=== PATIENT | female | born 1960 | race Caucasian/White ===

== ENCOUNTER 2022-02-09 13:20 | Outpatient (CLI) | payer MEDICAID, SELFPAY | END 2022-02-09 13:21 | disposition home or self-care (01) | LOC: LAB 13:22 | PROVIDERS: Visit Provider Orthopaedic Surgery | DX: Z01.818 Encounter for other preprocedural examination (principal) | CPT/HCPCS: 36415; 86850; 86900; 86901 ==

== ENCOUNTER 2022-02-11 06:30 | Day surgery (SDC) | payer MEDICAID, SELFPAY ==
[2022-02-11] VITALS (63 sets, daily range): BP systolic 94–158; BP diastolic 48–94; PULSE 56–84; RESP 12–20; TEMP 35.9–36.8; O2SAT 81–100; BMI 27.4
[2022-02-11] MEDS: LACTATED RINGERS 1000 ML 1,000 ML 100 ML IV ×2 (06:45→08:14)
[2022-02-11] MEDS: CELECOXIB 200 MG CAPSULE PO ×2 (07:00→20:36)
[2022-02-11] MEDS: OXYCODONE (CR) 10 MG TAB.ER.12H PO (07:00)
[2022-02-11] MEDS: ACETAMINOPHEN 500 MG TABLET 1000 MG PO ×3 (07:00→18:47)
--- NOTE | 2022-02-11 07:08 | CRLHL7_ITS ---
For Patients: As a result of the Cures Act, medical imaging exams and procedure reports are released immediately into your electronic medical record. You may view this report before your referring provider. If you have questions, please contact your health care provider. Indication: Hip replacement surgery Technique: AP hip fluoroscopic image. Fluoroscopy time 63.6 seconds. Findings/Impression: Hardware from a left total hip arthroplasty is in satisfactory position. Dictated by Negro Young MD @ 02/11/2022 10:54:30 AM (Electronically Signed)
[2022-02-11] MEDS: MIDAZOLAM HCL 1 MG/ML inj IVP (07:25)
[2022-02-11] MEDS: fentaNYL 100 MCG/2 ML inj IVP (07:25)
--- NOTE | 2022-02-11 07:30 | SUR.PREOP ---
TIME?OUT:?20 PT/RN/MDA?VERIFICATION?OF?SURGICAL?SITE,?PROCEDURE,?AND?CONSENT OBTAINED?PRIOR?TO?INVASIVE?PROCEDURE. SITE MARKED . COMPLETED BY DR WILMER DORMAN, BAR STAFF STUDENT DEAMBROGIO
--- NOTE | 2022-02-11 07:37 | W.PM.NB ---
Nerve Block Nerve Block Time Seen by Provider: 07:38 Date Seen: 02/11/22 Type of block requested by surgeon for post-operative analgesia: LADONNA/LFCN Side: left Time out performed: Yes Verification of patient name: Yes Verification of date of : Yes Site marking: site marked Name of person performing procedure: Brent Assistants, if any: Laurambroghaylee Continuous monitoring Was continuous monitoring of O2 sat, B/P, vehicle monitor technician, recorded every 15 minutes?: Yes Procedure Checklist: sterile prep, needles and gloves Ultrasound guided. Images saved: Yes Medications given in 5ml increments after negative aspiration: Ropivicaine %: 0.5 mL: 20 Needle gauge: 20 Decadron (mg): 10 Precedex (mcg): 25 Patient tolerated procedure well: Yes Additional comments: Needle noted adjacent to nerve Block Charges Block Charge (with Pro Fee): Other Periph Nerve Block Use of Ultrasound Machine for Block: Yes- US Guidance/pain block
[2022-02-11] MEDS: CEFAZOLIN 2 GM INJ IVP (07:55)
--- NOTE | 2022-02-11 08:30 | SUR.OPER ---
PATIENT QUESTIONS ANSWERED SATISFACTORILY PREOPERATIVELY.? PATIENT BROUGHT TO OR #3 PER CART.? Patient positioned supine on OR #3 bed.?The perioperative?team supported arms bilaterally on arm boards.? Final approval of positioning by surgeon.?
--- NOTE | 2022-02-11 08:37 | SUR.OPER ---
IRRIGATED LEFT HIP WITH 3000cc BAG NACL BY PULSE/INSPECTOR WATCH PARTS AT 08:50
--- NOTE | 2022-02-11 09:20 | PM.ORPRC ---
Procedure Note Date of procedure: 02/11/22 Procedure: SURGEON: Tremaine Emanuel MD BIOLOGICAL SCIENCES INSTRUCTOR: Masha Correia PA-C, ELISEO Pan PREOPERATIVE DIAGNOSIS: Left hip osteoarthritis POSTOPERATIVE DIAGNOSIS: Left hip osteoarthritis NAME OF OPERATION: Left total hip arthroplasty IMPLANTS: 1. [employer]ad[employer] # 52 sector ingrowth cup 2. 36 x 52 +4 neutral polyethylene 3. Actis # 5 high offset collared ingrowth stem 4. 36 + 1.5 ceramic femoral head ANESTHESIA: General ESTIMATED BLOOD LOSS: 350 cc COMPLICATIONS: None SPECIMENS: None DRAINS: None PREOPERATIVE ANTIBIOTICS: Ancef 2 grams INDICATIONS: The patient is a 61-year-old with a longstanding history of severe, unrelenting left hip pain secondary to end-stage left hip osteoarthritis. Despite appropriate nonoperative management, including activity modification, use of an assist device, anti-inflammatories, [id number] pain medication, physical therapy and injections, they continue to have pain and disability. Operative intervention was offered. The risks, benefits and expected outcomes were discussed in detail. These included but were not limited to: Infection, bleeding, injury to blood vessel or nerve, venous thromboembolism. All questions were answered to their satisfaction. Use of an medical claims assistant was necessary throughout the case for patient positioning and safety, soft tissue retraction and closure. PROCEDURE: The patient was placed supine on the [place] table. General anesthesia was administered. The medical claims assistant made sure the patient was properly positioned. The left hip was prepped and draped in the usual sterile fashion. The image intensifier was brought in for a perfect AP pelvis and a perfect double tear drop AP view of each hip which were used for intraoperative templating with our fluoroscopic guide. An oblique incision was made 3 cm distal and 3 cm lateral to the anterior superior iliac spine. The medical claims assistant retracted the soft tissues to protect them. Subcutaneous dissection was taken with electrocautery to the superficial fascia. The fascia was divided in line with the incision. Blunt dissection was carried medially to the tensor fascia ida and sartorius interval. Deep dissection was carried with electrocautery. The circumflex vessels were cauterized and divided. The capsule was exposed and then divided in a T-fashion, tagged with #1 Ethibond sutures. Retractors were placed in the joint, held by the medical claims assistant. The corkscrew was placed in the femoral head. The neck cut was made in the subcapital region. We made a second neck cut more distal. The napkin ring of bone was removed. The femoral head was removed intact. Acetabular retractors were placed, held by the medical claims assistant. The labrum was sharply debrided. The capsule was released. The 43 mm reamer was used to the true medial wall. We then enlarged in 2 mm increments using the image intensifier for our reamer placement. We impacted the cup which had excellent purchase. We placed the hole eliminator and the polyethylene. Attention was then turned to the proximal femur. The limb was placed in 140 degrees of external rotation, maximum extension and adduction. A significant amount of time was spent releasing the capsule to allow us to deliver the femur into the wound and complete the femoral side safely. Retractors were held by the medical claims assistant throughout the femoral preparation. The snuff box finisher and canal finder were used. Broaches were used to a stable size. The calcar reamer was used. Trial components were placed. The hip was reduced and was found to be stable with appropriate soft tissue tension. Length and offset had been nicely restored using the image intensifier and our fluoroscopic guide. Trial components were removed. The stem was impacted. We placed the femoral head. Again, the hip was reduced and was found to be stable with appropriate soft tissue tension. Length and offset had been nicely restored. The medical claims assistant did a three minute dilute Betadine solution soak. The medical claims assistant irrigated the wound with 3 liters of normal saline via pulse lavage. The medical claims assistant repaired the anterior capsule with a #1 Vicryl and our previously placed Ethibond sutures. The medical claims assistant closed the fascia over the tensor fascia ida with a #1 PDO Stratafix, subcutaneous tissues with 2-0 Vicryl, skin with a running 3-0 Stratafix and glue. A dry dressing was applied by the medical claims assistant. Sponge and needle counts were correct x 2. The patient tolerated the procedure well; there were no apparent complications. They were awakened and extubated in the operating room, sent to the Post-Anesthesia Care Unit in satisfactory condition. PLAN: 1. The patient will be mobilized with physical therapy, weight-bearing as tolerates 2. Xarelto x 5 days then aspirin x 30 days will be used for DVT prophylaxis 3. The patient will be discharged once medically appropriate
--- NOTE | 2022-02-11 10:05 | CRLHL7_ITS ---
For Patients: As a result of the Cures Act, medical imaging exams and procedure reports are released immediately into your electronic medical record. You may view this report before your referring provider. If you have questions, please contact your health care provider. Indication: POST OP LEFT AWAIS Technique: AP hip centered pelvis and lateral view left hip Findings/Impression: Hardware from a left total hip arthroplasty is in satisfactory position. Bone alignment is normal. No sign of acute fracture. Postop changes are within normal limits. Dictated by Negro Young MD @ 02/11/2022 10:53:44 AM (Electronically Signed)
--- NOTE | 2022-02-11 10:05 | W.ANESCHARGE ---
Anesthesia Charges Start Date/Time Anesthesia Start Date: 02/11/22 Anesthesia Start Time: 07:45 Stop Date/Time Anesthesia Stop Date: 02/11/22 Anesthesia Stop Time: 09:59 Summary Emergency: No
[2022-02-11] MEDS: fentaNYL 100 MCG/2 ML inj 50 MCG IVP ×3 (10:12→10:44)
[2022-02-11] MEDS: HYDROmorphone 0.5 mg/0.5 ml inj IVP ×5 (10:21→13:41)
--- NOTE | 2022-02-11 10:36 | W.ANESCHARGE ---
Anesthesia Charges Start Date/Time Anesthesia Start Date: 02/11/22 Anesthesia Start Time: 07:45 Stop Date/Time Anesthesia Stop Date: 02/11/22 Anesthesia Stop Time: 09:59 Summary Emergency: No
[2022-02-11] MEDS: LACTATED RINGERS 1000 ML 1,000 ML 75 ML IV (11:34)
[2022-02-11] MEDS: CEFAZOLIN 1 GM in 0.9 % SODIUM CHLORIDE Mini-bag 100 ML IVPB ×2 (13:40→20:37)
[2022-02-11] MEDS: OXYCODONE 5 MG TABLET PO ×3 (13:41→20:37)
[2022-02-11] MEDS: 0.9 % SODIUM CHLORIDE 500 ML IV (19:03)
--- NOTE | 2022-02-11 20:01 | PC.NURSE ---
Pt. arrived to rm 257 @ 1100. Pain 11/01, treated w/IV dilaudid. Brought px to 09/03. Pt. sleepy, but deep breathing as prompted. Initially on 1L O2, but titrated to room air. Up to restroom x2, low urine output (175cc in 6 hrs). Bladder scan post-void 74cc. 500cc NS bolus initiated @ 1845. Tolerating regular diet, pain controlled, moving well w/SBA and walker/belt. Pt. notes hx of anxiety, may request ativan at HS. Report to DEAN Johnson.
[2022-02-11] MEDS: SENNOSIDES 1 TAB TABLET 2 TAB PO (20:37)
--- NOTE | 2022-02-11 22:26 | PC.NURSE ---
Shift note 19-23: Pt up to BR w/ SBA of 1 and walker, moving well. Rating pain 2/10 taking 5mg PRN Oxycodone Q2h along w/ active ice to op site. L hip drsg CDI, CMS intact.
[2022-02-12] MEDS: OXYCODONE 5 MG TABLET PO ×3 (00:01→11:23)
[2022-02-12] MEDS: ZOLPIDEM 5 MG TABLET PO (00:01)
[2022-02-12 03:00] VITALS: BP 124/59; PULSE 80; RESP 18; TEMP 36.6; O2SAT 94
[2022-02-12] MEDS: ACETAMINOPHEN 500 MG TABLET 1000 MG PO ×2 (04:31→11:17)
[2022-02-12] MEDS: CEFAZOLIN 1 GM in 0.9 % SODIUM CHLORIDE Mini-bag 100 ML IVPB (04:32)
--- NOTE | 2022-02-12 06:28 | PC.NURSE ---
: Pt pleasant and cooperative. SBA with walker and gb. Pt rating pain 2/10. 5mg Ambien given at HS. Pt continually verbalized to not wake her when she finally falls asleep, junior underwriter clustered cares. VSS. Dressing CDI, active ice in place.?
[2022-02-12 06:55] LABS: Basophils Percent Auto 0.1 % (0.0-3.0); Eosinophils Percent Auto 0.2 % (0.0-7.0); Hematocrit 29.7 % (33.0-51.0); Immature Granulocytes Abs Auto 0.02 K/uL (0.00-0.30); Lymphocytes Percent Auto 9.8 % (20-44); Mean Corpuscular HGB Conc 34 gm/dL (32-36); Mean Corpuscular Hemoglobin 31 pg (26-34); Mean Corpuscular Volume 92 fL (80-100); Monocytes Percent Auto 12.2 % (0.0-11.0); Neutrophils Percent Auto 77.5 % (42.0-72.0); Platelet Count* 242 K/uL (140-440); RDW Coefficient of Variation % 12.5 % (11.5-15.5); Red Blood Count 3.22 m/uL (4.00-5.20); White Blood Count* 13.04 K/uL (4.50-11.00)
[2022-02-12 06:56] LABS: Slide Review Reflex No
[2022-02-12 07:08] LABS: Chloride* 105 mmol/L (96-114); Sodium* 136 mmol/L (135-149)
[2022-02-12 07:09] LABS: Potassium* 4.2 mmol/L (3.6-5.1)
[2022-02-12 07:11] LABS: Carbon Dioxide* 29 mmol/L (20-32); Creatinine* 0.8 mg/dL (0.5-1.5); Est. Creatinine Clearance* 65.38; Estimated Glomerular Filt Rate 85 ml/min
[2022-02-12 07:12] LABS: Blood Urea Nitrogen* 13 mg/dL (7-30); Calcium* 8.2 mg/dL (8.4-10.6); Glucose* 137 mg/dL (60-115)
[2022-02-12 08:00] VITALS: BP 141/70; PULSE 76; RESP 16; TEMP 36.4; O2SAT 96
--- NOTE | 2022-02-12 08:45 | PM.ORPN ---
Subjective Subjective Time Seen by Provider: 07:30 Date Seen: 02/12/22 Principal diagnosis: Status post left hip replacement Interval history: Ailyn is comfortable at rest this morning. Ortho Exam Narrative Exam Narrative: Alert and oriented x3. Patient is in no acute distress. Converses without labored breathing. Hearing is grossly intact. Examination of the left hip shows very minimal soft tissue edema. Dressing is intact. CMS intact left lower extremity. Bilateral calves soft and nontender. Const Vital Signs, click to edit/add: Vital Signs - 24 hr 02/11/22 09:58 02/11/22 10:00 02/11/22 10:02 Temperature 98.2 F 98.2 F Pulse Rate 74 72 67 Pulse Rate [Apical] Respiratory Rate 18 Blood Pressure 158/71 H 158/71 H 127/63 Blood Pressure [Left Arm] Pulse Oximetry 97 95 91 02/11/22 10:05 02/11/22 10:06 02/11/22 10:10 Temperature Pulse Rate 70 64 64 Pulse Rate [Apical] Respiratory Rate 14 14 Blood Pressure 123/79 123/79 133/80 Blood Pressure [Left Arm] Pulse Oximetry 98 100 100 02/11/22 10:11 02/11/22 10:12 02/11/22 10:13 Temperature Pulse Rate 71 68 67 Pulse Rate [Apical] Respiratory Rate Blood Pressure 133/80 Blood Pressure [Left Arm] Pulse Oximetry 97 94 95 02/11/22 10:14 02/11/22 10:15 02/11/22 10:16 Temperature Pulse Rate 67 66 65 Pulse Rate [Apical] Respiratory Rate Blood Pressure Blood Pressure [Left Arm] Pulse Oximetry 98 100 100 02/11/22 10:17 02/11/22 10:18 02/11/22 10:19 Temperature Pulse Rate 63 64 66 Pulse Rate [Apical] Respiratory Rate Blood Pressure 147/82 H Blood Pressure [Left Arm] Pulse Oximetry 100 100 100 02/11/22 10:20 02/11/22 10:21 02/11/22 10:22 Temperature 97.4 F L Pulse Rate 65 64 62 Pulse Rate [Apical] Respiratory Rate Blood Pressure 131/66 143/63 H Blood Pressure [Left Arm] Pulse Oximetry 99 100 99 02/11/22 10:23 02/11/22 10:24 02/11/22 10:25 Temperature Pulse Rate 62 58 L 60 Pulse Rate [Apical] Respiratory Rate Blood Pressure Blood Pressure [Left Arm] Pulse Oximetry 99 98 94 02/11/22 10:26 02/11/22 10:27 02/11/22 10:28 Temperature Pulse Rate 63 61 59 L Pulse Rate [Apical] Respiratory Rate Blood Pressure 114/55 L Blood Pressure [Left Arm] Pulse Oximetry 100 100 100 02/11/22 10:29 02/11/22 10:30 02/11/22 10:31 Temperature Pulse Rate 61 61 63 Pulse Rate [Apical] Respiratory Rate Blood Pressure 112/48 L Blood Pressure [Left Arm] Pulse Oximetry 100 100 100 02/11/22 10:32 02/11/22 10:33 02/11/22 10:34 Temperature Pulse Rate 65 64 64 Pulse Rate [Apical] Respiratory Rate Blood Pressure Blood Pressure [Left Arm] Pulse Oximetry 100 100 100 02/11/22 10:35 02/11/22 10:36 02/11/22 10:37 Temperature Pulse Rate 63 63 62 Pulse Rate [Apical] Respiratory Rate Blood Pressure 131/68 Blood Pressure [Left Arm] Pulse Oximetry 99 99 100 02/11/22 10:38 02/11/22 10:39 02/11/22 10:40 Temperature Pulse Rate 61 65 65 Pulse Rate [Apical] Respiratory Rate Blood Pressure Blood Pressure [Left Arm] Pulse Oximetry 100 100 100 02/11/22 10:41 02/11/22 10:42 02/11/22 10:43 Temperature Pulse Rate 68 65 65 Pulse Rate [Apical] Respiratory Rate Blood Pressure 115/66 Blood Pressure [Left Arm] Pulse Oximetry 100 100 100 02/11/22 10:44 02/11/22 10:45 02/11/22 10:46 Temperature Pulse Rate 60 58 L 58 L Pulse Rate [Apical] Respiratory Rate Blood Pressure 111/60 Blood Pressure [Left Arm] Pulse Oximetry 100 100 100 02/11/22 10:47 02/11/22 10:48 02/11/22 10:49 Temperature Pulse Rate 56 L 56 L 62 Pulse Rate [Apical] Respiratory Rate Blood Pressure Blood Pressure [Left Arm] Pulse Oximetry 100 100 100 02/11/22 10:50 02/11/22 10:52 02/11/22 11:00 Temperature 97.8 F 97 F L Pulse Rate 62 57 L 81 Pulse Rate [Apical] 81 Respiratory Rate 12 16 Blood Pressure 104/48 L Blood Pressure [Left Arm] 94/65 Pulse Oximetry 100 100 99 02/11/22 11:15 02/11/22 11:30 02/11/22 11:45 Temperature Pulse Rate Pulse Rate [Apical] 84 83 82 Respiratory Rate 16 16 16 Blood Pressure Blood Pressure [Left Arm] 129/94 H 100/58 L 112/63 Pulse Oximetry 100 96 95 02/11/22 12:00 02/11/22 12:30 02/11/22 13:00 Temperature 97.2 F L 97.2 F L Pulse Rate Pulse Rate [Apical] 78 64 66 Respiratory Rate 16 16 16 Blood Pressure Blood Pressure [Left Arm] 110/56 L 113/52 L 113/64 Pulse Oximetry 81 L 95 97 02/11/22 13:30 02/11/22 15:18 02/11/22 16:00 Temperature 97.3 F L 97.4 F L Pulse Rate Pulse Rate [Apical] 67 69 68 Respiratory Rate 16 16 16 Blood Pressure Blood Pressure [Left Arm] 114/66 110/66 125/63 Pulse Oximetry 97 98 97 02/11/22 19:30 02/11/22 23:00 02/12/22 03:00 Temperature 96.6 F L 97.8 F 97.8 F Pulse Rate Pulse Rate [Apical] 71 69 80 Respiratory Rate 18 18 18 Blood Pressure Blood Pressure [Left Arm] 126/71 126/71 124/59 L Pulse Oximetry 98 96 94 Assessment and Plan Assessment and plan (1) S/P total left hip arthroplasty: Status: Acute Plan Plan for discharge is today to home if they meet discharge criteria. DVT prophylaxis includes Xarelto 10 mg daily for total of 5 days, then aspirin 81 mg twice daily for 30 days, Rich stockings x1 month may remove for 1 hr per day, frequent ambulation Remove dressing 1 week. Observe wound and phone Orthopedics with any questions or concerns Use Ice on operative hip unrestricted. Return to clinic in 1 week with PA for a wound check Return to clinic in [address] Emanuel Minimize narcotic use. Wean off and discontinue soon as possible. Activities as tolerated. No strenuous activity. Attend outpt PT
--- NOTE | 2022-02-12 09:12 | P.DS_ITS ---
DS: Providers Provider Date Seen: 02/12/22 Primary care physician: Not a Local Provider Consults: 02/11/22 11:21 Consult to Occupational Therapy [CONS] Routine Comment: Reason(s) for OT Consult:: ADLs Prior to Discharge Any Restrictions?:: No Restrictions Comment: Consult to Occupational Therapy [CONS] Routine Comment: Reason(s) for OT Consult:: Evaluate and Treat Any Restrictions?:: No Restrictions Consult to Physical Therapy [CONS] Routine Comment: Ambulate in the navarro today Reason(s) for PT Consult:: Evaluate and Treat Any Restrictions?:: No Restrictions Comment: Nursing Activity Consult to Physical Therapy [CONS] Routine Comment: Ambulate in the navarro today Reason(s) for PT Consult:: THR TX Protocol POD#0 Any Restrictions?:: No Restrictions Comment: Nursing Activity: See nursing activity order Consult to Physician [CONS] Routine Comment: Consulting Provider: Hospitalists Has provider been notified: No Consult to Line Analyst [CONS] Routine Comment: Reason for Consult:: Discharge Planning Needs Consult to Line Analyst [CONS] Routine Comment: Reason for Consult:: Discharge Planning Needs Attending Physician on discharge: Tremaine Emanuel MD DS: Diagnosis Discharge Diagnosis (1) S/P total left hip arthroplasty: Status: Acute DS: Summary Hospital Course Hospital Course: Patient is a 61-year-old woman who was admitted underwent left total hip arthroplasty. She recovered well there were no complications patient is discharged home this time. Time Spent with Patient Time attestation: Total time spent providing and/or coordinating discharge services: Exam Const: Vital Signs, click to edit/add: Vital Signs - 24 hr 02/11/22 09:58 02/11/22 10:00 02/11/22 10:02 Temperature 98.2 F 98.2 F Pulse Rate 74 72 67 Pulse Rate [Apical ] Respiratory Rate 18 Blood Pressure 158/71 H 158/71 H 127/63 Blood Pressure [Le ft Arm] Pulse Oximetry 97 95 91 02/11/22 10:05 02/11/22 10:06 02/11/22 10:10 Temperature Pulse Rate 70 64 64 Pulse Rate [Apical ] Respiratory Rate 14 14 Blood Pressure 123/79 123/79 133/80 Blood Pressure [Le ft Arm] Pulse Oximetry 98 100 100 02/11/22 10:11 02/11/22 10:12 02/11/22 10:13 Temperature Pulse Rate 71 68 67 Pulse Rate [Apical ] Respiratory Rate Blood Pressure 133/80 Blood Pressure [Le ft Arm] Pulse Oximetry 97 94 95 02/11/22 10:14 02/11/22 10:15 02/11/22 10:16 Temperature Pulse Rate 67 66 65 Pulse Rate [Apical ] Respiratory Rate Blood Pressure Blood Pressure [Le ft Arm] Pulse Oximetry 98 100 100 02/11/22 10:17 02/11/22 10:18 02/11/22 10:19 Temperature Pulse Rate 63 64 66 Pulse Rate [Apical ] Respiratory Rate Blood Pressure 147/82 H Blood Pressure [Le ft Arm] Pulse Oximetry 100 100 100 02/11/22 10:20 02/11/22 10:21 02/11/22 10:22 Temperature 97.4 F L Pulse Rate 65 64 62 Pulse Rate [Apical ] Respiratory Rate Blood Pressure 131/66 143/63 H Blood Pressure [Le ft Arm] Pulse Oximetry 99 100 99 02/11/22 10:23 02/11/22 10:24 02/11/22 10:25 Temperature Pulse Rate 62 58 L 60 Pulse Rate [Apical ] Respiratory Rate Blood Pressure Blood Pressure [Le ft Arm] Pulse Oximetry 99 98 94 02/11/22 10:26 02/11/22 10:27 02/11/22 10:28 Temperature Pulse Rate 63 61 59 L Pulse Rate [Apical ] Respiratory Rate Blood Pressure 114/55 L Blood Pressure [Le ft Arm] Pulse Oximetry 100 100 100 02/11/22 10:29 02/11/22 10:30 02/11/22 10:31 Temperature Pulse Rate 61 61 63 Pulse Rate [Apical ] Respiratory Rate Blood Pressure 112/48 L Blood Pressure [Le ft Arm] Pulse Oximetry 100 100 100 02/11/22 10:32 02/11/22 10:33 02/11/22 10:34 Temperature Pulse Rate 65 64 64 Pulse Rate [Apical ] Respiratory Rate Blood Pressure Blood Pressure [Le ft Arm] Pulse Oximetry 100 100 100 02/11/22 10:35 02/11/22 10:36 02/11/22 10:37 Temperature Pulse Rate 63 63 62 Pulse Rate [Apical ] Respiratory Rate Blood Pressure 131/68 Blood Pressure [Le ft Arm] Pulse Oximetry 99 99 100 02/11/22 10:38 02/11/22 10:39 02/11/22 10:40 Temperature Pulse Rate 61 65 65 Pulse Rate [Apical ] Respiratory Rate Blood Pressure Blood Pressure [Le ft Arm] Pulse Oximetry 100 100 100 02/11/22 10:41 02/11/22 10:42 02/11/22 10:43 Temperature Pulse Rate 68 65 65 Pulse Rate [Apical ] Respiratory Rate Blood Pressure 115/66 Blood Pressure [Le ft Arm] Pulse Oximetry 100 100 100 02/11/22 10:44 02/11/22 10:45 02/11/22 10:46 Temperature Pulse Rate 60 58 L 58 L Pulse Rate [Apical ] Respiratory Rate Blood Pressure 111/60 Blood Pressure [Le ft Arm] Pulse Oximetry 100 100 100 02/11/22 10:47 02/11/22 10:48 02/11/22 10:49 Temperature Pulse Rate 56 L 56 L 62 Pulse Rate [Apical ] Respiratory Rate Blood Pressure Blood Pressure [Le ft Arm] Pulse Oximetry 100 100 100 02/11/22 10:50 02/11/22 10:52 02/11/22 11:00 Temperature 97.8 F 97 F L Pulse Rate 62 57 L 81 Pulse Rate [Apical ] 81 Respiratory Rate 12 16 Blood Pressure 104/48 L Blood Pressure [Le ft Arm] 94/65 Pulse Oximetry 100 100 99 02/11/22 11:15 02/11/22 11:30 02/11/22 11:45 Temperature Pulse Rate Pulse Rate [Apical ] 84 83 82 Respiratory Rate 16 16 16 Blood Pressure Blood Pressure [Le ft Arm] 129/94 H 100/58 L 112/63 Pulse Oximetry 100 96 95 02/11/22 12:00 02/11/22 12:30 02/11/22 13:00 Temperature 97.2 F L 97.2 F L Pulse Rate Pulse Rate [Apical ] 78 64 66 Respiratory Rate 16 16 16 Blood Pressure Blood Pressure [Le ft Arm] 110/56 L 113/52 L 113/64 Pulse Oximetry 81 L 95 97 02/11/22 13:30 02/11/22 15:18 02/11/22 16:00 Temperature 97.3 F L 97.4 F L Pulse Rate Pulse Rate [Apical ] 67 69 68 Respiratory Rate 16 16 16 Blood Pressure Blood Pressure [Le ft Arm] 114/66 110/66 125/63 Pulse Oximetry 97 98 97 02/11/22 19:30 02/11/22 23:00 02/12/22 03:00 Temperature 96.6 F L 97.8 F 97.8 F Pulse Rate Pulse Rate [Apical ] 71 69 80 Respiratory Rate 18 18 18 Blood Pressure Blood Pressure [Le ft Arm] 126/71 126/71 124/59 L Pulse Oximetry 98 96 94 DS: Data Data Completed and Pending Labs on day of discharge: Labs from last 24 hours 02/12/22 02/12/22 05:57 05:57 WBC 13.04 H RBC 3.22 L Hgb 10.0 L Hct 29.7 L MCV 92 MCH 31 MCHC 34 RDW Coeff of Kristofer 12.5 Plt Count 242 Neut % (Auto) 77.5 H Lymph % (Auto) 9.8 L [place] % (Auto) 12.2 H Eos % (Auto) 0.2 Baso % (Auto) 0.1 Neut # (Auto) 10.10 H Lymph # (Auto) 1.30 [place] # (Auto) 1.60 H Eos # (Auto) 0.00 Baso # (Auto) 0.00 Abs Immat Gran (auto) 0.02 Sodium 136 Potassium 4.2 Chloride 105 Carbon Dioxide 29 BUN 13 Creatinine 0.8 Estimated Creat Clear 65.38 Estimated GFR 85 Glucose 137 H Calcium 8.2 L Discharge Plan Discharge Disposition: Home, Self-Care Discharging Surgeon: Tremaine Emanuel Follow-Up Appointment: One week Prescriptions: New acetaminophen 500 mg Tablet 500 - 1,000 mg PO Q6H MDD 4000 mg per day PRNQty: 100 0RF oxycodone 5 mg Tablet 2.5 - 5 mg PO Q4-6H MDD 6 tabs per day PRN (Reason: Pain) Qty: 42 0RF Rx Instructions: Minimize. Discontinue soon as possible Xarelto 10 mg Tablet 10 mg PO DAILY 4 Days Qty: 4 0RF Rx Instructions: For DVT prophylaxis: Take this medication daily for 4 days, then aspirin 81 mg twice daily for 30 days. sennosides [Senna Lax] 8.6 mg Tablet 2 tab PO BID PRNQty: 100 0RF aspirin 81 mg tablet,chewable 81 mg PO BID 30 Days Qty: 60 0RF No Action buspirone 30 mg tablet 30 mg PO BID 0RF aripiprazole 2 mg tablet 2 mg PO DAILY 0RF calcium carbonate-vitamin D3 [Oysco 500/D] 500 mg-5 mcg (200 unit) tablet 1 tab PO BID 0RF cetirizine 10 mg capsule 10 mg PO DAILY PRN0RF duloxetine 60 mg capsule,delayed release(DR/EC) 120 mg PO DAILY 0RF famotidine 20 mg tablet 20 mg PO BID 0RF Rx Instructions: take for 90 days fluticasone propionate [Allergy Relief (fluticasone)] 50 mcg/actuation spray,suspension 1 spray intranasal DAILY 0RF Rx Instructions: administer into each nostril gabapentin 300 mg capsule 300 mg PO DAILY 0RF hydrocodone-acetaminophen 5-325 mg tablet 1 tab PO DAILY PRN (Reason: pain) 0RF lorazepam 0.5 mg tablet 0.5 mg PO DAILY 0RF omeprazole 20 mg capsule,delayed release(DR/EC) 20 mg PO DAILY 0RF rizatriptan 10 mg tablet 10 mg PO Q2-4H PRN0RF Rx Instructions: do not exceed 3 doses per 24 hrs zolpidem 10 mg tablet HS 0RF Activity Level: Activity as Tolerated Activity Detail: Keep dressing on for 1 week. Dressing is waterproof. May shower. Surgical glue covers the wound. Attend outpatient physical therapy if scheduled. Ice operative extremity without restriction. Wear compression stockings for 1 month post surgery. May remove for 1 hour per day. Do not drive while taking narcotic pain medication. Do not drink alcohol while taking narcotic pain medication. May drive when safe to do so and have full function of the extremities, this may take 6 weeks. Notify Orthopedics with any questions or concerns. ([phone]) Discharge Diet: Regular Forms: Work/Release Restrictions Follow-up: [facility] [Other] - 02/18/22 1:00 pm Kimmy Neff PA-C [Physician Clinical Documentation Improvement Specialist] - 02/18/22 11:20 am Provider,Not a Local [Primary Care Provider] - Discharge Orders: Discharge Order (Routine); Ordered 02/12/22 Ordered By: Long Mullen
[2022-02-12] MEDS: RIVAROXABAN 10 MG TABLET PO (09:36)
[2022-02-12] MEDS: CELECOXIB 200 MG CAPSULE PO (09:36)
[2022-02-12] MEDS: SENNOSIDES 1 TAB TABLET 2 TAB PO (09:37)
--- NOTE | 2022-02-12 14:13 | PC.NURSE ---
shift note: vss stable. pt afeb. pt rating lt hip pain as high as 8/10 but with oxycodone and tylenol given pt states pain 3-4/10 by dc. pt up with sba with steady gait. cms intact. incision drsg intact. Reviewed dc instructions and questions addressed. IV dc'd intact Rt wrist. Belongings reviewed and sent with pt at dc. Reviewed with pt s/s of dvt. Reviewed with pt to keep using IS, teds and doing exercises as instructed.
== END 2022-02-12 13:15 | disposition home or self-care (01) ==
LOC: OR 06:39 → MEDSURG 06:45
PROVIDERS: Visit Provider Orthopaedic Surgery
PROC: (CPT 27130; principal; 2022-02-11 07:45)
DX: M16.12 Unilateral primary osteoarthritis, left hip (principal); I10 Essential (primary) hypertension; J44.9 Chronic obstructive pulmonary disease, unspecified; M51.36 Other intervertebral disc degeneration, lumbar region; M54.16 Radiculopathy, lumbar region; M43.10 Spondylolisthesis, site unspecified
CPT/HCPCS: 27130; 01214; 36415; 51798; 64445; 73501; 76000; 76942; 80048; 85025; 97110; 97116; 97161; 97165; A9270; C1776; J0330; J0690; J1100; J1170; J2250; J2370; J2405; J2704; J2710; J2795; J3010; J3490; J7120

== ENCOUNTER 2022-03-04 13:00 | Outpatient (RCR) | payer MEDICAID, SELFPAY ==
--- NOTE | 2022-02-11 12:40 | P.IMCN_ITS ---
Date of Consult Patient: Tramaine Patient Requesting Physician: Orthopedics Consult Narrative Reason for consult: Left total hip arthroplasty Narrative: Ailyn Barrett is a 61 year old female who underwent successful left total hip arthroplasty earlier this morning. She feels well and has had no major concerns since her procedure. I have reviewed her outpatient records. Review of Systems Status of ROS: Reports: 10 or more systems reviewed and unremarkable except as noted in History and below [facility] Medical History (Updated 02/09/22 @ 13:22 by Lito Lemos RN) Adenomatous colon polyp Chronic fatigue syndrome Controlled substance agreement signed COPD (chronic obstructive pulmonary disease) DDD (degenerative disc disease), lumbar Encounter for screening for severe acute respiratory syndrome coronavirus 2 (SARS-CoV-2) infection Epiretinal membrane (ERM), bilateral Essential (primary) hypertension Fibromyalgia JONY (generalized anxiety disorder) HSV-1 (herpes simplex virus 1) infection MDD (major depressive disorder) 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 [facility] drug therapy Panic disorder without agoraphobia Presbyopia Regular astigmatism, bilateral Rosacea, unspecified Social anxiety disorder Spondylolisthesis Unspecified contact dermatitis, unspecified cause Surgical History (Updated 02/11/22 @ 12:43 by Long Mullen MD) S/P total left hip arthroplasty Family History (Updated 01/13/22 @ 10:24 by Jessica Hewitt) Other Diabetes Social History (Updated 01/13/22 @ 10:25 by Jessica Hewitt) Narrative: Marital Status: 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 Alcohol Use: Yes (1 X MONTH) Recreational Drug Use: No Highest level of school completed/degree received: Bachelor's degree Smoking Status: Never smoker Do you use any of these nicotine containing products: None How often do you have a drink containing alcohol: 2-4 times a month Alcohol type: wine How many standard drinks containing alcohol do you have on a typical day: 1 or 2 How often do you have six or more drinks on one occasion: Never AUDIT-C Alcohol total score: 2 Non-prescribed substance use: denies use Caffeine: No Meds Home Medications and Allergies Home Medications Medication Instructions Recorded Confirmed Type aripiprazole 2 mg tablet 2 mg PO DAILY 02/09/22 02/09/22 History buspirone 30 mg tablet 30 mg PO BID 02/09/22 02/11/22 History calcium carbonate 500 mg-vitamin 1 tab PO BID 02/09/22 02/11/22 History D3 5 mcg (200 unit) tablet (Oysco 500/D) cetirizine 10 mg capsule 10 mg PO DAILY PRN 02/09/22 02/11/22 History duloxetine 60 mg capsule,delayed 120 mg PO DAILY 02/09/22 02/11/22 History release famotidine 20 mg tablet 20 mg PO BID 02/09/22 02/11/22 History fluticasone propionate 50 1 spray INTRANASAL DAILY 02/09/22 02/11/22 History mcg/actuation nasal spray,suspension (Allergy Relief (fluticasone)) gabapentin 300 mg capsule 300 mg PO DAILY 02/09/22 02/11/22 History hydrocodone 5 mg-acetaminophen 325 1 tab PO DAILY PRN 02/09/22 02/11/22 History mg tablet lorazepam 0.5 mg tablet 0.5 mg PO DAILY 02/09/22 02/11/22 History omeprazole 20 mg capsule,delayed 20 mg PO DAILY 02/09/22 02/11/22 History release rizatriptan 10 mg tablet 10 mg PO Q2-4H PRN 02/09/22 02/09/22 History zolpidem 10 mg tablet mg HS 02/09/22 History Allergies Allergy/AdvReac Type Severity Reaction Status Date / Time codeine Allergy Unknown Vomiting Verified 02/11/22 07:21 metoclopramide AdvReac Intermediate Anxiety Verified 02/11/22 07:21 Exam Narrative: Exam Narrative: EXAM GENERAL: Patient appears comfortable and well. EYES: No scleral icterus. LYMPH: No supraclavicular or cervical lymphadenopathy. SKIN: Visible skin seen during exam normal or with benign process only. EXT: No dependent lower extremity pedal edema. Left hip is sterilely dressed. HEART: Regular rate and rhythm with no murmurs, rubs, or gallops. LUNGS: Clear to auscultation bilaterally with no crackles or wheezes. ABD: Soft, non tender, non distended. PSYCH: Good eye contact, speech is not pressured. Assessment and Plan Assessment and plan (1) S/P total left hip arthroplasty: Status: Acute Plan I have reviewed the patient's records. She has history of hypertension, generalized anxiety disorder fibromyalgia but no other major obstacles to her recovery. Will continue medical management and plan to see her back for discharge tomorrow for things go well. She is to be a full code. She is receiving adequate DVT prophylaxis.
== END 2022-03-18 14:04 | disposition home or self-care (01) ==
PROVIDERS: Visit Provider Orthopaedic Surgery
DX: M25.552 Pain in left hip (principal); Z96.642 Presence of left artificial hip joint; Z51.89 Encounter for other specified aftercare
CPT/HCPCS: 97110; 97164

== ENCOUNTER 2022-03-04 15:57 | Emergency (ER) | payer MEDICAID, SELFPAY ==
[2022-03-04 16:15] VITALS: BP 161/88; PULSE 63; RESP 14; TEMP 37.1; O2SAT 97; BMI 25.5
--- NOTE | 2022-03-04 16:44 | ED.PSYCH ---
HPI - Psych General Time Seen by Provider: 16:44 <Mary Cassidy MD - Last Filed: 03/04/22 19:41> Date Seen: 03/04/22 <Mary Cassidy MD - Last Filed: 03/04/22 19:41> Chief Complaint: Psychiatric Problem/Disorder <Mary Cassidy MD - Last Filed: 03/04/22 19:41> Stated Complaint: DEPRESSION-Psychiatrist recommended ER <Mary Cassidy MD - Last Filed: 03/04/22 19:41> Time Seen by Provider: 03/04/22 15:59 <Mary Cassidy MD - Last Filed: 03/04/22 19:41> Source: patient and RN notes reviewed <Mary Cassidy MD - Last Filed: 03/04/22 19:41> Mode of arrival: ambulatory <Mary Cassidy MD - Last Filed: 03/04/22 19:41> Limitations: no limitations <Mary Cassidy MD - Last Filed: 03/04/22 19:41> History of Present Illness HPI Narrative: This tearful and anxious 61-year-old female is here for mental health evaluation. She is feeling anxious and depressed. She admits that she thinks about taking pills to end her life. She also admits she is not sure she ever really do it but states she is miserable and just does not want to be here anymore. She states she fucked up her life. She states about a year ago she bought a house, the same time her hip when out and she ended up having to have a subsequent hip replacement. 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 She has been on Cymbalta and BuSpar for anxiety. She states her psychiatrist added in gabapentin about a week ago. She talks about her brother's having to help her financially, breaks down into tears when she thinks about having to lose her house. She has a daughter in college but bite her daughter husky and states she did not really want the dog. Her brother's recommend that she rented trailer at this park in the summer and then 1 of their cabins in the winter, the thought of that just makes her cry. She admits that the only way she got to the last week is drinking wine. She did not have any more wine yesterday, ran out. She is wondering if she could be withdrawing from Vicodin. She is to use Vicodin for her fibromyalgia but admits that it made her feel more calm inside in gave her confidence. She would at most take 1 or 2 pills a day. She just randomly quit in December and did not take anymore. She is wondering if she could still be in withdrawal from the Vicodin. I have reviewed with her that if she is sure she has not taken any since the beginning of December, she really should not have physiologic dependence on this any further. She uses Ambien to sleep, has a 10 mg tablet, tries to cut in half so she does not become dependent on this. She has sleep issues if she does not use it. She has used some Ativan. She talks about ruminating thoughts of all these social stressors in her head. Her psychiatrist had wanted her to come in a week ago but she thought she could maybe get by. <Mary Cassidy MD - Last Filed: 03/04/22 19:41> MD complaint: suicidal ideation, feels depressed and other (Significant anxiety) <Mary Cassidy MD - Last Filed: 03/04/22 19:41> Related Data Home Medications: Home Medications Medication Instructions Recorded Confirmed buspirone 30 mg tablet 30 mg PO BID 02/09/22 03/04/22 calcium carbonate 500 mg-vitamin 1 tab PO BID 02/09/22 02/18/22 D3 5 mcg (200 unit) tablet (Oysco 500/D) cetirizine 10 mg capsule 10 mg PO DAILY PRN 02/09/22 02/18/22 duloxetine 60 mg capsule,delayed 120 mg PO DAILY 02/09/22 03/04/22 release famotidine 20 mg tablet 20 mg PO BID 02/09/22 02/18/22 fluticasone propionate 50 1 spray intranasal DAILY 02/09/22 02/18/22 mcg/actuation nasal spray,suspension (Allergy Relief (fluticasone)) hydrocodone 5 mg-acetaminophen 325 1 tab PO DAILY PRN pain 02/09/22 02/18/22 mg tablet lorazepam 0.5 mg tablet 0.5 mg PO DAILY 02/09/22 02/18/22 rizatriptan 10 mg tablet 10 mg PO Q2-4H PRN 02/09/22 03/04/22 zolpidem 10 mg tablet mg HS 02/09/22 02/18/22 gabapentin 300 mg capsule mg 03/04/22 Previous Rx's Medication Instructions Recorded acetaminophen 500 mg tablet 500 - 1,000 mg PO Q6H PRN #100 tabs 02/11/22 aspirin 81 mg chewable tablet 81 mg PO BID 30 days #60 tabs 02/11/22 rivaroxaban 10 mg tablet (Xarelto) 10 mg PO DAILY 4 days #4 tabs 02/11/22 sennosides 8.6 mg tablet (Senna 2 tab PO BID PRN #100 tabs 02/11/22 Lax) ondansetron HCl 4 mg tablet 4 mg PO Q6H PRN nausea and 02/18/22 vomiting #40 tabs oxycodone 5 mg tablet 2.5 - 5 mg PO Q4-6H PRN Pain #30 02/18/22 tabs <Mary Cassidy MD - Last Filed: 03/04/22 19:41> Allergies/Adverse Reactions: Allergies Allergy/AdvReac Type Severity Reaction Status Date / Time codeine Allergy Unknown Vomiting Verified 02/11/22 07:21 metoclopramide AdvReac Intermediate Anxiety Verified 02/11/22 07:21 <Mary Cassidy MD - Last Filed: 03/04/22 19:41> Review of Systems Status of ROS: Reports: 10 or more systems reviewed and unremarkable except as noted in History and below <Mary Cassidy MD - Last Filed: 03/04/22 19:41> [facility] Medical History: Medical History Adenomatous colon polyp Chronic fatigue syndrome Controlled substance agreement signed COPD (chronic obstructive pulmonary disease) DDD (degenerative disc disease), lumbar Encounter for screening for severe acute respiratory syndrome coronavirus 2 (SARS-CoV-2) infection Epiretinal membrane (ERM), bilateral Essential (primary) hypertension Fibromyalgia JONY (generalized anxiety disorder) HSV-1 (herpes simplex virus 1) infection MDD (major depressive disorder) 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 Panic disorder without agoraphobia Presbyopia Regular astigmatism, bilateral Rosacea, unspecified Social anxiety disorder Spondylolisthesis Unspecified contact dermatitis, unspecified cause <Mary Cassidy MD - Last Filed: 03/04/22 19:41> Surgical History: Surgical History S/P total left hip arthroplasty <Mary Cassidy MD - Last Filed: 03/04/22 19:41> Family History: Family History Other Diabetes <Mary Cassidy MD - Last Filed: 03/04/22 19:41> Social History: Social History Narrative: Marital Status: 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 Alcohol Use: Yes (1 X MONTH) Recreational Drug Use: No Highest level of school completed/degree received: Bachelor's degree Smoking Status: Never smoker Do you use any of these nicotine containing products: None How often do you have a drink containing alcohol: 2-4 times a month Alcohol type: wine How many standard drinks containing alcohol do you have on a typical day: 1 or 2 How often do you have six or more drinks on one occasion: Never AUDIT-C Alcohol total score: 2 Non-prescribed substance use: denies use Caffeine: No <Mary Cassidy MD - Last Filed: 03/04/22 19:41> Exam Const: Vital Signs, click to edit/add: Vital Signs - 24 hr 03/04/22 16:15 03/04/22 22:00 Temperature 98.7 F 98.4 F Pulse Rate [Pulse Oximeter] 63 66 Respiratory Rate 14 18 Blood Pressure [Ri ght Upper Arm] 161/88 H 131/77 Pulse Oximetry 97 98 Oxygen Delivery Me thod Room Air Room Air <Mary Cassidy MD - Last Filed: 03/04/22 19:41> Vital Signs, click to edit/add: Vital Signs - 24 hr 03/04/22 16:15 03/04/22 22:00 Temperature 98.7 F 98.4 F Pulse Rate [Pulse Oximeter] 63 66 Respiratory Rate 14 18 Blood Pressure [Ri ght Upper Arm] 161/88 H 131/77 Pulse Oximetry 97 98 Oxygen Delivery Me thod Room Air Room Air <Benigno Espinoza MD - Last Filed: 03/05/22 00:00> Documenting provider has reviewed patient's vital signs: yes <Mary Cassidy MD - Last Filed: 03/04/22 19:41> Common normals: average body habitus, oriented x3, no limitations, healthy appearing and alert <Mary Cassidy MD - Last Filed: 03/04/22 19:41> General appearance: cooperative, comfortable, well kempt, in distress (Crying, anxious at times as well.) and anxious <Mary Cassidy MD - Last Filed: 03/04/22 19:41> HENMT: Common normals: normocephalic, head/scalp atraumatic, hearing grossly normal bilaterally, external ears normal, external nose normal, nasal mucous membranes and turbinates normal, moist oral mucous membranes, oropharynx normal, dentition normal and gingiva normal <Mary Cassidy MD - Last Filed: 03/04/22 19:41> Head and scalp: normocephalic and atraumatic <Mary Cassidy MD - Last Filed: 03/04/22 19:41> Nose: external nose normal and nasal mucous membranes and turbinates normal <Mary Cassidy MD - Last Filed: 03/04/22 19:41> External ear: external ears normal <Mary Cassidy MD - Last Filed: 03/04/22 19:41> Eye: Common normals: PERRL, EOMs intact bilaterally, conjunctivae normal and no scleral icterus <Mary Cassidy MD - Last Filed: 03/04/22 19:41> Conjunctiva: conjunctiva(e) normal <Mary Cassidy MD - Last Filed: 03/04/22 19:41> Pupil: PERRL <Mary Cassidy MD - Last Filed: 03/04/22 19:41> Neck & C-Spine: Common normals: full ROM, no lymphadenopathy, supple, no meningeal signs, no JVD and thyroid normal <Mary Cassidy MD - Last Filed: 03/04/22 19:41> Thyroid: thyroid normal <Mary Cassidy MD - Last Filed: 03/04/22 19:41> Resp: Common normals: normal respiratory effort, no retractions, no use of accessory muscles and clear to auscultation bilaterally <Mary Cassidy MD - Last Filed: 03/04/22 19:41> Auscultation: clear to auscultation bilaterally <Mary Cassidy MD - Last Filed: 03/04/22 19:41> Cardio: Common normals: no JVD, regular rate, regular rhythm, S1 normal heart sound, S2 normal heart sound, no gallops and no clicks <Mary Cassidy MD - Last Filed: 03/04/22 19:41> Rate: regular rate <Mary Cassidy MD - Last Filed: 03/04/22 19:41> Rhythm: regular rhythm <Mary Cassidy MD - Last Filed: 03/04/22 19:41> Heart sounds: S1 normal, S2 normal and murmur (Soft 1 to 2/6 systolic murmur) <Mary Cassidy MD - Last Filed: 03/04/22 19:41> GI: Common normals: Normal to inspection, nondistended, normoactive bowel sounds present, soft to palpation, non-tender, no hepatosplenomegaly and no masses <Mary Cassidy MD - Last Filed: 03/04/22 19:41> Palpation: soft and no hepatosplenomegaly <Mary Cassidy MD - Last Filed: 03/04/22 19:41> Extremity: Common normals: normal to inspection, full ROM, normal capillary refill, no joint enlargement, no clubbing, cyanosis or edema, no calf tenderness and no pedal edema (Has bilateral lower extremity Rich hose on) <Mary Cassidy MD - Last Filed: 03/04/22 19:41> Neuro: James Coma Scale: document GCS findings [place] coma scale eye opening: Spontaneous (4) [place] coma scale verbal response: Orientated (5) [place] coma scale motor response: Obey commands (6) [place] coma scale total score: 15 <Mary Cassidy MD - Last Filed: 03/04/22 19:41> Jmaes Coma Scale: document GCS findings [place] coma scale total score: 15 <Benigno Espinoza MD - Last Filed: 03/05/22 00:00> Common normals: oriented x3, CN's II-XII intact bilaterally, moves all extremities, no focal motor deficits and no sensory deficits noted <Mary Cassidy MD - Last Filed: 03/04/22 19:41> Sensorium/orientation: alert <Mary Cassidy MD - Last Filed: 03/04/22 19:41> Meningeal signs: no meningeal signs <Mary Cassidy MD - Last Filed: 03/04/22 19:41> Psych: Common normals: thought process normal (At times normal thought process to more racing occas), cooperative, denies hallucinations and denies homicidal ideation <Mary Cassidy MD - Last Filed: 03/04/22 19:41> Appearance: grossly normal and well kempt <Mary Cassidy MD - Last Filed: 03/04/22 19:41> Activity/motor behavior: appropriate eye contact <Mary Cassidy MD - Last Filed: 03/04/22 19:41> Speech: excessive and rapid <Mary Cassidy MD - Last Filed: 03/04/22 19:41> Mood and affect: depressed mood and anxious <Mary Cassidy MD - Last Filed: 03/04/22 19:41> Thought process: normal thought process (At times normal thought process to more racing occas) <Mary Cassidy MD - Last Filed: 03/04/22 19:41> Attention/concentration: attention grossly intact <Mary Cassidy MD - Last Filed: 03/04/22 19:41> Memory/cognition: memory grossly intact <Mary Cassidy MD - Last Filed: 03/04/22 19:41> Insight: insight good <Mary Cassidy MD - Last Filed: 03/04/22 19:41> Skin: Common normals: no rashes or lesions noted <Mary Cassidy MD - Last Filed: 03/04/22 19:41> General skin exam: no rashes or lesions noted <Mary Cassidy MD - Last Filed: 03/04/22 19:41> Course Course Hospital Course: Have ordered appropriate lab work, will do telehealth consultation. I reviewed with Ailyn that I do not feel that this is a withdrawal issue from narcotics if she indeed has not had any since the beginning of December. This more likely is mental health issues with mood disorder. Do wonder if the alcohol as well as the Vicodin have been being used to mask some of her mood disorder symptoms. I have spoken with Ward from telehealth who will be doing her interview. Will await his input and her labs. <aMry Cassidy MD - Last Filed: 03/04/22 19:41> Reevaluation(s) Reevaluation #1: Have already heard back from Ward regarding the telehealth consultation. He states she is ?a basket case?, these are her words. He is going to refer her for inpatient. She has access to medicines at home. She also has a gun at home but states she does not like them. He feels it would be safest for her to do inpatient to try to help sort this out. We will await our laboratory evaluation to come back, I am going to give her Ativan 1 mg orally to try to help calm her down a bit. Ward asked if we could do this. If Ativan isn't helping, we can consider some Zyprexa or possibly even hydroxyzine depending on how her symptoms are. <Mary Cassidy MD - Last Filed: 03/04/22 19:41> Time: 17:40 <Mary Cassidy MD - Last Filed: 03/04/22 19:41> Reevaluation #2: Patient had requested to talk to me. We reviewed that Ward had recommended hospitalization, also recommended that she take Ativan. She started to get more anxious about the hospitalization process, realizing that we had to work to find placement. Reviewed with her that sometimes it can take us a day or so in most cases for hospitalization. She wanted to know what would happen if she disc decided to leave. I reviewed with her at this point that I did not feel safe with her doing that, I really think she needs clearance from psychiatry. I do believe this patient is holdable if need be. She still maintains voluntary status here which is preferable. I would much rather try to work with her and have her see the necessity of getting a psychiatric help for her condition. She does agree to take the Ativan. I have ordered 1 mg orally. <Mary Cassidy MD - Last Filed: 03/04/22 19:41> Time: 18:40 <Mary Cassidy MD - Last Filed: 03/04/22 19:41> Vital Signs Vital signs: Initial Vital Signs Temperature 98.7 F 03/04/22 16:15 Temperature Source Temporal Artery Scan 03/04/22 16:15 Pulse Rate 63 03/04/22 16:15 Pulse Rhythm 03/04/22 16:15 Respiratory Rate 14 03/04/22 16:15 Blood Pressure 161/88 H 03/04/22 16:15 Blood Pressure Mean 112 03/04/22 16:15 Blood Pressure Position Supine 03/04/22 16:15 Pulse Oximetry 97 03/04/22 16:15 Oxygen Delivery Method 03/04/22 16:15 Vital Signs Temperature 98.7 F 03/04/22 16:15 Pulse Rate 63 03/04/22 16:15 Respiratory Rate 14 03/04/22 16:15 Blood Pressure 161/88 H 03/04/22 16:15 Pulse Oximetry 97 03/04/22 16:15 Oxygen Delivery Method 03/04/22 16:15 Temperature 98.4 F 03/04/22 22:00 Pulse Rate 66 03/04/22 22:00 Respiratory Rate 18 03/04/22 22:00 Blood Pressure 131/77 03/04/22 22:00 Pulse Oximetry 98 03/04/22 22:00 Oxygen Delivery Method 03/04/22 22:00 <Mary Cassidy MD - Last Filed: 03/04/22 19:41> Initial Vital Signs Temperature 98.7 F 03/04/22 16:15 Temperature Source Temporal Artery Scan 03/04/22 16:15 Pulse Rate 63 03/04/22 16:15 Pulse Rhythm 03/04/22 16:15 Respiratory Rate 14 03/04/22 16:15 Blood Pressure 161/88 H 03/04/22 16:15 Blood Pressure Mean 112 03/04/22 16:15 Blood Pressure Position Supine 03/04/22 16:15 Pulse Oximetry 97 03/04/22 16:15 Oxygen Delivery Method 03/04/22 16:15 Vital Signs Temperature 98.7 F 03/04/22 16:15 Pulse Rate 63 03/04/22 16:15 Respiratory Rate 14 03/04/22 16:15 Blood Pressure 161/88 H 03/04/22 16:15 Pulse Oximetry 97 03/04/22 16:15 Oxygen Delivery Method 03/04/22 16:15 Temperature 98.4 F 03/04/22 22:00 Pulse Rate 66 03/04/22 22:00 Respiratory Rate 18 03/04/22 22:00 Blood Pressure 131/77 03/04/22 22:00 Pulse Oximetry 98 03/04/22 22:00 Oxygen Delivery Method 03/04/22 22:00 <Benigno Espinoza MD - Last Filed: 03/05/22 00:00> MDM - Psych Lab Data Attestation: I reviewed the patient's lab results. <Mary Cassidy MD - Last Filed: 03/04/22 19:41> Labs: Lab Results 03/04/22 03/04/22 03/04/22 Range/Units 16:51 16:51 16:51 WBC (4.50-11.00) K/uL RBC (4.00-5.20) m/uL Hgb (12.0-16.0) gm/dL Hct (33.0-51.0) % MCV (80-100) fL MCH (26-34) pg MCHC (32-36) gm/dL RDW Coeff of [place] (11.5-15.5) % Plt Count (140-440) K/uL Neut % (Auto) (42.0-72.0) % Lymph % (Auto) (20-44) % [place] % (Auto) (0.0-11.0) % Eos % (Auto) (0.0-7.0) % Baso % (Auto) (0.0-3.0) % Neut # (Auto) (1.7-7.0) K/uL Lymph # (Auto) (0.90-2.90) K/uL [place] # (Auto) (0.00-0.90) K/UL Eos # (Auto) (0.00-0.50) K/uL Baso # (Auto) (0.00-0.30) K/uL Abs Immat Gran (auto) (0.00-0.30) K/uL Sodium (135-149) mmol/L Potassium (3.6-5.1) mmol/L Chloride (96-114) mmol/L Carbon Dioxide (20-32) mmol/L BUN (7-30) mg/dL Creatinine (0.5-1.5) mg/dL Estimated Creat Clear Estimated GFR ml/min Glucose (60-115) mg/dL Calcium (8.4-10.6) mg/dL TSH (0.270-4.20) uIU/mL Urine Color Yellow (Yellow) Urine Appearance Clear (Clear) Urine pH 7.0 (5.0-8.5) Ur Specific [place] 1.020 (1.000-1.030) Urine Protein Negative (Negative) Urine Glucose (UA) Negative (Negative) Urine Ketones Negative (Negative) Urine Blood Negative (Negative) Urine Nitrite Negative (Negative) Urine Bilirubin Negative (Negative) Urine Urobilinogen 0.2 (0.2-1.0) Ur Leukocyte Esterase 1+ A (Negative) Urine RBC 0-2 (0-2) Urine WBC 2-5 (0-5) Ur Squamous Epith Cells Few (None-Few) Urine Bacteria None (None) Salicylates (1.0-10) mg/dL Urine Opiates Screen Negative (Negative) Ur Oxycodone Screen Negative (Negative) Urine Methadone Screen Negative (Negative) Ur Propoxyphene Screen Negative (Negative) Acetaminophen (10.0-30.0) ug/mL Ur Barbiturates Screen Negative (Negative) U Tricyclic Antidepress Negative (Negative) Ur Phencyclidine Scrn Negative (Negative) Ur Amphetamines Screen Negative (Negative) U Methamphetamines Scrn Negative (Negative) U Benzodiazepines Scrn Negative (Negative) Urine Cocaine Screen Negative (Negative) U Marijuana (THC) Screen Negative (Negative) Ur Drug Screen Comment See Note Ethyl Alcohol (0.01-0.03) % SARS-CoV-2 (PCR) Negative SARS-CoV-2 (Negative) 03/04/22 03/04/22 03/04/22 Range/Units 16:52 16:52 16:52 WBC 9.50 (4.50-11.00) K/uL RBC 4.10 (4.00-5.20) m/uL Hgb 12.7 (12.0-16.0) gm/dL Hct 38.0 (33.0-51.0) % MCV 93 (80-100) fL MCH 31 (26-34) pg MCHC 33 (32-36) gm/dL RDW Coeff of [place] 13.2 (11.5-15.5) % Plt Count 492 H (140-440) K/uL Neut % (Auto) 69.1 (42.0-72.0) % Lymph % (Auto) 20.2 (20-44) % [place] % (Auto) 9.4 (0.0-11.0) % Eos % (Auto) 0.6 (0.0-7.0) % Baso % (Auto) 0.2 (0.0-3.0) % Neut # (Auto) 6.56 (1.7-7.0) K/uL Lymph # (Auto) 1.92 (0.90-2.90) K/uL [place] # (Auto) 0.90 (0.00-0.90) K/UL Eos # (Auto) 0.06 (0.00-0.50) K/uL Baso # (Auto) 0.02 (0.00-0.30) K/uL Abs Immat Gran (auto) 0.05 (0.00-0.30) K/uL Sodium 139 (135-149) mmol/L Potassium 4.1 (3.6-5.1) mmol/L Chloride 103 (96-114) mmol/L Carbon Dioxide 30 (20-32) mmol/L BUN 12 (7-30) mg/dL Creatinine 0.7 (0.5-1.5) mg/dL Estimated Creat Clear 77.87 Estimated GFR 100 ml/min Glucose 116 H (60-115) mg/dL Calcium 9.4 (8.4-10.6) mg/dL TSH 0.745 (0.270-4.20) uIU/mL Urine Color (Yellow) Urine Appearance (Clear) Urine pH (5.0-8.5) Ur Specific [place] (1.000-1.030) Urine Protein (Negative) Urine Glucose (UA) (Negative) Urine Ketones (Negative) Urine Blood (Negative) Urine Nitrite (Negative) Urine Bilirubin (Negative) Urine Urobilinogen (0.2-1.0) Ur Leukocyte Esterase (Negative) Urine RBC (0-2) Urine WBC (0-5) Ur Squamous Epith Cells (None-Few) Urine Bacteria (None) Salicylates < 1.0 L (1.0-10) mg/dL Urine Opiates Screen (Negative) Ur Oxycodone Screen (Negative) Urine Methadone Screen (Negative) Ur Propoxyphene Screen (Negative) Acetaminophen < 10.0 L (10.0-30.0) ug/mL Ur Barbiturates Screen (Negative) U Tricyclic Antidepress (Negative) Ur Phencyclidine Scrn (Negative) Ur Amphetamines Screen (Negative) U Methamphetamines Scrn (Negative) U Benzodiazepines Scrn (Negative) Urine Cocaine Screen (Negative) U Marijuana (THC) Screen (Negative) Ur Drug Screen Comment Ethyl Alcohol < 0.01 L (0.01-0.03) % SARS-CoV-2 (PCR) (Negative) <Mary Cassidy MD - Last Filed: 03/04/22 19:41> Lab Results 03/04/22 03/04/22 03/04/22 Range/Units 16:51 16:51 16:51 WBC (4.50-11.00) K/uL RBC (4.00-5.20) m/uL Hgb (12.0-16.0) gm/dL Hct (33.0-51.0) % MCV (80-100) fL MCH (26-34) pg MCHC (32-36) gm/dL RDW Coeff of [place] (11.5-15.5) % Plt Count (140-440) K/uL Neut % (Auto) (42.0-72.0) % Lymph % (Auto) (20-44) % [place] % (Auto) (0.0-11.0) % Eos % (Auto) (0.0-7.0) % Baso % (Auto) (0.0-3.0) % Neut # (Auto) (1.7-7.0) K/uL Lymph # (Auto) (0.90-2.90) K/uL [place] # (Auto) (0.00-0.90) K/UL Eos # (Auto) (0.00-0.50) K/uL Baso # (Auto) (0.00-0.30) K/uL Abs Immat Gran (auto) (0.00-0.30) K/uL Sodium (135-149) mmol/L Potassium (3.6-5.1) mmol/L Chloride (96-114) mmol/L Carbon Dioxide (20-32) mmol/L BUN (7-30) mg/dL Creatinine (0.5-1.5) mg/dL Estimated Creat Clear Estimated GFR ml/min Glucose (60-115) mg/dL Calcium (8.4-10.6) mg/dL TSH (0.270-4.20) uIU/mL Urine Color Yellow (Yellow) Urine Appearance Clear (Clear) Urine pH 7.0 (5.0-8.5) Ur Specific [place] 1.020 (1.000-1.030) Urine Protein Negative (Negative) Urine Glucose (UA) Negative (Negative) Urine Ketones Negative (Negative) Urine Blood Negative (Negative) Urine Nitrite Negative (Negative) Urine Bilirubin Negative (Negative) Urine Urobilinogen 0.2 (0.2-1.0) Ur Leukocyte Esterase 1+ A (Negative) Urine RBC 0-2 (0-2) Urine WBC 2-5 (0-5) Ur Squamous Epith Cells Few (None-Few) Urine Bacteria None (None) Salicylates (1.0-10) mg/dL Urine Opiates Screen Negative (Negative) Ur Oxycodone Screen Negative (Negative) Urine Methadone Screen Negative (Negative) Ur Propoxyphene Screen Negative (Negative) Acetaminophen (10.0-30.0) ug/mL Ur Barbiturates Screen Negative (Negative) U Tricyclic Antidepress Negative (Negative) Ur Phencyclidine Scrn Negative (Negative) Ur Amphetamines Screen Negative (Negative) U Methamphetamines Scrn Negative (Negative) U Benzodiazepines Scrn Negative (Negative) Urine Cocaine Screen Negative (Negative) U Marijuana (THC) Screen Negative (Negative) Ur Drug Screen Comment See Note Ethyl Alcohol (0.01-0.03) % SARS-CoV-2 (PCR) Negative SARS-CoV-2 (Negative) 03/04/22 03/04/22 03/04/22 Range/Units 16:52 16:52 16:52 WBC 9.50 (4.50-11.00) K/uL RBC 4.10 (4.00-5.20) m/uL Hgb 12.7 (12.0-16.0) gm/dL Hct 38.0 (33.0-51.0) % MCV 93 (80-100) fL MCH 31 (26-34) pg MCHC 33 (32-36) gm/dL RDW Coeff of [place] 13.2 (11.5-15.5) % Plt Count 492 H (140-440) K/uL Neut % (Auto) 69.1 (42.0-72.0) % Lymph % (Auto) 20.2 (20-44) % [place] % (Auto) 9.4 (0.0-11.0) % Eos % (Auto) 0.6 (0.0-7.0) % Baso % (Auto) 0.2 (0.0-3.0) % Neut # (Auto) 6.56 (1.7-7.0) K/uL Lymph # (Auto) 1.92 (0.90-2.90) K/uL [place] # (Auto) 0.90 (0.00-0.90) K/UL Eos # (Auto) 0.06 (0.00-0.50) K/uL Baso # (Auto) 0.02 (0.00-0.30) K/uL Abs Immat Gran (auto) 0.05 (0.00-0.30) K/uL Sodium 139 (135-149) mmol/L Potassium 4.1 (3.6-5.1) mmol/L Chloride 103 (96-114) mmol/L Carbon Dioxide 30 (20-32) mmol/L BUN 12 (7-30) mg/dL Creatinine 0.7 (0.5-1.5) mg/dL Estimated Creat Clear 77.87 Estimated GFR 100 ml/min Glucose 116 H (60-115) mg/dL Calcium 9.4 (8.4-10.6) mg/dL TSH 0.745 (0.270-4.20) uIU/mL Urine Color (Yellow) Urine Appearance (Clear) Urine pH (5.0-8.5) Ur Specific [place] (1.000-1.030) Urine Protein (Negative) Urine Glucose (UA) (Negative) Urine Ketones (Negative) Urine Blood (Negative) Urine Nitrite (Negative) Urine Bilirubin (Negative) Urine Urobilinogen (0.2-1.0) Ur Leukocyte Esterase (Negative) Urine RBC (0-2) Urine WBC (0-5) Ur Squamous Epith Cells (None-Few) Urine Bacteria (None) Salicylates < 1.0 L (1.0-10) mg/dL Urine Opiates Screen (Negative) Ur Oxycodone Screen (Negative) Urine Methadone Screen (Negative) Ur Propoxyphene Screen (Negative) Acetaminophen < 10.0 L (10.0-30.0) ug/mL Ur Barbiturates Screen (Negative) U Tricyclic Antidepress (Negative) Ur Phencyclidine Scrn (Negative) Ur Amphetamines Screen (Negative) U Methamphetamines Scrn (Negative) U Benzodiazepines Scrn (Negative) Urine Cocaine Screen (Negative) U Marijuana (THC) Screen (Negative) Ur Drug Screen Comment Ethyl Alcohol < 0.01 L (0.01-0.03) % SARS-CoV-2 (PCR) (Negative) <Benigno Espinoza MD - Last Filed: 03/05/22 00:00> Discharge Plan Discharge Clinical Impression: Depression with suicidal ideation, Anxiety <Mary Cassidy MD - Last Filed: 03/04/22 19:41> Patient Disposition: Xfer [facility] <Mary Cassidy MD - Last Filed: 03/04/22 19:41> Prescriptions: No Action oxycodone 5 mg tablet 2.5 - 5 mg PO Q4-6H MDD 6 tabs per day PRN (Reason: Pain) Qty: 30 0RF Rx Instructions: Minimize. Discontinue soon as possible ondansetron HCl 4 mg tablet 4 mg PO Q6H PRN (Reason: nausea and vomiting) Qty: 40 0RF buspirone 30 mg tablet 30 mg PO BID calcium carbonate-vitamin D3 [Oysco 500/D] 500 mg-5 mcg (200 unit) tablet 1 tab PO BID cetirizine 10 mg capsule 10 mg PO DAILY PRN duloxetine 60 mg capsule,delayed release(DR/EC) 120 mg PO DAILY famotidine 20 mg tablet 20 mg PO BID Rx Instructions: take for 90 days fluticasone propionate [Allergy Relief (fluticasone)] 50 mcg/actuation spray,suspension 1 spray intranasal DAILY Rx Instructions: administer into each nostril hydrocodone-acetaminophen 5-325 mg tablet 1 tab PO DAILY PRN (Reason: pain) lorazepam 0.5 mg tablet 0.5 mg PO DAILY rizatriptan 10 mg tablet 10 mg PO Q2-4H PRN Rx Instructions: do not exceed 3 doses per 24 hrs zolpidem 10 mg tablet HS acetaminophen 500 mg Tablet 500 - 1,000 mg PO Q6H MDD 4000 mg per day PRNQty: 100 0RF Xarelto 10 mg Tablet 10 mg PO DAILY 4 Days Qty: 4 0RF Rx Instructions: For DVT prophylaxis: Take this medication daily for 4 days, then aspirin 81 mg twice daily for 30 days. sennosides [Senna Lax] 8.6 mg Tablet 2 tab PO BID PRNQty: 100 0RF aspirin 81 mg tablet,chewable 81 mg PO BID 30 Days Qty: 60 0RF gabapentin 300 mg capsule <Mary Cassidy MD - Last Filed: 03/04/22 19:41> Stand Alone Forms: MyHealth Info Instructions <Mary Cassidy MD - Last Filed: 03/04/22 19:41>
[2022-03-04 17:00] LABS: Basophils Absolute Auto 0.02 K/uL (0.00-0.30); Basophils Percent Auto 0.2 % (0.0-3.0); Eosinophils Absolute Auto 0.06 K/uL (0.00-0.50); Eosinophils Percent Auto 0.6 % (0.0-7.0); Hemoglobin* 12.7 gm/dL (12.0-16.0); Immature Granulocytes Abs Auto 0.05 K/uL (0.00-0.30); Lymphocytes Absolute Auto 1.92 K/uL (0.90-2.90); Lymphocytes Percent Auto 20.2 % (20-44); Mean Corpuscular HGB Conc 33 gm/dL (32-36); Mean Corpuscular Hemoglobin 31 pg (26-34); Mean Corpuscular Volume 93 fL (80-100); Monocytes Percent Auto 9.4 % (0.0-11.0); Neutrophils Absolute Auto 6.56 K/uL (1.7-7.0); Neutrophils Percent Auto 69.1 % (42.0-72.0); Platelet Count* 492 K/uL (140-440); RDW Coefficient of Variation % 13.2 % (11.5-15.5)
[2022-03-04 17:04] LABS: Amphetamine Screen Urine Negative (Negative); Barbiturate Screen Urine Negative (Negative); Benzodiazepines Screen Urine Negative (Negative); Cannabinoid Screen Urine Negative (Negative); Cocaine Screen Urine Negative (Negative); Methadone Screen Urine Negative (Negative); Methamphetamines Screen Urine Negative (Negative); Opiate Screen Urine Negative (Negative); Phencyclidine Screen Urine Negative (Negative); Tricyclic Antidepressant Urine Negative (Negative)
[2022-03-04 17:05] LABS: Oxycodone Screen Urine Negative (Negative)
[2022-03-04 17:07] LABS: Slide Review Reflex No
[2022-03-04 17:08] LABS: Appearance Urine Clear (Clear); Bilirubin Urine Negative (Negative); Blood Urine Negative (Negative); Color Urine Yellow (Yellow); Glucose Urine Negative (Negative); Ketones Urine Negative (Negative); Leukocyte Esterase Urine 1+ (Negative); Nitrite Urine Negative (Negative); Protein Urine Negative (Negative); Urobilinogen Urine 0.2 (0.2-1.0)
[2022-03-04 17:16] LABS: Chloride* 103 mmol/L (96-114); Sodium* 139 mmol/L (135-149)
[2022-03-04 17:17] LABS: Potassium* 4.1 mmol/L (3.6-5.1)
[2022-03-04 17:19] LABS: Carbon Dioxide* 30 mmol/L (20-32); Creatinine* 0.7 mg/dL (0.5-1.5); Est. Creatinine Clearance* 77.87; Estimated Glomerular Filt Rate 100 ml/min
[2022-03-04 17:20] LABS: Blood Urea Nitrogen* 12 mg/dL (7-30); Calcium* 9.4 mg/dL (8.4-10.6); Glucose* 116 mg/dL (60-115)
[2022-03-04 17:38] LABS: RBC Urine 0-2 (0-2); Squamous Epithelial Cell Urine Few (None-Few)
[2022-03-04 17:41] LABS: Acetaminophen* < 10.0 ug/mL (10.0-30.0); Salicylate* < 1.0 mg/dL (1.0-10)
[2022-03-04 18:03] LABS: Thyroid Stimulating Hormone* 0.745 uIU/mL (0.270-4.20)
[2022-03-04 18:09] LABS: SARS PCR* Negative SARS-CoV-2 (Negative)
[2022-03-04] MEDS: LORazepam 1 MG TABLET PO (18:47)
--- OUTSIDE RECORDS SUMMARY | 2022-03-04 18:59 | XMS_ITS ---
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 26259030 multinodular goiter Problem Benign I10 Active 91020474 hypertension Problem Fibromyalgia M79.7 Active 4664668 05 Problem Chronic pain G89.4 Active 9852553 06 syndrome Problem Migraine, G43.909 Active 74524476 unspecified, not intractable, without status migrainosus Problem Rosacea L71.9 Active 877432095 Problem HNP (herniated M51.26 Active 70571 007 nucleus pulposus), lumbar Problem Chronic fatigue R53.82 Active 5270 2002 syndrome Problem Moderately severe F33.2 Active 72 4203777 recurrent major depression Problem Mild persistent J45.30 Active 7078 41195 asthma without complication Problem Insomnia, G47.00 Active 427307354 unspecified type Problem Seasonal allergies J30.2 Active 4 33477378 Problem History of Z86.39 Active 284053633 hyperglycemia Problem Acute insomnia G47.00 Active ALLERGIES Substance Reaction Event Type Date Status Codeine Sulfate nausea/vomiting Drug Allergy Jan, Active Ambien Unknown Drug Allergy Jan, Active Reglan edgy Drug Allergy Jan, Active ENCOUNTERS Encounter Location Date Diagnosis [facility] 20[address] [facility], Jan, Lazaro. [address] [place], [place] [id number] [facility] 2024 [facility], Jan, Lazaro. [address] [place], [place] [id number] [facility] [address] Jan, [facility] [id number] [address] Dec, 2021 [place] [id number] [address] Dec, Moderately s evere recurrent [facility], major depre ssion F33.2 ; [place] [id number] Fibromyalgia M79 .7 ; Chronic pain syndrome G8 9.4 and History of COVID -[address] Dec, 2021 [facility] [id number] [address] Dec, [place], [place] [id number] [facility] [address]24 [facility], Dec, [address]. [address] [place], [place] [id number] [address] Dec, [place] [id number] [address] Dec, Encounter fo r other [facility], preprocedur al examination [place] [id number] Z01.818 ; Chroni c pain syndrome G89.4 ; Fibromyalgia M79.7 ; Mild per sistent asthma without complica tion J45.30 and Insomnia, un specified type G47.[address] Dec, Coffee groun d emesis K92.0 ; [facility], Chronic raffaele n syndrome G89.4 [place] [id number] and Fibromyalgia M79.[address] Sep, [place] [id number] [address] Sep, HNP (herniat ed nucleus [facility], pulposus), lumbar M51.26 ; [place] [id number] Medication monit oring encounter Z51.81 ; Benign hypertension I10 and History of hyperglycemia Z86.[address] Aug, 2021 [place] [id number] [address] Aug, [facility] [id number] [facility] [address] [facility] Jul, Chronic pain syndrome G89.4 ; [facility], Fibromyalgi a M79.7 and HNP [place] [id number] (herniated nucle us pulposus), lumbar M51.26 [facility] [address] [facility] Jul, [facility], [place] [id number] [facility] [address] Jun, Chronic pain syndrome G89.4 [facility] [id number] [facility] [address] [place] [address] Jun, [facility] [id number] [facility] [address] Jun, Eczema of nohemi th hands L30.9 and [facility], Lumbago due to displacement of [place] [id number] intervertebral d isc M51.[address] [address] Jun, Chronic pain syndrome G89.4 [facility], and Fibromy algia M79.7 [place] [id number] [facility] [address] Apr, Chronic pain syndrome G89.4 [facility], and Fibromy algia M79.7 [place] [id number] [facility] [address] Mar, Insomnia, un specified type [facility], G47.00 and Left hip pain [place] 125[address]104 M25.[address] [address] Mar, [facility], [place] [id number] [facility] [address] Feb, Insomnia, un specified type [facility], G47.00 [place] [id number] [facility] [address] Jan, Seasonal all ergies J30.2 ; [facility], Fibromyalgi a M79.7 and Chronic [place] [id number] pain syndrome G8 9.4 [facility] [address] [facility] Dec, Insomnia, un specified type [facility], G47.00 and Left hip pain [place] [id number] M25.[address] [address] November, Insomnia, un specified type [facility], G47.00 [place] [id number] [facility] [address] [facility] November, [facility] [id number] [facility] [address] [facility] Oct, Chronic pain syndrome G89.4 ; [facility], Fibromyalgi a M79.7 and Left [place] [id number] hip pain M25.[address] Sep, [facility], [place] [id number] [facility] 2024 [facility], Jul, Gastro-e sophageal reflux [place]aro. [address] [place], [place] disease wit hout esophagitis [id number] K21.9 and Chroni c pain syndrome G89.4 [facility] [address] [facility] Jul, Gastro-esoph ageal reflux [facility], disease wit hout esophagitis [place] [id number] K21.9 ; Chronic pain syndrome G89.4 and Fibrom yalgia M79.7 [facility] [address] [facility] Jul, [facility], [place] [id number] [facility] [address] Jun, Fibromyalgia M79.7 and Anxiety [facility], 300.00 [place] [id number] [facility] [address] May, Fibromyalgia M79.7 and Anxiety [facility], 300.00 [place] [id number] [facility] [address] Apr, Fibromyalgia M79.7 ; Chronic [facility], pain syndro me G89.4 and Screen [place] [id number] for colon cancer Z12.[address] Feb, Chronic pain syndrome G89.4 [facility], and Fibromy algia M79.7 [place] [id number] [facility] [address] Dec, Fibromyalgia M79.7 [facility] [id number] [facility] [address] Dec, Fibromyalgia M79.7 ; Chronic [facility], fatigue syn drome R53.82 and [place] [id number] Sebaceous cyst L 72.3 [facility] [address] [place] [address] Oct, ASTHMA NOS 4 93.90 [facility], [place] [id number] [facility] [address] Oct, [facility] [id number] [place] [address] [employer] Sep, Screening fo r diabetes [facility], mellitus Z1 3.1 ; [place], [place] [id number] lipid Z13.220 ; Migraine, unspecified, not intractable, without status m igrainosus G43.909 ; Chroni c pain syndrome G89.4 ; Fibromyalgia M79.7 ; Nontoxic multinodular goiter E04.2 ; H istory of hyperglycemia Z8 6.39 and Viral URI J06.9 [facility] [address] [employer] Aug, [facility] [id number] [facility] [employer] Jul, Trochanteric bursitis, left [facility], hip M70.62 ; Chronic pain [place] [id number] syndrome G89.4 a nd Fibromyalgia M79 .7 [facility] [employer] May, [facility] [id number] [facility] [employer] May, Chronic pain syndrome G89.4 ; [facility], Fibromyalgi a M79.7 ; Seasonal [place] [id number] allergies J30.2 ; Left hip pain M25.552 and Benign hypertension I10 [facility] [employer] Apr, [facility] [id number] [facility] [employer] Feb, Chronic pain syndrome G89.4 ; [facility], Heart murmu r R01.1 ; Colon [place] [id number] cancer screening Z12.11 and Trochanteric bur sitis, left hip M70.62 [facility] [address] [employer] Dec, [facility] [id number] [facility] [employer] Oct, Acute right ankle pain M25.571 [facility], ; Chronic p ain syndrome G89.4 [place] [id number] and Fibromyalgia M79.7 [facility] [address] [employer] Sep, [facility] [id number] [facility] [employer] Aug, Chronic pain syndrome G89.4 ; [facility], Benign hype rtension I10 ; [place] [id number] Nontoxic multino dular goiter E04.2 ; Mild per sistent asthma without complica tion J45.30 and Fibromyalgia M79.7 [facility] [address] [employer] May, Adult genera l medical exam [facility], Z00.00 ; Fi bromyalgia M79.7 ; [place] [id number] Chronic pain syn drome G89.4 ; Benign hypertens ion I10 ; Family history o f breast cancer Z80.3 and Rosacea L71.9 [facility] [address] [employer] 14 Feb, 2018 Fibromyalgia M79.7 and Chronic [facility], pain syndro me G89.4 [place] [id number] [facility] [employer] Jan, [facility] [id number] [facility] [employer] November, Chronic pain syndrome G89.4 ; [facility], Fibromyalgi a M79.7 and [place] [id number] Insomnia, unspec ified type G47.00 [facility] [employer] Oct, Benign hyper tension I10 [facility], [place] [id number] [facility] [employer] Aug, Diarrhea of infectious origin [facility], A09 ; Famil y history of [place] 7[address]35[address] thyroid disease Z83.49 ; Snoring R06.83 ; Insomnia, unspecified type G47.00 ; Generalized hype rhidrosis R61 ; Encounter for immunization Z23 ; Chronic pa in syndrome G89.4 and Fibrom yalgia M79.7 [facility] [employer] 05 Jun, 2017 Chronic pain syndrome G89.4 ; [facility], Insomnia, u nspecified type [place] [id number] G47.00 ; Benign hypertension I10 and Fibromya lgia M79.7 [facility] [employer] 07 Mar, 2017 Adult genera l medical exam [facility], Z00.00 ; Ro utine gynecological [place] [id number] examination Z01. 419 ; Chronic pain syndrome G8 9.4 ; Fibromyalgia M79 .7 ; Insomnia, unspecified type G47.00 ; Screening for br east cancer Z12.31 and Scree everett for venereal disease Z11.3 [facility] [employer] Feb, [facility] [id number] [facility] [place] [facility] [address] [employer] Dec, Benign hyper tension I10 ; [facility], Fibromyalgi a M79.7 ; Chronic [place] [id number] fatigue syndrome R53.82 ; Chronic pain syn drome G89.4 ; Migraine, unspec ified, not intractable, wit hout status migrainosus G43. 909 and Rosacea L71.9 [facility] [address] Dec, Fibromyalgia M79.7 [facility] [id number] [facility] [address] November, [place] [id number] [facility] [address] [facility] Sep, [facility] [id number] [facility] [address] [facility] Sep, Fibromyalgia M79.7 and Mild [facility], persistent asthma without [place] [id number] complication J45 .30 [facility] [address] [facility] Jun, Fibromyalgia M79.7 and Acne, [facility], unspecified acne type L70.9 [place] [id number] [facility] [address] Jun, [facility] [id number] [facility] [address] [facility] Jun, [facility] [address] [facility] [address] [facility] May, [facility] [id number] [facility] [address] [facility] Mar, Painful skin lesion L98.9 [facility] [place] [id number] [facility] [address] Mar, Painful skin lesion L98.9 and [facility], Dermatofibr rolando D23.9 [place] [id number] [facility] [address] Mar, [facility] [address] [facility] [address] Mar, [facility] [id number] [facility] [address] Mar, [facility] [id number] [facility] [address] Feb, [facility] [id number] [facility] [address] [facility] Jan, [facility] [id number] [facility] [address] [employer] Jan, [facility] [id number] [facility] [address] Jan, Encounter fo r other [facility], preprocedur al examination [place] [id number] Z01.818 ; Benign hypertension I10 ; Fibromyalg ia M79.7 ; Chronic fatigue syndrome R53.82 ; Mild pe rsistent asthma without c omplication J45.30 and Painf ul tongue K14.6 [facility] [address] [employer] Dec, [facility] [id number] [facility] [address] [employer] Dec, [facility] [id number] [facility] [address] [employer] November, [facility] [id number] [facility] [address] [employer] Sep, [facility] [id number] [facility] [address] [employer] Sep, [place] [id number] [facility] [address] [employer] Sep, Radicular lo w back pain M54.10 [facility], ; Benign hy pertension I10 ; [place] [id number] Fibromyalgia M79 .7 ; Chronic fatigue syndrome R53.82 ; Cough R05 and Mi ld persistent asthma without c omplication J45.30 [facility] [address] [employer] Aug, [facility] [id number] [facility] [address] [employer] Aug, [place] [id number] [facility] [address] Jun, [place] [id number] [facility] [address] [employer] Apr, Fibromyalgia 729.1 [place] [address] [facility] [address] [employer] Mar, Adult genera l medical exam [facility], V70.9 ; JESSICA D [Gastroesophageal [place] [id number] reflux disease] 530.81 ; Visit for gynecologic examination V72.31 ; Fibromy algia 729.1 ; Hypertension 401 .9 and Contraception ma nagement V25.9 [facility] [address] [employer] Feb, [facility] [address] [facility] [address] [employer] November, [facility] [address] [facility] [address] [facility] Sep, [facility] [address] [facility] [address] [facility] Aug, Essential hy pertension, benign [facility], 401.1 ; Mix ed hyperlipidemia [place] [id number] 272.2 ; Fibromya lgia 729.1 ; Migraine 346.90 and ASTHMA NOS 493.90 [facility] [address] [facility] Aug, [facility] [id number] [facility] [address] [facility] Jul, [facility] [id number] [facility] [address] May, [facility] [id number] [facility] [address] May, [place] [address] [facility] [place] [address] [facility] May, [place] [address] [facility] [address] Apr, [place] [id number] [facility] [address] Apr, [place] [address] [facility] [address] Apr, [facility] [address] [facility] [address] Mar, [facility] [id number] [facility] [address] Feb, Hypertension 401.9 [place] [address] [facility] [address] [facility] Jan, [place] [id number] [facility] [address] Jan, ROUTINE MEDI ASIF EXAM V70.0 ; [facility], ROUTINE MORTAR WORKER EXAMINATION V72.31 [place] [id number] ; ASTHMA NOS 493 .90 ; Chronic pain 338.29 ; Mi graine 346.90 ; Hyperlipidemia LDL goal < 130 272.4 ; Scre ening for diabetes mellitu s (DM) V77.1 ; Anxiety 300.00 ; Hypertension 401.9 and Sweati ng 780.8 [facility] [address] [facility] Dec, [place] [id number] [facility] [address] [facility] Dec, [place] [address] [facility] [address] November, [facility] [id number] [facility] [address] Oct, [facility], [place] [id number] [facility] [address] 31 Sep, 2013 [facility] [address] [facility] [address] Sep, [facility] [address] [facility] [address] Sep, [facility] [address] [facility] [address] Aug, [facility] [id number] [facility] [address] Aug, [facility] [id number] [facility] [place] [address] Aug, ASTHMA NOS 4 93.90 ; Chronic [facility], pain 338.29 ; Fibromyalgia [place] [id number] 729.1 ; Hand ecz marvin 692.9 and Rosacea 695.3 [facility] [address] May, [facility], [place] [id number] [facility] [address] May, [facility] [id number] [facility] [address] Mar, [facility] [id number] [facility] [address] Mar, [facility], [place] [id number] [facility] [address] Mar, [facility], [place] [address] [facility] [address] Jan, [facility] [id number] [facility] [address] November, [facility], [place] [address] [facility] [address] Oct, [facility] [address] [facility] [address] Sep, [facility], [place] [id number] [facility] [address] Sep, [facility], [place] [id number] [facility] [address] Sep, [facility] [place] [id number] [facility] [address] Aug, [facility] [id number] [facility] [address] [facility] 14 Aug, 2012 Asthma 493.9 0 ; Mixed [facility], hyperlipide bob 272.2 ; [place] [id number] Multinodular goi ter 241.1 ; Fibromyalgia 729 .1 and Hyperhydrosis di sorder 705.21 [facility] [address] [facility] 11 Aug, 2012 [facility] [id number] [facility] [address] [facility] Jul, [facility] [id number] [facility] [address] [facility] Jul, [facility] [id number] [facility] [address] [facility] May[facility], [place] [id number] [facility] [address] [facility] Apr[facility] [id number] [facility] [address] [facility] Mar[facility] [id number] [facility] [address] [facility] Mar[facility] [id number] [facility] [address] [facility] Feb[facility] [id number] [facility] [address] [facility] Feb, [facility] [id number] [facility] [address] [facility] Feb, [facility] [id number] [facility] [address] [facility] Feb, [facility] [id number] [facility] [address] [facility] Feb, [facility] [id number] [facility] [address] [facility] Jan, [place] [id number] [facility] [address] [facility] Jan, ROUTINE MEDI ASIF EXAM V70.0 ; [facility], Fibromyalgi a 729.1 ; ROUTINE [place] [id number] [employer] WORK[employer] EXAMINATION V72.31 ; Acne rosacea 695.3 ; 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 ; Lipid screening V77.91 and Chronic fatigue syndrome 780.71 [facility] [address] Dec, [facility] [id number] [facility] [address] Dec, [facility] [id number] [facility] [address] [facility] Dec, [facility] [id number] [facility] [address] [facility] November, Abnormal per imenopausal [facility], bleeding 62 7.0 [place] [id number] [facility] [address] [facility] November, [facility] [id number] [facility] [address] [facility] November, [facility] [id number] [facility] [address] [facility] Oct, [place] [id number] [facility] [address] [facility] Oct[facility] [id number] [facility] [address] [facility] Oct[facility] [id number] [facility] [address] [facility] Oct[facility] [phone] [facility] [address] [facility] Sep, ASTHMA NOS 4 93.90 ; Chronic [facility], fatigue syn drome 780.71 ; [place] [id number] Sweating abnorma lity 705.89 and [place] VAC STRPT CS PNEUMNI B V03.82 [facility] [address] [facility] Sep, [facility], [place] [id number] [facility] [address] [facility] Aug[facility], [place] [phone] [facility] [address] [facility] Jul[facility] [place] [id number] [facility] [address] [facility] Jul[facility], [place] [phone] [facility] [address] May, [facility] [place] [phone] [facility] [address] [facility] May[facility], [place] [phone] [facility] [address] May[facility], [place] [phone] [facility] [address] [facility] May[facility] [facility] [place] [id number] [facility] [address] [facility] Apr[facility] [place] [id number] [facility] [address] [facility] Apr[facility] [place] [id number] [facility] [address] [facility] Apr[facility] [place] [id number] [facility] [place] [address] [facility] Mar, [facility] [id number] [facility] [address] [facility] Mar[facility] [id number] [facility] [address] [facility] Feb[facility] [phone] [facility] [address] [facility] Feb[facility], [place] [id number] [facility] [address] [facility] Feb[facility], [place] [phone] [facility] [address] [facility] Feb[facility] [id number] [facility] [address] [facility] Jan[facility] [phone] [facility] [address] [facility] Jan[facility] [id number] [facility] [address] [facility] Jan[facility] [id number] [facility] [address] [facility] Jan[facility] [id number] [facility] [address] [facility] Jan[facility] [id number] [facility] [address] [facility] Jan[facility] [id number] [facility] [address] [facility] Jan[facility] [id number] [facility] [address] [facility] Jan, [facility] [id number] [facility] [address] [facility] Jan, ROUTINE MEDI ASIF EXAM V70.0 ; [facility], ROUTINE MORTAR WORKER EXAMINATION V72.31 [place] [id number] ; Urinary freque ncy 788.41 ; Diaphoresis 780. 8 ; Asthma with COPD w/o me ntion of status asthmatic us or acute exacerbation 493 .20 ; Fibromyalgia 729 .1 and Chronic fatigue syndrome 780.71 [facility] [address] [facility] Jan, [facility] [phone] [facility] [address] [facility] Jan, [facility], [place] [id number] [facility] [address] [facility] Jan, [facility] [id number] [facility] [address] [facility] Dec, [facility] [place] [id number] [facility] [address] Dec, [facility] [id number] [facility] [address] November, [facility] [id number] [facility] [address] November, [facility] [id number] [facility] [address] November, [facility] [phone] [facility] [address] November, [facility] [id number] [facility] [address] November, [facility] [id number] [facility] [address] November, [facility] [id number] [facility] [address] November, [facility] [id number] [facility] [address] November, [facility] [id number] [facility] [address] November, [facility] [id number] [facility] [address] November, [facility] [phone] [facility] [address] Oct, [facility] [id number] [facility] [address] 30 Sep, 2010 [facility] [id number] [facility] [address] 29 Sep, 2010 [facility] [id number] [facility] [address] Sep, [facility], [place] [id number] [facility] [address] 14 Sep, 2010 [facility], [place] [id number] [facility] [address] Jul, [facility] [id number] [facility] [address] Jul, [facility] [phone] [facility] [address] Jul, [facility] [id number] [facility] [address] Jul, [facility] [id number] [facility] [address] Jun, [facility] [id number] [facility] [address] Jun, [facility] [id number] [facility] [address] [facility] May[facility] [phone] [facility] [address] [facility] May[facility] [id number] [facility] [address] [facility] May[facility] [id number] [facility] [address] [facility] May[facility] [id number] [facility] [address] [facility] Apr[facility] [id number] [facility] [address] [facility] Mar[facility] [phone] [facility] [address] [facility] Mar, [facility] [phone] [facility] [address] [facility] Mar, [place] [phone] [facility] [address] [facility] Mar[facility] [phone] [facility] [address] [facility] 17 Mar, 2010 Hyperlipidem ia 272.4 ; [facility], Fibromyalgi a 729.1 ; Chronic [place] [id number] fatigue syndrome 780.71 ; Hyperprolactinem ia 253.1 and Thyroid nodule 2 41.0 [facility] [address] [facility] 16 Mar, 2010 Chronic fati shayan syndrome [facility], 780.71 ; Fi bromyalgia 729.1 ; [place] [id number] Hyperlipidemia 2 72.4 ; Thyroid nodule 241.0 and Hyperprolactinem ia 253.1 [facility] [address] [facility] Mar, [facility], [place] [id number] [facility] [address] [facility] Jan, [place] [phone] [facility] [address] [facility] Jan, [facility] [phone] [facility] [address] [facility] Dec, [facility] [place] [phone] [facility] [address] Dec, [place] [id number] [facility] [address] [facility] November, [facility] [place] [id number] [facility] [address] [facility] November, [place] [id number] [facility] [address] November, [place] [id number] [facility] [address] [facility] Oct, [place] [id number] [facility] [address] [facility] Oct, [place] [id number] [facility] [address] [facility] Sep, [place] [id number] [facility] [address] [facility], Sep, [address]. [address] [place], [place] [id number] [facility] [place] [address] 30 Sep, 2009 [place] [id number] [facility] [address] [facility] Sep, [place] [id number] [facility] [address] [facility] Sep, [place] [id number] [facility] [address] [facility] Aug, [place] [id number] [facility] [address] [facility] Jun, ROUTINE MEDI ASIF EXAM V70.0 and [facility], Hyperlipide bob 272.4 [place] [id number] [facility] [address] [facility] Jun, [place] [id number] [facility] [address] [facility] May, [place] [id number] [facility] [address] [facility] Apr, [place] [id number] [facility] [address] [facility] Apr, [place] [id number] [facility] [address] [facility] Apr, [place] [id number] [facility] [address] [facility] Apr, Screening fo r ischemic heart [facility], disease V81 .0 [place] [id number] [facility] [address] [facility] 14 Apr, 2009 [place] [id number] [facility] [address] [facility] Apr[place] [id number] [facility] [address] [facility] Apr, [place] [id number] [facility] [address] [facility] 18 Mar, 2009 [place] [id number] [facility] [address] [facility] Mar[facility] [id number] [facility] [address] [facility] Mar, Elevated whi te blood cell [facility], count, unsp ecified 288.60 ; [place] [id number] Amenorrhea 626.0 and Fibromyalgia 729 .1 [facility] [address] [facility] Mar, Double visio n 368.2 ; Need for [facility], prophylacti c vaccination and [place] [id number] inoculation, Inf luenza V04.81 and MALAISE AND FATIGUE NEC 780.79 [facility] [address] [facility] Feb, [facility] [id number] [facility] [address] [facility] Jan[facility] [id number] [facility] [address] [facility] Jan[facility] [id number] [facility] [address] [facility] Oct, Joint pain, forearm 719.43 ; [facility] el[facility] w 726.32 and [place] [id number] Fibromyalgia 729 .1 [facility] [address] [facility] Oct, [facility] [phone] [facility] [address] [place] [address] Oct, [facility] [id number] [facility] [address] [facility] Sep[facility] [phone] [facility] [address] [facility] Aug, [place] [id number] [facility] [address] Aug, [place] [phone] [facility] [address] [facility] Jul, [place] [id number] [facility] [address] [facility] Jul, [place], [place] [id number] [facility] [address] Jun, ROUTINE MEDI ASIF EXAM V70.0 ; [facility] Douglascelia elbo w 726.32 ; Chronic [place] [id number] rhinitis 472.0 ; Nausea 787.03 ; Diphtheria-tetan us-pertussis, combined [DTP] [ DtaP] V06.1 ; Screening for ma lignant neoplasm of the cervix V76.2 and ROUTINE MORTAR WORKER EXAMINATION V72.31 [facility] [address] May, [facility] [id number] [facility] [address] Apr, [facility] [id number] [facility] [address] Apr, [facility] [id number] [facility] [address] Apr, [facility] [id number] [facility] [address] Apr, CMN MIGRAINE W/O INTRACT [facility], MIGRAINE 34 6.10 ; Nausea [place] [id number] 787.03 and Aller gic rhinitis due to allergen 477.8 [facility] [address] Mar, [facility] [id number] [facility] [address] Feb, [facility] [id number] [facility] [address] Feb[facility] [id number] [facility] [address] Feb, Screening fo r hypertension [facility], V81.1 [place] [id number] [facility] [address] Jan, Need for pro phylactic [facility], vaccination with [place] [id number] wqljmzx-jdwiy-ov blanka (MMR) vaccine V06.4 ; SCREEN LIPID DISORDERS V77.91 ; Screening examination for rubella V73.3 and Screening ex amination for measles V73.2 [facility] [address] Dec, [place], [place] [id number] [facility] [address] Dec, [place] [id number] [facility] [address] November, [place] [id number] [facility] [address] Oct, [facility] [id number] [facility] [address] Aug[place] [id number] [facility] [address] Aug, [place] [id number] [facility] [address] Jul, [place] [id number] [facility] [address] Jul, ROUTINE MEDI ASIF EXAM V70.0 ; [facility], 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 1 [facility] [address] Jun, [facility] [id number] [facility] [address] Jun, AC MAXILLARY SINUSITIS 461.0 [facility], [place] [id number] [facility] [address] 15 Apr, 2007 [facility] [id number] [facility] [address] Mar, [facility] [id number] [facility] [address] Feb, [facility] [id number] [facility] [address] Jan, [facility] [phone] [facility] [address] Jan, OT SPCF PRE OP EXAM V72.83 [facility] [id number] [facility] [address] Dec, [facility] [phone] [facility] [address] November, [facility], [place] [id number] [facility] [address] November, [facility], [place] [id number] [facility] [address] Oct, [facility] [id number] [facility] [address] Oct, [facility] [id number] [facility] [address] Oct, [facility] [id number] [facility] [address] Sep, [facility] [id number] [facility] [address] Sep, [facility] [id number] [facility] [address] Sep, [facility], [place] [id number] [facility] [address] Sep, [facility], [place] [id number] [facility] [address] Sep, [facility], [place] [id number] [facility] [address] 14 Aug, 2006 [facility] [id number] [facility] [address] [facility] 13 Jun, 2006 ROUTINE MEDI ASIF EXAM V70.0 ; [facility], 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 8 ; Common migraine without mention of intractable migr bibiana 346.10 ; ASTHMA NOS 493.9 0 ; Hyperhidrosis 78 0.8 and Chronic fatigue syndrome 780.71 [facility] [address] [facility] Feb, [facility] [id number] [facility] [address] [facility] Feb, [place], [place] [id number] [facility] [address] [facility] [facility] Feb[facility] [id number] [facility] [address] [facility] Jan[facility], [place] [id number] [facility] [address] [facility] Dec, [place] [id number] [facility] [address] [facility] November, [place], [place] [id number] [facility] [address] [facility] Oct, [place], [place] [id number] [facility] [address] [facility] Oct, [place] [id number] [facility] [address] Jul[facility] [phone] [facility] [address] [facility] Jun, [place] [phone] [facility] [address] [facility] May, [place], [place] [id number] [facility] [address] [facility] May, [place], [place] [id number] [facility] [address] [facility] Jul, [place], [place] [phone] IMMUNIZATIONS Vaccine Route Administration Date Status Covid Vaccine (Moderna) Unknown Mar 25, 2021 Administ ered Covid Vaccine (Moderna) Unknown October 02, 2020 Administ ered Covid Vaccine (Moderna) Unknown Sep 04, 2020 Administ ered Tdap (Boostrix 10 years & older ) IM Intramuscular Sep 12, 2017 Administered Tdap (Adacel 11-64 yrs) IM Intramuscular Jul 23, 2008 Adminis tered Td (adult) Unknown Jul 07, 2005 Administered Influenza 3 Years and above WITH IM Intramuscular Apr 03, 2009 Administered Preservative Pneumococcal 23 Adult IM Intramuscular October 21, 2011 Administe red SOCIAL HISTORY Qualifiers Date Never Smoker REASON FOR REFERRAL FUNCTIONAL STATUS PLAN OF CARE Activity Details Pending Test Endoscopy VITAL SIGNS Height 64.5 in 2022-01-08 Height 64.5 in 2021-02-02 Height 64.5 in 2020-11-06 Height 64.5 in 2020-08-14 Height 64.5 in 2020-05-22 Height 64.5 in 2020-02-26 Height 64.5 in 2019-12-24 Height 64.5 in 2019-10-18 Height 64.5 in 2019-08-14 Height 64.5 in 2019-05-29 Height 64.5 in 2019-03-13 Height 64.5 in 2018-11-21 Height 64.5 in 2018-09-05 Height 64.5 in 2018-06-12 Height 65.5 in 2018-03-07 Height 65.5 in 2017-12-13 Height 65.5 in 2017-09-12 Height 64.5 in 2017-06-28 Height 64.5 in 2017-03-31 Height 64.5 in 2017-01-20 Height 64.5 in 2016-10-12 Height 64.5 in 2016-07-16 Height 64.5 in 2016-04-15 Height 64.5 in 2016-02-13 Height 64.5 in 2015-10-09 Height 64.50 in 2015-04-10 Height 64.75 in 2014-09-12 Height 64.75 in 2014-02-05 Height 64.25 in 2013-08-28 Height 64.25 in 2012-09-07 Height 64.25 in 2012-02-02 Height 65.0 in 2011-12-16 Height 65.0 in 2011-10-21 Height 65.0 in 2011-01-28 Height 65.0 in 2010-04-09 Height 65.0 in 2009-07-23 Height 65.0 in 2009-04-08 Height 65.0 in 2009-04-03 Height 65.0 in 2008-11-07 Height 65.0 in 2008-07-23 Height 65.0 in 2008-04-25 Height 65 in 2007-08-04 Height 65 in 2007-06-27 Height 65 in 2007-01-31 Height 65 in 2006-07-06 Weight 160.2 lbs 2022-01-08 Weight 166.8 lbs 2021-09-24 Weight 157.6 lbs 2021-02-02 Weight 157.2 lbs 2020-11-06 Weight 150.4 lbs 2020-08-14 Weight 140 lbs 2020-05-22 Weight 136.6 lbs 2020-02-26 Weight 139.2 lbs 2019-12-24 Weight 144.0 lbs 2019-10-18 Weight 158.4 lbs 2019-08-14 Weight 162.8 lbs 2019-05-29 Weight 166.4 lbs 2019-03-13 Weight 167.0 lbs 2018-11-21 Weight 174.6 lbs 2018-09-05 Weight 174.6 lbs 2018-06-12 Weight 166.0 lbs 2018-03-07 Weight 163.0 lbs 2017-12-13 Weight 160.8 lbs 2017-09-12 Weight 153.6 lbs 2017-06-28 Weight 155.0 lbs 2017-03-31 Weight 151.0 lbs 2017-01-20 Weight 153.6 lbs 2016-10-12 Weight 146.8 lbs 2016-07-16 Weight 144.0 lbs 2016-04-15 Weight 166.5 lbs 2016-02-13 Weight 163.2 lbs 2015-10-09 Weight 150.6 lbs 2015-04-10 Weight 183.2 lbs 2014-09-12 Weight 182.0 lbs 2014-02-05 Weight 182.6 lbs 2013-08-28 Weight 175.8 lbs 2012-09-07 Weight 159.0 lbs 2012-02-02 Weight 165.4 lbs 2011-12-16 Weight 162.0 lbs 2011-10-21 Weight 165.0 lbs 2011-01-28 Weight 153.6 lbs 2010-04-09 Weight 160.8 lbs 2009-07-23 Weight 167.4 lbs 2009-04-08 Weight 167.4 lbs 2009-04-03 Weight 164.8 lbs 2008-11-07 Weight 170.4 lbs 2008-07-23 Weight 166.2 lbs 2008-04-25 Weight 158 lbs 2007-08-04 Weight 152 lbs 2007-06-27 Weight 154.6 lbs 2007-01-31 Weight 166 lbs 2006-07-06 Weight 164.5 lbs 2006-03-30 BMI 27.07 kg/m2 2022-01-08 BMI 26.63 kg/m2 2021-02-02 BMI 26.56 kg/m2 2020-11-06 BMI 25.41 kg/m2 2020-08-14 BMI 23.66 kg/m2 2020-05-22 BMI 23.08 kg/m2 2020-02-26 BMI 23.52 kg/m2 2019-12-24 BMI 24.33 kg/m2 2019-10-18 BMI 26.77 kg/m2 2019-08-14 BMI 27.51 kg/m2 2019-05-29 BMI 28.12 kg/m2 2019-03-13 BMI 28.22 kg/m2 2018-11-21 BMI 29.50 kg/m2 2018-09-05 BMI 29.50 kg/m2 2018-06-12 BMI 27.20 kg/m2 2018-03-07 BMI 26.71 kg/m2 2017-12-13 BMI 26.35 kg/m2 2017-09-12 BMI 25.96 kg/m2 2017-06-28 BMI 26.19 kg/m2 2017-03-31 BMI 25.52 kg/m2 2017-01-20 BMI 25.96 kg/m2 2016-10-12 BMI 24.81 kg/m2 2016-07-16 BMI 24.33 kg/m2 2016-04-15 BMI 28.14 kg/m2 2016-02-13 BMI 27.58 kg/m2 2015-10-09 BMI 25.45 kg/m2 2015-04-10 BMI 30.72 kg/m2 2014-09-12 BMI 30.52 kg/m2 2014-02-05 BMI 31.10 kg/m2 2013-08-28 BMI 29.94 kg/m2 2012-09-07 BMI 27.08 kg/m2 2012-02-02 BMI 27.52 kg/m2 2011-12-16 BMI 26.96 kg/m2 2011-10-21 BMI 27.45 kg/m2 2011-01-28 BMI 25.56 kg/m2 2010-04-09 BMI 26.76 kg/m2 2009-07-23 BMI 27.85 kg/m2 2009-04-08 BMI 27.85 kg/m2 2009-04-03 BMI 27.42 kg/m2 2008-11-07 BMI 28.35 kg/m2 2008-07-23 BMI 27.65 kg/m2 2008-04-25 BMI 26.29 kg/m2 2007-08-04 BMI 25.29 kg/m2 2007-06-27 BMI 25.72 kg/m2 2007-01-31 BMI 27.62 kg/m2 2006-07-06 Temperature Oral:98.9 degrees Fahrenheit 2017-09-12 Temperature 98.5 degrees Fahrenheit 2016-04-15 Temperature 98.0 degrees Fahrenheit 2014-02-05 Temperature 97.6 degrees Fahrenheit 2011-01-28 Temperature 97.9 degrees Fahrenheit 2010-04-09 Temperature 97.0 degrees Fahrenheit 2009-04-08 Temperature 97.0 degrees Fahrenheit 2008-07-23 Temperature 98.0 degrees Fahrenheit 2007-08-04 Temperature 97.6 degrees Fahrenheit 2007-06-27 Temperature 98.2 degrees Fahrenheit 2007-01-31 Temperature 98.3 degrees Fahrenheit 2006-07-06 Temperature 60 degrees Fahrenheit 2006-03-30 Blood pressure systolic 130 mm Hg 2022-01-08 Blood pressure diastolic 80 mm Hg 2022-01-08 MEDICATIONS Medication Instructions Dosage Frequency Start End Duration Statu s Date Date LORazepam 0.5 MG orally 2 times 1 tab(s) 12h 30 days Active a day One-Daily TAKE 1 TABLET 90 Active Multi-Vitamin - ONCE A DAY ORALLY busPIRone HCl 30 orally twice a 1 tab(s) 12h Dec, 30 day( s) Active MG day 2011 Oyster Shell TAKE 1 TABLET 30 Activ e Calcium w/D TWO TIMES A 500-200 MG-UNIT DAY WITH FOOD Fluticasone intranasally 1 spray(s) Sep, days Acti ve Propionate 50 once a day as 2015 MCG/ACT needed Cyclobenzaprine orally at 1 tab(s) Jan, Activ e HCl 10 MG bedtime 2018 HYDROcodone-Aceta Orally three 1 tablet as 8h Jan, 30 da y(s) Not-Taki minophen 5-325 MG times a day needed 2021 ng Clobetasol 1 APPLICATION 20 Active Propionate 0.05 % EXTERNALLY TWICE A DAY 30 DAYS Famotidine 20 MG TAKE 1 TABLET 90 A ctive BY MOUTH 2 TIMES A DAY FOR 90 DAYS. Cymbalta 60 MG orally once a 2 cap of 60mg 24h Active day Drysol 20 % applied 1 sylvester Jan, Active topically once 2013 a day (at bedtime) as needed ARIPiprazole 2 MG Orally Once a 1 tablet 24h Dec, 30 day( s) Active day 2021 Gabapentin 300 MG Orally Three 1 capsule Dec, Active times daily 2021 Zolpidem Tartrate TAKE 1 TABLET Dec, Active 10 MG BY MOUTH AT 2021 BEDTIME NEEDED Rizatriptan orally once a 1 tab(s) Activ e Benzoate 10 MG day as needed PROCEDURES Procedure Date Ordered Result Body Site DRUG SCREEN ONE/MULT CLASS October 18, 2019 VENIPUNCT, ROUTINE Apr 10, 2015 Admin Single or Combination Vaccine October 21, 2011 BASIC METABOLIC PANEL February 05, 2014 ASSAY OF FREE THYROXINE Apr 10, 2010 CYTOPATH, C/V, THIN LAYER Jul 30, 2010 RESPIRATORY FLOW VOLUME LOOP October 21, 2011 Admin Single or Combination Vaccine Apr 03, 2009 COMPLETE CBC W/AUTO DIFF WBC Apr 03, 2009 COMPLETE CBC W/AUTO DIFF WBC Apr 08, 2009 ASSAY THYROID STIM HORMONE Apr 03, 2009 COMPREHEN METABOLIC PANEL Apr 10, 2010 URINE CULTURE/COLONY COUNT January 28, 2011 LIPID PANEL-CHOL SERUM,TOTAL,LIPOROTEIN,DIRECT Apr 10, 2010 MEASURE,HDL CHOL,TRIG,CASCADE Influenza 3 Years and above WITH Preservative Apr 03, 2009 VENIPUNCT, ROUTINE February 05, 2014 CollectionHandling January 28, 2011 GLYCATED HEMOGLOBIN TEST October 18, 2019 COMPREHEN METABOLIC PANEL September 24, 2021 VENIPUNCT, ROUTINE Sep 05, 2018 ASSAY THYROID STIM HORMONE October 18, 2019 CHYLMD TRACH, DNA, AMP PROBE Mar 31, 2017 VITAMIN B-12 February 13, 2016 CollectionHandling Jul 23, 2008 CULTURE SCREEN ONLY PRESUMPTIVE Apr 08, 2009 VENIPUNCT, ROUTINE Apr 08, 2009 VENIPUNCT, ROUTINE September 24, 2021 LIPID PANEL-CHOL SERUM,TOTAL,LIPOROTEIN,DIRECT October 18, 2019 MEASURE,HDL CHOL,TRIG,CASCADE DRUG SCREEN ONE/MULT CLASS Sep 05, 2018 Tdap (Boostrix 10 years & older ) Sep 12, 2017 ASSAY THYROID STIM HORMONE Sep 05, 2018 VENIPUNCT, ROUTINE October 18, 2019 VENIPUNCT, ROUTINE Sep 12, 2014 GONADOTROPIN (FSH) Apr 10, 2015 EXC TRUNK 0.6-1 CM Apr 15, 2016 HEMOGLOBIN January 20, 2017 BASIC METABOLIC PANEL February 13, 2016 VENIPUNCT, ROUTINE January 20, 2017 VENIPUNCT, ROUTINE February 13, 2016 VENIPUNCT, ROUTINE Sep 07, 2012 HEMOGLOBIN February 05, 2014 Tdap (Adacel 11-64 yrs) Jul 23, 2008 VENIPUNCT, ROUTINE January 25, 2008 VENIPUNCT, ROUTINE Apr 25, 2008 URINE TEST Apr 08, 2009 FREE ASSAY (FT-3) Apr 10, 2010 URINALYSIS, AUTOMATED W/SCOPE Apr 08, 2009 Pneumococcal 23 Adult October 21, 2011 DRUG SCREEN ONE/MULT CLASS February 02, 2021 IMMUNIZATION ADMIN, EACH ADD Jul 23, 2008 IMMUNOASSAY, NONANTIBODY Sep 07, 2012 DRUG SCREEN ONE/MULT CLASS January 20, 2017 SMEAR, WET MOUNT, SALINE/INK Mar 31, 2017 HEMOGLOBIN February 13, 2016 DESTROY BENIGNPREMLG LESION Apr 15, 2016 LIPID PANEL-CHOL SERUM,TOTAL,LIPOROTEIN,DIRECT January 20, 2017 MEASURE,HDL CHOL,TRIG,CASCADE HEPATITIS C AB TEST Mar 31, 2017 VENIPUNCT, ROUTINE Sep 12, 2017 HEMOGLOBIN Sep 05, 2018 COMPREHEN METABOLIC PANEL October 18, 2019 GLYCATED HEMOGLOBIN TEST September 24, 2021 SPECIMEN HANDLING Jul 06, 2006 VENIPUNCT, ROUTINE January 31, 2007 RUBELLA ANTIBODY January 25, 2008 IMMUNOASSAY, NONANTIBODY Apr 25, 2008 URINE TEST January 31, 2007 CYTOPATH, C/V, THIN LAYER January 28, 2011 RESPIRATORY FLOW VOLUME LOOP February 05, 2014 X-RAY EXAM OF ELBOW November 07, 2008 LIPID PANEL-CHOL SERUM,TOTAL,LIPOROTEIN,DIRECT May 14, 2009 MEASURE,HDL CHOL,TRIG,CASCADE AT LEAST 1 RX TRANSMIT ERX SYS February 02, 2012 CYTOPATH, C/V, THIN LAYER Jul 23, 2008 EO ELAST W/STAYS PREFAB W/FIT&ADJ November 07, 2008 HEPATIC FUNCTION PANEL Apr 25, 2008 DETECT AGNT MULT, DNA, AMPLI Jul 23, 2008 LIPID PANEL-CHOL SERUM,TOTAL,LIPOROTEIN,DIRECT January 25, 2008 MEASURE,HDL CHOL,TRIG,CASCADE RESPIRATORY FLOW VOLUME LOOP Aug 28, 2013 CYTOPATH, C/V, THIN LAYER Aug 04, 2007 RESPIRATORY FLOW VOLUME LOOP Sep 07, 2012 HEMOGLOBIN January 31, 2007 EKG February 13, 2016 LIPID PANEL-CHOL SERUM,TOTAL,LIPOROTEIN,DIRECT Sep 12, 2014 MEASURE,HDL CHOL,TRIG,CASCADE CYTOPATH, C/V, THIN LAYER February 05, 2014 VENIPUNCT, ROUTINE February 02, 2021 COMPLETE CBC, AUTOMATED Apr 10, 2015 COMPLETE CBC, AUTOMATED October 21, 2011 ASSAY THYROID STIM HORMONE Apr 10, 2010 RBC SED RATE, NONAUTOMATED Apr 03, 2009 STREP A ASSAY W/OPTIC Apr 08, 2009 URINALYSIS, AUTOMATED W/SCOPE January 28, 2011 CollectionHandling Aug 04, 2007 RESPIRATORY FLOW VOLUME LOOP January 28, 2011 ASSAY OF PROLACTIN Apr 10, 2010 LIPID PANEL-CHOL SERUM,TOTAL,LIPOROTEIN,DIRECT Sep 07, 2012 MEASURE,HDL CHOL,TRIG,CASCADE VENIPUNCT, ROUTINE May 14, 2009 ENDOMET. BX December 16, 2011 RUBEOLA ANTIBODY January 25, 2008 COMPLETE CBC W/AUTO DIFF WBC Apr 25, 2008 COMPREHEN METABOLIC PANEL Apr 03, 2009 CHEST X-RAY Apr 08, 2009 ASSAY OF GAMMAGLOBULIN IGM October 21, 2011 BASIC METABOLIC PANEL Apr 10, 2015 AT LEAST 1 RX TRANSMIT ERX SYS Sep 07, 2012 BASIC METABOLIC PANEL February 02, 2021 X-RAY EXAM HIP UNI 2-3 VIEWS November 06, 2020 CollectionHandling Mar 31, 2017 OPIATES 1 OR MORE January 20, 2017 AT LEAST 1 RX TRANSMIT ERX SYS October 21, 2011 VENIPUNCT, ROUTINE Apr 03, 2009 ASSAY OF VITAMIN D Apr 10, 2010 VENIPUNCT, ROUTINE Apr 10, 2010 CYTOPATH, C/V, THIN LAYER Jul 06, 2006 CYTOPATH, C/V, THIN LAYER Mar 31, 2017 BASIC METABOLIC PANEL January 20, 2017 DRUG SCREENING OXYCODONE January 20, 2017 ASSAY THYROID STIM HORMONE Sep 12, 2017 GONADOTROPIN (FSH) Apr 08, 2009 INJ TENDON SHEATHLIGAMENT Jul 23, 2008 ANKLE BRACE November 21, 2018 ASSAY OF PROLACTIN Apr 08, 2009 COMPREHEN METABOLIC PANEL Sep 05, 2018 ASSAY OF VITAMIN D Apr 08, 2009 ASSAY OF FERRITIN Apr 08, 2009 ASSAY OF DIHYDROXYVITAMIN D Apr 08, 2009 ASSAY THYROID STIM HORMONE Sep 07, 2012 RESULTS Name Result Date Reference Range COMPREHENSIVE METABOLIC 2021-09-24 Sodium 139 136-145 Creatinine 0.82 0.60-1.10 Calcium 10.1 8.5-10.5 Alkaline Phosphatase 72 45-120 AST 14 0-40 ALT 22 0-45 Protein Total 7.6 6.0-8.0 Bilirubin Total 1.1 0.0-1.0 GFR Estimate 82 >60 GLYCOSYLATED HGB A1C 2021-09-24 HGB A1C 6.0 4.2-6.1 [facility] URINE DRUG SCREEN 2021-02-02 AMP - Amphetamine Negative Cutoff 500 (ng /mL) BAR - Barbituates Negative Cutoff 300 (ng /mL) BUP - Buprenorphrine Negative Cutoff 10 ( ng/mL) BZO - Benzodiazepines Negative Cutoff 300 (ng/mL) ZITA - Cocaine Negative Cutoff 150 (ng/m L) EDDP- Methadone Negative Cutoff 300 (ng/m L) MDMA - Ecstasy Negative Cutoff 500 (ng/m L) MET - Methamphetamine Negative Cutoff 500 (ng/mL) OPI - Opiates Negative Cutoff 2,000 (ng /mL) OXY - Oxycodone Negative Cutoff 100 (ng/m L) PCP - Phencycline Negative Cutoff 25 (ng/ mL) THC - Marijuana Negative Cutoff 50 (ng/mL ) Preliminary Results, Upon Request Confirmatory Testing Available - Specific [place] 1.005 1.003-1.030 ([facility]) - PH 7.0 4.0-9.0 - OX (Oxidant) Normal Normal - Internal QC OK Basic Metabolic Profile 2021-02-02 Sodium 136 136-145 Creatinine 0.84 0.60-1.10 Calcium 9.8 8.5-10.5 GFR Estimate 77 >60 Xray : Hip, complete, two - 2020-11-06 three views to include AP pelvis and unilateral frog leg Colonoscopy 2020-08-12 THYROID CASCADE 2019-10-18 THYROID STIMULATING HORMONE 1.86 0.30 -5.00 GLYCOSYLATED HGB A1C 2019-10-18 HGB A1C 5.3 4.2-6.1 [facility] URINE DRUG SCREEN 2019-10-18 AMP - Amphetamine Negative Cutoff 500 (ng /mL) BAR - Barbituates Negative Cutoff 300 (ng /mL) BUP - Buprenorphrine Negative Cutoff 10 ( ng/mL) BZO - Benzodiazepines Negative Cutoff 300 (ng/mL) ZITA - Cocaine Negative Cutoff 150 (ng/m L) EDDP- Methadone Negative Cutoff 300 (ng/m L) MDMA - Ecstasy Negative Cutoff 500 (ng/m L) MET - Methamphetamine Negative Cutoff 500 (ng/mL) OPI - Opiates Negative Cutoff 2,000 (ng /mL) OXY - Oxycodone Negative Cutoff 100 (ng/m L) PCP - Phencycline Negative Cutoff 25 (ng/ mL) THC - Marijuana Negative Cutoff 50 (ng/mL ) Preliminary Results, Upon Request Confirmatory Testing Available - [facility] [place] 1.005 1.003-1.030 ([facility]) - PH 4.0 4.0-9.0 - OX (Oxidant) Normal Normal - Internal QC OK LIPID CASCADE 2019-10-18 CHOLESTEROL 205 <=199 TRIGLYCERIDES 75 <=149 HDL CHOLESTEROL 54 >=50 LDL CHOLESTEROL CALCULATED 136 <=129 COMPREHENSIVE METABOLIC 2019-10-18 SODIUM 137 136-145 POTASSIUM 4.1 3.5-5.0 CHLORIDE 101 98-107 CO2 26 22-31 ANION GAP, CALCULATION 10 5-18 GLUCOSE 92 70-125 BLOOD UREA NITROGEN 18 8-22 CREATININE 0.74 0.60-1.10 GFR MDRD AF AMER >60 >60 GFR MDRD NON AF AMER >60 >60 BILIRUBIN, TOTAL 1.0 0.0-1.0 CALCIUM 9.2 8.5-10.5 PROTEIN, TOTAL 6.9 6.0-8.0 ALBUMIN 4.4 3.5-5.0 ALKALINE PHOSPHATASE 57 45-120 AST 21 0-40 ALT 30 0-45 Mammogram : 3D 2019-06-04 ----- Original Report ---- EXAM: FULL-FIELD DIGITAL BILATERAL SCREENING 3D TOMOSYNTHESIS MAMMOGRAPHY WITH CAD CLINICAL INFORMATION: Screening. The patient reports no palpable abnormalities or other breast concern. TECHNICAL INFORMATION: Bilateral craniocaudal and mediolateral oblique full-field digital views with breast 3D tomosynthesis images were obtained. CAD was applied. COMPARISON: 06/09/2011 through 05/03/2017 Total Lifetime Breast Cancer Risk assessment (TLR): 29.06%, High Risk Category (>20%) based on information provided by the patient and mammographic breast density utilizing the most recent [facility] (Version 8.0 released March 2017). National average TLR =12.5%. INTERPRETATION: The breast tissue is heterogeneously dense. This decreases the sensitivity of mammography. No mass, suspicious calcification or architectural distortion. No evidence of malignancy. BREAST COMPOSITION: Category C. The breasts are heterogeneously dense, which may obscure small masses. CONCLUSION: 1. No evidence of malignancy. 2. BI-RADS 1. Negative. 3. TLR = 29.06%, High Risk Category. CDI will notify the patient of the [place] [employer] guidelines recommending annual adjunctive breast MRI for women with greater than 20% lifetime risk of developing breast cancer. RECOMMENDATION: Annual screening 3D tomosynthesis mammography and annual breast MRI. The appropriate information has been entered into a reminder system with a targeted due date for the next mammogram. BI-RADS 1 = Negative. CDI sent letter to patient regarding results. Read by: Zuly Dockery M.D. Reviewed and Electronically Signed by: Zuly Dockery M.D. DME : [facility] Ankle RT 2018-11-21 Standard TSH 2018-09-05 THYROID STIMULATING HORMONE 1.62 0.30 -5.00 COMPREHENSIVE METABOLIC 2018-09-05 SODIUM 138 136-145 POTASSIUM 4.3 3.5-5.0 CHLORIDE 100 98-107 CO2 26 22-31 ANION GAP, CALCULATION 12 5-18 GLUCOSE 152 70-125 BLOOD UREA NITROGEN 12 8-22 CREATININE 0.83 0.60-1.10 GFR MDRD AF AMER >60 >60 GFR MDRD NON AF AMER >60 >60 BILIRUBIN, TOTAL 1.7 0.0-1.0 CALCIUM 9.9 8.5-10.5 PROTEIN, TOTAL 7.0 6.0-8.0 ALBUMIN 4.2 3.5-5.0 ALKALINE PHOSPHATASE 78 45-120 AST 28 0-40 ALT 48 0-45 CELLDYN-HGB 2018-09-05 HGB 14.4 12.0-16.0 PREMIER URINE DRUG SCREEN 2018-09-05 AMP - Amphetamine Negative Cutoff 500 (ng /mL) BAR - Barbituates Negative Cutoff 300 (ng /mL) BUP - Buprenorphrine Negative Cutoff 10 ( ng/mL) BZO - Benzodiazepines Negative Cutoff 300 (ng/mL) ZITA - Cocaine Negative Cutoff 150 (ng/m L) EDDP- Methadone Negative Cutoff 300 (ng/m L) MDMA - Ecstasy Negative Cutoff 500 (ng/m L) MET - Methamphetamine Negative Cutoff 500 (ng/mL) OPI - Opiates POSITIVE Cutoff 2,000 (ng /mL) OXY - Oxycodone Negative Cutoff 100 (ng/m L) PCP - Phencycline Negative Cutoff 25 (ng/ mL) THC - Marijuana Negative Cutoff 50 (ng/mL ) Preliminary Results, Upon Request Confirmatory Testing Available - Specific [place] 1.015 1.003-1.030 ([facility]) - PH 4.0 4.0-9.0 - OX (Oxidant) Normal Normal - Internal QC OK THYROID CASCADE 2017-09-12 THYROID STIMULATING HORMONE 2.70 0.30 -5.00 CHLAMYDIA TRACHOMATIS, 2017-03-31 AMPLIFIED (screening) CHLAMYDIA TRACHOMATIS, Negative Negative AMPLIFIED DETECTION WET PREP, VAGINAL 2017-03-31 Bacteria Many Negative Yeast Positive Negative Trichomonas Negative Negative Clue Cells Negative Negative Odor NA Negative WBC Few Negative Other NA HEPATITIS C ANTIBODY 2017-03-31 (Screening) HEPATITIS C ANTIBODY Negative Negative 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 TECHNICAL INFORMATION: Bilateral craniocaudal and mediolateral oblique full-field digital views with breast tomosynthesis images were obtained. CAD was applied. COMPARISON: 06/09/2011 through 02/24/2015 INTERPRETATION: No spiculated mass, suspicious calcification or architectural distortion. No evidence of malignancy. BREAST COMPOSITION: Category C. The breasts are heterogeneously dense, which may obscure small masses. CONCLUSION: 1. No evidence of malignancy. 2. BI-RADS 1. Negative. RECOMMENDATION: Screening mammography in one year, preferably with 3D tomography. The patient's overall lifetime breast cancer risk is 24.6% based on the Tyrer-Cuzick risk assessment model (high risk). Supplementary breast MRI surveillance is suggested. The appropriate information has been entered into a reminder system with a targeted due date for the next mammogram. BI-RADS 1 = Negative. CDI sent letter to patient regarding results. HIS Read by: Zuly Dockery M.D. Reviewed and Electronically Signed by: Zuly Dockery M.D. (Inactive)OPIATES 2017-01-20 URINE([id number]) CELLDYN-HGB 2017-01-20 HGB 15.1 12.0-16.0 LIPID CASCADE 2017-01-20 CHOLESTEROL 227 <=199 TRIGLYCERIDES 98 <=149 HDL CHOLESTEROL 53 >=50 LDL CHOLESTEROL CALCULATED 154 <=129 Basic Metabolic Profile 2017-01-20 SODIUM 137 136-145 POTASSIUM 5.0 3.5-5.0 CHLORIDE 97 98-107 CO2 31 22-31 ANION GAP, CALCULATION 9 5-18 GLUCOSE 108 70-125 CALCIUM 9.9 8.5-10.5 BLOOD UREA NITROGEN 12 8-22 CREATININE 0.92 0.60-1.10 GFR MDRD AF AMER >60 >60 GFR MDRD NON AF AMER >60 >60 [facility] URINE DRUG SCREEN 2017-01-20 AMP - Amphetamine Negative Cutoff 500 (ng /mL) BAR - Barbituates Negative Cutoff 300 (ng /mL) BUP - Buprenorphrine Negative Cutoff 10 ( ng/mL) BZO - Benzodiazepines Negative Cutoff 300 (ng/mL) ZITA - Cocaine Negative Cutoff 150 (ng/m L) EDDP- Methadone Negative Cutoff 300 (ng/m L) MDMA - Ecstasy Negative Cutoff 500 (ng/m L) MET - Methamphetamine Negative Cutoff 500 (ng/mL) OPI - Opiates Negative Cutoff 2,000 (ng /mL) OXY - Oxycodone Negative Cutoff 100 (ng/m L) PCP - Phencycline Negative Cutoff 25 (ng/ mL) THC - Marijuana Negative Cutoff 50 (ng/mL ) Preliminary Results, Upon Request Confirmatory Testing Available - [facility] [place] 1.000 1.003-1.030 ([facility]) - PH 7.0 4.0-9.0 - OX (Oxidant) Normal Normal - Internal QC OK HISTOLOGY OUT REACH SPEC. 2016-04-15 RESULT FLAG Normal Basic Metabolic Profile 2016-02-13 SODIUM 139 136-145 POTASSIUM 4.2 3.5-5.0 CHLORIDE 101 98-107 CO2 30 22-31 ANION GAP, CALCULATION 8 5-18 GLUCOSE 96 70-125 CALCIUM 9.3 8.5-10.5 BLOOD UREA NITROGEN 15 8-22 CREATININE 0.79 0.60-1.10 GFR MDRD AF AMER >60 >60 GFR MDRD NON AF AMER >60 >60 CELLDYN-HGB 2016-02-13 HGB 14.3 12.0-16.0 [facility] EKG w. Interp 2016-02-13 Heart Rate RR_NumNormalBeats Systolic Blood Pressure Diastolic Blood Pressure TX Interval QT Interval QTc Interval QRS Duration PWave [place] QrsWave [place] TWave [place] Mean Heart Rate Diastolic Blood Pressure Systolic Blood Pressure MeanRR Interval MinRR Interval MaxRR Interval NumBeats VITAMIN B12 2016-02-13 VITAMIN B-12 [phone] Basic Metabolic Profile 2015-04-10 SODIUM 138 136-145 POTASSIUM 4.1 3.5-5.0 CHLORIDE 103 98-107 CO2 27 22-31 ANION GAP, CALCULATION 8 5-18 GLUCOSE 94 70-125 CALCIUM 9.4 8.5-10.5 BLOOD UREA NITROGEN 10 8-22 CREATININE 0.71 0.60-1.10 GFR MDRD AF AMER >60 >60 GFR MDRD NON AF AMER >60 >60 FSH 2015-04-10 FOLLICLE STIMULATING 15.7 HORMONE CELLDYN-CBC withOUT DIFF 2015-04-10 WBC 9.6 4.0-11.0 RBC 4.50 3.80-5.40 HGB 14.9 12.0-16.0 HCT 44.8 35.0-47.0 MCV 99.5 80.0-100.0 MCH 33.1 27.0-34.0 MCHC 33.3 32.0-36.0 RDW 11.8 11.0-14.5 PLT 327.0 140.0-440.0 MRI : Breast 2015-04-07 Original Report EXAM: DIAGNOSTIC MR BILATERAL BREASTS WITHOUT AND WITH CONTRAST WITH CAD BILATERAL CLINICAL INFORMATION: 54-year-old with 33% lifetime risk of developing breast cancer based on risk assessment model. Patient sister with breast cancer age 48. COMPARISON: Screening mammogram 02/24/2015, 10/20/2012 and 06/09/2011 TECHNICAL INFORMATION: Axial T2 Fat-Sat, STIR and T1-weighted images were obtained of both breasts prior to administration of intravenous contrast. Following the uneventful administration of 17 mL MultiHance intravenously, axial T1-weighted images were repeated at 2-, 4-, 6- and 8-minute intervals. Multiplanar reformates of postcontrast T1 FS images are reviewed along with subtraction imaging and angiomapping/MIP image reconstructions. CADstream analysis was utilized. INTERPRETATION: RIGHT BREAST FINDINGS: There is overall minimal physiologic background type enhancement. A few right breast cyst and benign intramammary lymph node in the inferior right breast are identified. No contrast dynamic or morphologic findings are seen to suggest underlying breast pathology. LEFT BREAST FINDINGS: There is overall low physiologic background type enhancement. No contrast dynamic or morphologic findings are seen to suggest underlying breast pathology. REGIONAL LYMPH NODES: No abnormal axillary or mammary chain lymph nodes are identified. CONCLUSION: 1. Benign cysts and intramammary right breast lymph node. No MR evidence of breast malignancy. RECOMMENDATIONS: Annual screening mammography and breast MRI. BI-RADS category: 2. Benign. Read By: Michael Pierce M.D. Reviewed and Electronically Signed By: Michael Pierce M.D. Mammogram : Screening 2015-02-24 Original Report EXAM: FULL-FIELD DIGITAL BILATERAL SCREENING MAMMOGRAPHY WITH CAD CLINICAL INFORMATION: Screening. The patient reports no palpable abnormalities or other breast concern. TECHNICAL INFORMATION: Bilateral craniocaudal and mediolateral oblique full-field digital projections obtained and CAD was applied. COMPARISON: 10/20/2012 and 06/09/2011 INTERPRETATION: The breast tissue is heterogeneously dense. This decreases the sensitivity of mammography. No additional mass, suspicious calcification or architectural distortion. No evidence of malignancy. BREAST COMPOSITION: Category C. The breasts are heterogeneously dense, which may obscure small masses. CONCLUSION: 1. No evidence of malignancy. 2. BI-RADS 1. Negative. 3. EXAM: BREAST CANCER RISK-ASSESSMENT TECHNICAL: [facility] [employer] (Version 7.02 released December), which meets NCCN Guidelines for assessment of familial/hereditary breast cancer risk. RESULTS: Based on the Mahendra-Griseldack model above, patient's overall lifetime risk of developing breast cancer is 33% (high risk category). RECOMMENDATIONS: (1) Annual Breast MRI in addition to annual screening mammography is strongly recommended. If the patient cannot have an MRI due to insurance coverage or medical contraindications, Automated Breast Ultrasound is recommended. (2) Continued annual clinical breast exams, and monthly self breast exams. (3) Consideration of a consultation with a genetics specialist is recommended to better understand her genetic risk. CDI will contact the patient to schedule this MRI exam and coordinate the recommended consultation if patient desires. In addition, the patient will be advised of her insurance coverage and benefits related to the MRI exam, as well as, any [id number] expense before scheduling. In September 2006, the [place] [employer] (ACS) published its recommendations for breast MRI screening for women at increased risk for breast cancer. ACS recommended annual breast MRI screening for: ? Women with known mutations in the BRCA1/2 genes, ? Women who are at 50% risk of BRCA1/2 mutation carriers but untested, as well as, ? Women who have a 20-25% or higher risk of developing breast cancer as estimated by one or more of the several available risk assessment models of which [place]ana is included. BI-RADS 1 = Negative. CDI sent letter to patient regarding results. Read By: Michael Pierce M.D. Reviewed and Electronically Signed By: Michael Pierce M.D. LIPID CASCADE 2014-09-12 CHOLESTEROL 205 <=199 TRIGLYCERIDES 200 <=149 HDL CHOLESTEROL 45 >=40 LDL CHOLESTEROL CALCULATED 120 0-129 Basic Metabolic Profile 2014-02-05 SODIUM 138 136-145 POTASSIUM 3.9 3.5-5.0 CHLORIDE 104 98-107 CO2 25 22-31 ANION GAP, CALCULATION 9 5-18 GLUCOSE 102 70-125 CALCIUM 8.8 8.5-10.5 BLOOD UREA NITROGEN 15 8-22 CREATININE 0.74 0.60-1.10 GFR MDRD AF AMER >60 >60 GFR MDRD NON AF AMER >60 >60 MORTAR WORKER CYTOLOGY 2014-02-05 LAB AP MORTAR WORKER SPECIMEN Satisfactory for ADEQUACY evaluation, endocervical/transformation zone component present CELLDYN-HGB 2014-02-05 HGB 14.8 12.0-16.0 [facility] Spirometry (Flow 2014-02-05 Volume Loop) [place] Result Colonoscopy [facility] Spirometry (Flow 2013-08-28 Volume Loop) [place] Result Mammogram : Screening 2012-10-20 Original Report EXAM: BILATERAL SCREENING DIGITAL MAMMOGRAPHY WITH CAD. COMPARISON: 06/09/2011, 07/23/2009 and 12/22/2007. CLINICAL INFORMATION: The patient reports no palpable abnormalities or other breast concern.. Patient's family history includes a sister with breast cancer at age 48. TECHNICAL INFORMATION: Bilateral-craniocaudal and mediolateral screening oblique full-field digital projections obtained. CAD was utilized. BREAST PARENCHYMAL DENSITY: Heterogeneously dense breast parenchymal pattern, (51-75% fibroglandular), density category 3 of 4. This does decrease sensitivity of mammography to detect small breast cancers. FINDINGS: Breast parenchyma appears mammographically unremarkable without suggestion of underlying malignancy or other breast pathology. CONCLUSION: ACR BI-RADS category 1- Negative. A letter was sent to the patient regarding results. RECOMMENDATIONS: Annual mammography screening exams. Based on information provided by the patient, her lifetime risk of breast cancer is 21.5% on the Tyrer-Cuzick risk assessment model. This falls within the criteria of the [place] [employer] recommendation of yearly breast MRI in addition to mammography. Her dense breasts add additional risk. Read By: Merly Rowe M.D. Reviewed and Electronically Signed By: Merly Rowe M.D. TSH 2012-09-07 LIPID CASCADE 2012-09-07 Cholesterol 263 < 200 Triglycerides 136 < 150 HDL Cholesterol 60 > 39 LDL Cholesterol, Calculated 176 < 13 0 TISS TRANSGLUTAMINASE AB 2012-09-07 Tissue Transglutaminase IgA 0.6 < 10 .1 AB Tissue Transglutaminase IgG < 0.6 < 10 .1 AB Ultrasound : Thyroid 2012-10-20 Original Report EXAM: THYROID ULTRASOUND CLINICAL INFORMATION: Thyroid nodules INTERPRETATION: The right lobe of the thyroid gland is slightly enlarged in size, measuring 45 x 17 x 18mm; the left lobe is normal in size, measuring 42 x 12 x 13mm. The thyroid echotexture is heterogeneous, and again seen is a 22mm complex nodule in the lower pole of the right lobe, and an 8mm nodule in the upper pole of the right lobe and an 11 mm nodule in the mid-portion of the left lobe. These are stable from prior studies dated 06/09/2011 and 04/10/2010. The adjacent soft tissues of the neck are normal. CONCLUSION: 1. Multinodular goiter, with bilateral nodules measuring up to 22 mm, stable from prior examinations. 2. No additional abnormalities are identified. Read By: Jim Newell M.D. Reviewed and Electronically Signed By: Jim Newell M.D. [facility] Spirometry (Flow 2012-09-07 Volume Loop) [place] Result LIPID CASCADE 2012-02-02 Cholesterol 221 < 200 Triglycerides 91 < 150 HDL Cholesterol 51 > 39 LDL Cholesterol, Calculated 152 < 13 0 HISTOLOGY OUT REACH SPEC. 2011-12-16 IMMUNOGLOBULINS 2011-10-21 Immunoglobulin G [phone] Immunoglobulin A 197 65-400 Immunoglobulin M 133 60-280 CELLDYN-CBC withOUT DIFF 2011-10-21 HCT 44.2 % 35-47 HGB 15.0 g/dL 12.0-16.0 MCH 31.4 pg 27-34 MCHC 33.9 g/dL 32.0-36.0 MCV 92.6 fL 80-100 PLT 331 K/uL 140-440 RBC 4.77 M/uL 3.80-5.40 RDW 13.1 % WBC 12.8 K/uL 4.0-11.0 [facility] Spirometry (Flow 2011-10-21 Volume Loop) [place] Result Mammogram : Screening Ultrasound : Thyroid 2011-06-09 Original Report EXAM: THYROID ULTRASOUND CLINICAL INFORMATION: Followup thyroid nodule INTERPRETATION: The right lobe of the thyroid gland is normal in size, measuring 47 x 15 x 18 mm; the left lobe is normal in size, measuring 40 x 11 x 13 mm. The thyroid echotexture is diffusely heterogeneous and slightly hypoechogenic throughout both lobes. Again seen is a solid hypoechogenic 21 x 14 x 13 mm in the lower pole of the right lobe, and there is a 10 x 8 mm solid hypoechogenic nodule in the midportion of the left lobe. These were both noted on an earlier study from 04/10/2010, and are stable in their appearance. Some additional smaller nodules were also noted on the earlier study, but are less well appreciated on the current examination. There is no new or additional cyst or solid nodule seen at this time. The patient has reportedly undergone aspiration and biopsy of the larger right-sided nodule, with benign results. The overall appearance is essentially unchanged from the prior examination. The adjacent soft tissues of the neck are normal. CONCLUSION: Probable multinodular goiter with bilateral thyroid nodules, as described above. The overall appearance is unchanged from 04/10/2010. As mentioned above, the patient has had previous aspiration and biopsy of the larger right-sided nodule, with benign results. Read By: Jim Newell M.D. Reviewed and Electronically Signed By: Jim Newell M.D. [facility] [employer] [facility] 2011-01-28 CULTURE, URINE (ih) 2011-01-28 24 HOUR EMB 0 24 HOUR BLD 1 48 HOUR EMB 0 48 HOUR BLD 1 URINALYSIS, AUTO W/ MICRO 2011-01-28 COLOR yellow CLARITY clear GLUCOSE neg BILIRUBIN neg KETONE neg SPECIFIC GRAVITY <1.005 HGB trace lysed PH 5.5 PROTEIN neg URO 0.2 NITRATE neg WBC small MICRO WBC 0-3 MICRO RBC 0-3 MICRO EPI 0-5 BACTERIA rare CRYSTALS neg WBC Casts RBC Casts HYALINE CASTS neg GRANULAR Casts OTHER [facility] Spirometry (Flow Volume Loop) [place] Result Ultrasound : Thyroid T4, FREE 2010-04-10 T4, Free 0.9 0.7-1.8 TSH 2010-04-10 PROLACTIN 2010-04-10 Prolactin 18.9 < 20.1 COMPREHENSIVE METABOLIC 2010-04-10 Glucose 89 70-125 BUN 18 8-22 Creatinine 0.76 0.60-1.10 GFR, Estimated > 60 > 60 GFR,Est If Black > 60 > 60 Bilirubin, Total 0.5 < 1.1 AST (SGOT) 15 < 41 ALT (SGPT) 15 < 46 Alkaline Phosphatase 37 45-120 Sodium 140 136-145 Potassium 5.0 3.5-5.0 CO2, Total 27 25-31 Chloride 106 98-107 Anion Gap, Calculated 7 5-18 Calcium 8.9 8.5-10.5 Protein, Total 6.7 6.0-8.0 Albumin 3.6 3.5-5.0 Globulin 3.1 1.5-3.5 A/G Ratio, Calculated 1.2 1.0-2.2 LIPID CASCADE 2010-04-10 Cholesterol 209 < 200 Triglycerides 124 < 150 HDL Cholesterol 70 > 39 LDL Cholesterol, Calculated 114 < 13 0 T3,FREE 2010-04-10 T3,Free 2.7 1.9-3.9 VITAMIN D, 25-HYDROXY 2010-04-10 (screening) Vitamin D, 25-Hydroxy 41.3 30.0-80.0 Ultrasound : Thyroid 2010-04-10 Original Report EXAM: THYROID ULTRASOUND CLINICAL INFORMATION: Thyroid nodule; palpable lump on physical examination. INTERPRETATION: The thyroid gland is normal in size, and the right lobe measures 50 x 15 x 18 mm and the left lobe measures 47 x 10 x 13 mm. The echotexture is heterogeneous throughout both lobes, and there is a 22 x 15 x 15 mm complex partially cystic nodule in the lower pole of the right lobe with a 9 mm solid nodule in the midportion of the right lobe laterally, as well as two small nodules in the mid and lower portion of the left lobe, measuring 8 mm and 3 mm in size. The most likely impression is that this represents a multinodular goiter. Because of the size of the right-sided nodule, ultrasound-guided fine needle aspiration and biopsy would be advised at this time to confirm the above impression. The adjacent soft tissues of the neck are normal. CONCLUSION: 1. Probable multinodular goiter, with several nodules measuring up to 9 mm and a larger 22 x 15 x 15 mm complex nodule in the lower pole of the right lobe. Ultrasound-guided fine needle aspiration and biopsy of the right-sided nodule would be recommended at this time. 2. The remainder of the thyroid ultrasound examination is otherwise normal. MJG:sys/act/pml Read By: Jim Newell M.D. Reviewed and Electronically Signed By: Jim Newell M.D. Mammogram : Screening LIPID CASCADE 2009-05-14 Cholesterol 242 < 200 Triglycerides 159 < 150 HDL Cholesterol 44 > 39 LDL Cholesterol, Calculated 167 < 13 0 MRI : Head (Brain) RAPID STREP, THROAT Rapid Strep, Throat: neg FERRITIN 2009-04-08 Ferritin 213 10-130 PROLACTIN 2009-04-08 Prolactin 34.9 < 20.1 FSH 2009-04-08 FSH 6.0 (inactive) VITAMIN 2009-04-08 D,1,25DIOH(8822) [place] Results SEE BELOW URINE TEST 2009-04-08 Result neg Specific gravity <1.005 CELLDYN-CBC WITH DIFF 2009-04-08 GRAN 4.6 1.7-7.7 GRANPERCENT 57.8 %G 50-70 HCT 44.6 % 35-47 HGB 14.9 g/dL 12.0-16.0 LYM 2.7 0.7-3.5 LYMPERCENT 34.8 %L 20-40 MCH 30.0 pg 27-34 MCHC 33.4 g/dL 32.0-36.0 MCV 89.7 fL 80-100 MID .6 0.0-0.9 MIDPERCENT 7.4 %M 2.0-10.0 PLT 339 K/uL 140-440 RBC 4.97 M/uL 3.80-5.40 RDW 12.3 % 11.0-14.5 WBC 7.9 K/uL 4.0-11.0 URINALYSIS, AUTO W/ MICRO COLOR yellow CLARITY clear GLUCOSE neg BILIRUBIN neg KETONE neg SPECIFIC GRAVITY <1.005 HGB neg PH 5.5 PROTEIN neg URO 02. NITRATE neg WBC trace MICRO WBC 0-3 MICRO RBC neg MICRO EPI few BACTERIA neg CRYSTALS neg WBC Casts RBC Casts HYALINE CASTS neg GRANULAR Casts OTHER neg CULTURE, THROAT (ih) Result neg VITAMIN D, 25-HYDROXY 2009-04-08 (screening) Vitamin D, 25-Hydroxy 33.6 30.0-80.0 Xray : Chest, two views, PA and lateral TSH 2009-04-03 COMPREHENSIVE METABOLIC 2009-04-03 Glucose 91 70-125 BUN 12 8-22 Creatinine 0.8 0.5-1.3 GFR, Estimated > 80 > 60 GFR,Est If Black > 80 > 60 Bilirubin, Total 0.8 < 1.1 AST (SGOT) 22 < 41 ALT (SGPT) 26 < 46 Alkaline Phosphatase 50 45-120 Sodium 138 136-145 Potassium 3.9 3.5-5.0 CO2, Total 25 25-31 Chloride 101 98-107 Anion Gap, Calculated 12 5-18 Calcium 9.3 8.5-10.5 Protein, Total 7.5 6.0-8.0 Albumin 4.3 3.5-5.0 Globulin 3.2 1.5-3.5 A/G Ratio, Calculated 1.3 1.0-2.2 Erythrocyte sed rate 2009-04-03 ESR 10 CELLDYN-CBC WITH DIFF 2009-04-03 GRAN 12.1 1.7-7.7 GRANPERCENT 75.8 %G 50-70 HCT 45.2 % 35-47 HGB 14.4 g/dL 12.0-16.0 LYM 2.6 0.7-3.5 LYMPERCENT 16.5 %L 20-40 MCH 28.5 pg 27-34 MCHC 31.9 g/dL 32.0-36.0 MCV 89.6 fL 80-100 MID 1.2 0.0-0.9 MIDPERCENT 7.7 %M 2.0-10.0 PLT 322 K/uL 140-440 RBC 5.05 M/uL 3.80-5.40 RDW 12.9 % 11.0-14.5 WBC 16.0 K/uL 4.0-11.0 Xray : Elbow 2 views, AP and Lat (inactive)DME : [employer] Elbow Support Neoprene Large [facility] 2008-07-23 CHLAMYDIA/GONO,AMPLIFIED 2008-07-23 DETECTION Chlamydia trac,Amplified Negative Prb N gonorrhoeae,Amplified Prb Negative Ultrasound : Abdomen - RUQ HEPATIC PANEL 2008-04-25 AST (SGOT) 15 < 41 ALT (SGPT) 18 < 46 Alkaline Phosphatase 44 45-120 Albumin 4.7 3.5-5.0 Bilirubin, Total 0.4 < 1.1 Direct Bilirubin 0.2 < 0.6 Protein, Total 7.1 6.0-8.0 (inactive)GLIADIN 2008-04-25 ANTIBODY(71639) [place] Results SEE BELOW CELLDYN-CBC WITH DIFF 2008-04-25 GRAN 4.6 1.7-7.7 GRANPERCENT 64.0 %G 50-70 HCT 42.8 % 35-47 HGB 14.5 g/dL 12.0-16.0 LYM 2.2 0.7-3.5 LYMPERCENT 29.9 %L 20-40 MCH 30.1 pg 27-34 MCHC 33.9 g/dL 32.0-36.0 MCV 88.8 fL 80-100 MID .4 0.0-0.9 MIDPERCENT 6.1 %M 2.0-10.0 PLT 414 K/uL 140-440 RBC 4.82 M/uL 3.80-5.40 RDW 11.9 % WBC 7.2 K/uL 4.0-11.0 Ultrasound : Abdomen - RUQ RUBELLA, IGG 2008-01-25 Rubella IgG Immune RUBEOLA IMMUNE STATUS 2008-01-25 Rubeola Immune Status Immune (Immune) LIPID CASCADE 2008-01-25 Cholesterol 218 < 200 Triglycerides 130 < 150 HDL Cholesterol 54 > 39 LDL Cholesterol, Calculated 138 < 13 0 Mammogram : Screening [facility] 2007-08-04 URINE TEST 2007-01-31 Result neg Specific gravity 1.015 CELLDYN-HGB 2007-01-31 HGB 14.7 g/dL 12.0-16.0 [facility] 2006-07-06 LIPID CASCADE 2005-08-13 Cholesterol 200 < 200 Triglycerides 103 < 150 HDL Cholesterol 45 > 39 LDL Cholesterol, Calculated 134 < 13 0 CHOLESTEROL, TOTAL 2005-07-07 Cholesterol 234 < 200 SYPHILIS SCREEN CASCADE 2005-07-07 Syphilis Screen [place] Non-reactive (Nonreac tive) TSH 2005-07-07 TSH 2.5 0.3-5.0 VITAMIN B12 2005-07-07 Vitamin B12 [phone] LYME ANTIBODY, TOTAL 2005-07-07 Lyme Total Antibody 0.22 < 0.75 [facility] 2005-07-07 HEPATIC PANEL 2004-07-13 AST (SGOT) 16 < 41 ALT (SGPT) 49 < 46 Alkaline Phosphatase 51 45-120 Albumin 4.4 3.5-5.0 Bilirubin, Total 0.6 < 1.1 Direct Bilirubin 0.1 < 0.6 Protein, Total 6.9 6.0-8.0 LIPID PROFILE use LIPID 2004-07-13 [place] as of [id number] Cholesterol 180 < 200 Triglycerides 104 < 150 HDL Cholesterol 47 > 39 LDL Cholesterol, Calculated 112 < 13 0 LIPID PROFILE use LIPID 2003-06-17 [place] as of [id number] Cholesterol 159 < 200 Triglycerides 175 < 150 HDL Cholesterol 34 > 39 LDL Cholesterol, Calculated 90 < 13 0 REASON FOR VISIT [facility] results/ Apt needed, Video visit - [facility] results, MTM Initial cancelled/need to reschedule, initial med review, covid testing prior to surgery, , depression concerns/RN, Depression resources , RN Hospital Follow Up, suicidal thoughts/RN, suicidal thoughts/RN, Pre-OP DOS 01/12 No Covid test, Hip replacement, [facility]. Dr. Pereira, Discuss CCM Services, Pre-OP DOS 01/12 No Covid test, Hip replacement, [facility]. Dr. Pereira, med check, med check, Medication Iscoj-SKUINluwcmn-Fwtshcwzkpmwy 5- 325 MG Tablet, Medication Vxxax-CCXMJfksqgj-Gnzrjqqznupil 5-325 MG Tablet, Medication Uzzlq-KOUPRoakbvw-Azstxrqfwxbib 5-325 MG Tablet, Discuss stool/liver test, Due for Mammogram, Questions regarding upcoming appointment, Medication Xsook-PXHVIeqqsin-Tydlczzbzkiju 5-325 MG Tablet, prior auth - Omeprazole , Medication Brift-EPOOYttukoq-Ozgidzokyrywt 5-325 MG and talk about 2nd BOOSTER, DOXY [phone], MED CHECK, cancelled appointment, Refill X1, [employer] ([phone]) Discuss getting a Handicap Parking Permit due to her bulging disc in her back, disability parking permit, [employer] ([phone]) Discuss getting a Handicap Parking Permit due to her bulging disc in her back, Medication Check - vicodin [phone], med check vicodin, Medication Check - vicodin DOXY [phone], Discuss medication options, Meloxicam/Trazodone , Change Medication? , multiple med check, Due for Mammogram, Discuss CCM , refill x 2 , [facility] [phone] ambien med , Ambien,Pain medication check, Discuss CCM Services, referral, [facility] Conversion Encounter, Medication Check, Rx refill , Refill request, refill Requests, Pain med check, Medication Check - pain , Discuss CCM Services, Medication Check - Pain , RX Refill Hydrocodone/Acetaminophen LM 12/26, multiple medication check, Discuss CCM Services, refill request, requesting call back/RN, Medication Check - multiple , sore throat, runny nose, TINEO x 10 days, Fasting Labs, Fasting Labs, Fasting Labs, refax referral, medication check, Discuss CCM Services, FYI, Medication Check, Discuss CCM Services, patient's orders, Medication Check - multiple , multiple medication check , Rx Refill Metoprolol, Medication Check - Vicodin , A1C, cancelled appt , Medication Check - multiple , ACT/AAP due, Annual Physical, Medication Check - pain, Tdap 2017, Medication Check - multiple , Letter for Failed DOT , cancelled appointment, Medication check , Rx for blood pressure , Medication Check - Multiple, Pain medication check, Annual Exam/Pap, last Tdap 07/23/2008, vision UTD, Medication Check , Cancelled appointment, multiple medication check, needs Vicodin RX mailed, Deep tissue massage-see other TE, deep massage therapy, Multiple medication check, pain medication check, Requesting a Work in for 07/15 , pain medication check , Vicodin request / ? / RN *LM 06/28, written prescription, lump removal, Dr. Jay , lump removal, [place] per Dr. Jay , remove spot from leg and one on arm, remove spots one leg and one on arm, cancelled appointment , Work in appointment tomorrow, Vicodin 325mg-5 mg tablet, Note for social security, records request, preop H&P, labs, EKG (02-13-16), Preoperative consultation for risk assessment at the request of Dr. Ramo Marie, Surgery Center: [facility], Surgery Date: 02/23/16, Surgical Procedure: right knee arthroscopy, RX request - Hard copy , Prior Auth , Written RX - Vicodin, *PA request Benzonatate pxx, *PA request Qvar pxx , Medication check, mail written RXVicodin 325mg-5 mg , Personal , Vicodin 325mg-5 mg tablet , Pre op/Dos:07/21/15/Dr. Brian Marie/[facility]/Right Knee scope. Pre-op form received from [facility] and scanned into patients chart for this appointment., written prescription, LM, annual exam, MUST GET WAIVER FORLABS, written prescription, Vicodin 325mg-5 mg tablet refill, Recall Echocardiogram (Aorta), Asthma,P ain,Migraine medication check, elevated BP/RN EVD screened, elevated BP/fyi/RN, Recall Asthma, Pain,Migraine Medication check due, vicodin prescription , Ulcer pain/?/Rn, written rx request, rx Gabapentin, Refill vitamins, refill, refill - Vicodin , blood pressure medicationAHC, ACT recall, annual physical/asthma dr jay, MUST GET WAIVER FOR LABS, refill , Rx - Labetalol, Rx - Dasetta(Cyclafem), Rx Vicodin, Rx 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-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, rx 2nd request - Clobetasol, Please call, patience alvarado sla silverscript, Rx, medication check, No Show, medication check vicodin , refill, Refill Vicodin, Thryoid Ultrasound, Recall Asthma Check/Lipids due , written rx request, Vicodin 325mg-5 mg tablet, MRI results , LM 10/18, Vicodin, Rx - Oysco 500, New Med, medication check-Fluticasone- check spirometry with and without bronchodilator., patience lewis mold car pusher sla silverscript, Vicodin , rx-Fluticasone, vicodin, Rx Maxalt, refill- vicodin, rx maxalt, rx: maxalt-mold car pusher, refill, Refill, refill, rx plus tablet, Annual, MUST GET WAIVER FOR LABS, eye exam up to date, Rx - 2 pages , refill, Discuss menses, Refill Vicodin lm 12/01, script for Vicodin, LM 11/08, Rx FLUTICASONE, Refill - Vicodin, period, hydroxyzine med check, LM, rx hydroxyzine LM 08/30, Rx FLUTICASONE SPRAY*lm08/03-08/09, refill, vicodin- called in, rx for vicodin, rx HYDROXYZINE , rx OYSCO, rx 3 refills, Recall Thyroid ultrasound, rx: prenaplus, rx , Refill Vicodin, rx-Oyster Asif & PrenaPlus/message, Rx Oyster Asif& PrenaPlus, Rx hydroxyzine, Rx Orthonovum/Message/Second Request, Refill Nortrel, Rx spiriva, Vicodin 500 mg-5 mg tablet, rx PRENA PLUS , Scripts not at pharmacy/Discuss(LM 02/03), rx singulair, Script not at pharmacy, Rx hydroxyzine, Annual exam, MUST GET WAIVER FOR LABS, eye exam up to date, Rx Singulair , rx: maxalt-mold car pusher, RX PLUS, rx HYDROXYZINE, rx SINGULAIR, rx Maxalt, RxSINGULAIR, Rx Oyster Asif, rx: maxalt-mold car pusher, refill - vicodin, rx please refax PRENAPLUS, Recall, rx prenaplus, rx: singulair, Discuss referral for thyroid biopsy (ok for tuesday10/27/10), Rx HYDROXYZINE ,written Rx, Rx oysco, REfill hydrocodone, Please refax, rx prenaplus alert, rx hydroxzine [facility] alert,ANNUAL PX DR JAY, MUST GET WAIVER FOR LABS, Requesting a referral, Rx hydroxyzine, control, Rx, rx maxalt- mold car pusher, refill, LM 05/08, Returing call/prescription, Refill, returning call/ test results 04/10, requested infromation/written prescription, Blood work/Dr Jay, med check, refill, refill, Requesting a refill for Vicodin, Second Refill Request, Refill, LM 12/11, Refill, Refill, LM 10/28, Refill, medication, opened in error, Xanax script, Request for medication, refill, more samples or requested rx, annual, pt states vision is current, Written Rx for Hydrocodone, Refills, refill, refill, Returning MD's call, Fasting blood work , med check, Cancellation, Needs prescription., refill, Prescription for valium ?, Refills, Recheck per Dr. Jay, per Dr. Hood x-ray, blood work, double vision, Refill, Refills, LM 01/31, left elbow pain, refill, left eblow pain, refill, refills, new rx, needs before 1 pm today, Refills, annual, MUST GET WAIVER FOR LABS, pt states vision is current, refills, Refills, 2nd request on Hydorxyzine, refill, med check, refills, refills, bp check, BP check, BW-fasting also titer to check for immunity see TE 01/15/08, fasting labs, LM 01/15, refill, refill, Refills, Refills, refill, fasting bloodwork, refill, annual, pt claims vision up to date, refills, can't talk, sore throat not feeling well, Refill, refill, refills, Refills, Preoperative consultation for risk assessment at the request of Dr. Parikh, Surgery Center: [facility], Surgery Date: 02-02-07, Surgical Procedure: Bladder, requesting records appt is this tuesday, Refills, refill, Refills, Refills, refill, Refills, refill, Refills, Refills, Refills, PA needed, LM , fasting bloodwork, lump in vagial area, BW-fasting, Annual. * Female well visit over 26, Refills, refill on meds, Refills/drug change, medication check, refills, Has Migraine, Refills, Refills, Refills, Refills, REFILL, Refills, fasting labs, annual, congested, LUMP ON ARM, annual, Director Advertising Insurance Providers [facility] Health Member Patient Patient Patient Patient Patient Subscriber Subscriber Subscriber Group Insurance Plan Plan Plan Plan ID Relationship Address Phone Name Date of ID Name Date of No Type Insurance Insurance Insurance Coverage to Subscriber Address Phone Name Dates UCARE DOS UCARE self Ailyn [id number] CONNECT + 07/25/2021 CONNECT + [place] [address] [place] [address] UCARE DOS [id number] UCARE self Ailyn [id number] [id number] CONNECT 07/25/18- [place] [address] [place] [phone] [place] self Ailyn [id number] [place] [address] UCARE DOS [phone] UCARE self Ailyn [id number] SICYSO CONNECT + 07/25/18- CONNECT + [place] [address] MEDICARE [id number] MEDICARE self Ailyn 1960 [id number] NGS [phone] [place] [address] [facility] [phone] [facility] self Ailyn [id number] 300 CTCYSO CONNECT 07/25/18- [place] [address] MEDICARE [id number] MEDICARE self Aiyln 1960 [id number] NGS [phone] [place] [address]
--- OUTSIDE RECORDS SUMMARY | 2022-03-04 19:00 | XMS_ITS | Encounter Summary ---
:1960 Author Organization [facility] Address [facility] [place] [address] Care Team Providers Name Role Phone Breana Mock MD Primary Care Provider [phone] Encounter Details Date Type Department Care Team Description 10/18/2019 Records - [facility] Amanda abebe MD Laboratory [address], [address] [place] [phone] (Wo rk) Social History Tobacco Use Types Packs/Day Years Used Date Never Assessed Sex Assigned at Date Recorded Not on file documented as of this encounter Plan of Treatment Not on filedocumented as of this encounter Procedures Procedure Name Priority Date/Time Associated Comments Diagnosis TSH WITH FREE T4 Routine 10/18/2019 10:07 Results for this REFLEX AM CDT procedure are i n the results section. LIPID PROFILE Routine 10/18/2019 10:07 Results fo r this AM CDT procedure are i n the results section. COMPREHENSIVE Routine 10/18/2019 10:07 Results fo r this METABOLIC PANEL AM CDT procedure ar e in the results section. documented in this encounter Results (ABNORMAL) Lipid Profile (10/18/2019 10:07 AM CDT) [facility] Time Signature Cholesterol 205 (H) <=199 10/18/2019 HEALTH mg/dL 5:59 PM CDT [facility] Triglycerides 75 <=149 10/18/2019 [facility] mg/dL 5:59 PM CDT [facility] Direct Measure 54 >=50 10/18/2019 [facility]ALTH HDL mg/dL 5:59 PM CDT [facility] LDL Cholesterol 136 (H) <=129 10/18/2019 [facility]ALTH Calculated mg/dL 5:59 PM CDT [facility] Patient Fasting > Yes 10/18/2019 HEALTH 8hrs? 5:59 PM CDT [facility] Specimen Anatomical Collection Method Collection Time Receive d Time (Source) Location / / Volume Laterality Blood specimen 10/18/2019 10:07 0 5:11 (specimen) AM CDT PM CDT Sahara Mercado MD LAB - BLOOD ORDERABLE S Performing Organization Address City/State/[facility] Phon e Number [place] [address] [address] [facility] TSH with free T4 reflex (10/18/2019 10:07 AM CDT) P athologist Signature TSH 1.86 0.30 - 5.00 10/18/2019 [facility] uIU/mL 6:15 PM CDT [facility] Specimen Anatomical Collection Method Collection Time Receive d Time (Source) Location / / Volume Laterality Blood specimen 10/18/2019 10:07 0 5:11 (specimen) AM CDT PM CDT Sahara Mercado MD LAB - BLOOD ORDERABLE S Performing Organization Address City/State/ZIP Code Phon e Number [place] [address] [address] [facility] Comprehensive metabolic panel (10/18/2019 10:07 AM CDT) P athologist Signature Sodium 137 136 - 145 10/18/2019 [facility] mmol/L 5:59 PM CDT [facility] Potassium 4.1 3.5 - 5.0 10/18/2019 [facility]ALTH mmol/L 5:59 PM [facility] Chloride 101 98 - 107 10/18/2019 [facility] mmol/L 5:59 PM [facility] Carbon Dioxide 26 22 - 31 10/18/2019 M [facility] (CO2) mmol/L 5:59 PM T [facility] Anion Gap 10 5 - 18 10/18/2019 [facility] mmol/L 5:59 PM T [facility] Glucose 92 70 - 125 10/18/2019 [facility] mg/dL 5:59 PM [facility] Urea Nitrogen 18 8 - 22 10/18/2019 [facility] mg/dL 5:59 PM [facility] Creatinine 0.74 0.60 - 10/18/2019 [facility] 1.10 mg/dL 5:59 PM [facility] GFR Estimate If >60 >60 10/18/2019 HEALTH Black mL/min/1.7 5:[address] LABORATORY GFR Estimate >60 >60 10/18/2019 HEALTH mL/min/1.7 5:[address] LABORATORY Bilirubin Total 1.0 0.0 - 1.0 10/18/2019 [facility]ALTH mg/dL 5:59 PM [facility] Calcium 9.2 8.5 - 10.5 10/18/2019 [facility] mg/dL 5:59 PM [facility] Protein Total 6.9 6.0 - 8.0 10/18/2019 [facility] g/dL 5:59 PM [facility] Albumin 4.4 3.5 - 5.0 10/18/2019 [facility] g/dL 5:59 PM [facility] Alkaline 57 45 - 120 10/18/2019 M [facility] Phosphatase U/L 5:59 PM [facility] AST 21 0 - 40 U/L 10/18/2019 [facility] 5:59 PM T [facility] ALT 30 0 - 45 U/L 10/18/2019 [facility] 5:59 PM CDT [facility] Specimen Anatomical Collection Method Collection Time Receive d Time (Source) Location / / Volume Laterality Blood specimen 10/18/2019 10:07 0 5:11 (specimen) AM CDT PM CDT Narrative [facility] - 10/18/2019 5:59 PM CDT Fasting Glucose reference range is 70-99 mg/dL per [place] [employer] (ADA) francisca francisco. Sahara Mercado MD LAB - BLOOD ORDERABLE S Performing Organization Address City/State/ZIP Code Phon e Number [facility] [place] [place] [address] [facility] [address] [place] [address] documented in this encounter Visit Diagnoses Not on filedocumented in this encounter Care Teams Buggy Ladle Tender Relationship Specialty Start Date End Date Breana Mock MD PCP - General 11/07/02 08/27/[address] [address] documented as of this encounter
--- OUTSIDE RECORDS SUMMARY | 2022-03-04 19:00 | XMS_ITS | Encounter Summary ---
:1960 Author Organization [facility] Address [address] [place] [address] Care Team Providers Name Role Phone Elsewhere, Pcp Primary Care Provider Unavailable Encounter Details Date Type Department Care Team Description 11/30/2021 Orders Only Department of [facility] Jazmine Brown, Medicine in [place], AIR CREW MEMBER, C.N.P., D.N .P. [place] [address] [place] [address] Social History Tobacco Use Types Packs/Day Years Used Date Smoking Tobacco: Never Smokeless Tobacco: Never Sex Assigned at Date Recorded Not on file documented as of this encounter Plan of Treatment Not on filedocumented as of this encounter Visit Diagnoses Not on filedocumented in this encounter Additional Health Concerns Assessment Noted Time PHQ-9 Depression Total Score: 2 10/14/2015 4:09 PM CDT documented as of this encounter Care Teams Service Person Relationship Specialty Start Date End Date Elsewhere, Pcp PCP - General Internal Medicine 02/15/19 documented as of this encounter
--- OUTSIDE RECORDS SUMMARY | 2022-03-04 19:00 | XMS_ITS | Encounter Summary ---
:1960 Author Organization [place] Address [facility] [place] [address] Care Team Providers Name Role Phone Sahara Mercado MD Primary Care Provider [phone] Encounter Details Date Type Department Care Team Description 09/01/2021 Medical Correspondence [facility] ANNA Pelaez INTAKE Spine and Remington Duvall MD PATIENT FORM Neurosurgery [facility] [address] [facility] NEUROSURGERY [address] [place] [address] [phone] Social History Tobacco Use Types Packs/Day Years Used Date Never Assessed Sex Assigned at Date Recorded Not on file documented as of this encounter Plan of Treatment Not on filedocumented as of this encounter Visit Diagnoses Not on filedocumented in this encounter Care Teams Instructional Consultant Relationship Specialty Start Date End Date Sahara Mercado MD PCP - General Family Medicine 08/28/21 [facility] [address] [place] [address] documented as of this encounter
--- OUTSIDE RECORDS SUMMARY | 2022-03-04 19:00 | XMS_ITS | Encounter Summary ---
:1960 Author Organization [place] Address [facility] [place] [address] Care Team Providers Name Role Phone Sahara Mercado MD Primary Care Provider [phone] Zuly Del Toro [facility] Unavailable Zuly Del Toro [facility] Unavailable Reason for Visit Reason Onset Date Comments Erroneous encounter-disregard 02/10/2022 Encounter Details Date Type Department Care Team Description 02/10/2022 Telephone [facility] Sharla Joy [facility] Pawel Weber PA-C encounter-disregard [phone] [facility] [address] [facility] [address] [place] [address] [phone] (Wo rk) Social History Tobacco Use Types Packs/Day Years Used Date Never Smoker Smokeless Tobacco: Never Used Sex Assigned at Date Recorded Not on file COVID-19 Exposure Response Date Recorded In the last 10 days, have you been in contact with Yes 01/13/2022 10:10 AM CDT someone who was confirmed or suspected to have Coronavirus/COVID-19? documented as of this encounter Plan of Treatment Not on filedocumented as of this encounter Visit Diagnoses Not on filedocumented in this encounter Care Teams Warehouse Consultant Relationship Specialty Start Date End Date Sahara Mercado PCP - General Family Medicine 08/28/21 Amanda Tidwell MD [facility] [address] [place], [place] [id number] Zuly Del Toro RPH Pharmacist Pharmacist Ambulatory 01/28/[address] [address] Zuly Del Toro RPH Assigned MTM Pharmacist 02/06/[address] [address] documented as of this encounter
--- OUTSIDE RECORDS SUMMARY | 2022-03-04 19:00 | XMS_ITS | Encounter Summary ---
:1960 Author Organization [facility] Address [address] [place] [address] Care Team Providers Name Role Phone Elsewhere, Pcp Primary Care Provider Unavailable Encounter Details Date Type Department Care Team Description 11/11/2021 Hospital Encounter Department of [facility] Mackay [facility] Rectal Laboratory Medicine WELT ROUGHER, C.N.P., in [facility] [address] [place] [address] [place] [phone] Social History Tobacco Use Types Packs/Day Years Used Date Smoking Tobacco: Never Smokeless Tobacco: Never Sex Assigned at Date Recorded Not on file documented as of this encounter Medications at Time of Discharge Medication Sig Dispensed Refills Start Date End Date busPIRone (BUSPAR) 30 mg TAKE ONE (1) tablet 0 tablet BY MOUTH TWICE DAILY calcium carbonate Take by mouth. 0 11/03/2015 (OS-ASIF) 1,250 mg (500 mg calcium) tablet cetirizine 10 mg capsule Take 10 mg by mouth. 0 0 09/30/2014 diclofenac sodium Apply 4 g topically 200 g 0 2 (VOLTAREN) 1 % gel 4 (four) times a day. DULoxetine (CYMBALTA) 30 Take 1 capsule by 0 05/[address] capsule mouth every AM with the 60 mg capsule for Total daily dose of 90 mg. DULoxetine (CYMBALTA) 60 Take 1 capsule by 0 11/[address] capsule mouth daily with 30 mg of duloxetine Total dose 90 mg famotidine (PEPCID) 40 Take 1 tablet (40 mg 180 tablet 0 mg tablet total) by mouth 2 (two) times a day. fluticasone propionate Administer 1 spray 0 01/04 (FLONASE) 50 into affected mcg/actuation nasal nostril(s). spray HYDROcodone-acetaminophe Take 1 tablet by 0 n (NORCO) 5-325 mg per mouth. tablet lidocaine (LIDODERM) 5 % APPLY ON DRY, CLEAN, 0 0 09/28/2021 HAIRLESS SKIN. APPLY 1 PATCH TO PAINFUL AREA OF SKIN FOR UP TO TO 12 HOURS WITHIN 24 HOUR PERIOD. LORazepam (ATIVAN) 0.5 Take by mouth. 0 9 mg tablet multivitamin tablet 0 12/15/2020 ondansetron (ZOFRAN) 4 Take 1 tablet (4 mg 30 tablet 0 10/23 mg tablet total) by mouth 3 (three) times a day as needed for nausea. OYSTER SHELL CALCIUM-VIT TAKE 1 TABLET TWO 3 01/22 D3 500 mg(1,250mg) -200 TIMES A DAY WITH unit per tablet FOOD rizatriptan RUBBER GOODS SUPERVISOR Place 10 mg under 0 11/09/2010 (MAXALT-RUBBER GOODS SUPERVISOR) 10 mg the tongue. disintegrating tablet zolpidem (AMBIEN) 5 mg TAKE 1 TABLET BY 0 021 tablet MOUTH AT BEDTIME ONCE A DAY ORALLY 30 DAYS pantoprazole (PROTONIX) Take 1 tablet (40 mg 90 tablet 0 11/27/2021 40 mg EC tablet total) by mouth every morning before breakfast. documented as of this encounter Plan of Treatment Not on filedocumented as of this encounter Procedures Procedure Name Priority Date/Time Associated Diagnosis Comme nts HEMOCCULT Routine 11/11/2021 1:19 PM Bleeding Rectal Result s for this CDT procedure are i n the results section . documented in this encounter Results Hemoccult, Feces (11/11/2021 1:19 PM CDT) P athologist Signature Hemoccult Negative Negative 11/11/2021 NPRG 5:14 PM CDT Specimen Anatomical Collection Method Collection Time Receive d Time (Source) Location / / Volume Laterality Stool (Stool) 11/11/2021 1:19 PM 11/12/19 3:49 CDT PM CDT Christine Donovan APRNNPavanP., M.S.N. LAB BODY FLUIDS AN D STOOLS ORDERABLES Performing Organization Address City/State/ZIP Code Phon e Number [facility] [address] [place], [place] [address] [facility] NPR[facility] [place] [address] documented in this encounter Visit Diagnoses Diagnosis Bleeding Rectal documented in this encounter Additional Health Concerns Assessment Noted Time PHQ-9 Depression Total Score: 2 10/14/2015 4:09 PM CDT documented as of this encounter Care Teams City Planning Engineer Relationship Specialty Start Date End Date Elsewhere, Pcp PCP - General Internal Medicine 02/15/19 documented as of this encounter
--- OUTSIDE RECORDS SUMMARY | 2022-03-04 19:00 | XMS_ITS | Encounter Summary ---
:1960 Author Organization [facility] Address [address] [place] [address] Care Team Providers Name Role Phone Elsewhere, Pcp Primary Care Provider Unavailable Reason for Visit Reason Comments Med Refill Encounter Details Date Type Department Care Team Description 01/01/2022 Refill Department of Family Medicine Karen Brown APRN, Med Refill in [facility] stefan C.N.P., D.N.P. [address] [place] [address] Social History Tobacco Use Types Packs/Day Years Used Date Smoking Tobacco: Never Smokeless Tobacco: Never Sex Assigned at Date Recorded Not on file documented as of this encounter Miscellaneous Notes Telephone Encounter - Dorothy Tang L.P.N. - 01/04/2022 10:28 AM CDT LVM with patient and let her know the OIL BURNER MECHANIC message below. Call back number provided in case patient would like to schedule a f/u appointment. Done. Telephone Encounter - Jazmine Brown APRN, C.N.P., D.N.P. - 01/04/2022 7:48 AM CDT Patient schedule follow-up to determine if continued treatment is indicated. Telephone Encounter - Cristal Coleman - 01/04/2022 7:29 AM CDT Recent Visits Date Type Provider Dept 11/27/21 Office Visit Jazmine Brown APRN, C.N.P., D.N.P. [facility] Showing recent visits within past 365 days with a meds authorizing provider and meeting all other requirements Future Appointments No visits were found meeting these conditions. Showing future appointments within next 90 days with a meds authorizing provider and meeting all other requirements sucralfate is pended. Historical med list shows the prescription has . Please renew or rejectas appropriate. Thank you. This medication was last prescribed by you on 11/27/2021. Please approve or reject as appropriate. documented in this encounter Plan of Treatment Not on filedocumented as of this encounter Visit Diagnoses Diagnosis Pain Left Upper Quadrant Pain Epigastric documented in this encounter Additional Health Concerns Assessment Noted Time PHQ-9 Depression Total Score: 2 10/14/2015 4:09 PM CDT documented as of this encounter Care Teams Wood Pile Driver Operator Relationship Specialty Start Date End Date Elsewhere, Pcp PCP - General Internal Medicine 02/15/19 documented as of this encounter
--- OUTSIDE RECORDS SUMMARY | 2022-03-04 19:00 | XMS_ITS | Clinical Summary ---
:1960 Author Organization [facility] Address [address] [place] [address] Care Team Providers Name Role Phone Elsewhere, Pcp Primary Care Provider Unavailable Source Comments Patient records contain information from all sites at [facility]. For routine questions regarding patient records, call [phone] during business hours, M-F 8:00 AM - 5:00 PM Central Time. Record requests for emergency care only can be directed to [phone] at any time.[facility] Allergies Active Allergy Reactions Severity Noted Date Comments Codeine Nausea And Vomiting 08/22/2014 Metoclopramide Anxiety 07/14/2006 Metoclopramide Hcl Other (see comments) 02/02/2021 Zolpidem Tartrate Other (see comments) 12/18/2009 Sl eep walking Medications Medication Sig Dispensed Refills Start Date End Date Status busPIRone (BUSPAR) 30 TAKE ONE (1) 0 06/12/2018 Active mg tablet tablet BY MOUTH TWICE DAILY cetirizine 10 mg Take 10 mg by 0 09/30/2014 Active capsule mouth. DULoxetine (CYMBALTA) Take 1 capsule by 0 06/12/[address] capsule mouth every AM with the 60 mg capsule for Total daily dose of 90 mg. fluticasone Administer 1 spray 0 01/04/2011 Active propionate (FLONASE) into affected 50 mcg/actuation nostril(s). nasal spray LORazepam (ATIVAN) Take by mouth. 0 09/05/2018 Active 0.5 mg tablet rizatriptan FEEDER CATCHER Place 10 mg under 0 11/09/2010 Active (MAXALT-FEEDER CATCHER) 10 mg the tongue. disintegrating tablet OYSTER SHELL TAKE 1 TABLET TWO 3 02/05/2019 Active CALCIUM-VIT D3 500 TIMES A DAY WITH mg(1,250mg) -200 unit FOOD per tablet HYDROcodone-acetamino Take 1 tablet by 0 Active phen (NORCO) 5-325 mg mouth. per tablet DULoxetine (CYMBALTA) Take 1 capsule by 0 12/05/[address] capsule mouth daily with 30 mg of duloxetine Total dose 90 mg zolpidem (AMBIEN) 5 TAKE 1 TABLET BY 0 02/04/2021 Active mg tablet MOUTH AT BEDTIME ONCE A DAY ORALLY 30 DAYS multivitamin tablet 0 12/15/2020 Active calcium carbonate Take by mouth. 0 11/03/2015 Active (OS-ASIF) 1,250 mg (500 mg calcium) tablet lidocaine (LIDODERM) APPLY ON DRY, 0 09/28/2021 Active 5 % CLEAN, HAIRLESS SKIN. APPLY 1 PATCH TO PAINFUL AREA OF SKIN FOR UP TO TO 12 HOURS WITHIN 24 HOUR PERIOD. famotidine (PEPCID) Take 1 tablet (40 180 tablet 0 11/09/2021 Active 40 mg tablet mg total) by mouth 2 (two) times a day. ondansetron (ZOFRAN) Take 1 tablet (4 30 tablet 0 11/09/2021 Active 4 mg tablet mg total) by mouth 3 (three) times a day as needed for nausea. diclofenac sodium Apply 4 g 200 g 0 11/09/2021 A ctive (VOLTAREN) 1 % gel topically 4 (four) times a day. pantoprazole Take 1 tablet (40 180 tablet 0 11/27/2021 Active (PROTONIX) 40 mg EC mg total) by mouth tabletIndications: 2 (two) times a Pain Left Upper day before Quadrant, Pain breakfast and Epigastric dinner. clindamycin Apply to face 60 g 0 11/30/2021 Act norma (CLINDAGEL) 1 % twice daily. gelIndications: Acne benzoyl peroxide Apply 1 45 g 0 11/30/2021 Ac tive (BENZAC) 5 % application gelIndications: Acne topically 2 (two) times a day. Apply to affected areas on face. Active Problems Problem Noted Date Rosacea 02/15/2019 Other Assisted Current Drug Therapy 03/29/2017 Overview: Overview: Signed 02-01-17 Chey Mo APRN-BC , PATTERN GRADER SUPERVISOR/psychiatry. Phobia Social 10/17/2015 Personal History Of Other Diseases Of The Musculoskele brandon System And 10/17/2015 Connective Tissue Anxiety Generalized Disorder 10/17/2015 Hypertension Essential Primary 09/04/2014 Overview: Hypertension (HTN) Chronic Polyp Colon Adenomatous 10/29/2013 Overview: Overview: Overview: Colonoscopy 10/2013 repeat in 5 years Overview: Colonoscopy 10/2013 repeat in 5 years Chronic Obstructive Pulmonary Disease 01/08/2013 Overview: COPD* Dermatitis Contact 07/07/2010 Chronic Fatigue Syndrome 09/16/2005 Allergy Unspecified Initial 09/16/2005 Depression Major Recurrent Mild 01/13/2005 Overview: Overview: Epic Resolved Problems Problem Noted Date Resolved Date Acne Cystic 03/05/2016 02/15/2019 Herpesviral Infection Unspecified 02/11/20102018 Encounters Date Type Specialty Care Team Description 01/01/2022 Refill Family Medicine Jazmine Brown, SERGIO, C.N.P., D.N.P. Med Refill from Last 3 Months Immunizations Name Administration Dates Next Due DTaP, Unspecified 07/23/2008 H1N1 All Forms 07/01/2009 H1N1 Inj 07/01/2009 Influenza (IM) Preservative Free 04/03/2009 Influenza Laiv (Nasal) (Discontinued) 05/30/2008 Influenza TIV (IM) 04/03/2009 Influenza, Unspecified 04/03/2009 PPSV23 10/21/2011 Pneumococcal, Unspecified 10/21/2011 Td Preservative Free (TENIVAC, 07/07/2005 DECAVAC) Td, (Adult) Unspecified 07/07/2005, 07/24/1996 Tdap 09/12/2017, 07/23/2008, 01/10/2008, 07/07/2005 influenza vaccine quad 05/30/2008 (FLUZONE/FLUARIX) (6 months and older)(PF) Family History Medical History Relation Name Comments Hypertension Brother Hypertension Father Hypertension Mother Breast cancer Sister Relation Name Status Comments Brother Father Mother Sister Social History Tobacco Use Types Packs/Day Years Used Date Smoking Tobacco: Never Smokeless Tobacco: Never Tobacco Cessation: Counseling Given: Yes Sex Assigned at Date Recorded Not on file Last Filed Vital Signs Vital Sign Reading Time Taken Comments Blood Pressure 130/80 11/27/2021 1:32 PM CDT Pulse 65 11/27/2021 1:32 PM CDT Temperature 37.1 ??C (98.8 ??F) 11/27/2021 1:32 PM CDT Respiratory Rate 20 10/24/2018 4:30 PM CDT Oxygen Saturation 99% 11/27/2021 1:32 PM CDT Inhaled Oxygen Concentration - - Weight 75.8 kg (167 lb) 11/27/2021 1:32 PM CDT Height 162.6 cm (5' 4) 10/24/2018 12:58 PM CDT Body Mass Index 28.67 10/24/2018 12:58 PM CDT Plan of Treatment Health Maintenance Due Date Last Done Comments CT Colonography 1960 Cologuard 1960 Depression Monitoring (PHQ-9) 1960 Fasting Lipid Panel 1960 HIV Screening 1960 Hepatitis B Vaccines (1 of 3 - 1960 3-dose series) Hepatitis C Screening 1960 Zoster Vaccines (1 of 2) 2012 Pneumococcal vaccine (0-64 years) 10/20/2012 10/21/2011, (2 - PCV) Mammogram 03/25/2016 03/25/2015 (Performed elsewhere) Colonoscopy 09/08/2018 09/08/2013 Colorectal Cancer Surveillance 09/08/2018 Cervical Cancer Screening 03/31/2020 03/31/2017, 02/05/2015 , 02/05/2014, Additional history exists Influenza Vaccine (#1) 2022 07/01/2009, 04/03/2009, 04/03/2009, Additional history exists Office Visit for Blood Pressure 11/27/2022 11/27/2021 Check / Re-check Fasting Glucose for Diabetes 11/09/2024 11/09/2021, 021, Screening 10/24/2018, Additional history exists DTaP,Tdap,and Td Vaccines (4 - Td 09/12/2027 09/12/2017, , or Tdap) 07/23/2008, Additional history exists COVID-19 Vaccine Completed 12/16/2021, 03/25/2021, 10/02/2020, Additional history exists Medical Devices Implanted Type Area Slate Picker Device Shelf Model / Identifier Expiration Date Ser ial / Lot Shoulder Shoulder Neck Implant Implant Description: Clips placed for sweating b oth shoulders Insurance Payer Benefit Plan / Subscriber ID Effective Dates Phone Addre ss Type Group UCARE [employer] + [id number] 2021-Present [phone] [address] [place] [address] Care Teams Sewage Treatment Plant Operator Relationship Specialty Start Date End Date Elsewhere, Pcp PCP - General Internal Medicine 02/15/19
--- OUTSIDE RECORDS SUMMARY | 2022-03-04 19:00 | XMS_ITS ---
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 23674896 multinodular goiter Problem Benign I10 Active 48143541 hypertension Problem Fibromyalgia M79.7 Active 0409169 05 Problem Chronic pain G89.4 Active 4786300 06 syndrome Problem Migraine, G43.909 Active 90682990 unspecified, not intractable, without status migrainosus Problem Rosacea L71.9 Active 945874776 Problem HNP (herniated M51.26 Active 07280 007 nucleus pulposus), lumbar Problem Chronic fatigue R53.82 Active 5270 2002 syndrome Problem Moderately severe F33.2 Active 72 9803898 recurrent major depression Problem Mild persistent J45.30 Active 7079 50713 asthma without complication Problem Insomnia, G47.00 Active 451190388 unspecified type Problem Seasonal allergies J30.2 Active 4 24024369 Problem History of Z86.39 Active 997647051 hyperglycemia Problem Acute insomnia G47.00 Active ALLERGIES Substance Reaction Event Type Date Status Codeine Sulfate nausea/vomiting Drug Allergy Jan, Active Ambien Unknown Drug Allergy Jan, Active Reglan edgy Drug Allergy Jan, Active ENCOUNTERS Encounter Location Date Diagnosis [facility] 2024 [facility], Jan, [address], [place] [phone] [facility] 2024 [facility], Jan, [address]. [address], [place] [phone] [facility] [address] Jan, [place] [id number] [address] Dec, 2021 [place] [id number] [address] Dec, Moderately s evere recurrent [facility], major depre ssion F33.2 ; [place] [id number] Fibromyalgia M79 .7 ; Chronic pain syndrome G8 9.4 and History of COVID -[address] Dec, 2021 [facility] [id number] [address] Dec, [place] [id number] [facility] 2024 [facility], Dec, [address] [place], [place] [id number] [address] Dec, [place] [id number] [address] Dec, Encounter fo r other [facility], preprocedur al examination [place] [id number] Z01.818 ; Chroni c pain syndrome G89.4 ; Fibromyalgia M79.7 ; Mild per sistent asthma without complica tion J45.30 and Insomnia, un specified type G47.[address] Dec, Coffee groun d emesis K92.0 ; [facility], Chronic raffaele n syndrome G89.4 [place] [id number] and Fibromyalgia M79.[address] Sep, [place] [id number] [address] Sep, HNP (herniat ed nucleus [facility], pulposus), lumbar M51.26 ; [place] [id number] Medication monit oring encounter Z51.81 ; Benign hypertension I10 and History of hyperglycemia Z86.[address] Aug, 2021 [place] [id number] [address] Aug, [facility] [id number] [facility] [address] [facility] Jul, Chronic pain syndrome G89.4 ; [facility], Fibromyalgi a M79.7 and HNP [place] [id number] (herniated nucle us pulposus), lumbar M51.26 [facility] [address] [facility] Jul, [facility], [place] [id number] [facility] [address] Jun, Chronic pain syndrome G89.4 [facility], [place] [id number] [facility] [address] [place] [address] Jun, [facility] [id number] [facility] [address] Jun, Eczema of nohemi th hands L30.9 and [facility], Lumbago due to displacement of [place] [id number] intervertebral d isc M51.[address] Jun, Chronic pain syndrome G89.4 [facility], and Fibromy algia M79.7 [place] [id number] [facility] [address] Apr, Chronic pain syndrome G89.4 [facility], and Fibromy algia M79.7 [place] [id number] [facility] [address] Mar, Insomnia, un specified type [facility], G47.00 and Left hip pain [place] [id number] M25.[address] [address] Mar, [facility] [id number] [facility] [address] Feb, Insomnia, un specified type [facility], G47.00 [place] [id number] [facility] [address] Jan, Seasonal all ergies J30.2 ; [facility], Fibromyalgi a M79.7 and Chronic [place] [id number] pain syndrome G8 9.4 [facility] [address] [facility] Dec, Insomnia, un specified type [facility], G47.00 and Left hip pain [place] [id number] M25.[address] November, Insomnia, un specified type [facility], G47.00 [place] [id number] [facility] [address] [facility] November, [facility] [id number] [facility] [address] [facility] Oct, Chronic pain syndrome G89.4 ; [facility], Fibromyalgi a M79.7 and Left [place] [id number] hip pain M25.[address] Sep, [facility], [place] [id number] [facility] 2024 [facility], Jul, Gastro-e sophageal reflux [address]. [address] [place], [place] disease wit hout esophagitis [id number] K21.9 and Chroni c pain syndrome G89.4 [facility] [address] [facility] Jul, Gastro-esoph ageal reflux [facility], disease wit hout esophagitis [place] [id number] K21.9 ; Chronic pain syndrome G89.4 and Fibrom yalgia M79.7 [facility] [address] [facility] Jul, [facility] [id number] [facility] [address] Jun, Fibromyalgia M79.7 and Anxiety [facility], 300.00 [place] [id number] [facility] [address] May, Fibromyalgia M79.7 and Anxiety [facility], 300.00 [place] [id number] [facility] [address] Apr, Fibromyalgia M79.7 ; Chronic [facility], pain syndro me G89.4 and Screen [place] [id number] for colon cancer Z12.[address] Feb, Chronic pain syndrome G89.4 [facility], and Fibromy algia M79.7 [place] [id number] [facility] [address] Dec, Fibromyalgia M79.7 [facility] [id number] [facility] [address] Dec, Fibromyalgia M79.7 ; Chronic [facility], fatigue syn drome R53.82 and [place] [id number] Sebaceous cyst L 72.3 [facility] [address] [place] [address] Oct, ASTHMA NOS 4 93.90 [facility], [place] [id number] [facility] [address] Oct, [facility] [id number] [place] [address] [employer] Sep, Screening fo r diabetes [facility], mellitus Z1 3.1 ; [place], [place] [id number] lipid Z13.220 ; Migraine, unspecified, not intractable, without status m igrainosus G43.909 ; Chroni c pain syndrome G89.4 ; Fibromyalgia M79.7 ; Nontoxic multinodular goiter E04.2 ; H istory of hyperglycemia Z8 6.39 and Viral URI J06.9 [facility] [address] [employer] Aug, [facility] [id number] [facility] [employer] Jul, Trochanteric bursitis, left [facility], hip M70.62 ; Chronic pain [place] [id number] syndrome G89.4 a nd Fibromyalgia M79 .7 [facility] [employer] May, [facility] [id number] [facility] [employer] May, Chronic pain syndrome G89.4 ; [facility], Fibromyalgi a M79.7 ; Seasonal [place] [id number] allergies J30.2 ; Left hip pain M25.552 and Benign hypertension I10 [facility] [employer] Apr, [facility] [id number] [facility] [employer] Feb, Chronic pain syndrome G89.4 ; [facility], Heart murmu r R01.1 ; Colon [place] [id number] cancer screening Z12.11 and Trochanteric bur sitis, left hip M70.62 [facility] [address] [employer] Dec, [facility] [id number] [facility] [employer] Oct, Acute right ankle pain M25.571 [facility], ; Chronic p ain syndrome G89.4 [place] [id number] and Fibromyalgia M79.7 [facility] [address] [employer] Sep, [facility], [place] [id number] [facility] [employer] Aug, Chronic pain syndrome G89.4 ; [facility], Benign hype rtension I10 ; [place] [id number] Nontoxic multino dular goiter E04.2 ; Mild per sistent asthma without complica tion J45.30 and Fibromyalgia M79.7 [facility] [address] [employer] May, Adult genera l medical exam [facility], Z00.00 ; Fi bromyalgia M79.7 ; [place] [id number] Chronic pain syn drome G89.4 ; Benign hypertens ion I10 ; Family history o f breast cancer Z80.3 and Rosacea L71.9 [facility] [address] [employer] 14 Feb, 2018 Fibromyalgia M79.7 and Chronic [facility], pain syndro me G89.4 [place] [id number] [facility] [employer] Jan, [facility] [id number] [facility] [employer] November, Chronic pain syndrome G89.4 ; [facility], Fibromyalgi a M79.7 and [place] [id number] Insomnia, unspec ified type G47.00 [facility] [employer] Oct, Benign hyper tension I10 [facility], [place] [id number] [facility] [employer] Aug, Diarrhea of infectious origin [facility], A09 ; Famil y history of [place] [id number] thyroid disease Z83.49 ; Snoring R06.83 ; Insomnia, unspecified type G47.00 ; Generalized hype rhidrosis R61 ; Encounter for immunization Z23 ; Chronic pa in syndrome G89.4 and Fibrom yalgia M79.7 [facility] [employer] 05 Jun, 2017 Chronic pain syndrome G89.4 ; [facility], Insomnia, u nspecified type [place] [id number] G47.00 ; Benign hypertension I10 and Fibromya lgia M79.7 [facility] [employer] 07 Mar, 2017 Adult genera l medical exam [facility], Z00.00 ; Ro utine gynecological [place] [id number] examination Z01. 419 ; Chronic pain syndrome G8 9.4 ; Fibromyalgia M79 .7 ; Insomnia, unspecified type G47.00 ; Screening for br east cancer Z12.31 and Scree everett for venereal disease Z11.3 [facility] [employer] Feb, [facility] [id number] [facility] [place] [address] [employer] Dec, Benign hyper tension I10 ; [facility], Fibromyalgi a M79.7 ; Chronic [place] [id number] fatigue syndrome R53.82 ; Chronic pain syn drome G89.4 ; Migraine, unspec ified, not intractable, wit hout status migrainosus G43. 909 and Rosacea L71.9 [facility] [address] Dec, Fibromyalgia M79.7 [facility], [place] [id number] [facility] [address] November, [place] [id number] [facility] [address] [facility] Sep, [facility] [id number] [facility] [address] [facility] Sep, Fibromyalgia M79.7 and Mild [facility], persistent asthma without [place] [id number] complication J45 .30 [facility] [address] [facility] Jun, Fibromyalgia M79.7 and Acne, [facility], unspecified acne type L70.9 [place] [id number] [facility] [address] Jun, [facility] [id number] [facility] [address] [facility] Jun[facility] [id number] [facility] [address] [facility] May, [facility] [id number] [facility] [address] [facility] Mar, Painful skin lesion L98.9 [facility] [place] [id number] [facility] [address] Mar, Painful skin lesion L98.9 and [facility], Dermatofibr rolando D23.9 [place] [id number] [facility] [address] Mar, [facility] [id number] [facility] [address] Mar, [facility] [id number] [facility] [address] Mar, [facility] [id number] [facility] [address] Feb, [facility] [id number] [facility] [address] [facility] Jan, [facility] [id number] [facility] [address] [employer] Jan, [facility] [id number] [facility] [address] Jan, Encounter fo r other [facility], preprocedur al examination [place] [id number] Z01.818 ; Benign hypertension I10 ; Fibromyalg ia M79.7 ; Chronic fatigue syndrome R53.82 ; Mild pe rsistent asthma without c omplication J45.30 and Painf ul tongue K14.6 [facility] [address] [employer] Dec, [facility] [id number] [facility] [address] [employer] Dec, [facility] [id number] [facility] [address] [employer] November, [facility] [id number] [facility] [address] [employer] Sep, [facility] [id number] [facility] [address] [employer] Sep, [place] [id number] [facility] [address] [employer] Sep, Radicular lo w back pain M54.10 [facility], ; Benign hy pertension I10 ; [place] [id number] Fibromyalgia M79 .7 ; Chronic fatigue syndrome R53.82 ; Cough R05 and Mi ld persistent asthma without c omplication J45.30 [facility] [address] [employer] Aug, [facility] [id number] [facility] [address] [employer] Aug, [place] [id number] [facility] [address] Jun, [place] [id number] [facility] [address] [employer] Apr, Fibromyalgia 729.1 [place] [id number] [facility] [address] [employer] Mar, Adult genera l medical exam [facility], V70.9 ; JESSICA D [Gastroesophageal [place] [id number] reflux disease] 530.81 ; Visit for gynecologic examination V72.31 ; Fibromy algia 729.1 ; Hypertension 401 .9 and Contraception ma nagement V25.9 [facility] [address] [employer] Feb, [facility] [id number] [facility] [address] [employer] November, [facility] [id number] [facility] [address] [facility] Sep, [facility] [id number] [facility] [address] [facility] Aug, Essential hy pertension, benign [facility], 401.1 ; Mix ed hyperlipidemia [place] [id number] 272.2 ; Fibromya lgia 729.1 ; Migraine 346.90 and ASTHMA NOS 493.90 [facility] [address] [facility] Aug, [facility] [id number] [facility] [address] [facility] Jul[facility] [id number] [facility] [address] May, [facility] [id number] [facility] [address] May, [place] [id number] [facility] [place] [address] [facility] May, [place] [id number] [facility] [address] Apr, [place] [id number] [facility] [address] Apr, [place] [id number] [facility] [address] Apr, [facility] [id number] [facility] [address] Mar, [facility] [id number] [facility] [address] Feb, Hypertension 401.9 [place] [address] [facility] [address] [facility] Jan, [place] [id number] [facility] [address] Jan, ROUTINE MEDI ASIF EXAM V70.0 ; [facility], ROUTINE MANAGER CRITICAL CARE EXAMINATION V72.31 [place] [id number] ; ASTHMA NOS 493 .90 ; Chronic pain 338.29 ; Mi graine 346.90 ; Hyperlipidemia LDL goal < 130 272.4 ; Scre ening for diabetes mellitu s (DM) V77.1 ; Anxiety 300.00 ; Hypertension 401.9 and Sweati ng 780.8 [facility] [address] [facility] Dec[place] [id number] [facility] [address] [facility] Dec, [place] [id number] [facility] [place] [address] November, [facility], [place] [id number] [facility] [address] Oct, [facility] [id number] [facility] [address] 31 Sep, 2013 [facility], [place] [id number] [facility] [address] Sep, [facility], [place] [id number] [facility] [address] Sep, [facility] [id number] [facility] [place] [facility] [address] Aug, [facility] [id number] [facility] [address] Aug, [facility] [id number] [facility] [address] Aug, ASTHMA NOS 4 93.90 ; Chronic [facility], pain 338.29 ; Fibromyalgia [place] [id number] 729.1 ; Hand ecz marvin 692.9 and Rosacea 695.3 [facility] [address] May, [facility] [id number] [facility] [place] [address] May, [facility] [id number] [facility] [address] Mar, [facility] [id number] [facility] [address] Mar, [facility], [place] [id number] [facility] [address] Mar, [facility] [id number] [facility] [address] Jan, [facility] [id number] [facility] [address] November, [facility] [id number] [facility] [address] Oct, [facility] [id number] [facility] [address] Sep, [facility] [id number] [facility] [address] Sep, [facility] [id number] [facility] [address] Sep, [facility] [place] [id number] [facility] [place] [facility] [address] Aug, [facility] [id number] [facility] [place] [facility] [address] [facility] 14 Aug, 2012 Asthma 493.9 0 ; Mixed [facility], hyperlipide bob 272.2 ; [place] [id number] Multinodular goi ter 241.1 ; Fibromyalgia 729 .1 and Hyperhydrosis di sorder 705.21 [facility] [address] [facility] 11 Aug, 2012 [facility] [id number] [facility] [address] [facility] Jul[facility] [id number] [facility] [address] [facility] Jul[facility] [id number] [facility] [address] [facility] May[facility], [place] [id number] [facility] [address] [facility] Apr[facility] [id number] [facility] [address] [facility] Mar[facility] [id number] [facility] [address] [facility] Mar[facility] [id number] [facility] [address] [facility] Feb, [facility] [id number] [facility] [address] [facility] Feb[facility] [id number] [facility] [address] [facility] Feb, [facility] [id number] [facility] [address] [facility] Feb[facility] [id number] [facility] [address] [facility] Feb, [facility] [id number] [facility] [address] [facility] Jan, [place] [id number] [facility] [address] [facility] Jan, ROUTINE MEDI ASIF EXAM V70.0 ; [facility], Fibromyalgi a 729.1 ; ROUTINE [place] [id number] MANAGER CRITICAL CARE EXAMINATION V72.31 ; Acne rosacea 695.3 ; 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 ; Lipid screening V77.91 and Chronic fatigue syndrome 780.71 [facility] [address] Dec, [facility] [id number] [facility] [address] Dec, [facility] [id number] [facility] [address] [facility] Dec, [facility] [id number] [facility] [address] [facility] November, Abnormal per imenopausal [facility], bleeding 62 7.0 [place] [id number] [facility] [address] [facility] November, [facility] [id number] [facility] [address] [facility] November[facility] [facility] [place], [place] [id number] [facility] [address] [facility] Oct, [place] [id number] [facility] [address] [facility] Oct[facility] [place], [place] [phone] [facility] [address] [facility] Oct[facility] [place], [place] [id number] [facility] [address] [facility] Oct, [facility] [place] [id number] [facility] [address] [facility] Sep, ASTHMA NOS 4 93.90 ; Chronic [facility], fatigue syn drome 780.71 ; [place] [id number] Sweating abnorma lity 705.89 and [place] VAC STRPT CS PNEUMNI B V03.82 [facility] [address] [facility] Sep, [facility] [place] [id number] [facility] [address] [facility] Aug[facility] [place] [id number] [facility] [address] [facility] Jul[facility] [place] [id number] [facility] [address] [facility] Jul[facility] [place] [phone] [facility] [address] May[facility] [place] [id number] [facility] [address] [facility] May[facility] [place], [place] [id number] [facility] [address] May, [facility] [place] [phone] [facility] [address] [facility] May[facility] [place] [id number] [facility] [address] [facility] Apr[facility] [place] [id number] [facility] [address] [facility] Apr[facility] [place] [id number] [facility] [address] [facility] Apr[facility] [place] [id number] [facility] [address] [facility] Mar[facility] [place] [id number] [facility] [address] [facility] Mar[facility] [place] [id number] [facility] [address] [facility] Feb[facility] [place] [id number] [facility] [address] [facility] Feb[facility] [place], [place] [id number] [facility] [address] [facility] Feb[facility] [place] [id number] [facility] [address] [facility] Feb[facility] [place] [id number] [facility] [address] [facility] Jan[facility] [place] [id number] [facility] [address] [facility] Jan[facility] [place] [id number] [facility] [address] [facility] Jan[facility] [place] [id number] [facility] [address] [facility] Jan[facility] [place] [id number] [facility] [address] [facility] Jan[facility] [place] [id number] [facility] [address] [facility] Jan[facility] [place] [phone] [facility] [address] [facility] Jan[facility] [place] [id number] [facility] [address] [facility] Jan[facility] [place] [id number] [facility] [address] [facility] Jan, ROUTINE MEDI ASIF EXAM V70.0 ; [facility], ROUTINE MANAGER CRITICAL CARE EXAMINATION V72.31 [place] [id number] ; Urinary freque ncy 788.41 ; Diaphoresis 780. 8 ; Asthma with COPD w/o me ntion of status asthmatic us or acute exacerbation 493 .20 ; Fibromyalgia 729 .1 and Chronic fatigue syndrome 780.71 [facility] [address] [facility] Jan, [facility] [place] [id number] [facility] [address] [facility] Jan[facility] [place], [place] [id number] [facility] [address] [facility] Jan[facility] [place], [place] [id number] [facility] [address] [facility] Dec, [facility] [place] [id number] [facility] [address] Dec, [facility] [place], [place] [id number] [facility] [address] November, [facility] [place] [id number] [facility] [address] November, [facility] [place] [id number] [facility] [address] November, [facility] [place] [id number] [facility] [address] November, [facility] [place] [id number] [facility] [address] November, [facility] [place] [id number] [facility] [address] November, [facility] [place] [id number] [facility] [address] November, [facility] [place] [id number] [facility] [address] November, [facility] [place] [id number] [facility] [address] November, [facility] [place] [id number] [facility] [address] November, [facility] [place] [id number] [facility] [address] Oct, [facility] [place], [place] [id number] [facility] [address] 30 Sep, 2010 [facility] [place], [place] [id number] [facility] [address] 29 Sep, 2010 [facility] [place] [id number] [facility] [address] Sep, [facility] [place], [place] [id number] [facility] [address] 14 Sep, 2010 [facility] [place] [phone] [facility] [address] Jul, [facility] [place] [phone] [facility] [address] Jul, [facility] [place] [id number] [facility] [address] Jul, [facility] [place] [id number] [facility] [address] Jul, [facility] [place] [id number] [facility] [address] Jun, [facility] [place] [phone] [facility] [address] Jun, [facility] [place], [place] [id number] [facility] [address] [facility] May[facility] [place] [id number] [facility] [address] [facility] May[facility] [place] [id number] [facility] [address] [facility] May[facility] [place] [id number] [facility] [address] [facility] May[facility] [place] [id number] [facility] [address] [facility] Apr[facility] [place] [id number] [facility] [address] [facility] Mar[facility] [place] [id number] [facility] [address] [facility] Mar, [facility] [place] [phone] [facility] [address] [facility] Mar, [place] [id number] [facility] [address] [facility] Mar, [facility] [place] [id number] [facility] [address] [facility] 17 Mar, 2010 Hyperlipidem ia 272.4 ; [facility], Fibromyalgi a 729.1 ; Chronic [place] [id number] fatigue syndrome 780.71 ; Hyperprolactinem ia 253.1 and Thyroid nodule 2 41.0 [facility] [address] [facility] 16 Mar, 2010 Chronic fati shayan syndrome [facility], 780.71 ; Fi bromyalgia 729.1 ; [place] [id number] Hyperlipidemia 2 72.4 ; Thyroid nodule 241.0 and Hyperprolactinem ia 253.1 [facility] [address] [facility] Mar, [facility] [place] [id number] [facility] [address] [facility] Jan, [place] [id number] [facility] [address] [facility] Jan, [facility] [place], [place] [id number] [facility] [address] [facility] Dec, [facility] [place] [id number] [facility] [address] Dec, [place] [id number] [facility] [address] [facility] November, [facility] [place] [id number] [facility] [address] [facility] November[place] [id number] [facility] [address] November, [place] [id number] [facility] [address] [facility] Oct, [place] [id number] [facility] [address] [facility] Oct[facility] [place] [id number] [facility] [address] [facility] Sep, [place] [phone] [facility] 2024 [facility], Sep, [address] [place], [place] [id number] [facility] [address] 30 Sep, 2009 [place] [id number] [facility] [address] [facility] Sep, [place] [id number] [facility] [address] [facility] Sep, [place] [id number] [facility] [address] [facility] Aug, [place] [id number] [facility] [address] [facility] Jun, ROUTINE MEDI ASIF EXAM V70.0 and [facility], Hyperlipide bob 272.4 [place] [id number] [facility] [address] [facility] Jun, [place] [id number] [facility] [address] [facility] May, [place] [id number] [facility] [address] [facility] Apr, [place] [id number] [facility] [address] [facility] Apr, [place] [phone] [facility] [address] [facility] Apr, [place] [id number] [facility] [address] [facility] Apr, Screening fo r ischemic heart [facility], disease V81 .0 [place] [id number] [facility] [address] [facility] 14 Apr, 2009 [place] [phone] [facility] [address] [facility] Apr[facility] [place] [id number] [facility] [address] [facility] Apr[place] [id number] [facility] [address] [facility] 18 Mar, 2009 [place] [id number] [facility] [address] [facility] Mar[facility] [place], [place] [id number] [facility] [address] [facility] Mar, Elevated whi te blood cell [facility], count, unsp ecified 288.60 ; [place] [id number] Amenorrhea 626.0 and Fibromyalgia 729 .1 [facility] [address] [facility] Mar, Double visio n 368.2 ; Need for [facility], prophylacti c vaccination and [place] [id number] inoculation, Inf luenza V04.81 and MALAISE AND FATIGUE NEC 780.79 [facility] [address] [facility] Feb, [facility] [place] [place] [id number] [facility] [address] [facility] Jan[facility] [place] [id number] [facility] [address] [facility] Jan[facility] [place] [id number] [facility] [address] [facility] Oct, Joint pain, forearm 719.43 ; [facility] [place]Doug[facility] elbo w 726.32 and [place] [id number] Fibromyalgia 729 .1 [facility] [address] [facility] Oct, [facility] [place] [phone] [facility] [address] [place] [address] Oct, [facility] [place] [id number] [facility] [address] [facility] Sep, [facility] [place] [id number] [facility] [address] [facility] Aug, [place] [id number] [facility] [address] Aug, [place] [id number] [facility] [address] [facility] Jul, [place] [id number] [facility] [address] [facility] Jul, [place] [id number] [facility] [address] Jun, ROUTINE MEDI ASIF EXAM V70.0 ; [facility] Douglascelia elbo w 726.32 ; Chronic [place] [id number] rhinitis 472.0 ; Nausea 787.03 ; Diphtheria-tetan us-pertussis, combined [DTP] [ DtaP] V06.1 ; Screening for ma lignant neoplasm of the cervix V76.2 and ROUTINE MANAGER CRITICAL CARE EXAMINATION V72.31 [facility] [address] May, [facility] [place] [id number] [facility] [address] Apr, [facility] [place] [id number] [facility] [address] Apr, [facility] [place] [id number] [facility] [address] Apr, [facility] [place] [id number] [facility] [address] Apr, CMN MIGRAINE W/O INTRACT [facility], MIGRAINE 34 6.10 ; Nausea [place] [id number] 787.03 and Aller gic rhinitis due to allergen 477.8 [facility] [address] Mar, [facility] [place] [id number] [facility] [address] Feb, [facility] [place] [id number] [facility] [address] Feb, [facility] [place] [id number] [facility] [address] Feb, Screening fo r hypertension [facility], V81.1 [place] [id number] [facility] [address] Jan, Need for pro phylactic [facility], vaccination with [place] [id number] sakmjxh-[id number]-nc blanka (MMR) vaccine V06.4 ; SCREEN LIPID DISORDERS V77.91 ; Screening examination for rubella V73.3 and Screening ex amination for measles V73.2 [facility] [address] Dec, [place] [id number] [facility] [address] Dec, [place] [id number] [facility] [address] November, [place] [id number] [facility] [address] Oct, [facility] [place] [id number] [facility] [address] Aug, [place] [id number] [facility] [address] Aug, [place] [id number] [facility] [address] Jul, [place] [id number] [facility] [address] Jul, ROUTINE MEDI ASIF EXAM V70.0 ; [facility], ROUTINE MANAGER CRITICAL CARE EXAMINATION V72.31 [place] [id number] ; Low back pain 724.2 and Cervicalgia 723. 1 [facility] [address] Jun, [facility] [place] [id number] [facility] [address] Jun, AC MAXILLARY SINUSITIS 461.0 [facility] [place], [place] [id number] [facility] [address] 15 Apr, 2007 [facility] [place], [place] [id number] [facility] [address] Mar, [facility] [place] [id number] [facility] [address] Feb, [facility] [place] [id number] [facility] [address] Jan, [facility], [place] [id number] [facility] [address] Jan, OT SPCF PRE OP EXAM V72.83 [facility] [place], [place] [id number] [facility] [address] Dec, [facility] [place] [id number] [facility] [address] November, [facility] [place] [id number] [facility] [address] November, [facility] [place] [id number] [facility] [address] Oct, [facility] [place] [id number] [facility] [address] Oct, [facility], [place] [id number] [facility] [address] Oct, [facility] [place] [id number] [facility] [address] Sep, [facility] [place], [place] [id number] [facility] [address] Sep, [facility], [place] [id number] [facility] [address] Sep, [facility] [place], [place] [id number] [facility] [address] Sep, [facility] [place] [id number] [facility] [address] Sep, [facility] [place], [place] [id number] [facility] [address] 14 Aug, 2006 [facility] [place], [place] [id number] [facility] [address] [facility] 13 Jun, 2006 ROUTINE MEDI ASIF EXAM V70.0 ; [facility], ROUTINE MANAGER CRITICAL CARE EXAMINATION V72.31 [place] [id number] ; Fibromyalgia 7 29.1 and Chronic fatigue syndrome 780.71 [facility] [address] [facility] 24 Apr, 2006 [place] [id number] [facility] [address] [facility] Apr, [place] [id number] [facility] [address] [facility] Mar, [place] [id number] [facility] [address] [facility] Mar, Bipolar I di sorder, single [facility], manic episo de, unspecified [place] [id number] 296.00 ; Allergi c rhinitis due to allergen 477. 8 ; Common migraine without mention of intractable migr bibiana 346.10 ; ASTHMA NOS 493.9 0 ; Hyperhidrosis 78 0.8 and Chronic fatigue syndrome 780.71 [facility] [address] [facility] Feb, [facility] [place] [id number] [facility] [address] [facility] Feb[facility] [place] [id number] [facility] [address] [facility] Feb[facility] [phone] [facility] [address] [facility] Jan[facility] [place], [place] [id number] [facility] [address] [facility] Dec, [place] [id number] [facility] [address] [facility] November, [place] [id number] [facility] [address] [facility] Oct, [place] [id number] [facility] [address] [facility] Oct, [place] [id number] [facility] [address] Jul, [facility] [place] [id number] [facility] [address] [facility] Jun[place] [id number] [facility] [address] [facility] May[facility] [place] [id number] [facility] [address] [facility] May, [place] [id number] [facility] [address] [facility] Jul, [place] [id number] IMMUNIZATIONS Vaccine Route Administration Date Status Covid [...] Upon Request Confirmatory Testing Available - Specific [place] 1.005 1.003-1.030 (Premier) - PH 7.0 4.0-9.0 [...] Upon Request Confirmatory Testing Available - Specific [place] 1.005 1.003-1.030 (Premier) - PH 4.0 4.0-9.0 [...] mammographic breast density utilizing the most recent [facility] ARLETH Risk Fire Prevention Captain (Version 8.0 released March 2017). National average [...] CDI will notify the patient of the [place] [employer] guidelines recommending annual adjunctive breast [...] Upon Request Confirmatory Testing Available - Specific [place] 1.015 1.003-1.030 (Premier) - PH 4.0 4.0-9.0 [...] 2017-03-31 (Screening) HEPATITIS C ANTIBODY Negative Negative MANAGER CRITICAL CARE CYTOLOGY 2017-03-31 LAB AP MANAGER CRITICAL CARE SPECIMEN Satisfactory for ADEQUACY evaluation, endocervical/transformation zone [...] Upon Request Confirmatory Testing Available - Specific [place] 1.000 1.003-1.030 (Premier) - PH 7.0 4.0-9.0 [...] RR_NumNormalBeats Systolic Blood Pressure Diastolic Blood Pressure CT Interval QT Interval QTc Interval QRS Duration PWave [place] QrsWave [place] TWave [place] Mean Heart Rate Diastolic Blood Pressure Systolic Blood Pressure MeanRR Interval MinRR Interval MaxRR Interval NumBeats VITAMIN B12 2016-02-13 VITAMIN B-12 [phone] Basic Metabolic Profile 2015-04-10 SODIUM 138 136-145 [...] BREAST CANCER RISK-ASSESSMENT TECHNICAL: Elana ARLETH Risk Fire Prevention Captain (Version 7.02 released December), which meets NCCN [...] the MRI exam, as well as, any [id number] expense before scheduling. In September 2006, the [employer] Society (ACS) published its recommendations for [...] GFR MDRD NON AF AMER >60 >60 MANAGER CRITICAL CARE CYTOLOGY 2014-02-05 LAB AP MANAGER CRITICAL CARE SPECIMEN Satisfactory for ADEQUACY evaluation, endocervical/transformation zone component present CELLDYN-HGB 2014-02-05 HGB 14.8 12.0-16.0 [facility] Spirometry (Flow 2014-02-05 Volume Loop) [place] Result Colonoscopy [facility] Spirometry (Flow 2013-08-28 Volume [...] This falls within the criteria of the [place] [employer] recommendation of yearly breast MRI [...] M.D. [facility] Spirometry (Flow 2012-09-07 Volume Loop) [place] Result LIPID CASCADE 2012-02-02 Cholesterol 221 < 200 Triglycerides 91 < 150 HDL Cholesterol 51 > 39 LDL Cholesterol, Calculated 152 < 13 0 HISTOLOGY OUT REACH SPEC. 2011-12-16 IMMUNOGLOBULINS 2011-10-21 Immunoglobulin G [phone] Immunoglobulin A 197 65-400 Immunoglobulin M 133 60-280 CELLDYN-CBC withOUT DIFF 2011-10-21 HCT 44.2 % 35-47 HGB 15.0 g/dL 12.0-16.0 MCH 31.4 pg 27-34 MCHC 33.9 g/dL 32.0-36.0 MCV 92.6 fL 80-100 PLT 331 K/uL 140-440 RBC 4.77 M/uL 3.80-5.40 RDW 13.1 % WBC 12.8 K/uL 4.0-11.0 [facility] Spirometry (Flow 2011-10-21 Volume Loop) [place] Result Mammogram : Screening Ultrasound : Thyroid [...] and Electronically Signed By: Jim Newell M.D. MANAGER CRITICAL CARE CYTOLOGY 2011-01-28 CULTURE, URINE (ih) 2011-01-28 24 [...] Casts OTHER [facility] Spirometry (Flow Volume Loop) [place] Result Ultrasound : Thyroid T4, FREE 2010-04-10 [...] 2009-04-08 FSH 6.0 (inactive) VITAMIN 2009-04-08 D,1,25DIOH(8822) [place] Results SEE BELOW URINE TEST 2009-04-08 Result [...] (inactive)DME : Tenn[employer] Elbow Support Neoprene Large MANAGER CRITICAL CARE CYTOLOGY 2008-07-23 CHLAMYDIA/GONO,AMPLIFIED 2008-07-23 DETECTION Chlamydia trac,Amplified Negative Prb N gonorrhoeae,Amplified Prb Negative Ultrasound : Abdomen - RUQ HEPATIC PANEL 2008-04-25 AST (SGOT) 15 < 41 ALT (SGPT) 18 < 46 Alkaline Phosphatase 44 45-120 Albumin 4.7 3.5-5.0 Bilirubin, Total 0.4 < 1.1 Direct Bilirubin 0.2 < 0.6 Protein, Total 7.1 6.0-8.0 (inactive)GLIADIN 2008-04-25 ANTIBODY([id number]) [place] Results SEE BELOW CELLDYN-CBC WITH DIFF 2008-04-25 [...] 138 < 13 0 Mammogram : Screening MANAGER CRITICAL CARE CYTOLOGY 2007-08-04 URINE TEST 2007-01-31 Result neg Specific gravity 1.015 CELLDYN-HGB 2007-01-31 HGB 14.7 g/dL 12.0-16.0 MANAGER CRITICAL CARE CYTOLOGY 2006-07-06 LIPID CASCADE 2005-08-13 Cholesterol 200 < 200 Triglycerides 103 < 150 HDL Cholesterol 45 > 39 LDL Cholesterol, Calculated 134 < 13 0 CHOLESTEROL, TOTAL 2005-07-07 Cholesterol 234 < 200 SYPHILIS SCREEN CASCADE 2005-07-07 Syphilis Screen [place] Non-reactive (Nonreac tive) TSH 2005-07-07 TSH 2.5 0.3-5.0 VITAMIN B12 2005-07-07 Vitamin B12 [phone] LYME ANTIBODY, TOTAL 2005-07-07 Lyme Total Antibody 0.22 < 0.75 MANAGER CRITICAL CARE CYTOLOGY 2005-07-07 HEPATIC PANEL 2004-07-13 AST (SGOT) 16 < 41 ALT (SGPT) 49 < 46 Alkaline Phosphatase 51 45-120 Albumin 4.4 3.5-5.0 Bilirubin, Total 0.6 < 1.1 Direct Bilirubin 0.1 < 0.6 Protein, Total 6.9 6.0-8.0 LIPID PROFILE use LIPID 2004-07-13 [place] of [id number] Cholesterol 180 < 200 Triglycerides 104 < 150 HDL Cholesterol 47 > 39 LDL Cholesterol, Calculated 112 < 13 0 LIPID PROFILE use LIPID 2003-06-17 [place] as of [id number] Cholesterol 159 < 200 Triglycerides 175 < [...] DOS 01/12 No Covid test, Hip replacement, [facility]. Dr. Pereira, Discuss CCM Services, Pre-OP DOS 01/12 No Covid test, Hip replacement, [facility]. Dr. Pereira, med check, med check, Medication Aytqk-DFLQDsuufwq-Pmgsvxakudtmx 5- 325 MG Tablet, Medication Gtstm-NFSPDugnhaz-Svrakzezftsep 5-325 MG Tablet, Medication Eqqpn-UCJBVhtayyj-Vkithofduwdpv 5-325 MG Tablet, Discuss stool/liver test, Due for Mammogram, Questions regarding upcoming appointment, Medication Cakgf-FQWPLsmpgbl-Ubuokgvovdchs 5-325 MG Tablet, prior auth - Omeprazole , Medication Hxnoa-IVVBTwegswr-Voismwxfvagdg 5-325 MG and talk about 2nd BOOSTER, DOXY [phone], MED CHECK, cancelled appointment, Refill X1, [employer] ([phone]) Discuss getting a Handicap Parking Permit due to her bulging disc in her back, disability parking permit, [employer] ([phone]) Discuss getting a Handicap Parking Permit due to her bulging disc in her back, Medication Check - vicodin [phone], med check vicodin, Medication Check - vicodin DOXY [phone], Discuss medication options, Meloxicam/Trazodone , Change Medication? , multiple med check, Due for Mammogram, Discuss CCM , refill x 2 , [facility] [phone] ambien med , Ambien,Pain medication check, Discuss CCM Services, [facility] Con[facility] En[facility], Medication Check, Rx refill , [...] *LM 06/28, written prescription, lump removal, Dr. Denton , lump removal, [place] per Dr. Denton , remove spot from leg and one on arm, remove spots one leg and one on arm, cancelled appointment , Work in appointment tomorrow, Vicodin 325mg-5 mg tablet, Note for social security, records request, preop H&P, labs, EKG (02-13-16), Preoperative consultation for risk assessment at the request of Dr. Ramo Marie, Surgery Center: [facility], Surgery Date: 02/23/16, Surgical Procedure: right knee arthroscopy, RX request - Hard copy , Prior Auth , Written RX - Vicodin, *PA request Benzonatate pxx, *PA request Qvar pxx , Medication check, mail written RXVicodin 325mg-5 mg , Personal , Vicodin 325mg-5 mg tablet , Pre op/Dos:07/21/15/Dr. Brian Marie/[facility]/Right Knee scope. Pre-op form received from [facility] and scanned into patients chart for this [...] pressure medicationAHC, ACT recall, annual physical/asthma dr denton, MUST GET WAIVER FOR LABS, refill , Rx - Labetalol, Rx - Dasetta(Cyclafem), Rx Vicodin, Rx Maxalt-MEDIA JOB TITLES, rx 2nd request - Clobetasol, Please call, patience alvarado sla silverscript, Rx, medication check, No Show, medication check vicodin , refill, Refill Vicodin, Thryoid Ultrasound, Recall Asthma Check/Lipids due , written rx request, Vicodin 325mg-5 mg tablet, MRI results , LM 10/18, Vicodin, Rx - Oysco 500, New Med, medication check-Fluticasone- check spirometry with and without bronchodilator., patience lewis social media senior associate sla silverscript, Vicodin , rx-Fluticasone, vicodin, Rx Maxalt, refill- vicodin, rx maxalt, rx: maxalt-social media senior associate, refill, Refill, refill, rx plus tablet, Annual, [...] up to date, Rx Singulair , rx: maxalt-social media senior associate, RX PLUS, rx HYDROXYZINE, rx SINGULAIR, rx Maxalt, RxSINGULAIR, Rx Oyster Asif, rx: maxalt-social media senior associate, refill - vicodin, rx please refax PRENAPLUS, Recall, rx prenaplus, rx: singulair, Discuss referral for thyroid biopsy (ok for tuesday10/27/10), Rx HYDROXYZINE ,written Rx, Rx oysco, REfill hydrocodone, Please refax, rx prenaplus alert, rx hydroxzine [facility] alert,ANNUAL PX DR DENTON, MUST GET WAIVER FOR LABS, Requesting a referral, Rx hydroxyzine, control, Rx, rx maxalt- social media senior associate, refill, LM 05/08, Returing call/prescription, Refill, returning call/ test results 04/10, requested infromation/written prescription, Blood work/Dr Denton, med check, refill, refill, Requesting a refill [...] for valium ?, Refills, Recheck per Dr. Denton, per Dr. Hood x-ray, blood work, double [...] the request of Dr. 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 [facility] Member Patient Patient Patient Patient Patient Subscriber Subscriber Subscriber Group Insurance Plan Plan Plan Plan ID Relationship Address Phone Name Date of ID Name Date of No Type Insurance Insurance Insurance Coverage to Subscriber Address Phone Name Dates UCARE DOS ARE self Ailyn 1960 [id number] CONNECT + 07/25/2021 CONNECT + [place] 002 [place]IC[place] [address] [place] [id number] [place] self Ailyn 1960 [id number] [place] [address] [phone] MEDICARE self Ailyn 1960 [id number] NGS [phone] [place] [address] [facility] [phone] UCARE self Ailyn 1960 [id number] SICYSO CONNECT + 07/25/18- CONNECT + [place] [address] UCARE DOS [phone] UCARE self Ailyn [id number] CTCYSO CONNECT 07/25/18- [place] [address] UCARE DOS [phone] ARE self Ailyn [id number] [id number] CONNECT 07/25/18- [place] [address] MEDICARE [phone] MEDICARE self Ailyn [id number] NGS [phone] [facility] [place] [address]
--- OUTSIDE RECORDS SUMMARY | 2022-03-04 19:00 | XMS_ITS | Encounter Summary ---
:1960 Author Organization [place] Address [facility] [place] [address] Care Team Providers Name Role Phone Breana Mock MD Primary Care Provider [phone] Encounter Details Date Type Department Care Team Description 04/19/[facility] Provider, Tiny humphrey Social History Tobacco Use Types Packs/Day Years Used Date Never Assessed Sex Assigned at Date Recorded Not on file documented as of this encounter Plan of Treatment Not on filedocumented as of this encounter Procedures Procedure Name Priority Date/Time Associated Diagnosis Comme nts LAB RESULT - HIM 04/19/2016 11:58 AM SCAN CDT SURGICAL PATHOLOGY Routine 04/15/2016 5:41 PM Res ults for this EXAM CDT procedure are i n the results section. documented in this encounter Results LAB RESULT - HIM SCAN (04/19/2016 11:58 AM CDT) Specimen (Source) Anatomical Location Collection Method / Collectio n Time Received Time / Laterality Volume Narrative This result has an attachment that is no t available. Historical Provider NON-BEAKER LAB TESTING Surgical Pathology Exam (04/15/2016 5:41 PM CDT) [facility] Method Time Signature Case Report HML Surgical Pathology ?Case: [id number] ? 04/19/2016 [facility] Authorizing Provider: ??Cons gricel Ledesma MD ?Collected: ? 04/15/2016 1741 ? 11:57 AM KIARA KNIGHT Pathologist: ? Newton Kovacs MD ? Received: ?04/16/2016 0824 ? [facility] Specimen: ?Forearm, Righ t ? LABORATORY Final SKIN, RIGHT FOREARM, BIOPSY 04/19/2016 [facility] Diagnosis ??- PAPILLOMATOUS INTRADERM AL MELANOCYTIC NEVUS, SURGICAL MARGINS APPEAR NEGATIVE FOR 11:57 [facility]NEVUS INVOLVEMENT CDPaulina [facility] 'S Electronically signed by Newton Kovacs MD on 6 at 11:57 AM LABORATORY Clinical Clinical history: Lesion 04/19/2016 [facility] Information Reason for procedure: Painful 11:57 AM [facility] Time placed in formalin: 5:20 pm [facility] Gross Submitted in formalin in a c ontainer labeled with the patient's name and marked 5:20 is a somewhat nodular portion of lightly pigmented, hair-bearing skin measuring 0.4 x 0.4 cm with a thickness of 0. HEALTH Description 2 cm. The cut surface is inked black. B&TE-1C BHS:klj 11:57 AM [facility] CPT: LABORATORY ICD-10: Result Flag Normal 04/19/2016 [facility] 11:57 AM [facility] Comment: SPECIMEN PROCESSING: All histology slide preparation, stains and image analysis [facility] are performed at [facility], [address] [place] [address] ? [address] [place], [place], [place], [facility], with f inal interpretation and ? frozen section analysis at the indicated laboratory. Specimen Anatomical Collection Method Collection Time Receive d Time (Source) Location / / Volume Laterality Tissue specimen STRUCTURE OF RIGHT 04/15/2016 5:41 PM 04/16/2016 8:24 (specimen) FOREARM / Unknown CDT AM CDT Airam Ledesma LAB - [facility] Performing Organization Address City/State/ZIP Code Phon [place] [address] [address] [facility] documented in this encounter Visit Diagnoses Not on filedocumented in this encounter Care Teams Vp Revenue Cycle Relationship Specialty Start Date End Date Breana Mock MD PCP - General 11/07/02 08/27/21 [address] [facility] [address] [place] [address] documented as of this encounter
--- OUTSIDE RECORDS SUMMARY | 2022-03-04 19:00 | XMS_ITS | Encounter Summary ---
:1960 Author Organization [place] Address [address] [place] [address]. [place] [address] Care Team Providers Name Role Phone Breana Mock MD Primary Care Provider Encounter Details Date Type Department Care Team Description 04/16/2021 Ancillary Procedure M [facility] Non-Fv Credentia led External Imaging Provider, Radiology [address] [place] [phone] Social History Tobacco Use Types Packs/Day Years Used Date Never Assessed Sex Assigned at Date Recorded Not on file documented as of this encounter Plan of Treatment Not on filedocumented as of this encounter Procedures Procedure Name Priority Date/Time Associated Diagnosis Comme nts MR EXTERNAL IMAGING Routine 04/16/2021 12:00 AM R esults for this SPINE CDT procedure are i n the results section. documented in this encounter Results MR External Imaging Spine (04/16/2021 12:00 AM CDT) Specimen (Source) Anatomical Location Collection Method / Collectio n Time Received Time / Laterality Volume Narrative Service Account, Ob 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 ??Click PACS Images hyperlink to view images. ??Textual resu lts have been scanned into the media tab. Radiology Non-Fv Credentialed Provider IMG EXTERNAL IM AGING ORDERABLES documented in this encounter Visit Diagnoses Not on filedocumented in this encounter Care Teams Medical Attendant Relationship Specialty Start Date End Date Breana Mock MD PCP - General 11/07/02 08/27/[address] [place] [address] documented as of this encounter
--- OUTSIDE RECORDS SUMMARY | 2022-03-04 19:00 | XMS_ITS | Encounter Summary ---
:1960 Author Organization [place] Address [facility] [place] [address] Care Team Providers Name Role Phone Breana Mock MD Primary Care Provider [phone] Encounter Details Date Type Department Care Team Description 02/15/2014 Records - [facility] Provider, Tiny humphrey Social History Tobacco Use Types Packs/Day Years Used Date Never Assessed Sex Assigned at Date Recorded Not on file documented as of this encounter Plan of Treatment Not on filedocumented as of this encounter Procedures Procedure Name Priority Date/Time Associated Comments Diagnosis LAB RESULT - HIM SCAN 02/15/2014 7:06 AM CDT GYNECOLOGIC CYTOLOGY Routine 02/05/2014 12:24 Res ults for this PM CDT procedure are i n the results section. documented in this encounter Results LAB RESULT - HIM SCAN (02/15/2014 7:06 AM CDT) Specimen (Source) Anatomical Location Collection Method / Collectio n Time Received Time / Laterality Volume Narrative This result has an attachment that is no t available. Historical Provider [facility] LAB TESTING Gynecologic Cytology (PAP Smear) (02/05/2014 12:24 PM CDT) Component Value Ref Test Analysis Performed At [facility] Method Time Signature Case Report Gynecologic Cytology Report ? Case: [id number] ? 02/15/2014 HEALTH 7:06 AM [facility]. Authorizing Provider: ??Cons gricel Ledesma MD ?Ordering Provider: ?? Airam Ledesma MD ? CDT [facility] First Screen: ? Ant Masters[place], CT ?? Collected: ? 02/05/2014 1224 ? LABOR ATORY ? (ASCP) ? Rescreen: ?CHICHO Narvaez ?Received: ?02/06/2014 1030 ? (ASCP) ?Signed Out: ?02/15/2014 07 (Final) ? Specimen: ?SUREPATH PAP, SCREENING, Endocervical/cervical ? Interpretation Negative for squamous intraepithelial lesion or sharon gnancy 02/15/2014 [facility] at ??7:05 AM 7:06 AM [facility] Result Flag Normal Normal 02/15/2014 [facility] 7:06 AM [facility] Specimen Adequacy Satisfactory for 02/15/2014 [facility] evaluation, 7:06 AM YANI endocervical/osman [facility] sformation zone LABORATORY component present Reflex Testing Yes if Abnormal 02/15/2014 [facility] 7:06 AM [facility] High Risk? No 02/15/2014 [facility] 7:06 AM [facility] LMP/Menopause post ciarra 02/15/2014 [facility] Date 7:06 AM [facility] Abnormal Bleeding No 02/15/2014 [facility] 7:06 AM [facility] Patient Status na 02/15/2014 [facility] 7:06 AM [facility] None 02/15/2014 [facility] Control/Hormones 7:06 AM [facility] Previous Normal 01/28/11 02/15/2014 [facility] 7:06 AM [facility] Previous 0 02/15/2014 [facility] Abnormal? 7:06 AM [facility] Cervical normal 02/15/2014 [facility] Appearance 7:06 AM YANI MARTINEZT [facility] Specimen Anatomical Collection Method Collection Time Receive d Time (Source) Location / / Volume Laterality Specimen of CERVIX UTERI 02/05/2014 12:24 02/06/2014 unknown material STRUCTURE / PM CDT 10:30 AM CD T (specimen) Unknown Airam Moncada Baltazar LAB - [facility] Performing Organization Address City/State/ZIP Code Phon e Number [place] [address] [address] [facility] documented in this encounter Visit Diagnoses Not on filedocumented in this encounter Care Teams Small Parts Shaper Operator Relationship Specialty Start Date End Date Breana Mock MD PCP - General 11/07/02 08/27/21 [address] [facility] [address] [place] [address] documented as of this encounter
--- OUTSIDE RECORDS SUMMARY | 2022-03-04 19:00 | XMS_ITS | Encounter Summary ---
:1960 Author Organization [place] Address [facility]0 [facility] [place] [address] Care Team Providers Name Role Phone Breana Mock MD Primary Care Provider [phone] Encounter Details Date Type Department Care Team Description 09/05/2018 Records - [facility] Amanda abebe MD Laboratory [address], [address] [place] [address] [phone] (Wo rk) Social History Tobacco Use Types Packs/Day Years Used Date Never Assessed Sex Assigned at Date Recorded Not on file documented as of this encounter Plan of Treatment Not on filedocumented as of this encounter Procedures Procedure Name Priority Date/Time Associated Comments Diagnosis TSH Routine 09/05/2018 2:11 PM Results f or this MOTION PICTURE PRINTER procedure are i n the results section. COMPREHENSIVE Routine 09/05/2018 2:11 PM Results for this METABOLIC PANEL MOTION PICTURE PRINTER procedure ar e in the results section. documented in this encounter Results TSH (09/05/2018 2:11 PM MOTION PICTURE PRINTER) P athologist Signature TSH 1.62 0.30 - 5.00 09/05/2018 [facility] uIU/mL 9:07 PM MOTION PICTURE PRINTER [facility] Specimen Anatomical Collection Method Collection Time Receive d Time (Source) Location / / Volume Laterality Blood specimen 09/05/2018 2:11 PM 019 6:53 (specimen) MOTION PICTURE PRINTER PM MOTION PICTURE PRINTER Sahara Mercado MD LAB - BLOOD ORDERABLE S Performing Organization Address City/State/ZIP Code Phon e [place] [address] [facility] [address] [facility] (ABNORMAL) Comprehensive metabolic panel (09/05/2018 2:11 PM MOTION PICTURE PRINTER) [employer] Method Time Signature Sodium 138 136 - 145 09/05/2018 [facility] mmol/L 8:[address] [facility] Potassium 4.3 3.5 - 5.0 09/05/2018 [facility] mmol/L 8:[address] [facility] Chloride 100 98 - 107 09/05/2018 [facility] mmol/L 8:[address] [facility] Carbon Dioxide 26 22 - 31 09/05/2018 HEALTH (CO2) mmol/L 8:[address] [facility] Anion Gap 12 5 - 18 09/05/2018 [facility] mmol/L 8:[address] [facility] Glucose 152 (H) 70 - 125 09/05/2018 [facility] mg/dL 8:[address] [facility] Urea Nitrogen 12 8 - 22 09/05/2018 [facility] mg/dL 8:[address] [facility] Creatinine 0.83 0.60 - 09/05/2018 [facility] 1.10 mg/dL 8:[address] [facility] GFR Estimate If >60 >60 09/05/2018 [facility] Black mL/min/1.7 8:[address] LABORATORY GFR Estimate >60 >60 09/05/2018 [facility] mL/min/1.7 8:[address] LABORATORY Bilirubin Total 1.7 (H) 0.0 - 1.0 09/05/2018 [facility] mg/dL 8:[address] [facility] Calcium 9.9 8.5 - 10.5 09/05/2018 [facility] mg/dL 8:[address] [facility] Protein Total 7.0 6.0 - 8.0 09/05/2018 [facility] g/dL 8:[address] [facility] Albumin 4.2 3.5 - 5.0 09/05/2018 [facility] g/dL 8:[address] [facility] Alkaline 78 45 - 120 09/05/2018 [facility] Phosphatase U/L 8:[address] [facility] AST 28 0 - 40 U/L 09/05/2018 [facility] 8:[address] [facility] ALT 48 (H) 0 - 45 U/L 09/05/2018 [facility] 8:[address] [facility] Specimen Anatomical Collection Method Collection Time Receive d Time (Source) Location / / Volume Laterality Blood specimen 09/05/2018 2:11 PM 019 6:53 (specimen) MOTION PICTURE PRINTER PM MOTION PICTURE PRINTER Narrative [facility] - 09/05/2018 8:43 PM MOTION PICTURE PRINTER Fasting Glucose reference range is 70-99 mg/dL per [place] [employer] (ADA) francisca francisco. Sahara Mercado MD LAB - BLOOD ORDERABLE S Performing Organization Address City/State/ZIP Code [place] [id number] [place] [address] LABORATORY [facility] [address] [place] [address], [facility] documented in this encounter Visit Diagnoses Not on filedocumented in this encounter Care Teams Manufacturing Support Engineer Relationship Specialty Start Date End Date Breana Mock MD PCP - General 11/07/02 08/27/21 [address] [facility] [address] [place] [address] documented as of this encounter
--- OUTSIDE RECORDS SUMMARY | 2022-03-04 19:00 | XMS_ITS | Encounter Summary ---
:1960 Author Organization [place] Address [address] [facility] [place] [address] Care Team Providers Name Role Phone Breana Mock MD Primary Care Provider [phone] Encounter Details Date Type Department Care Team Description 10/20/2019 Virtual Visit [facility] up Kari Leon, [address] [place], [place] [address]N COMPUTER SYSTEMS ARCHITECT [address] [place] [address] [place] [phone] (Wo rk) Social History Tobacco Use Types Packs/Day Years Used Date Never Assessed Sex Assigned at Date Recorded Not on file documented as of this encounter Progress Notes Kari Leon APRN COMPUTER SYSTEMS ARCHITECT - 10/20/2019 10:10 AM CDT Date: 10/20/2019 10:01:20 Clinician: Kari Leon Clinician Patient: Ailyn Barrett Patient : 1960 Patient Address: [address] [place] [address] Patient Visit Protocol: URI Patient Summary: Ailyn is a 59 year old ( : 1960 ) female who initiated a Visit for COVID-19(Coronavirus) evaluation and screening. When asked the question Please sign me up to receive news, health information and promotions from [facility] Ailyn responded No. Ailyn states her symptoms started suddenly 10-13 days ago. Her symptoms consist of rhinitis, a sore throat, malaise, enlarged lymph nodes, a headache, and myalgia. Symptom details Nasal secretions: The color of her mucus is clear. Sore throat: Ailyn reports having moderate throat pain (4-6 on a 10 point pain scale), does not haveexudate on her tonsils, and can swallow liquids. The lymph nodes in her neck are enlarged. A rash has not appeared on the skin since the sore throat started. Headache: She states the headache is moderate (4-6 on a 10 point pain scale). Ailyn denies having ear pain, wheezing, cough, nasal congestion, teeth pain, fever, facial pain or pressure, and chills. She also denies taking antibiotic medication for the symptoms, having recent facial or sinus surgery in the past 60 days, and double sickening (worsening symptoms after initial improvement). She is not experiencing dyspnea. Precipitating events Within the past week, Ailyn has not been exposed to someone with strep throat. She has not recently been exposed to someone with influenza.Ailyn has not been in close contact with any high risk individuals. Pertinent COVID-19 (Coronavirus) information Ailyn has not traveled internationally or to the areas where COVID-19 (Coronavirus) is wide spread, including cruise ship travel in the last 14 days before the start of her symptoms. Ailyn has not had a close contact with a laboratory-confirmed COVID-19 patient within 14 days of symptom onset.She also has not had a close contact with a suspected COVID-19 patient within 14 days of symptom onset. Ailyn is not a healthcare worker or a cigar packer and picker and does not work in a healthcare facility. She does not live with a healthcare worker. Pertinent medical history Ailyn does not get yeast infections when she takes antibiotics. Ailyn does not need a return to work/school note. Weight: 142 lbs Kaileyidoes not smoke or use smokeless tobacco. Weight: 142 lbs MEDICATIONS: buspirone oral, ALLERGIES: Capital with Codeine Clinician Response: Dear Ailyn, Based on the information provided, you have acute bacterial sinusitis, also known as a sinus infection. Sinus infections are caused by bacteria or a virus and symptoms are almost always identical. The difference between the 2 types of infections is timing. Sinus infections start as viral infections and symptoms improve on their own in about 7 days. If symptoms have not improved after 7 days or have even worsened, a bacterial infection may have developed. Medication information I am prescribing: Amoxicillin-pot clavulanate 875-125 mg oral tablet. Take 1 tablet by mouth every 12 hours for 10 days. There are no refills with this prescription. Yeast infections can be a common side effect of antibiotics. The most common symptom of a yeast infection is itchiness in and around the vagina. Other signs and symptoms include burning, redness, or a thick, white vaginal discharge that looks like cottagecheese and does not have a bad smell. Self care Steps you can take to be as comfortable as possible: Rest. Drink plenty of water and other liquids. Take a hot shower to loosen congestion Use throat lozenges. Gargle with warm salt water (1/4 teaspoon of salt per 8 ounce glass of water). Suck on frozen items such as popsicles or ice cubes. Drink hot tea with lemon and honey. When to seek care Please be seen in a clinic or urgent care if any of the following occur: Symptoms do not start to improve after 3 days of treatment New symptoms develop, or symptoms become worse Please be seen in a clinic or urgent care if new symptoms develop, or symptoms become worse. It is possible to have an allergic reaction to an antibiotic even if you have not had one in the past. If you notice a new rash, significant swelling, or difficulty breathing, stop taking this medication immediately and go to a clinic or urgent care. Call 911 or go to the emergency room if you feel that yourthroat is closing off, you suddenly develop a rash, you are unable to swallow fluids, you are drooling, or you are having difficulty breathing. Additional treatment plan General Covid information If you should develop cough or fever recommend you follow the Covid recommendations for isolation Possible exposure to Coronavirus means that we do recommend self- isolation for 14 days from the last day you may have been exposed. What does this mean? Isolate Yourself: Isolate yourself athome. Do Not allow any visitors Do Not go to work or school Do Not go to mormonism, maternal child nurse centers,shopping, or other public places. Do Not shake hands. Avoid close contact with others (hugging, kissing). Protect Others: Cover Your Mouth and Nose with a mask, disposable tissue or wash cloth to avoidspreading germs to others. Wash your hands and face frequently with soap and water. If you have not developed a cough with fever by day 15 of isolation you are considered uninfected. If you have a highrisk medical condition such as cancer, heart failure, end stage renal disease on dialysis or have a transplant and you develop a cough or fever please reach out to your specialty clinic to obtain further instruction on how this should be evaluated. Thank you for limiting contact with others, wearing asimple mask to cover your cough, practice good hand hygiene habits and accessing our virtual services where possible to limit the spread of this virus. For more information about COVID19 and options for caring for yourself at home, please visit the CDC website at https://www.cdc.gov/coronavirus/2019-nc ov/about/eviey-wclz-rzno.html For more options for care at [facility], please visit our website at [email or web address] COVID-19 (Coronavirus) General Information With the increase in the number of COVID-19 (Coronavirus) cases, we understand you may have some questions. Below is some helpful information on COVID-19 (Coronavirus). How can I protect myself and others from the COVID-19 (Coronavirus)? Because there is currently no vaccine to prevent infection, the bestway to protect yourself is to avoid being exposed to this virus. Put distance between yourself and other people if COVID- 19 (Coronavirus) is spreading in your community. The virus is thought to spread mainly from brhvan-wk-[id number]. Between people who are in close contact with one another (within about 6 about) for a prolonged period (10 minutes or longer). Through respiratory droplets produced when an infected person coughs or sneezes. The CDC recommends the following additional steps to protect yourself and others: Wash your hands often with soap and water for at least 20 seconds, especially after blowing your nose, coughing, or sneezing; going to the bathroom; and before eating or preparing food. Use an alcohol-based hand grab operator that contains at least 60 percent alcohol if soap and water are not available. Avoid touching your eyes, nose and mouth with unwashed hands. Avoid close contact with people who are sick. Stay home when you are sick. Cover your cough or sneeze with a tissue, then throw the tissue in the trash. Clean and disinfect frequently touched objects and surfaces. You can help stop COVID-19 (Coronavirus) by knowing the signs and symptoms: Fever Cough Shortness of breath Contact your healthcare provider if Develop symptoms AND Have been in close contact with a person known to have COVID-19 (Coronavirus) or live in or have recently traveled from an area with ongoing spread of COVID-19 (Coronavirus). Call ahead before you go to a doctor's office or emergency room. Tellthem about your recent travel and your symptoms. For the most up to date information, visit the CDC's website. Self-monitoring Self-monitoring means people should monitor themselves for fever by takingtheir temperatures twice a day and remain alert for a cough or difficulty breathing. It is importantto check your health two times each day for 14 days after a potential exposure to a person with COVID-19 (Coronavirus) or after travel from a location where COVID-19 (Coronavirus) is widespread. If youhave been exposed to a person with COVID-19 (Coronavirus), it may take up to 14 days to know if you will get sick. Follow the steps below to check and record your health. Take your temperature with a thermometer twice a day, once in the morning and once in the evening, and watch for a cough or difficulty breathing for 14 days. Write down your temperature and any COVID-19 symptoms you may have: feeling feverish, coughing, or difficulty breathing. Stay home from work or school. Do not take public transportation, taxis, or ride-shares. Avoid crowded places (such as shopping centers and movie theaters) and limit your activities in public. Keep your distance from others (about 6 feet or 2 meters). If you get sick with fever, cough, or trouble breathing, contact your healthcare provider and tell them about your recent travel and/or your symptoms. If you need to seek medical care for other reasons, such as dialysis, call ahead to your doctor andtell them about your recent travel. Steps to help prevent the spread of COVID-19 (Coronavirus) if you are sick If you are sick with COVID-19 (Coronavirus) or suspect you are infected with the virus that causes COVID-19 (Coronavirus), follow the steps below to help prevent the disease from spreading to people in your home and community. Stay home except to get medical care. Home isolation may be started in consultation with your healthcare clinician. Separate yourself from other people and animals in your home. Call ahead before visiting your doctor if you have a medical appointment. Wear a facemask when you are around other people. Cover your cough and sneezes. Clean your hands often. Avoid sharing personal household items. Clean and disinfect frequently touched objects and surfaces everyday. You will need to have someone drop off medications or household supplies (if needed) at your house without coming inside or in contact with you or others living in your house. Monitor your symptoms and seek prompt medical care if your illness is worsening (e.g. Difficulty breathing). Discontinue home isolation only in consultation with your healthcare provider. For more detailed and up to date information on what to do if you are sick, visit this link: What to Do If You Are Sick With COVID-19. Do I need to be tested for COVID-19 (Coronavirus)? Not everyone needs to be tested for COVID-19 (Coronavirus). Decisions on which patients receive testing will be based on the local spread of COVID-19 (Coronavirus) as well as the symptoms. Your healthcare provider will make the final decision on whether you should be tested. In the meantime, if you have concerns that you may have been exposed, it is reasonable to practice social distancing. If you are ill with a cold or flu-like illness, please monitor your symptoms and call your healthcare provider if your symptoms worsen. For more up to date information, visit this link: COVID-19 (Coronavirus) Frequently Asked Questionsand Answers. Diagnosis: Acute streptococcal tonsillitis, unspecified Diagnosis ICD: J03.00 Prescription: amoxicillin-pot clavulanate 875-125 mg oral tablet 20 tablet, 10 days supply. Take 1 tablet by mouth every 12 hours for 10 days. Refills: 0, Refill as needed: no, Allow substitutions: yes Pharmacy: [facility] - - [address] [place] [phone] documented in this encounter Plan of Treatment Not on filedocumented as of this encounter Visit Diagnoses Not on filedocumented in this encounter Care Teams Punchboard Filling Machine Operator Relationship Specialty Start Date End Date Breana Mock MD PCP - General 11/07/02 08/27/21 [address] [place] [address] documented as of this encounter
--- OUTSIDE RECORDS SUMMARY | 2022-03-04 19:00 | XMS_ITS | Encounter Summary ---
:1960 Author Organization [place] Address [address] [place] [address]. [place] [address] Care Team Providers Name Role Phone Breana Mock MD Primary Care Provider [phone] Encounter Details Date Type Department Care Team Description 04/08/2021 Ancillary Procedure [facility] Non-Fv Credentia led External Imaging Provider, Radiology [address] [place] [id number] Social History Tobacco Use Types Packs/Day Years Used Date Never Assessed Sex Assigned at Date Recorded Not on file documented as of this encounter Plan of Treatment Not on filedocumented as of this encounter Procedures Procedure Name Priority Date/Time Associated Diagnosis Comme nts XR EXTERNAL IMAGING Routine 04/08/2021 12:00 AM R esults for this SPINE CDT procedure are i n the results section. documented in this encounter Results XR External Imaging Spine (04/08/2021 12:00 AM CDT) Specimen (Source) Anatomical Location Collection Method / Collectio n Time Received Time / Laterality Volume Narrative Service Account, Ob [facility] - 09/02/2021 1 0:55 AM CAR DUMPER OPERATOR HELPER Images were obtained from an external facility. ??Click PACS Images hyperlink to view images. ??Textual resu lts have been scanned into the media tab. Radiology Non-Fv Credentialed Provider IMG EXTERNAL IM AGING ORDERABLES documented in this encounter Visit Diagnoses Not on filedocumented in this encounter Care Teams Professor Of German Relationship Specialty Start Date End Date Breana Mock MD PCP - General 11/07/02 08/27/[address] [place] [address] documented as of this encounter
--- OUTSIDE RECORDS SUMMARY | 2022-03-04 19:00 | XMS_ITS | Encounter Summary ---
:1960 Author Organization [place] Address [facility] [place] [address] Care Team Providers Name Role Phone Breana Mock MD Primary Care Provider [phone] Encounter Details Date Type Department Care Team Description 09/12/2017 Records - [facility] Amanda abebe MD Laboratory [address], [address] [place] [address] [phone] (Wo rk) Social History Tobacco Use Types Packs/Day Years Used Date Never Assessed Sex Assigned at Date Recorded Not on file documented as of this encounter Plan of Treatment Not on filedocumented as of this encounter Procedures Procedure Name Priority Date/Time Associated Diagnosis Comme nts TSH WITH FREE T4 Routine 09/12/2017 5:40 PM Resul ts for this REFLEX SENIOR BUSINESS PROCESS ANALYST procedure are i n the results section. documented in this encounter Results TSH with free T4 reflex (09/12/2017 5:40 PM SENIOR BUSINESS PROCESS ANALYST) P athologist Signature TSH 2.70 0.30 - 5.00 09/12/2017 [facility] uIU/mL 8:34 PM SENIOR BUSINESS PROCESS ANALYST [facility] Specimen Anatomical Collection Method Collection Time Receive d Time (Source) Location / / Volume Laterality Blood specimen 09/12/2017 5:40 PM 018 7:49 (specimen) SENIOR BUSINESS PROCESS ANALYST PM SENIOR BUSINESS PROCESS ANALYST Sahara Mercado MD LAB - BLOOD ORDERABLE S Performing Organization Address City/State/ZIP Code Phon e Number SJO [facility] [place] [address] [facility] [address] [facility] documented in this encounter Visit Diagnoses Not on filedocumented in this encounter Care Teams Edgerman Relationship Specialty Start Date End Date Breana Mock MD PCP - General 11/07/02 08/27/21 [address] [facility] [address] [place] [address] documented as of this encounter
--- OUTSIDE RECORDS SUMMARY | 2022-03-04 19:00 | XMS_ITS | Encounter Summary ---
:1960 Author Organization [place] Address [address] [facility] [place] [address] Care Team Providers Name Role Phone Breana Mock MD Primary Care Provider [phone] Encounter Details Date Type Department Care Team Description 03/31/2017 Records - [facility] Amanda abebe MD Laboratory [address], [address] [place] [id number] [phone] (Wo rk) Social History Tobacco Use Types Packs/Day Years Used Date Never Assessed Sex Assigned at Date Recorded Not on file documented as of this encounter Plan of Treatment Not on filedocumented as of this encounter Procedures Procedure Name Priority Date/Time Associated Comments Diagnosis LAB RESULT - HIM SCAN 04/08/2017 1:58 PM CDT GYNECOLOGIC CYTOLOGY Routine 03/31/2017 2:02 PM R esults for this CDT procedure are i n the results section. HPV HIGH RISK TYPES Routine 03/31/2017 2:02 PM Re sults for this DNA CERVICAL CDT procedure are i n the results section. HEPATITIS C ANTIBODY Routine 03/31/2017 2:02 PM R esults for this CDT procedure are i n the results section. documented in this encounter Results LAB RESULT - HIM SCAN (04/08/2017 1:58 PM CDT) Specimen (Source) Anatomical Location Collection Method / Collectio n Time Received Time / Laterality Volume Narrative This result has an attachment that is no t available. Historical Provider DMITRIY HARVEY LAB TESTING HPV High Risk Types DNA Cervical (03/31/2017 2:02 PM CDT) [facility] Method Time Signature Interpretation No High No HPV 04/06/2017 [facility] Risk HPV Type(s) 9:40 AM CDT YANI Type(s) Detected, No [facility] Detected High Risk HPV LABORATORY Type(s) Detected, DNA Quantity Not Sufficient Bite Block Maker Srinivas 04/06/2017 [place] ALICIA Davilarohitradha, 9:40 AM CDT YANI ROSENTHAL, Kim [facility] LABORATORY Comment: Testing was performed at [facility], [address] [place] [address], with final verification at the indicated laboratory. ??Interpretation was performed at [facility] [facility] [address] [place] [address], [place] [address]. Specimen Anatomical Collection Method Collection Time Receive d Time (Source) Location / / Volume Laterality Specimen from 03/31/2017 2:02 PM 04/02/20 17 genital system CDT 12:32 PM CDT (specimen) Narrative [facility] - 04/06/2017 9:40 AM CDT No High Risk HPV Type(s) Detected Interpretation: The sample is negative f or the presence of DNA from one or more of the following high risk HPV types (16, 18, 31, 33, 35, 39, 45, 51, 52, 56, 58, 59, 66, and 68) The following HPV type(s ) are identified in the submitted sample (61). High risk types are classified by the IARC as carcinogenic, probably, or possibly carcinogenic to humans. ??These results do not exclude the possibility of additional low or high risk HPV types n ot detected due to adequacy and representativeness of sampling or assay sensitivity. Comments: The absence of high risk HPV t ypes reduces the collective risk for the development of cervical dysplasia or neoplasia. ??This result, in association with the morphology assessment of the Pap s ample are chatman information for the determ ination of follow-up testing and in the clinical management of the patient. Methodology: ??Genomic DNA was extracted from the submitted specimen and amplified by the polymerase chain reaction (PCR) using consensus oligonucleotide primers for the L1 region of the human papilloma virus (HPV) genome. ??Concurrently, the integrity of the extracted DNA was evaluated by the amplification of beta-globin, a common housekeeping gene. ??Result interpretation is performed by analysis of peak height and size data generated thro [facility] fluorescence detection by automated electrophoresis. ??HPV DNA positive PCR products were subjected to digestion by the restriction endonucleases Hae III, Pst 1, and Rsa 1. ??Digested DNA fragments were by automated electrophoresis. ??Digital electropherograms and gel images of data were generated and the specific HPV type was determined by moo wise the restriction fragment patterns of t he respective specimens to that of known HPV restriction fragment patterns. ??The analytical and performance characteristics of this laboratory-developed test (LD T) were determined by [employer] krissy t to Clinical Laboratory Improvement Amendments (CLIA 88) requirements. ??It has not been cleared or approved by the U.S. Food and Drug Administration (FDA). ??[facility] FDA has determined that such clearance or approval is not a requirement prior to use for clinical purposes. Sahara Mercado MD LAB - BLOOD ORDERABLE S Performing Organization Address City/State/ZIP Code Phon e Number [facility] [place] [address] LABORATORY [facility] [address] [place] [address] Gynecologic Cytology (PAP Smear) (03/31/2017 2:02 PM CDT) Component Value Ref Test Analysis Performed At [facility] Method Time Signature Case Report Gynecologic Cytology Report ? Case: [id number] ? 04/08/2017 [facility] Authorizing Provider: ??Iwona Mercado MD ? Collected: ? 03/31/2017 1402 ? 1:58 PM [facility] First Screen: ? Latisha Mehta, CT ? Received: ?04/01/2017 0815 ? CDT [facility]YNALDO [facility]PH[facility] ? (ASCP) ? LABORATORY Rescreen: ?CHICHO Horton (ASCP) ? Specimen: ?SUREPATH PAP, SCREENING, Endocervical/cervical ? Interpretation Negative for squamous intraepithelial lesion or sharon gnancy 04/08/2017 [facility] at ??1:58 PM 1:58 PM [facility] Result Flag Normal Normal 04/08/2017 [facility] 1:58 PM [facility] Specimen Adequacy Satisfactory for 04/08/2017 [facility] evaluation, 1:58 PM YANI endocervical/osman [facility] sformation zone LABORATORY component absent Reflex Testing Yes regardless of 04/08/2017 [facility] result 1:58 PM [facility] High Risk? No 04/08/2017 [facility] 1:58 PM [facility] LMP/Menopause post ciarra 04/08/2017 [facility] Date 1:58 PM [facility] Abnormal Bleeding No 04/08/2017 [facility] 1:58 PM [facility] Patient Status no hysterectomy 04/08/2017 [facility] 1:58 PM [facility] None 04/08/2017 [facility] Control/Hormones 1:58 PM [facility] Previous Normal 02/05/2014 04/08/2017 [facility] 1:58 PM [facility] Previous none 04/08/2017 [facility] Abnormal? 1:58 PM [facility] Cervical normal 04/08/2017 [facility] Appearance 1:58 PM [facility] Specimen Anatomical Collection Method Collection Time Receive d Time (Source) Location / / Volume Laterality Specimen from CERVIX UTERI 03/31/2017 2:02 PM 04/01/20 17 8:15 genital system STRUCTURE / CDT AM CDT (specimen) Unknown Sahara Mercado MD LAB - BEAKER AP Performing Organization Address City/[facility] Phon e Number [place] [address] [address] [facility] Hepatitis C antibody (03/31/2017 2:02 PM CDT) [facility] Time Signature Hepatitis C Negative Negative 04/01/2017 [facility] Antibody 8:45 AM CDT [facility] Specimen Anatomical Collection Method Collection Time Receive d Time (Source) Location / / Volume Laterality Blood specimen 03/31/2017 2:02 PM 017 5:38 (specimen) CDT PM CDT Sahara Mercado MD LAB - BLOOD ORDERABLE S Performing Organization Address City/[facility] Phon e Number [place] [address] [address] [facility] documented in this encounter Visit Diagnoses Not on filedocumented in this encounter Care Teams Employment Program Representative Relationship Specialty Start Date End Date Breana Mock MD PCP - General 11/07/02 08/27/21 [address] [facility] [address] [place] [address] documented as of this encounter
--- OUTSIDE RECORDS SUMMARY | 2022-03-04 19:00 | XMS_ITS | Encounter Summary ---
:1960 Author Organization [place] Address [address] [facility] [place] [address] Care Team Providers Name Role Phone Breana Mock MD Primary Care Provider [phone] Encounter Details Date Type Department Care Team Description 09/12/2014 Records - [facility] [address], [address] [place] [address] [phone] (Wo rk) Social History Tobacco Use Types Packs/Day Years Used Date Never Assessed Sex Assigned at Date Recorded Not on file documented as of this encounter Plan of Treatment Not on filedocumented as of this encounter Procedures Procedure Name Priority Date/Time Associated Diagnosis Comme nts LIPID PROFILE Routine 09/12/2014 6:43 PM Results for this [employer] procedure are i n the results section . documented in this encounter Results (ABNORMAL) Lipid Profile (09/12/2014 6:43 PM [employer]) [facility] Method Time Signature Cholesterol 205 (H) <=199 09/13/2014 HEALTH mg/dL 2:55 PM [facility] Triglycerides 200 (H) <=149 09/13/2014 [facility] mg/dL 2:55 PM [facility] Direct Measure 45 >=40 09/13/2014 [facility] HDL mg/dL 2:55 PM [facility] LDL Cholesterol 120 0 - 129 09/13/2014 [facility] Calculated mg/dL 2:55 PM [employer] MANAGER [facility] Specimen Anatomical Collection Method Collection Time Receive d Time (Source) Location / / Volume Laterality Blood specimen 09/12/2014 6:43 PM 015 1:27 (specimen) [employer] PM [employer] Airam M Baltazar LAB - BLOOD ORDERABLES Performing Organization Address City/State/ZIP Code Phon [place] [address] [phone] [address] [facility] documented in this encounter Visit Diagnoses Not on filedocumented in this encounter Care Teams Advertising Project Manager Relationship Specialty Start Date End Date Breana Mock MD PCP - General 11/07/02 08/27/21 [address] [facility] [address] [place] [address] documented as of this encounter
--- OUTSIDE RECORDS SUMMARY | 2022-03-04 19:00 | XMS_ITS | Encounter Summary ---
:1960 Author Organization [place] Address [address] [facility] [place] [address] Care Team Providers Name Role Phone Breana Mock MD Primary Care Provider [phone] Sahara Mercado MD Primary Care Provider [phone] Zuly Del Toro [facility] Unavailable Zuly Del Toro [facility] Unavailable Encounter Details Date Type Department Care Team Description 03/04/2014 Records - [facility] CONVERSION Scan, Non-Provider Social History Tobacco Use Types Packs/Day Years Used Date Never Assessed Sex Assigned at Date Recorded Not on file documented as of this encounter Plan of Treatment Not on filedocumented as of this encounter Visit Diagnoses Not on filedocumented in this encounter Additional Health Concerns Infection Onset Date Last Indicated Resolved Time Rule Out COVID-19 01/13/2022 01/13/2022 01/13/2022 11: 25 AM CDT documented as of this encounter Care Teams Drawing Frame Tender Relationship Specialty Start Date End Date Breana Mock PCP - General 11/07/02 08/27/21 MD [place] [address] [place] [address] Sahara Mercado PCP - General Family Medicine 08/28/21 Amanda Tidwell MD [facility] [address] [place], [place] [phone] Zuly Del Toro [facility] Pharmacist Pharmacist Ambulatory 01/28/[address] [address] Zuly Del Toro, EUSEBIO Assigned MTM Pharmacist 02/06/[address] [address] documented as of this encounter
--- OUTSIDE RECORDS SUMMARY | 2022-03-04 19:00 | XMS_ITS | Clinical Summary ---
:1960 Author Organization [place] Address [address] [facility] [place] [address] Care Team Providers Name Role Phone Sahara Mercado MD Primary Care Provider [phone] Zuly Del Toro [facility] Unavailable Zuly Del Toro [facility] Unavailable Allergies Active Allergy Reactions Severity Noted Date Comments Metoclopramide 01/13/2022 Medications Medication Sig Dispensed Refills Start Date End Date Status busPIRone HCl (BUSPAR) Take 30 mg by 0 Active 30 MG tabletIndications: mouth 2 times Anxiety Disorder daily HYDROcodone-acetaminophe Take 1 tablet by 0 Active n (NORCO) 5-325 MG mouth every 6 tablet hours as needed for severe pain cyclobenzaprine Take 10 mg by 0 Active (FLEXERIL) 10 MG mouth At Bedtime tabletIndications: Fibromyalgia Syndrome, Muscle Spasm famotidine (PEPCID) 20 Take 20 mg by 0 Active MG tabletIndications: mouth 2 times Gastroesophageal Reflux daily Disease fluticasone (FLONASE) [address] [place] 1 spray 0 Active MCG/ACT nasal into both sprayIndications: nostrils daily Allergic Rhinitis Multiple Take 1 tablet by 0 Act norma Vitamins-Minerals mouth daily (MULTIVITAMIN ADULTS PO)Indications: General health calcium Take 1 tablet by 0 Act norma carb-cholecalciferol mouth 2 times (CALCIUM 500/D) 500-200 daily (with MG-UNIT meals) tabletIndications: General Health ARIPiprazole (ABILIFY) 2 Take 1 tablet (2 0 02/02/20 22 Active MG tabletIndications: mg) by mouth Major Depressive daily Disorder, Anxiety DULoxetine (CYMBALTA) 60 Take 2 capsules 0 2 Active MG capsuleIndications: (120 mg) by Fibromyalgia Syndrome, mouth daily Generalized Anxiety Disorder, Major Depressive Disorder gabapentin (NEURONTIN) Take 1 capsule 0 02/01/2022 Active 300 MG (300 mg) by capsuleIndications: mouth 3 times Fibromyalgia Syndrome, daily Anxiety LORazepam (ATIVAN) 0.5 Take 1 tablet 0 02/01/2022 Active MG tabletIndications: (0.5 mg) by Anxiety mouth every 8 hours as needed for anxiety Active Problems Problem Noted Date Anxiety 01/13/2022 Fibromyalgia 01/13/2022 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 hugh 01/13/2022 Encounters Date Type Specialty Care Team Description 02/10/2022 Telephone Family Practice Sharla Joy PA-C encounter-disre erika 01/28/2022 Office Visit Pharm Zuly Sebastian Fibromyalg ia (Primary Dx); RPH Other chronic p ain; Depression, uns pecified depression type; Anxiety; Insomnia, unspe cified type; Migraine withou t aura and without status migrainosus, not intractable; Gastroesophagea l reflux disease with esophagitis without hemorrhage; Seasonal allerg ic rhinitis, unspecified trigger; Diaphoresis; Takes dietary s upplements 01/13/2022 - Emergency EMERGENCY MEDICINE Sebas Parker alanis; 01/14/2022 LEA Merritt Moderate episode of recurrent major depr essive disorder (H); Gilbert Garrett Generalize d anxiety disorder; 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 Chronic, contin uous use of opioids 01/13/2022 Travel from Last 3 Months Social History Tobacco Use Types Packs/Day Years Used Date Never Smoker Smokeless Tobacco: Never Used Sex Assigned at Date Recorded Not on file Last Filed Vital Signs Vital Sign Reading Time Taken Comments Blood Pressure 147/88 01/14/2022 8:50 AM CDT Pulse 62 01/14/2022 8:50 AM CDT Temperature 36.4 ??C (97.5 ??F) 01/14/2022 8:50 AM CDT Respiratory Rate 14 01/14/2022 8:50 AM CDT Oxygen Saturation 97% 01/14/2022 8:50 AM CDT Inhaled Oxygen Concentration - - Weight 70.3 kg (155 lb) 01/13/2022 12:10 PM CDT Height 162.6 cm (5' 4) 01/13/2022 12:10 PM CDT Body Mass Index 26.61 01/13/2022 12:10 PM CDT Plan of Treatment Health Maintenance Due Date Last Done Comments ADVANCE CARE PLANNING 1960 ANNUAL REVIEW OF HM ORDERS [address] CT COLONOGRAPHY 1960 DEPRESSION ACTION PLAN 1962 FIT-DNA (Cologuard) 1960 FIT 1960 FLEX SIG 1960 MAMMO SCREENING 1960 PHQ-9 1962 URINE DRUG SCREEN 1962 COLONOSCOPY 1972 COLORECTAL CANCER SCREENING 1972 HIV SCREENING 1977 MEDICARE ANNUAL WELLNESS 1980 VISIT ZOSTER IMMUNIZATION (1 of 2012 2) INFLUENZA VACCINE (#1) 2022 07/01/2009, 07/01/2009, 07/01/2009, Additional history exists HPV TEST 03/31/2022 03/31/2017 PAP 03/31/2022 03/31/2017, 02/05/2014 LIPID 10/17/2024 10/18/2019, 01/20/2017, 09/12/2014 DTAP/TDAP/TD IMMUNIZATION 09/12/2027 09/12/2017, 07/23/2008 , (5 - Td or Tdap) 07/23/2008, Additional history exists Pneumococcal Vaccine: Aged Out 10/21/2011, 10/21/2011 No longer eligible Pediatrics (0 to 5 Years) based on patient's age and At-Risk Patients (6 to to co mplete this topic 64 Years) HEPATITIS C SCREENING Completed 03/31/2017 COVID-19 Vaccine Completed 12/16/2021, 03/25/2021, 10/02/2020, Additional history exists HEPATITIS B IMMUNIZATION Aged Out No long er eligible based on patient 's age to complete this topic IPV IMMUNIZATION Aged Out No longer eligi ble based on patient 's age to complete this topic MENINGITIS IMMUNIZATION Aged Out No longe r eligible based on patient 's age to complete this topic Procedures Procedure Name Priority Date/Time Associated Diagnosis Comme nts COVID-19 VIRUS STAT 01/13/2022 10:22 AM Result s for this (CORONAVIRUS) BY CDT procedure a re in PCR the results section. from Last 3 Months Results Symptomatic; Unknown COVID-19 Virus (Coronavirus) by PCR Nasopharyngeal (01/13/2022 10:22 AM CDT) Analysis Performed At Patho logist Time Signature SARS CoV2 PCR Negative Negative 01/13/2022 LABORATORY 11:25 AM CDT Comment: NEGATIVE: SARS-CoV-2 (COVID-19) RNA not detected, presumed negative. Specimen Anatomical Location / Collection Method Collection Nathan e Received Time (Source) Laterality / Volume Swab NASOPHARYNGEAL Non-blood 01/13/2022 10:22 STRUCTURE / Unknown Collection / AM CDT 10:31 AM CDT Unknown Narrative LABORATORY - 01/13/2022 11:25 AM CDT Testing was performed using the Xpert Xpress SARS-CoV-2 Assay on the [employer]. A dditional information about this Emergency Use Authorization (EUA) a ssay can be found via the Lab Guide. This test should be ordered for t he detection of SARS-CoV-2 in individuals who meet SARS-CoV-2 clinical and/or epidemiological criteria. Test performance is unknown in asymptomatic patients. This test is for in vitro diagnostic use unde r the FDA EUA for laboratories certified under CLIA to per form high complexity testing. This test has not been FDA cleared or ap proved. A negative result does not rule out the presence of PCR in hibitors in the specimen or target RNA in concentration below the li varun of detection for the assay. The possibility of a false negati ve should be considered if the patient's recent exposure or clinica l presentation suggests COVID-19. This test was validated by the [facility]. This laboratory is certified under the Clinical Laboratory Improvement Amendments of 1988 (CLIA-88) as qualified to perform high complexity laboratory testing. Sebas Parker PA-C LAB - MICRO GENERAL ORDERAB LES Performing Organization Address City/State/ZIP Code Phon e Number LABORATORY [facility] Acute [place] [address] Care Lab [address] 1[address] floor, Room [address] from Last 3 Months Insurance Payer Benefit Plan / Subscriber ID Effective Dates Phone Addre ss Type Group [employer] [id number] 2021-Present [phone] [address] [place] [address] (Home) [place] [address] Natali Flanagan Employer Related Employer 01/08/[address] (Home) [place] [address] Ailyn Barrett [employer] [address] (Home) [place] [address] Ailyn Barrett Medication Self [address] [facility] (Home) [place] [address] Care Teams Wrecking Car Driver Relationship Specialty Start Date End Date Sahara Mercado PCP - General Family Medicine 08/28/21 Amanda Tidwell MD [facility] [place] [address] [place] [phone] Zuly Del Toro RPH Pharmacist Pharmacist Ambulatory 01/28/[address] [phone] Zuly Del Toro RPH Assigned MTM Pharmacist 02/06/[address] [phone]
--- OUTSIDE RECORDS SUMMARY | 2022-03-04 19:00 | XMS_ITS | Encounter Summary ---
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 the AVS and provided to patient: Yes. Given to patient by RN Was lethal means counseling provided as a part of aftercare planning? Yes - describe: pt has no access to firearms, no intent to overdose or use sharps. Will let her brother know if she begins having any intent or plan for suicide. Assessment Details Patient interview started at: 12:41 PM and completed at: 1:30pm. Total duration spent on the patient case in minutes: 2.50 hrs CPT code(s) utilized: 73105 - Psychotherapy for Crisis - 60 (30-74*) min DELIA Leonard, [facility] - Triage & Transition Services Aftercare Plan If I am feeling unsafe or I am in a crisis, I will: Contact my established care providers Call the [place] Suicide Prevention Lifeline: [phone] Go to the nearest emergency room Call 911 Warning signs that I or other people might notice when a crisis is developing for me: being more withdrawn, agitated, hopeless Things I am able to do on my own to cope or help me feel better: consider trying out 'distress tolerance' techniques (see handout) Things that I am able to do with others to cope or help me better: let them know how I'm doing, whattype of support I need. Things I can use or do for distraction: listen to music, go for a ride, watch t.v. Changes I can make to support my mental health and wellness: take medications as prescribed, begin individual therapy again People in my life that I can ask for help: my brothers Your [facility] has a mental health crisis team you can call 14/02: [facility] Interior Designer 24-hour Crisis Line: , [facility] Crisis Team: Other things that are important when I'm in crisis: Keep reaching out for help like I have been. It takes courage and energy, but is good to let people know when I need help. Additional resources and information: [address] [phone] Partial Hospitalization Program: Tuesday through Tuesday, 9:00 AM - 2:45 PM. Patients may attend in-person or virtually. Our 15-day partial programs are directed by a psychiatrist in a group therapy environment to help prevent and reduce hospitalization and support patients in their home environments. Patients see psychiatrist 2x per week. Day Treatment: Tuesday, Tuesday, from 12:30 to 3:30 PM. Patients attend virtually only. This program will help patients achieve an optimal level of functioning. The goal is to assist in overcoming obstacles that interfere with daily living, using assessment, treatment and structure to stabilize and improve mental health. Crisis Lines Crisis Text Line Text 414581 You will be connected with a trained live crisis counselor to provide support. Tivra Tracker Linking people to mental health and substance use disorder resources Appography.Urbita [place] [facility] Warm Line Peer to peer support Tuesday thru Tuesday, 12 pm to 10 pm [phone] [place] [address] National Blakely on Mental Illness (DINESH) 760.789.5717 or 1.888.DINESH.HELPS Mental Health Apps My3 https://[employer]let [place]/ [employer] https://Juno Therapeutics.org/apps/drzmoch-rksw-qhk/ Crisis Lines Crisis Text Line Text 973962 You will be connected with a trained live crisis counselor to provide support. National Hope Line 1.800.SUICIDE [2131258] BioProtect Fast Tracker Linking people to mental health and substance use disorder resources Appography.[place] [facility] Warm Line Peer to peer support Tuesday thru Tuesday, 12 pm to 10 pm [phone] [place] [address] National Blakely on Mental Illness (DINESH) 059.720.9140 or 1.888.DINESH.HELPS Mental Health Apps My3 https://Total Eclipse.Urbita/ [employer] https://Juno Therapeutics.org/apps/pcdftyg-ufrz-iqm/ Additional Information Today you were seen by a licensed mental health professional through Triage and Transition services,[facility] ([facility]) for a crisis assessment in the Emergency Department at [facility]. It is recommended that you follow up with your established providers (psychiatrist, mental health therapist, and/or primary care doctor - as relevant) as soon as possible. Coordinators from [facility] will be calling you in the next 24-48 hours to ensure that you have the resources you need. You can also contact [facility] coordinators directly at [phone]. You may have been scheduled for or offeredan appointment with a mental health provider. [facility] maintains an extensive network of licensed behavioral health providers to connect patients with the services they need. We do not charge providers a fee to participate in our referral network. We match patients with providers based on a patient's specific needs, insurance coverage, and location. Our first effort will be to refer you to a provider within your care system, and will utilize providers outside your care system as needed. documented in this encounter ED Notes Chasidy Holly RN - 01/14/2022 7:00 PM CDT Patient agreeable to discharge plan. Discharge instructions reviewed with patient including follow-up care plan. Medications: sent to patient's preferred pharmacy. Reviewed safety plan and outpatient resources. Denies SI and HI. All belongings that were brought into the hospital have been returned to patient. Escorted off the unit at 1900 accompanied by [facility] staff. Discharged to home via private vehicle. Josselin Navarro LGSW - 01/14/2022 3:15 PM CDT [facility] Reassessment and Progress Note Client Name: Ailyn Barrett Date: January 14, 2022 Presenting issue that brought patient to the emPATH unit: Pt presents to the ED after breaking down and telling her brother that she doesn't feel like she can continue on as she has been. Pt indicates that she has been struggling with finances, trying to make extra money, and caring for her adult dtr with mild autism who lives with her. 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 Unfortunately this led to problems with her hip and she eventually decided to move forward with the recommended surgery. She put it off until summer due toher teaching job and then it ended up begin cancelled when she tested positive for Covid last week. She's now worried that by the time it's rescheduled, her recovery time might interfere with returningto work in the fall and she can't afford this. Pt states that she also struggles with being single ( 13 years) and having difficulty makingfriends. She is thankful to have support from her brother and sister in law, but they live in [place] and she doesn't see them often. This leaves her feeling lonely and isolated often. Current presentation on the unit: Patient willingly meets with this copy writer to complete reassessment.Patient notes improvement in suicidal thoughts, today she denies SI/SIB/HI. Patient states she was doing really well earlier today, but had to deal with rescheduling her his surgery which caused some distress. She said her mood, depression, and anxiety got worse. Patient expressed concerns regarding medications, and also asked about resources to help with coping such as breathing exercises and grounding techniques. Patient was was given several resources/handouts regarding coping skills, breathing techniques, grounding techniques, DBT skills, etc.. Reviewed the resources with the patient, who was cooperative and appreciative Current risk to self or others? No- patient denies SI/HI/SIB Summary of therapeutic interventions completed with patient: establishing rapport, active listening,assessing dimensions of crisis, identifying additional supports and alternative coping skills, establishing a discharge plan, motivational interviewing, safety and discharge planning Treatment objectives addressed in this session: Goal: Stabilize the suicidal crisis? Objective: Identify life factors/triggers that preceded the SI? Patient will: express feelings related to SI in order to explore factors/triggers? ?LMHP will: assist patient in becoming aware of life factors and triggers that may have been? ?precursors to SI? Objective: participate in therapy session around emotional issues resulting in suicidal thoughts? ?Patient will: discuss feelings and emotional sources of stress, hopelessness? ?LMHP will: encourage pt to express feelings and emotions Goal: Patient will increase awareness of anxiety depression symptoms and their impact on functioningand develop skills to reduce negative impact. Objective #A Patient will describe thoughts, feelings, and actions associated with anxiety and depression. Intervention(s) LMHP will explore and process with patient how anxiety and depression has impacted them. Objective #B Patient will increase anxiety and depression coping skills. Intervention(s) LMHP will teach CBT skills and model their use. Progress on treatment goals: Patient denies SI/HI/SIB. Patient requested and was given several resources/handouts regarding coping skills, breathing techniques, grounding techniques, DBT skills, etc.. Reviewed the resources with the patient, who was cooperative and appreciative Additional collateral information: none at this time Mental Status: Appearance: Appropriate Eye Contact: Fair Psychomotor Behavior: Normal Attitude: Cooperative Pleasant Orientation: All Speech Rate / Production: Normal/ Responsive Volume: Normal Mood: Anxious Depressed Sad Affect: Flat Thought Content: Clear Thought Form: Coherent Insight: Fair Plan: Patient will discharge home and follow up with outpatient services, patient schedule individual therapy and psychiatry appointments. Patient participated in safety and discharge planning. Disposition: Individual therapy and Medication management Rationale for disposition: Patient denies SI/HI/SIB, patient participated in crisis assessment and reassessment. Patient participated in psyciatric consult. Patient will discharge home and follow up with outpatient services, patient schedule individual therapy and psychiatry appointments. Patient participated in safety and discharge planning. Reviewed assessment with attending provider: Kelby Garrett Diagnosis: 296.33 (F33.2) Major Depressive Disorder, Recurrent Episode, Severe _ 300.02 (F41.1) Generalized Anxiety Disorder Total time spent with patient:.75 hrs CPT code: 95128 - Psychotherapy (with patient) - 60 (53+*) min Safety and Aftercare Plan: If I am feeling unsafe or I am in a crisis, I will: Contact my established care providers Call the National Suicide Prevention Lifeline: [phone] Go to the nearest emergency room Call 917 Scheduled Appointments: Therapy (in-person): Date: 01/27/2022 Time: 10:00 AM Location: [facility] Temitope Sullivan [address] [place] [address] Psychiatry (in-person): Date: 02/04/2022 Time: 9:30 AM Location: [facility] Jonathan Arzola CNP,PMHNP,RN [address] [place] [address] ?? Warning signs that I or other people might notice when a crisis is developing for me: being more withdrawn, agitated, hopeless I am having increasing suicidal thoughts that turn to plans with intent or means, I am having additional urges to self-harm, my emotions are of hopelessness, feeling like there's no way out, rage or anger, engaging in risky activities without thinking, withdrawing from family/friends, dramatic mood swi ngs, drastic personality changes, use of alcohol or drugs, neglect of personal hygiene or cares ?? Things I am able to do on my own to cope or help me feel better: consider trying out 'distress tolerance' techniques (see handout) Spending quality time with loved ones, Staying hydrated, Eating balanced meals, Going for a walk every day, Take care of daily responsibilities/needs, Focus on positive self-talk vs negative self-talk ?? Things that I am able to do with others to cope or help me better: let them know how I'm doing, whattype of support I need. Exercise, listen to music, practice deep breathing, meditations, write in a journal, self-regulate, self check-in, ask for help when needed ?? Things I can use or do for distraction: listen to music, go for a ride, watch t.v. Reach out to/spend time with family and friends, take a warm shower or bath, Exercise, chores or do a project, listen to music, watch movie/TV, journaling, reading a book, meditating, call a friend Changes I can make to support my mental health and wellness: take medications as prescribed, begin individual therapy again -I will abstain from all mood altering chemicals not currently prescribed to me -I will attend scheduled mental health therapy and psychiatric appointments and follow all recommendations -I will commit to 30 minutes of self care daily - this can be as simple as taking a shower, going for a walk, cooking a meal, read, writing, etc -I will practice square breathing when I begin to feel anxious - in breath through the nose for the count of 4 and the first line on the square. Out breath through the mouth for the count of 4 for the second line of the square. Repeat to complete the square. Repeat the square as many times as needed. - I will use distraction skills of: going for walks, watching TV, spending time outside, calling a friend or family member -Use community resources, including hotline numbers, [facility] crisis and support meetings -Maintain a daily schedule/routine -Practice deep breathing skills -Download a meditation sylvester and spend 15-20 minutes per day mediating/relaxing. Some apps to downloadinclude: Calm, Headspace and Insight Timer. All 3 of these apps have free version ?? People in my life that I can ask for help: my brothers ?? Your [facility] has a mental health crisis team you can call 14/02: [facility] Interior Designer 24-hour Crisis Line: , [facility] Crisis Team: ?? Other things that are important when I'm in crisis: Keep reaching out for help like I have been. It takes courage and energy, but is good to let people know when I need help. ?? Additional resources and information: ?? [address] [phone] Partial Hospitalization Program: Tuesday through Tuesday, 9:00 AM - 2:45 PM. Patients may attend in-person or virtually. Our 15-day partial programs are directed by a psychiatrist in a group therapy environment to help prevent and reduce hospitalization and support patients in their home environments. Patients see psychiatrist 2x per week. Day Treatment: Tuesday, Tuesday, from 12:30 to 3:30 PM. Patients attend virtually only. This program will help patients achieve an optimal level of functioning. The goal is to assist in overcoming obstacles that interfere with daily living, using assessment, treatment and structure to stabilize and improve mental health. ? Crisis Lines Crisis Text Line Text 078899 You will be connected with a trained live crisis counselor to provide support. ?? BioProtect Fast Tracker Linking people to mental health and substance use disorder resources Appography.org ?? [facility] Warm Line Peer to peer support Tuesday thru Tuesday, 12 pm to 10 pm [phone] [place] [address] ?? National Blakely on Mental Illness (DINESH) 518.353.6131 or 1.888.DINESH.HELPS ? Mental Health Apps My3 https://Web Geo Servicespp.org/ ?? VirtualHopeBox https://Juno Therapeutics.org/apps/xrjsufi-wiut-epw/ ? Crisis Lines Crisis Text Line Text 428952 You will be connected with a trained live crisis counselor to provide support. ?? National Hope Line 1.800.SUICIDE [7910655] ? Community Resources Fast Tracker Linking people to mental health and substance use disorder resources Appography.org ?? [facility] Warm Line Peer to peer support Tuesday thru Tuesday, 12 pm to 10 pm [phone] [place] [address] ?? National Blakely on Mental Illness (DINESH) 189.951.3672 or 1.888.DINESH.HELPS ? Mental Health Apps My3 https://Total Eclipse.org/ ?? VirtualHopeBox https://WebThriftStore/apps/npcjaul-zews-dma/ ? Additional Information Today you were seen by a licensed mental health professional through Triage and Transition services,[facility] ([facility]) for a crisis assessment in the Emergency Department at [facility]. It is recommended that you follow up with your established providers (psychiatrist, mental health therapist, and/or primary care doctor - as relevant) as soon as possible. Coordinators from [facility] will be calling you in the next 24-48 hours to ensure that you have the resources you need. You can also contact [facility] coordinators directly at [phone]. You may have been scheduled for or offeredan appointment with a mental health provider. [facility] maintains an extensive network of licensed behavioral health providers to connect patients with the services they need. We do not charge providers a fee to participate in our referral network. We match patients with providers based on a patient's specific needs, insurance coverage, and location. Our first effort will be to refer you to a provider within your care system, and will utilize providers outside your care system as needed. ?? GERALDO Bourne Associated attestation - Kimmy Valentin LICSW - 01/27/2022 8:55 AM CDT Service Performed and Documented by GERALDO Note reviewed and clinical supervision by DELIA Ferrari LICSW January 27, 2022 Gilbert Garrett CNP - 01/14/2022 2:17 PM CDT [facility] Unit - Psychiatric Observation Discharge Summary [facility] Emergency Department Discharge Date: 01/14/2022 Ailyn Barrett Age: [age] year old Date of : 1960 Brief HPI & Initial ED Course Chief Complaint Patient presents with ??? Suicidal HPI Ailyn Barrett is a 61 year old female with history notable for depression, anxiety, hypertension, chronic fatigue syndrome, and fibromyalgia who presented to the emergency department for evaluation ofworsening depressive symptoms and passive suicidal ideation for the past month which coincides with patient discontinuing her long-term opioid medication, which she stopped cold turkey. Patient has been taking Vicodin for over 10 years and recently decided to discontinue this medicine. She has been followed by Dr. Connolly for psychiatry. Duloxetine was increased to 120 mg daily within the past several weeks, without any improvement in mood. Patient was medically evaluated in the emergency departmentand found to be cleared for transfer to [facility]. Patient is seen for psychiatric follow-up today. Endorses having slept well last night, and woke up feeling good. She then apparently spoke to the clinic where she is planning to get hip surgery and was informed that she would need to get an antibody test before they will go through with her surgery because of her recent positive COVID test. This then sent her into a downward spiral and worsening anxiety. She is worried about a number of things. Worried about getting better. 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 She endorses passive suicidal ideation but denies any active plans or intent to harm herself, states I would never kill myself, I just think about my grandchildren. She feels comfortable returning home this evening when her daughter can pick her up. Tolerating Abilify without report of side effects. Physical Examination BP: (!) 147/88 Pulse: 62 Temp: 97.5 ??F (36.4 ??C) Resp: 14 Height: 162.6 cm (5' 4) Weight: 70.3 kg (155 lb) SpO2: 97 % Physical Exam General: Appears stated age. Neuro: Alert and fully oriented. Extremities appear to demonstrate normal strength on visual inspection. Integumentary/Skin: no rash visualized, normal color Psychiatric Examination Appearance: awake, alert, adequately groomed, dressed in hospital scrubs and appeared as age stated Attitude: cooperative Eye Contact: fair Mood: anxious and depressed Affect: mood congruent, intensity is blunted and restricted range Speech: clear, coherent and normal prosody Psychomotor Behavior: no evidence of tardive dyskinesia, dystonia, or tics and intact station, gait and muscle tone Thought Process: logical and goal oriented Associations: no loose associations Thought Content: no evidence of homicidal ideation, no evidence of psychotic thought, passive suicidal ideation present, no auditory hallucinations present and no visual hallucinations present Insight: good Judgement: intact Oriented to: time, person, and place Attention Span and Concentration: intact Recent and Remote Memory: intact Language: able to name/identify objects without impairment Fund of Knowledge: intact with awareness of current and past events Results Labs Ordered and Resulted from Time of ED Arrival to Time of ED Departure COVID-19 VIRUS (CORONAVIRUS) BY PCR - Normal Result Value SARS CoV2 PCR Negative Observation Course The patient was found to have a psychiatric condition that would benefit from an observation stay inthe emergency department for further psychiatric stabilization and/or coordination of a safe disposition. The plan upon observation admission included serial assessments of psychiatric condition, potential administration of medications if indicated, further disposition pending the patient's psychiatric course during the monitoring period. Serial assessments of the patient's psychiatric condition were performed. Nursing notes were reviewed. During the observation period, the patient did not require medications for agitation, and did not require restraints/seclusion for patient and/or provider safety. After a period of working with the treatment team on the EmPATH unit, the patient's mental state improved to allow a safe transition to outpatient care. After counseling on the diagnosis, work-up, and treatment plan, the patient was discharged. Close follow-up with a psychiatrist and/or therapist was recommended and community psychiatric resources were provided. Patient is to return to the ED if any urgent or potentially life-threatening concerns. Discharge Diagnoses: Final diagnoses: Fibromyalgia Moderate episode of recurrent major depressive disorder (H) Generalized anxiety disorder Chronic, continuous use of opioids Treatment Plan: - Continue duloxetine 120 mg daily for treatment of depression, anxiety and pain - Abilify 2 mg daily for mood augmentation - Start gabapentin 300 mg TID scheduled for pain and anxiety - Will provide 2-week supply of lorazepam 0.5 mg q8h PRN. She is aware of the risk for dependence. Counseled to only use this for severe anxiety. She verbalized understanding. - She will be provided with appointments for outpatient psychotherapy and medication management. At the time of discharge, the patient's acute suicide risk was determined to be low due to the following factors: Reduction in the intensity of mood/anxiety symptoms that preceded the admission, denialof suicidal thoughts, denies feeling helpless or helpless, not currently under the influence of alcohol or illicit substances, denies experiencing command hallucinations, no immediate access to firearms. The patient's acute risk could be higher if noncompliant with their treatment plan, medications, follow-up appointments or using illicit substances or alcohol. Protective factors include: social supports, children, stable housing, employment, caodaism beliefs, school, expectant mother. -- Gilbert Garrett CNP [facility] EMERGENCY DEPT EmPATH Unit 01/14/2022 Gilbert Garrett CNP 01/14/22 1426 Gilbert Garrett CNP - 01/13/2022 7:16 PM CDT [facility] Emergency Department Ailyn Barrett Age: [age] year old Date of : 1960 History Chief Complaint Patient presents with ??? Suicidal HPI Ailyn Barrett is a 61 year old female with history notable for depression, anxiety, hypertension, chronic fatigue syndrome, and fibromyalgia who presented to the emergency department for evaluation ofworsening depressive symptoms and passive suicidal ideation for the past month which coincides with patient discontinuing her long-term opioid medication, which she stopped cold . Patient has been taking Vicodin for over 10 years and recently decided to discontinue this medicine. She has been followed by Dr. Connolly for psychiatry. Duloxetine was increased to 120 mg daily within the past several weeks, without any improvement in mood. Patient was medically evaluated in the emergency departmentand found to be cleared for transfer to [facility]. Here at [facility], patient discusses that her mood has declined over the past month. She is having an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
--- OUTSIDE RECORDS SUMMARY | 2022-03-04 19:00 | XMS_ITS | Encounter Summary ---
:1960 Author Organization [place] Address [address] [facility] [place] [address] Care Team Providers Name Role Phone Sahara Mercado MD Primary Care Provider [phone] Zuly Del Toro [facility] Unavailable Reason for Visit Reason Comments Medication Therapy Management Encounter Details Date Type Department Care Team Description 01/28/2022 Office Visit Zuly Cortez, Fibromyal alanis (Primary Dx); [facility] Other chronic pain; [facility] Depression, unspecified depr ession type; [address] [facility] Anxiety; [address] [facility] Insomnia, unspecified type; [place], [place] E Migraine without aura and without status migrainosus, not intractable; [id number] [facility], Gastroesophageal reflux dise ase with esophagitis without hemorrhage; [phone] [id number] Seasonal allergic rhinitis, unspecified trigger; [phone] Diaphoresis; (Work) Takes dietary s upplements Social History Tobacco Use Types Packs/Day Years Used Date Never Smoker Smokeless Tobacco: Never Used Sex Assigned at Date Recorded Not on file COVID-19 Exposure Response Date Recorded In the last 10 days, have you been in contact with Yes 01/13/2022 10:10 AM CDT someone who was confirmed or suspected to have Coronavirus/COVID-19? documented as of this encounter Progress Notes Zuly Del Toro Karen - 01/28/2022 12:30 PM CDT Medication Therapy Management (MTM) Encounter ASSESSMENT: Medication Adherence/Access: Has worries about cost of her medical care, is on limited income. Working with a social services technician that may be able to connect her to other programs that could support her. Chronic pain/Fibromyalgia: Unclear if another SNRI may work better for anxiety and fibromyalgia. Sheis a good candidate for genetic testing, due to multiple trials on medications and still having uncontrolled pain, depression, and anxiety. Drug interactions to monitor: - Increased serotonin exposure from buspirone, duloxetine, rizatriptan, and cyclobenzaprine. Will monitor for signs of serotonin toxicity. Depression/Anxiety: Recently started Abilify, too soon to tell effect on mood. Gabapentin causing some side effects (sedation). Discussed trying to take gabapentin 300 mg at bedtime for a couple weeks,then if tolerating could try adding in a morning dose. If the 300 mg still makes her too groggy we could talk to Dr. Mercado or her psychiatry provider about getting a 100 mg dose to take in the morning(I.e. gabapentin 100 mg AM/ 300 mg bedtime). Education Provided on PGx: - Potential impact of pharmacokinetic and pharmacodynamic genetic variation on medication metabolismand action - Reviewed genes and medications tested - Reviewed what report will look like - How information may be helpful in guiding treatment - How results may be useful when reviewing other medications - Limitations of test results on individual medication experience Insomnia: Not doing well. Hopefully able to get her hip surgery as this is affecting sleep. Her anxiety is also affecting sleep, recently started on medications. Migraines: Unable to assess to due time. Anxiety likely contributes to migraines. GERD: Not fully assessed today. Allergic Rhinitis: Stable. Diaphoresis: Some of her psychiatry medications may be contributing to sweating/feeling very hot including duloxetine and buspirone . Supplements: Stable. PLAN: 1. Discussed trying to continue the gabapentin 300 mg at bedtime. Then after 1-2 weeks, could try adding in a morning dose of 100 mg gabapentin to see if lower dose better tolerated. 2. Collected Buccal swab for the One[facility] test, submitted via their online portal. [employer] picked up on 01/29. 3. Needs to refill gabapentin and abilify, run out around 11 of [address] ask Dr[address] Mercado if she would be continuing this prescription. They were both started when at the [facility] program. Follow-up: Return in 12 days (on 02/09/2022) for MTM Follow Up. SUBJECTIVE/OBJECTIVE: Ailyn Nehring is a 61 year old female coming in for an initial visit. She was referred to me from . Reason for visit: Initial medication review. Referral to discuss pharmacogenetic testing. Allergies/ADRs: Reviewed in chart Past Medical History: Reviewed in chart Tobacco: She reports that she has never smoked. She has never used smokeless tobacco. Alcohol: not currently using Medication Adherence/Access: no issues reported Note: Was unable to assess all of her medications completely. She said she was getting extremely hot/sweaty in the exam room and her hip pain was extremely bad so wanted to discuss the genetic test primarily Chronic pain/Fibromyalgia: Current medications include: Duloxetine 120 mg once daily, Gabapentin 300mg once daily at bedtime, Cyclobenzaprine 10 mg daily at bedtime, She stopped Hydrocodone 5-325 mg three times daily as needed (stopped taking about 1.5 months ago cold turkey). She started having suicidal thoughts after stopping hydrocodone. Her duloxetine dose was increased at the time but she hasn't noticed improvement yet. She was Seen at [facility] from 01/13-01/14 for passive SI. She's worried about finances, and her health She was taking gabapentin 300 mg twice daily but it was making her extremely tired and groggy. She stopped taking the morning dose today and felt more alert. She isn't sure if she wants to go up on the dose because she is on so many medications. Side effects: Sedation from gabapentin. She said she will need refills toward the end of the month, the prescription didn't have refills on it. She wants to make sure she can get them before her surgery on 02/11. Depression/Anxiety: Current medications include: Duloxetine 120 mg once daily, Abilify (aripiprazole) 2mg once daily, Buspirone 30 mg twice daily, and lorazepam 0.5 mg twice daily as needed. She is having a lot of anxiety still. She has a lot of life- stressors that are unavoidable. She recently started Abilify about 1 and 1/2 weeks ago, too soon to tell effect. Also started on gabapentin but it's making her too sleepy. Is working with a social services technician right now through [employer] [facility]. Indication for testing: Depression F33.2, fibromyalgia Therapies Tried/Response: Effexor 150 mg - Ineffective Buspirone - still taking, not significantly effective. Chad Escobedo Patient's reasons for doing pharmacogenetic testing: Would like to find more effective therapies forher anxiety and fibromyalgia pain Patient's expectations from test results: Initially patient thought the test would tell us which medications will work. Discussed that it doesn't tell us which medications will be effective, or guarantee there won't be side effects with medications. Patient understands that the test won't tell us exactly which meds will work, or guarantee she wouldn't have side effects with a new medication. Understands that it can help narrow down medications that would be less likely to work, more likely to cause side effects, and can help guide decisions with medication changes. Follows with Dr. Tiffanie Connolly, psychiatrist at [facility] Patient's concerns about test: Cost, doesn't want to do it if there's a cost. Should be completely covered due to medicare +medicaid insurance. Test tube ID Number: [id number] Insurance information: Patient is the primary account guadalupe. Insomnia: Current medications include: zolpidem 10 mg at bedtime as needed. Sleep hasn't been great,has a lot of hip pain. Has a upcoming surgery for hip replacement. Migraines: Takes rizatriptan ODT 10 mg as needed. Unable to review today how often she needs this and how migraines are doing. Will discuss at follow up. GERD: Current medications include: Pepcid (famotidine) 20 mg twice daily. Frequency of GERD symptomsnot discussed in detail Allergic Rhinitis: Current medications include fluticasone nasal spray 1-2 spray(s) once daily as needed. Primary symptoms are nasal congestion, post-nasal drip and runny nose. Patient feels that current therapy is effective. Diaphoresis: Uses Drysol 20% as needed. Unable to discuss in detail. 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 Supplements: Taking a daily multivitamin, Calcium-Vitamin D 500-200 mg twice daily. No issues Today's Vitals: There were no vitals taken for this visit. - declined vitals today, she wanted to doappointment quickly because she is very uncomfortable due to heat/temperature in clinic and having bad hip pain. Did not want to check blood pressure or HR. Post Discharge Medication Reconciliation Status: discharge medications reconciled and changed, per note/orders. I spent 30 minutes with this patient today (an extra 15 minutes was spent creating the Medication Action Plan). All changes were made via collaborative practice agreement with Sahara Mercado MD. A copy of the visit note was provided to the patient's provider(s). The patient was mailed a summary of these recommendations. Zuly Del Toro, FrancheskaD Medication Therapy Management Pharmacist Pager: [phone] Medication Therapy Recommendations Depression, unspecified depression type Current Medication: DULoxetine (CYMBALTA) 60 MG capsule (Discontinued) Rationale: Medication requires monitoring - Needs additional monitoring Recommendation: Order Lab Status: Accepted per CPA Note: Oneome testing documented in this encounter Plan of Treatment Not on filedocumented as of this encounter Visit Diagnoses Diagnosis Fibromyalgia - Primary Mylagia and myositis, unspecified Other chronic pain Depression, unspecified depression type Anxiety Anxiety state, unspecified Insomnia, unspecified type Migraine without aura and without status migrainosus, not intractable Migraine without aura, without mention o f intractable migraine without mention of status migrainosus Gastroesophageal reflux disease with eso phagitis without hemorrhage Seasonal allergic rhinitis, unspecified trigger Diaphoresis Generalized hyperhidrosis Takes dietary supplements documented in this encounter Care Teams Power Sewing Machine Operator Relationship Specialty Start Date End Date Sahara Mercado PCP - General Family Medicine 08/28/[address] [address] Zuly Del Toro RPH Pharmacist Pharmacist Fisherman Helper 01/28/[address] [address] documented as of this encounter
--- OUTSIDE RECORDS SUMMARY | 2022-03-04 19:00 | XMS_ITS | Encounter Summary ---
:1960 Author Organization [place] Address [facility] [place] [address] Care Team Providers Name Role Phone Breana Mock MD Primary Care Provider [phone] Encounter Details Date Type Department Care Team Description 01/20/2017 Records - [facility] Amanda abebe MD Laboratory [address], [address] [place] [address] [phone] (Wo rk) Social History Tobacco Use Types Packs/Day Years Used Date Never Assessed Sex Assigned at Date Recorded Not on file documented as of this encounter Plan of Treatment Not on filedocumented as of this encounter Procedures Procedure Name Priority Date/Time Associated Diagnosis Comme nts LIPID PROFILE Routine 01/20/2017 10:44 AM Results for this CDT procedure are i n the results section . documented in this encounter Results (ABNORMAL) Lipid Profile (01/20/2017 10:44 AM CDT) [facility] Method Time Signature Cholesterol 227 (H) <=199 01/20/2017 [facility] mg/dL 6:[address] [facility] Triglycerides 98 <=149 01/20/2017 [facility] mg/dL 6:53 PM T [facility] Direct Measure 53 >=50 01/20/2017 [facility] HDL mg/dL 6:53 PM T [facility] LDL Cholesterol 154 (H) <=129 01/20/2017 [facility] Calculated mg/dL 6:53 PM T [facility] Patient Fasting > Unknown 01/20/2017 [facility] 8hrs? 6:53 PM CDT [facility] Specimen Anatomical Collection Method Collection Time Receive d Time (Source) Location / / Volume Laterality Blood specimen 01/20/2017 10:44 7 6:13 (specimen) AM CDT PM CDT Sahara Mercado MD LAB - BLOOD ORDERABLE S Performing Organization Address City/State/ZIP Code Phon [place] [address] [address] [facility] documented in this encounter Visit Diagnoses Not on filedocumented in this encounter Care Teams Director Of Slot Operations Relationship Specialty Start Date End Date Breana Mock MD PCP - General 11/07/02 08/27/21 [address] [facility] [address] [place] [address] documented as of this encounter
--- OUTSIDE RECORDS SUMMARY | 2022-03-04 19:00 | XMS_ITS | Encounter Summary ---
:1960 Author Organization [facility] Address [address] [place] [address] Care Team Providers Name Role Phone Elsewhere, Pcp Primary Care Provider Unavailable Reason for Visit Reason Comments Follow-up Stomach ulcers Still noappet ite or eatWould like a stronger medication Appointment Request (Routine) - Closed Specialty Diagnoses / Procedures Referred By Contact Refer red To Contact Family Medicine Referral ID Status Reason Start Date Expiration Date Visits Requ ested Visits Authorized [id number] Closed 11/23/2021 11/23/2022 1 1 Encounter Details Date Type Department Care Team Description 11/27/2021 Office Visit Department of Family Mimi Brown Pain Epigastric (Primary Dx); [facility] C[facility]., Chronic Obstructive Pulmonary Disease (HCC); [place], [place] D.N.P. Depression Major Recurrent M ild (HCC); [address] Anxiety Generalized Disorder ; [place], [place] Acne; [address] Hypertension Essential Prima ry; [phone] Pain Left Upper Quadrant Social History Tobacco Use Types Packs/Day Years Used Date Smoking Tobacco: Never Smokeless Tobacco: Never Tobacco Cessation: Counseling Given: Yes Sex Assigned at Date Recorded Not on file documented as of this encounter Last Filed Vital Signs Vital Sign Reading Time Taken Comments Blood Pressure 130/80 11/27/2021 1:32 PM CDT Pulse 65 11/27/2021 1:32 PM CDT Temperature 37.1 ??C (98.8 ??F) 11/27/2021 1:32 PM CDT Respiratory Rate - - Oxygen Saturation 99% 11/27/2021 1:32 PM CDT Inhaled Oxygen Concentration - - Weight 75.8 kg (167 lb) 11/27/2021 1:32 PM CDT Height - - Body Mass Index 28.67 10/24/2018 12:58 PM CDT documented in this encounter Patient Instructions Patient InstructionsPiMimi baker APRN, C.N.Lala., D.N.P. - 11/27/2021 2:04 PM CDT Recommend increasing Protonix to twice daily for 2 months then decrease to 40mg daily. Continue Pepcid twice daily for 2 months, then decrease use to use as needed. Add Carafate 4 times daily for up to one month. Follow-up if symptoms worsen or not improving as anticipated with treatment. documented in this encounter Progress Notes Mimi Brown APRN, C.NShon, Kimberly.N.P. - 11/27/2021 1:30 PM CDT Office Visit [facility] SUBJECTIVE CHIEF COMPLAINT: Follow-up (Stomach ulcers /Still noappetite or eat/Would like a stronger medication ) HISTORY OF PRESENT ILLNESS: Ailyn Barrett is a 61 y.o. female who presents for follow-up evaluation suspected gastric ulcer. Patient was seen in clinic on 11/09/21 for evaluation of left upper quadrant abdominal pain, abdominal bloating, nausea, and black tarry stool with concern possible bleeding gastric ulcer related to her NSAID use for management of her chronic hip and back pain. Patient had previous history gastric ulcers in the past. Lab work completed at her visit showed stable hemoglobin and negative Hemoccult. Patient reports that she was no longer having black stools at the time of stool sample collection. Patient states that she knows that her symptoms are due to bleeding gastric ulcer and is wondering why she was not put on higher dose Protonix or stronger medicine for treatment of this condition and concerned that she is not feeling better faster. Patient was started on Protonix 40 mg daily and Pepcid 40mg twice daily for treatment of her symptoms. She has noticed improvement in left upper quadrant pain but continues to experience epigastric tenderness. She was initially requiring treatment with Zofran for management of nausea, however, this has since resolved. She has been tolerating bland diet but appetite continues to be decreased. She continues to experience some abdominal bloating and gas after eating. Bowels have been relatively normal with no further evidence of bleeding in her stools. She had 1 episode of dizziness yesterday with no recurrence. She reports drinking fluids well with relatively normal urination. Patient questioning if any treatment can be prescribed for management of periodic stubborn menopausal acne that she has been experiencing. Her problem list, allergies, and current medications were reviewed, updated and can be viewed in this encounter. OBJECTIVE VITAL SIGNS: Blood pressure 130/80, pulse 65, temperature 37.1 ??C, temperature source Temporal, weight 75.8 kg, SpO2 99 %. PHYSICAL EXAM: Constitutional General: She is not in acute distress. Appearance: Normal appearance. She is not ill-appearing. HENT Head: Normocephalic and atraumatic. Eyes Conjunctiva/sclera: Conjunctivae normal. Pupils: Pupils are equal, round, and reactive to light. Cardiovascular Rate and Rhythm: Normal rate and regular rhythm. Heart sounds: Normal heart sounds. Pulmonary Effort: Pulmonary effort is normal. Breath sounds: Normal breath sounds. Abdominal General: There is no distension. Palpations: Abdomen is soft. There is no mass. Tenderness: There is abdominal tenderness in the epigastric area and left upper quadrant. There is no guarding or rebound. Musculoskeletal Right lower leg: No edema. Left lower leg: No edema. Skin General: Skin is warm and dry. Neurological General: No focal deficit present. Mental Status: She is alert. Gait: Gait abnormal (Antalgic gait). ASSESSMENT / PLAN #1 Chronic Obstructive Pulmonary Disease (HCC) -Previous diagnosis. No current symptoms of concern. No routine treatment. #2 Depression Major Recurrent Mild (HCC) #3 Anxiety Generalized Disorder -Patient on several medications for management of depression/anxiety and is seen by psychiatry for ongoing management. #4 Acne - clindamycin-benzoyl peroxide (BENZACLIN) 1-5 % gel; Apply 1 application topically 2 (two) times a day as needed (Acne)., Starting Tue11/27/2021, Normal -Patient reports intermittent acne breakouts, which reportedly seem to be hormonal post-menopausal.Prescription for Benzaclin for use as needed for management of symptoms. #5 Hypertension Essential Primary #6 Pain Left Upper Quadrant #7 Pain Epigastric Other orders - pantoprazole (PROTONIX) 40 mg EC tablet; Take 1 tablet (40 mg total) by mouth 2 (two) times a day before breakfast and dinner., Starting Tue11/27/2021, Normal - sucralfate (CARAFATE) 1 gram tablet; Take 1 tablet (1 g total) by mouth every 6 (six) hours., Starting Tue11/27/2021, Until 12/27/2021, Normal Patient presents today for follow-up of suspected bleeding gastric ulcer. Patient is vitally stable and in no acute distress at this time. She was previously experiencing black tarry stools which have since resolved. Hemoglobin was stable at initial clinic visit and Hemocult negative. She was given pre scriptions for Protonix 40 mg daily, Pepcid 40 mg twice daily, and Zofran as needed for management of nausea. Patient has noticed some improvement in her symptoms, however, continues to have some epigastric and left upper quadrant tenderness on exam and requesting additional treatment. Medication adjustments as noted above below made at today's visit to help further facilitate continued recovery. Shewas advised to continue avoiding use of NSAIDs to minimize further GI irritation. Patient Instructions Recommend increasing Protonix to twice daily for 2 months then decrease to 40mg daily. Continue Pepcid twice daily for 2 months, then decrease use to use as needed. Add Carafate 4 times daily for up to one month. Follow-up if symptoms worsen or not improving as anticipated with treatment. We discussed the diagnosis and treatment plan in detail. Her questions were answered and she verbalized understanding of the plan of care as outlined above. Mimi Brown, CORY, DNP documented in this encounter Miscellaneous Notes Addendum Note - Mimi Brown APRN, C.N.P., D.N.P. - 11/27/2021 1:30 PM CDT Addended by: MIMI BROWN on: 11/30/2021 05:33 PM Modules accepted: Orders documented in this encounter Plan of Treatment Not on filedocumented as of this encounter Visit Diagnoses Diagnosis Pain Epigastric - Primary Chronic Obstructive Pulmonary Disease (H CC) Depression Major Recurrent Mild (HCC) Anxiety Generalized Disorder Acne Hypertension Essential Primary Pain Left Upper Quadrant documented in this encounter Additional Health Concerns Assessment Noted Time PHQ-9 Depression Total Score: 2 10/14/2015 4:09 PM CDT documented as of this encounter Care Teams Panel Edge Sealer Relationship Specialty Start Date End Date Elsewhere, Pcp PCP - General Internal Medicine 02/15/19 documented as of this encounter
--- OUTSIDE RECORDS SUMMARY | 2022-03-04 19:00 | XMS_ITS | Encounter Summary ---
:1960 Author Organization [place] Address [address] [facility] [place] [address] Care Team Providers Name Role Phone Sahara Mercado MD Primary Care Provider [phone] Zuly Del Toro [facility] Unavailable Zuly Del Toro [facility] Unavailable Reason for Referral Diagnostic Imaging MRI (Routine) - Pending Review Specialty Diagnoses / Procedures Referred By Contact Refer red To Contact Procedures Remington Pelaez MD MR Lumbar Spine w Contrast [facility] N EUROSURGERY [address] [place] [address] Referral ID Status Reason Start Date Expiration Date Visits V isits Requested Authorized [id number] Pending 09/01/2021 09/01/2022 1 1 Review Encounter Details Date Type Department Care Team Description 09/01/2021 Orders Only [facility] Spine and Remington West MD Neurosurgery [facility] [address] [place] [address] [address] [phone] [place], [place] [address] (Wo rk) Social History Tobacco Use Types Packs/Day Years Used Date Never Assessed Sex Assigned at Date Recorded Not on file documented as of this encounter Plan of Treatment Not on filedocumented as of this encounter Procedures Procedure Name Priority Date/Time Associated Diagnosis Comme nts XR EXTERNAL IMAGING SPINE Routine 04/08/2021 MR LUMBAR SPINE W CONTRAST Routine 04/08/2021 documented in this encounter Results XR External Imaging Spine (04/08/2021) Anatomical Region Laterality Modality Other Narrative This result has an attachment that is no t available. Remington Pelaez MD IMG EXTERNAL IMAGING ORDERAB LES MR Lumbar Spine w Contrast (04/08/2021) Anatomical Region Laterality Modality Spine, SUBRAD MR NEURO, UMP MR SPINE, RAD MR Other Narrative This result has an attachment that is no t available. Remington Pelaez MD IMG MRI ORDERABLES documented in this encounter Visit Diagnoses Not on filedocumented in this encounter Additional Health Concerns Infection Onset Date Last Indicated Resolved Time Rule Out COVID-19 01/13/2022 01/13/2022 01/13/2022 11: 25 AM CDT documented as of this encounter Care Teams Supervisor Nurse Relationship Specialty Start Date End Date Sahara Mercado PCP - General Family Medicine 08/28/21 Amanda Tidwell MD [address] [address] Zuly Del Toro RPH Pharmacist Pharmacist Ambulatory 01/28/22 [facility] Care [address] [id number] Zuly Del Toro RPH Assigned MTM Pharmacist 02/06/[address] [id number] documented as of this encounter
--- OUTSIDE RECORDS SUMMARY | 2022-03-04 19:00 | XMS_ITS | Encounter Summary ---
:1960 Author Organization [place] Address [facility]ly [facility], [facility] [place] [address] Care Team Providers Name Role Phone Sahara Mercado MD Primary Care Provider [phone] Zuly Del Toro [facility] Unavailable Zuly Del Toro [facility] Unavailable Encounter Details Date Type Department Care Team Description 09/01/2021 Medical Correspondence [facility] Isiah Pelaez Spine and SMD Neurosurgery [address] NEUROSURGERY [address] [place] [id number] [phone] Social History Tobacco Use Types Packs/Day Years [...] documented as of this encounter Care Teams Pipe Washer Relationship Specialty Start Date End Date Sahara Mercado PCP - General Family Medicine 08/28/21 Amanda Tidwell MD [facility] [address] [place] [address] Zuly Del Toro RPH Pharmacist Pharmacist Ambulatory 01/28/[address] [address] Zuly Del Toro, [facility] Assigned MTM Pharmacist 02/06/22 [address] [place] [address] documented as of this encounter
--- OUTSIDE RECORDS SUMMARY | 2022-03-04 19:00 | XMS_ITS | Encounter Summary ---
:1960 Author Organization [place] Address [facility] [place] [address] Care Team Providers Name Role Phone Sahara Mercado MD Primary Care Provider Encounter Details Date Type Department Care Team Description 01/13/2022 Travel Social History Tobacco Use Types Packs/Day Years [...] documented as of this encounter Care Teams Computer Technician Relationship Specialty Start Date End Date Sahara Mercado MD PCP - General Family Medicine 08/28/21 [facility] [address] [id number] documented as of this encounter
--- OUTSIDE RECORDS SUMMARY | 2022-03-04 19:00 | XMS_ITS | Encounter Summary ---
:1960 Author Organization [place] Address [facility] [place] [address] Care Team Providers Name Role Phone Sahara Mercado MD Primary Care Provider [phone] Encounter Details Date Type Department Care Team Description 09/01/2021 Medical Correspondence [facility] Sp[facility] and Remington Duvall MD CLINIC 04/08/21 Neurosurgery [facility] [address] [facility] NEUR[address]URGERY [address] [place] [phone] Social History Tobacco Use Types Packs/Day Years Used Date Never Assessed Sex Assigned at Date Recorded Not on file documented as of this encounter Plan of Treatment Not on filedocumented as of this encounter Visit Diagnoses Not on filedocumented in this encounter Care Teams Epic Director Relationship Specialty Start Date End Date Sahara Mercado MD PCP - General Family Medicine 08/28/21 [facility] [address] [place] [address] documented as of this encounter
--- OUTSIDE RECORDS SUMMARY | 2022-03-04 19:01 | XMS_ITS | Encounter Summary ---
:1960 Author Organization [facility] Address [address] [place] [address] Care Team Providers Name Role Phone Elsewhere, Pcp Primary Care Provider Unavailable Encounter Details Date Type Department Care Team Description 2021 Admin Visit Urgent Care[facility], in [place], [place] [address] [place] [address] Social History Tobacco Use Types Packs/Day Years Used Date Smoking Tobacco: Never Smokeless Tobacco: Never Sex Assigned at Date Recorded Not on file documented as of this encounter Plan of Treatment Not on filedocumented as of this encounter Visit Diagnoses Not on filedocumented in this encounter Additional Health Concerns Infection Onset Date Last Indicated Resolved Time COVID19 Pending 2021 2021 08/20/2021 12:43 AM [employer] Assessment Noted Time PHQ-9 Depression Total Score: 2 10/14/2015 4:09 PM CDT documented as of this encounter Care Teams Forest Pathology Teacher Relationship Specialty Start Date End Date Elsewhere, Pcp PCP - General Internal Medicine 02/15/19 documented as of this encounter
--- OUTSIDE RECORDS SUMMARY | 2022-03-04 19:01 | XMS_ITS | Encounter Summary ---
:[address] [facility] Address [address] [place] [address] Care Team Providers Name Role Phone Elsewhere, Pcp Primary Care Provider Unavailable Reason for Referral Medication Prior Authorization - Closed Specialty Diagnoses / Procedures Referred By Contact Refer red To Contact Diagnoses Gastroenteritis Nausea Jorge Piper APRN, C.N.PPavan, D.N.P. [address] [place] [address] Referral ID Status Reason Start Date Expiration Date Visits Requ ested Visits Authorized [id number] Closed 1 1 utpatient (Routine) - Closed Specialty Diagnoses / Procedures Referred By Contact Refer red To Contact Family Medicine Diagnoses Gastroenteritis Headache Unspecified Nausea Elevated Blood Pressure Jorge Piper APRN, [facility] C.N.P., D.N.P. [address] [place] [address] Referral ID Status Reason Start Date Expiration Date Visits Requ ested Visits Authorized [id number] Closed 02/05/2021 02/05/2022 1 1 Reason for Visit Reason Comments Generally not feeling well off and on for 4 wks Encounter Details Date Type Department Care Team Description 02/05/2021 Office Visit Urgent Care, Hospital [place], Bindhu, Con stipation (Primary Dx); [place], in [place], SERGIO, C.N.P., Head ache Unspecified; [place] D.N.P. Gastroenteritis; [address] Nausea; [place], [place] Elevated Bl ood Pressure [phone] [phone] Social History Tobacco Use Types Packs/Day Years Used Date Smoking Tobacco: Never Smokeless Tobacco: Never Sex Assigned at Date Recorded Not on file documented as of this encounter Last Filed Vital Signs Vital Sign Reading Time Taken Comments Blood Pressure 166/83 02/05/2021 8:03 PM CDT Pulse 60 02/05/2021 8:03 PM CDT Temperature 36.8 ??C (98.2 ??F) 02/05/2021 8:01 PM CDT Respiratory Rate - - Oxygen Saturation 99% 02/05/2021 8:03 PM CDT Inhaled Oxygen Concentration - - Weight - - Height - - Body Mass Index - - documented in this encounter Patient Instructions Patient InstructionsJorge Piper APRN, C.N.P., D.N.P. - 02/05/2021 7:45 PM CDT Results: No results found. Recent Results (from the past 24 hour(s)) Urinalysis with Microscopic if Indicated Collection Time: 02/05/21 8:27 PM Result Value Source Midstream Clarity Clear Color Yellow Blood Negative Nitrite Negative Leukocyte Esterase Trace (A) Protein Negative Glucose Negative Ketones, QI(U) Negative Bilirubin Negative pH 5.0 Specific [place] >=1.030 Urobilinogen 0.2 SARS Coronavirus 2, PCR Rapid, V Collection Time: 02/05/21 8:27 PM Specimen: Varies Result Value SARS CoV-2, PCR, Rapid, V Undetected SARS Coronavirus 2, Source, Rapid Swab, Nasopharynx Microscopic Manual Collection Time: 02/05/21 8:27 PM Result Value White Blood Cells Occ-3 Red Blood Cells None Seen Squamous Cells Occ-3 CBC with Differential, Blood Collection Time: 02/05/21 8:32 PM Result Value Hemoglobin 14.3 Hematocrit 41.1 Erythrocytes 4.40 MCV 93.4 RBC Distrib Width 12.3 Platelet Count 268 Leukocytes 7.3 Neutrophils 4.00 Lymphocytes 2.40 Monocytes 0.68 Eosinophils 0.15 Basophils 0.03 Basic Metabolic Panel Collection Time: 02/05/21 8:32 PM Result Value Potassium, P 4.4 Sodium, P 142 Chloride, P 105 Bicarbonate, P 29 Anion Gap, P 8 BUN (Blood Urea Nitrogen), P 21 Creatinine, P 0.75 eGFR-Black/ >90 eGFR Non-Black/ 88 Calcium, Total, P 9.6 Glucose, P 101 Micro Results Last 72 Hours SARS Coronavirus 2, PCR Rapid, V Specimen: Varies Result Value SARS CoV-2, PCR, Rapid, V Undetected SARS Coronavirus 2, Source, Rapid Swab, Nasopharynx documented in this encounter Progress Notes Jorge Piper APRN, C.N.P., D.N.P. - 02/05/2021 7:45 PM CDT SUBJECTIVE CHIEF COMPLAINT / REASON FOR VISIT Generally not feeling well (off and on for 4 wks). HISTORY OF PRESENT ILLNESS Ailyn Barrett is a 60 y.o. female who presents urgent care for evaluation of not feeling well x4 weeks. Patient reports that she initially started with nausea and headache on January 14. She has since had symptoms on and off for few days at a time. She had 1 emesis this past Tuesday when she had severe nausea and vomited while she was driving in the car. She had 2 episodes of diarrhea 2 days ago as well as Tuesday of last week when she had vomited. She denies any abdominal pain, or urinary symptoms. She has been able to tolerate fluids and food intake. She had some nausea earlier this morning. She feels better today compared to the past couple weeks which prompted her visit today. REVIEW OF SYSTEMS Constitutional: Positive for fatigue. Negative for fever. Gastrointestinal: Positive for diarrhea, nausea and vomiting. Negative for abdominal (belly) pain orcramping. Neurological: Positive for headaches. Negative for light-headedness. The following systems were negative: Skin, Eyes, ENT, CV, Respiratory, , Hematologic, Musculoskeletal The patient's social history, medical history, and home medications were reviewed in the electronic medical record. ALLERGIES/CONTRAINDICATIONS Allergies Allergen Reactions ??? Codeine Nausea And Vomiting ??? Metoclopramide Anxiety ??? Metoclopramide Hcl Other (see comments) ??? Zolpidem Tartrate Other (see comments) Sleep walking OBJECTIVE VITAL SIGNS BP (!) 166/83 Pulse 60 Temp 36.8 ??C SpO2 99% PHYSICAL EXAM Constitutional General: She is not in acute distress. Appearance: Normal appearance. She is not ill-appearing, toxic-appearing or diaphoretic. HENT Head: Normocephalic and atraumatic. Nose: Nose normal. Mouth/Throat: Mouth: Mucous membranes are moist. Eyes General: Gaze aligned appropriately. Extraocular Movements: Extraocular movements intact. Right eye: Normal extraocular motion and no nystagmus. Left eye: Normal extraocular motion and no nystagmus. Conjunctiva/sclera: Conjunctivae normal. Pupils: Pupils are equal, round, and reactive to light. Visual Kern: Right eye visual kern normal and left eye visual kern normal. Cardiovascular Rate and Rhythm: Normal rate and regular rhythm. Pulses: Normal pulses. Pulmonary Effort: Pulmonary effort is normal. Breath sounds: Normal breath sounds. Abdominal General: Abdomen is flat. There is no distension. Palpations: Abdomen is soft. Tenderness: There is no abdominal tenderness. There is no right CVA tenderness, left CVA tenderness, guarding or rebound. Musculoskeletal General: Normal range of motion. Cervical back: Normal range of motion. Skin General: Skin is warm and dry. Capillary Refill: Capillary refill takes 2 to 3 seconds. Findings: No rash. Neurological Mental Status: She is alert and oriented to person, place, and time. DIAGNOSTICS Recent Results (from the past 24 hour(s)) Urinalysis with Microscopic if Indicated Collection Time: 02/05/21 8:27 PM Result Value Source Midstream Clarity Clear Color Yellow Blood Negative Nitrite Negative Leukocyte Esterase Trace (A) Protein Negative Glucose Negative Ketones, QI(U) Negative Bilirubin Negative pH 5.0 Specific [place] >=1.030 Urobilinogen 0.2 SARS Coronavirus 2, PCR Rapid, V Collection Time: 02/05/21 8:27 PM Specimen: Varies Result Value SARS CoV-2, PCR, Rapid, V Undetected SARS Coronavirus 2, Source, Rapid Swab, Nasopharynx Microscopic Manual Collection Time: 02/05/21 8:27 PM Result Value White Blood Cells Occ-3 Red Blood Cells None Seen Squamous Cells Occ-3 CBC with Differential, Blood Collection Time: 02/05/21 8:32 PM Result Value Hemoglobin 14.3 Hematocrit 41.1 Erythrocytes 4.40 MCV 93.4 RBC Distrib Width 12.3 Platelet Count 268 Leukocytes 7.3 Neutrophils 4.00 Lymphocytes 2.40 Monocytes 0.68 Eosinophils 0.15 Basophils 0.03 Basic Metabolic Panel Collection Time: 02/05/21 8:32 PM Result Value Potassium, P 4.4 Sodium, P 142 Chloride, P 105 Bicarbonate, P 29 Anion Gap, P 8 BUN (Blood Urea Nitrogen), P 21 Creatinine, P 0.75 eGFR-Black/ >90 eGFR Non-Black/ 88 Calcium, Total, P 9.6 Glucose, P 101 ASSESSMENT / PLAN #1 Gastroenteritis - CBC with Differential, Blood - Basic Metabolic Panel - Urinalysis with Microscopic if Indicated - Bacterial Culture, Aerobic + Susc, Urine #2 Headache Unspecified - ketorolac injection 30 mg (TORADOL); 30 mg, intramuscular, Once, On Delmi 02/05/21 at 2030, For 1 doseAdult IV push rate: Over 15 seconds. Peds IV push rate: Over 1 minute. 60 mg dose only for IM, not recommended for IV. #3 Nausea #4 Elevated Blood Pressure Other orders - DX Abdomen Supine and Upright 2 Views; Future; Expected date: 02/05/2021 - DX Abdomen Supine and Upright 2 Views - SARS Coronavirus 2, PCR Rapid, V - Family Medicine - General (clinic); Future; Expected date: 02/05/2021 - Microscopic Manual - ondansetron ODT (ZOFRAN-ODT) 4 mg disintegrating tablet; Take 1 tablet (4 mg total) by mouth every8 (eight) hours as needed for nausea or vomiting for up to 3 days., Starting Tue02/06/2021, Until Tue02/09/2021 at 2359, Normal COVID PCR has was negative. Labs were within normal range. Urine showed is trace leukocyte esterase has been set up for culture. Will treat if the urine culture is positive. Patient had slight improvement in her symptoms after the ketorolac injection. She did not have any nausea during this visit. Prescription for Zofran sent to pharmacy of choice to use for severe nausea. Her blood pressure was noted to be elevated during this visit. Patient has been off her blood pressure medication for almost a year since losing weight. We discussed checking blood pressure at home and keeping a note to bring to her primary care appointment. Abdominal x-ray was positive for moderate stool burden. Discussed with patient that this may be causing her nausea as well as her loose stools. We discussed use of qeci-vic-oehqfew MiraLax to help regularize her bowel movements and for constipation. She should follow-up inthe next 4-5 days with primary care provider to follow-up on her symptoms. Patient verbalized understanding is in agreement with this plan. She was discharged in stable condition from the clinic. Electronically signed by: Jorge Piper APRN, C.N.PPavan, D.N.P. 02/05/21 9:28 PM CDT documented in this encounter Plan of Treatment Scheduled Referrals Name Type Priority Associated Diagnoses Order S [facility] - Outpatient Referral Routine Gastroente ritis Expected: General (clinic) Headache 02/05/2021 Nausea (Approximate), Elevated Blood Expires: Pressure 02/06/2024 documented as of this encounter Procedures Procedure Name Priority Date/Time Associated Diagnosis Comme nts DX ABDOMEN SUPINE RAD - Routine 02/05/2021 8:47 Gastroenteriti s Results for AND UPRIGHT 2 (most inpatients PM CDT Nausea this proce dure VIEWS and all are in the outpatients) results section. CBC WITH STAT 02/05/2021 8:32 Gastroenteritis Results f or DIFFERENTIAL, B PM CDT this procedu re are in the results section. BASIC METABOLIC STAT 02/05/2021 8:32 Gastroenteritis Result s for PANEL, S/P PM CDT this procedure are in the results section. SARS CORONAVIRUS STAT 02/05/2021 8:27 Results for 2, PCR RAPID, V PM CDT this procedu re are in the results section. URINALYSIS WITH STAT 02/05/2021 8:27 Gastroenteritis Result s for MICROSCOPIC IF PM CDT this procedur e INDICATED, U are in the results section. HC URINALYSIS AUTO STAT 02/05/2021 8:27 Result s for WO MICRO PM CDT this procedure are in the results section. BACTERIAL CULTURE, STAT 02/05/2021 8:27 Gastroenteritis Res ults for AEROBIC + SUSC, PM CDT this procedu re URINE are in the results section. documented in this encounter Results DX Abdomen Supine and Upright 2 Views (02/05/2021 8:47 PM CDT) Anatomical Region Laterality Modality Abdomen, Abdominal RST LOS, Abdominal ARZ LOS, Right Digital Radiography Abdominal FLA LOS Specimen (Source) Anatomical Collection Method Collection Time Re ceived Time Location / / Volume Laterality 02/05/2021 9:31 PM CDT Impressions 02/05/2021 9:35 PM CDT 1. ??Nonobstructive bowel gas pattern. 2. ??Moderate to large amount of stool i n the colon. Narrative 02/05/2021 9:35 PM CDT EXAM: DX ABDOMEN SUPINE AND UPRIGHT 2 VIEWS COMPARISON: None FINDINGS: The bowel gas pattern is nonob structive. Moderate to large amount of stool in the colon. Phleboliths in the p mray. Small nonspecific calcification in the left lower lumbar paraspinal dieudonne on, that could also represent a phlebolith. Left upper abdominal surgica l clips. The imaged lung bases are clear. No subdiaphragmatic free air. No acute osseous findings. Moderate left hip osteoarthritis. Procedure Note Dinh Hernandez M.D. - 02/05/2021Formattin g of this note might be different from the original. EXAM: DX ABDOMEN SUPINE AND UPRIGHT 2 EWS COMPARISON: None FINDINGS: The bowel gas pattern is nonob structive. Moderate to large amount of stool in the colon. Phleboliths in the p mary. Small nonspecific calcification in the left lower lumbar paraspinal dieudonne on, that could also represent a phlebolith. Left upper abdominal surgica l clips. The imaged lung bases are clear. No subdiaphragmatic free air. No acute osseous findings. Moderate left hip osteoarthritis. IMPRESSION: 1. Nonobstructive bowel gas pattern. 2. Moderate to large amount of stool in the colon. Jorge Piper APRN, C.N.P., D.N.P. IMG DIAGNOSTIC IMAG ING PROCEDURES Basic Metabolic Panel (02/05/2021 8:32 PM CDT) P athologist Signature Potassium, P 4.4 3.6 - 5.2 02/05/2021 [facility] mmol/L 8:59 PM CDT Sodium, P 142 135 - 145 02/05/2021 [facility] mmol/L 8:59 PM CDT Chloride, P 105 98 - 107 02/05/2021 [facility] mmol/L 8:59 PM CDT Bicarbonate, P 29 22 - 29 02/05/2021 [facility] mmol/L 9:00 PM CDT Anion Gap, P 8 7 - 15 02/05/2021 [facility] 8:59 PM CDT BUN (Blood Urea 21 6 - 21 02/05/2021 [facility] Nitrogen), P mg/dL 9:00 PM CDT Creatinine, P 0.75 0.59 - 1.04 02/05/2021 [facility] mg/dL 9:00 PM CDT eGFR-Black/Afri >90 >=60 02/05/2021 [facility] can Ghanaian mL/min/BSA 9:00 PM CDT Comment: ----ADDITIONAL INFORMATION---- Estimated GFR calculated using the 2009 CKD_EPI creatinine equation. eGFR Non-Black/ 88 >=60 mL/min/BSA 9:00 PM CDT NPR[facility] Comment: ----ADDITIONAL INFORMATION---- Estimated GFR calculated using the 2009 CKD_EPI creatinine equation. Calcium, Total, P 9.6 8.6 - 10.0 mg/dL 02/05/2021 9:00 PM CDT NPR[facility] Glucose, P 101 70 - 140 mg/dL 02/05/2021 9:00 PM CDT N PRG Specimen Anatomical Collection Method Collection Time Receive d Time (Source) Location / / Volume Laterality Blood (Blood, 02/05/2021 8:32 PM 02/06/20 8:35 Venous) CDT PM CDT Jorge Piper APRN, C.N.P., D.N.P. LAB BLOOD ADD-ON Performing Organization Address City/State/ZIP Code Phon e Number [facility]- [address] [place], [place] [address] [place] [address] CBC with Differential, Blood (02/05/2021 8:32 PM CDT) P athologist Signature Hemoglobin 14.3 11.6 - 02/05/2021 [facility] 15.0 g/dL 8:50 PM CDT Hematocrit 41.1 35.5 - 02/05/2021 [facility] 44.9 % 8:50 PM CDT Erythrocytes 4.40 3.92 - 02/05/2021 [facility] 5.13 8:50 PM CDT x10(12)/L MCV 93.4 78.2 - 02/05/2021 [facility] 97.9 fL 8:50 PM CDT RBC Distrib Width 12.3 12.2 - 02/05/2021 [facility] 16.1 % 8:50 PM CDT Platelet Count 268 157 - 371 02/05/2021 [facility] x10(9)/L 8:50 PM CDT Leukocytes 7.3 3.4 - 9.6 02/05/2021 [facility] x10(9)/L 8:50 PM CDT Neutrophils 4.00 1.56 - 02/05/2021 [facility] 6.45 8:50 PM CDT x10(9)/L Lymphocytes 2.40 0.95 - 02/05/2021 [facility] 3.07 8:50 PM CDT x10(9)/L Monocytes 0.68 0.26 - 02/05/2021 [facility] 0.81 8:50 PM CDT x10(9)/L Eosinophils 0.15 0.03 - 02/05/2021 [facility] 0.48 8:50 PM CDT x10(9)/L Basophils 0.03 0.01 - 02/05/2021 [facility] 0.08 8:50 PM CDT x10(9)/L Specimen Anatomical Collection Method Collection Time Receive d Time (Source) Location / / Volume Laterality Blood (Blood, 02/05/2021 8:32 PM 02/06/20 21 8:35 Venous) CDT PM CDT Jorge Piper APRN, C.N.P., D.N.P. LAB BLOOD ADD-ON Performing Organization Address City/State/ZIP Code Phon e Number [facility]- [address] [place] [address], [place] [address] [place] [address] (ABNORMAL) Bacterial Culture, Aerobic + Susc, Urine (02/05/2021 8:27 PM CDT) Analysis Performed At Patho logist Time Signature Urine Culture Mixed 02/06/2021 MKTO tatianna. (A) 4:12 PM CDT Specimen Anatomical Collection Method Collection Time Receive d Time (Source) Location / / Volume Laterality Urine (Urine, 02/05/2021 8:27 PM 02/06/20 21 Midstream) CDT 11:22 PM CDT Comment: Specimen Source Site: Urine Bowen Diaz APRN.N.P., D.N.P. LAB MICROBIOLOGY - GENERAL ORDERABLES Performing Organization Address City/[facility] Phon e Number [facility]- [address] [place] [address] [place] [address] System in [place] [address] [facility] Microscopic Manual (02/05/2021 8:27 PM CDT) P athologist Signature White Blood Occ-3 /hpf 02/05/2021 [facility] Cells 8:59 PM CDT Comment: ----REFERENCE VALUE---- Males: 0-3 Females: 0-10 Unknown: 0-10 Red Blood Cells None Seen 0 - 2 /hpf 02/05/2021 8:59 PM CDT NPR[facility] Squamous Cells Occ-3 /hpf 02/05/2021 8:59 PM CDT TRACKWALKER RG Specimen Anatomical Collection Method Collection Time Receive d Time (Source) Location / / Volume Laterality Urine 02/05/2021 8:27 PM 8:50 CDT PM CDT Bowen Diaz APRN.N.P., D.N.P. LAB URINE ORDERABLE S Performing Organization Address City/State/ZIP Code Phon e Number [place] [address] [facility] [place] [address] [facility] [place] [address] SARS Coronavirus 2, PCR Rapid, V (02/05/2021 8:27 PM CDT) [facility] g[facility] Method Time Signature SARS CoV-2, Undetected Undetected 02/05/2021 [facility] PCR, Rapid, V 8:57 PM CDT Comment: ----ADDITIONAL INFORMATION---- This RT-PCR test was performed using the Luis A SARS-CoV-2 and Influenza A/B Reagent assay from [employer], which has received Emergency Use Authori zation(EUA) by the U.S. Food and Drug Administration . Fact sheets for this Emergency Use Autho rization (EUA) assay can be found at the following link s: For Healthcare Providers: https://www.fda.gov/media/322765/downloa d For Patients: https://www.fda.gov/media/838827/downloa d SARS Coronavirus 2, Source, Rapid Swab, Nasopharynx 02/05/2021 8:36 PM CDT NPRG Specimen Anatomical Collection Method Collection Time Receive d Time (Source) Location / / Volume Laterality Varies 02/05/2021 8:27 PM 8:36 CDT PM CDT Bowen Diaz APRN.N.P., D.N.P. LAB MICROBIOLOGY - GENERAL ORDERABLES Performing Organization Address City/State/ZIP Code Phon e Number [facility]- [facility] [address] [place], [place] [address] [place] [address] [place] [address] [place] [address] [address] [facility] (ABNORMAL) Urinalysis with Microscopic if Indicated (02/05/2021 8:27 PM CDT) P athologist Signature Source Midstream 02/05/2021 NPR[facility] 8:57 PM CDT Clarity Clear Clear 02/05/2021 NPR[facility] 8:57 PM CDT Color Yellow 02/05/2021 NPR[facility] 8:57 PM CDT Comment: ----REFERENCE VALUE---- Colorless Yellow Elayne Blood Negative Negative 02/05/2021 8:57 PM CDT NPRG Nitrite Negative Negative 02/05/2021 8:57 PM CDT NPRG Leukocyte Esterase Trace (A) Negative 02/05/2021 8:57 PM CD T NPRG Protein Negative mg/dL 02/05/2021 8:57 PM CDT NPRG Comment: ----REFERENCE VALUE---- Negative Trace Glucose Negative Negative mg/dL 02/05/2021 8:57 PM CDT TRACKWALKER RG Ketones, QI(U) Negative Negative mg/dL 02/05/2021 8:57 PM C DT NPRG Bilirubin Negative Negative 02/05/2021 8:57 PM CDT NPRG pH 5.0 5.0 - 8.0 02/05/2021 8:57 PM CDT NPRG Specific [place] >=1.030 1.001 - 1.035 02/05/2021 8:57 PM CDT NPRG Urobilinogen 0.2 0.2 - 1.0 mg/dL 02/05/2021 8:57 PM CD T NPRG Specimen Anatomical Collection Method Collection Time Receive d Time (Source) Location / / Volume Laterality Urine (Urine, 02/05/2021 8:27 PM 02/06/20 8:50 Clean Catch) CDT PM CDT Bowen Diaz APRN.N.P., D.N.P. LAB URINE ORDERABLE S Performing Organization Address City/State/ZIP Code Phon e Number [facility]- [address] [place], [place] [address] [place] [address] [place] [address] [place] [address] [address] [facility] documented in this encounter Visit Diagnoses Diagnosis Constipation - Primary Headache Unspecified Gastroenteritis Nausea Elevated Blood Pressure documented in this encounter Administered Medications Inactive Administered Medications - up to 3 most recent administrations Medication Order MAR Action Action Date Dose Rate Site ketorolac injection 30 mg Given 02/05/2021 8:34 PM CDT 30 mg Left Deltoid (TORADOL) 30 mg, intramuscular, Once, On Delmi 02/05/21 at 2030, For 1 dose, Adult IV push rate: Over 15 seconds. Peds IV push rate: Over 1 minute. 60 mg dose only for IM, not recommended for IV. documented in this encounter Additional Health Concerns Infection Onset Date Last Indicated Resolved Time COVID19 Pending 02/05/2021 02/05/2021 02/05/2021 8:36 PM CDT COVID19 Pending 02/05/2021 02/05/2021 02/05/2021 8:57 PM CDT Assessment Noted Time PHQ-9 Depression Total Score: 2 10/14/2015 4:09 PM CDT documented as of this encounter Care Teams Sausage Machine Operator Relationship Specialty Start Date End Date Elsewhere, Pcp PCP - General Internal Medicine 02/15/19 documented as of this encounter
--- OUTSIDE RECORDS SUMMARY | 2022-03-04 19:01 | XMS_ITS | Encounter Summary ---
:1960 Author Organization [facility] Address [address] [place] [address] Care Team Providers Name Role Phone Elsewhere, Pcp Primary Care Provider Unavailable Encounter Details Date Type Department Care Team Description 08/08/2020 Hospital Encounter Department of Remington Murillo Lab Exam; Laboratory Medicine Karen Valdez M.D. Contact With And (Suspected) Exposure To COVID-[address] [place] [id number] [phone] Social History Tobacco Use Types Packs/Day Years [...] 10 mg by mouth. 0 0 09/30/2014 DULoxetine (CYMBALTA) 30 Take 1 capsule by 0 05/[address] capsule mouth every AM with the 60 mg capsule for Total daily dose of 90 mg. DULoxetine (CYMBALTA) 60 Take 1 capsule by 0 11/[address] capsule mouth daily with 30 mg of duloxetine Total dose 90 mg fluticasone propionate Administer 1 spray 0 01/04 (FLONASE) 50 into affected mcg/actuation nasal spray nostril(s). HYDROcodone-acetaminophen Take 1 tablet by 0 (NORCO) 5-325 mg per mouth. tablet LORazepam (ATIVAN) 0.5 mg Take by mouth. 0 2018 tablet OYSTER SHELL CALCIUM-VIT TAKE 1 TABLET TWO 3 01/22 D3 500 mg(1,250mg) -200 TIMES A DAY WITH unit per tablet FOOD rizatriptan MEAT SMOKER Place 10 mg under 0 11/09/2010 (MAXALT-MEAT SMOKER) 10 mg the tongue. disintegrating tablet calcium carb/vit Os-Asif 250 with D 0 03/30/2010 0 02/05/2021 D3/minerals (CALCIUM-VITAMIN D ORAL) cyclobenzaprine Take 10 mg by mouth. 0 02/05/2021 (FLEXERIL) 10 mg tablet gabapentin (NEURONTIN) TAKE ONE (1) capsule 0 02/05/2021 300 mg capsule BY MOUTH EACH MORNING AND TWO (2) AT BEDTIME metoprolol tartrate 100 mg. 0 04/21/201702/05 (LOPRESSOR) 100 mg tablet metroNIDAZOLE (ROSADAN) Apply topically 45 g 0 019 02/05/2021 0.75 % gel daily. documented as of this encounter Plan of Treatment Not on filedocumented as of this encounter Procedures Procedure Name Priority Date/Time Associated Diagnosis Comme nts SARS CORONAVIRUS-2 Routine 08/08/2020 10:50 Preprocedura l Lab Exam Results for this RNA, V AM HVAC R TECH Contact With And procedure a re in (Suspected) Exposure the res ults To COVID-19 section. documented in this encounter Results SARS Coronavirus-2 RNA, V Asymptomatic (08/08/2020 10:50 AM HVAC R TECH) [facility] Method Time Signature SARS-CoV-2 Swab, 08/08/2020 MKTO Specimen Nasopharynx 7:58 PM HVAC R TECH Source SARS CoV-2 Undetected Undetected 08/08/2020 MKTO RNA, TMA 7:58 PM HVAC R TECH Comment: SARS-CoV-2 RNA absent. This result does not rule out COVID-19 in the patient, as the sensitivity of the test depends o n the timing of the specimen collection and the quality of the specim en. Result should be correlated with patient's history and clinical presentat ion. ----ADDITIONAL INFORMATION---- This molecular amplification test was pe rformed using the Aptima SARS-CoV-2 assay ([employer] on the Shoulder Taps tem under emergency use authorization (EUA) by the U.S. Food and Drug Administ sherrie. Fact sheets for this EUA assay can be fo und at the following links: For Healthcare Providers: https://www.fd a.gov/media/444929/download For Patients: https://www.fda.gov/media/ 278888/download Specimen Anatomical Collection Method Collection Time Receive d Time (Source) Location / / Volume Laterality Varies 08/08/2020 10:50 08/08/2020 3:22 (Nasopharynx) AM HVAC R TECH PM HVAC R TECH Remington Murillo Jr., M.D. LAB MICROBIOLOGY - GENERAL ORDERABLES Performing Organization Address City/State/[facility] Phon e Number [facility]- [address] [place] [address] [place] [address] [address] documented in this encounter Visit Diagnoses Diagnosis Preprocedural Lab Exam Contact With And (Suspected) Exposure To COVID-19 documented in this encounter Additional Health Concerns Infection Onset Date Last Indicated Resolved Time COVID19 Pending 08/08/2020 08/08/2020 08/08/2020 7:59 PM HVAC R TECH Assessment Noted Time PHQ-9 Depression Total Score: 2 10/14/2015 4:09 PM CDT documented as of this encounter Care Teams Flat Breakdown Processor Relationship Specialty Start Date End Date Elsewhere, Pcp PCP - General Internal Medicine 02/15/19 documented as of this encounter
--- OUTSIDE RECORDS SUMMARY | 2022-03-04 19:01 | XMS_ITS | Encounter Summary ---
:1960 Author Organization [facility] Address [address] [place] [address] Care Team Providers Name Role Phone Elsewhere, Pcp Primary Care Provider Unavailable Encounter Details Date Type Department Care Team Description 08/08/2020 Hospital Encounter Department of Remington Murillo Laboratory MedicineJr. M.D. [facility], in [address] [place] [address] [address] [place] [phone] (Wo rk) Social History Tobacco Use Types [...] DAY WITH unit per tablet FOOD rizatriptan BUTTON BRADDER Place 10 mg under 0 11/09/2010 (MAXALT-BUTTON BRADDER) 10 mg the tongue. disintegrating tablet calcium [...] COVID19 Pending 08/08/2020 08/08/2020 08/08/2020 7:59 PM SENIOR ANALYST DEVELOPER Assessment Noted Time PHQ-9 Depression Total Score: 2 10/14/2015 4:09 PM CDT documented as of this encounter Care Teams Microwave Technician Relationship Specialty Start Date End Date Elsewhere, Pcp PCP - General Internal Medicine 02/15/19 documented as of this encounter
--- OUTSIDE RECORDS SUMMARY | 2022-03-04 19:01 | XMS_ITS | Encounter Summary ---
:1960 Author Organization [facility] Address [address] [place] [address] Care Team Providers Name Role Phone Elsewhere, Pcp Primary Care Provider Unavailable Reason for Visit Reason Onset Date Comments Testing For Upper Respiratory Virus Symptoms 2021 Encounter Details Date Type Department Care Team Description 2021 External Outreach Department of Evy Carbajal ntact With And (Suspected) Exposure To COVID-19; Medicine in [facility], Infection U pper Respiratory [place], [place] C.N.P., D.N.P. [address] [place] [address] [place], [place] [phone] Social History Tobacco Use Types Packs/Day Years Used Date Smoking Tobacco: Never Smokeless Tobacco: Never Sex Assigned at Date Recorded Not on file documented as of this encounter Progress Notes Tiffanie Briceño, R.N. - 2021 10:31 AM CST Encounter created for symptomatic infectious disease screening with possible COVID, Influenza, RSV, and/or Group A Strep testing. [employer] documented in this encounter Plan of Treatment Not on filedocumented as of this encounter Procedures Procedure Name Priority Date/Time Associated Diagnosis Comme nts INFLUENZA A/B AND Routine 2021 1:55 PM Infection Upper R esults for this RSV, PCR, VARIES [employer] Respiratory procedure a re in the results section. SARS CORONAVIRUS-2 Routine 2021 1:55 PM Contact With And Results for this RNA, V [employer] (Suspected) Exposure procedu re are in To COVID-19 the results section. documented in this encounter Results Influenza A/B and RSV, PCR, Varies (2021 1:55 PM [employer]) [facility] Method Time Signature Influenza A/B Swab, 08/20/2021 DTL and RSV, Nasopharynx 6:23 AM [employer] Source Influenza A, Undetected Undetected 08/20/2021 DTL PCR 6:23 AM [employer] Comment: Influenza A RNA absent. Influenza B, PCR Undetected Undetected 08/20/2021 6:23 AM CS T DTL Comment: Influenza B RNA absent. Respiratory Syncytial Virus, PCR Undetected Undetected 6:23 AM [employer] DTL Comment: RSV RNA absent. ----ADDITIONAL INFORMATION---- This test has been modified from the man ernestoacturer's instructions. Its performance characteristics were determi ruel by [facility] in a manner consistent with CLIA requirements. This test has not been cleared or approved by the U.S. Food and Drug Administration . Specimen Anatomical Collection Method Collection Time Receive d Time (Source) Location / / Volume Laterality Varies 2021 1:55 PM 2 (Nasopharynx) [employer] 10:30 PM [employer] Bowen Diaz APRN.N.P., D.N.P. LAB MICROBIOLOGY - GENERAL ORDERABLES Performing Organization Address City/State/ZIP Code Phon e Number [facility] - [address] [place], [place] [address] [facility] [place] [address] Laboratories-[facility] [address] SARS Coronavirus-2 RNA, V Symptomatic (2021 1:55 PM [employer]) [facility] Method Time Signature SARS-CoV-2 Swab, 08/20/2021 MKTO Specimen Nasopharynx 12:41 AM Source [employer] SARS CoV-2 Undetected Undetected 08/20/2021 MKTO RNA, TMA 12:41 AM [employer] Comment: SARS-CoV-2 RNA absent. This result does not rule out COVID-19 in the patient, as the sensitivity of the test depends o n the timing of the specimen collection and the quality of the specim en. Result should be correlated with patient's history and clinical presentat ion. ----ADDITIONAL INFORMATION---- This molecular amplification test was pe rformed using the Aptima SARS-CoV-2 assay ([employer] on the AG&Ps tem under emergency use authorization (EUA) by the U.S. Food and Drug Administ ration. Fact sheets for this EUA assay can be fo und at the following links: For Healthcare Providers: https://www.OMGPOP a.gov/media/277677/download For Patients: https://www.fda.gov/media/ 561635/download Specimen Anatomical Collection Method Collection Time Receive d Time (Source) Location / / Volume Laterality Varies 2021 1:55 PM 4:59 (Nasopharynx) [employer] PM [employer] Bowen Diaz APRN.N.P., D.N.P. LAB MICROBIOLOGY - GENERAL ORDERABLES Performing Organization Address City/State/[facility] Phon e Number [facility]- [address] [place] [address] [place] [address] System [address] documented in this encounter Visit Diagnoses Diagnosis Contact With And (Suspected) Exposure To COVID-19 Infection Upper Respiratory documented in this encounter Additional Health Concerns Infection Onset Date Last Indicated Resolved Time COVID19 Pending 2021 2021 08/20/2021 12:43 AM [employer] Assessment Noted Time PHQ-9 Depression Total Score: 2 10/14/2015 4:09 PM CDT documented as of this encounter Care Teams Conditioner Tumbler Relationship Specialty Start Date End Date Elsewhere, Pcp PCP - General Internal Medicine 02/15/19 documented as of this encounter
--- OUTSIDE RECORDS SUMMARY | 2022-03-04 19:01 | XMS_ITS | Encounter Summary ---
:1960 Author Organization [facility] Address [address] [place] [address] Care Team Providers Name Role Phone Unavailable Primary Care Provider Unavailable Encounter Details Date Type Department Care Team Description 10/24/2018 Nurse Triage Department of [facility] Shawnee Edwards, Medicine in [facility] [address] [place] [address] Social History Tobacco Use Types Packs/Day Years [...]
--- OUTSIDE RECORDS SUMMARY | 2022-03-04 19:01 | XMS_ITS | Encounter Summary ---
:1960 Author Organization [facility] Address [address] [place] [address] Care Team Providers Name Role Phone Elsewhere, Pcp Primary Care Provider Unavailable Reason for Visit Reason Comments Rectal Bleeding Nausea Encounter Details Date Type Department Care Team Description 11/09/2021 Nurse Triage Department of Rolanda Mina ectal Bleeding; Medicine, [place] [facility], in [place], [address] [place], [place] [address] [place] [address] [place] [address] [phone] Social History Tobacco Use Types Packs/Day Years Used Date Smoking Tobacco: Never Smokeless Tobacco: Never Sex Assigned at Date Recorded Not on file documented as of this encounter Miscellaneous Notes Telephone Encounter - Rolanda Morales RBen - 11/09/2021 11:38 AM CDT Chief Complaint / Reason for Call Patient is a 61 y.o. female calling regarding Rectal Bleeding and Nausea. Assessment Concern: Patient states that she has a history of bleeding ulcers in the past. She had been experiencing increased back and hip pain. She had been taking large doses of ibuprofen. She has been nauseous, weak, bloated, and not herself. She notice black, tar like stools on Tuesday (2 days ago). She scheduled a clinic appointment but wondering if that will be soon enough Present for: 2 weeks Home cares tried: Pepto Bismo after tar stools Were noticed. Calling to request: Advice The recommended disposition is Go to ED Now. Reason for Disposition ??? Black or tarry bowel movements (Exception: chronic-unchanged black-kramer bowel movements AND is taking iron pills or Pepto-bismol) Protocols used: RECTAL [id number] Care Advice Patient/Caregiver understands and will follow care advice?: Yes, able to teach back GO TO ED NOW: * You need to be seen in the Emergency Department. * Go to the ED at nearest Hospital. * Leave now. Drive carefully. documented in this encounter Plan of Treatment Not on filedocumented as of this encounter Visit Diagnoses Not on filedocumented in this encounter Additional Health Concerns Assessment Noted Time PHQ-9 Depression Total Score: 2 10/14/2015 4:09 PM CDT documented as of this encounter Care Teams Bag Checker Relationship Specialty Start Date End Date Elsewhere, Pcp PCP - General Internal Medicine 02/15/19 documented as of this encounter
--- OUTSIDE RECORDS SUMMARY | 2022-03-04 19:01 | XMS_ITS | Encounter Summary ---
:1960 Author Organization [facility] Address [address] [place] [address] Care Team Providers Name Role Phone Elsewhere, Pcp Primary Care Provider Unavailable Reason for Visit Reason Comments COVID Nurse Line Encounter Details Date Type Department Care Team Description 2021 Nurse Triage [facility] Department of Yaima Gayle COVID Nurse Line Family Medicine in A, R.N. [place], [place] [address] [facility] [address] [place] [address] [place] [address] [phone] Social History Tobacco Use Types Packs/Day Years Used Date Smoking Tobacco: Never Smokeless Tobacco: Never Sex Assigned at Date Recorded Not on file documented as of this encounter Miscellaneous Notes Telephone Encounter - Alaina Gayle, R.NPavan - 2021 8:36 AM SASH MAKER COVID-19 Nurse Line Screening ASSESSMENT Initial Screening Pathway Select appropriate pathway: : Adult In the last 48 hours, have you had a fever* OR symptoms that are unrelated to a preexisting illness?: New cough, New nausea, New muscle aches, New headache, New chills Date of symptom onset: 08/14/21 COVID Symptomatic Screening Do you have any of the following urgent symptoms?: No urgent symptoms noted (Continue Screening) Have you received a COVID-19 vaccine in the last 72 hours? : No vaccine received (Continue Screening) Have you had close contact* with a person who has tested positive with COVID-19 in the past 14 days?: No (Continue Screening) Have you tested positive for COVID-19 in the last 45 days?: No. COVID-19 testing is indicated (Continue Screening for Additional Testing) Additional Screening for Influenza, RSV and Strep Select appropriate region: : [place] Do you have any of the following respiratory syntonical virus (RSV) complications? : No complications noted (Continue Screening) Do you have any of the following high risk influenza criteria?: Chronic pulmonary disease including asthma or COPD, 1 or more high risk flu complications are noted. (Continue Screening) Based on your last response, you are considered high risk for Influenza complications and may benefit taking a medication called Tamiflu?? (Oseltamivir). Are you interested in pursuing a prescription for Tamiflu?? (Oseltamivir)?: No, patient doesn't qualify since symptoms started >48h ago (ContinueScreening) Are all of the following Strep criteria met? : No, all criteria are not met. Influenza testing is indicated. (End Screening) Symptom Onset Date of symptom onset: 08/14/21 Testing Recommendation Endpoint Is testing recommended? : Recommended to test PLAN Endpoint recommendation: Symptomatic testing indicated, advised to be swabbed for COVID-19 and Influenza, sent to [facility]: An appointment is needed for testing. Call [phone] during thehours of Mon-Fri 8 am - 4 pm or Sat/Sun 9 am - 2 pm to schedule an appointment time. Scheduling staff will provide instructions on location and check in for your appointment. Standard Care Points -Get a COVID -19 vaccine as soon as you can if not fully vaccinated. -Wash hands frequently with soap and water, use hand floral specialist if soap and water aren't available. -Wear a mask over your nose and mouth to help protect yourself and others if not fully vaccinated and having no symptoms -Stay 6 feet between yourself and others who don't live with you. -Avoid crowds and poorly ventilated indoor spaces. -Seek emergent care if any of the following occur Trouble breathing Bluish lips or face Persistent pain or pressure in the chest New confusion or inability to rouse. -Notify your regular care provider of any new or worsening symptoms. Symptomatic Carepoints: Stay home and separate yourself from others and stay in a specific sick room if able. Wear a mask if you have to be around others. Avoid sharing personal or household items. Rest. Hydrate. Take Acetaminophen/Ibuprofen as needed to control fever and muscles aches. Use over thecounter medications as needed for other symptoms. Gargle with 8 ounces of warm salt water several times a day for throat discomfort (1/4 tsp regular salt to 8 ounces or 1 cup warm water). Do not swallow the salt water. Throat lozenges will help keep the throat lubricated. Hard candy, lollipops, and throat lozenges are equally effective. Use a humidifier. If you have received a negative COVID- 19 test result and continue to have new or worsening symptoms after 72 hours please call the COVID Nurse [place] assess if you need repeat testing or reach out to your Primary Care Provider for guidance. Education: Patient/caregiver able to teach back Patient agreeable to plan of care: Yes The following references were used: [facility] novel coronavirus (COVID- 19) resources MAKER documented in this encounter Plan of Treatment Not on filedocumented as of this encounter Visit Diagnoses Not on filedocumented in this encounter Additional Health Concerns Assessment Noted Time PHQ-9 Depression Total Score: 2 10/14/2015 4:09 PM CDT documented as of this encounter Care Teams Rn Relief Charge Relationship Specialty Start Date End Date Elsewhere, Pcp PCP - General Internal Medicine 02/15/19 documented as of this encounter
--- OUTSIDE RECORDS SUMMARY | 2022-03-04 19:01 | XMS_ITS | Encounter Summary ---
:1960 Author Organization [facility] Address [address] [place] [address] Care Team Providers Name Role Phone Elsewhere, Pcp Primary Care Provider Unavailable Reason for Visit Reason Comments Hip Pain LT Encounter Details Date Type Department Care Team Description 02/15/2019 Office Visit Department of Family Ce[facility] Ni M.D. Trochanteric Bursitis Left Hip (Primary Dx); Medicine in [place] [address] [place], [place] [address] [place] [address] [place], [place] [phone] (Work) [phone] Social History Tobacco Use Types Packs/Day Years Used Date Smoking Tobacco: Never Smokeless Tobacco: Never Sex Assigned at Date Recorded Not on file documented as of this encounter Last Filed Vital Signs Vital Sign Reading Time Taken Comments Blood Pressure 130/76 02/15/2019 3:22 PM CDT Pulse 60 02/15/2019 3:22 PM CDT Temperature 36.5 ??C (97.7 ??F) 02/15/2019 3:22 PM CDT Respiratory Rate - - Oxygen Saturation 98% 02/15/2019 3:22 PM CDT Inhaled Oxygen Concentration - - Weight 75.3 kg (166 lb 1.6 oz) 02/15/2019 3:22 PM CDT Height - - Body Mass Index 28.51 10/24/2018 12:58 PM CDT documented in this encounter Progress Notes Cecil Ni M.D. - 02/15/2019 4:15 PM CDTAssociated Order(s): Greater Trochanter Bursa Injection: L greater troch bursa Post-Procedure Diagnose(s): Trochanteric Bursitis Left Hip SUBJECTIVE CHIEF COMPLAINT / REASON FOR VISIT Ailyn Barrett is a 58 y.o. female who presents for evaluation of Hip Pain (LT). HISTORY OF PRESENT ILLNESS 58 year old female presents today for left hip pain on and off for last 5 years, no fall, no injury.Pain is better with rest, worse with walking more. She wants refill for rosacea treatment. The following portions of the patient's history were reviewed and updated as appropriate: allergies,current medications, medical history and problem list. OBJECTIVE BP 130/76 Pulse 60 Temp 36.5 ??C Wt 75.3 kg SpO2 98% BMI 28.51 kg/m?? PHYSICAL EXAM General: Alert, oriented, normal speech, pleasant. Skin: no significant lesions on face today. Extremities: Left hip with no groin tenderness, normal range of motion, and left trochanter bursa area tender. Neurology: No deficits noticed. Psychiatry: Alert and oriented to time, person and place. Normal affect and stable mood. ASSESSMENT / PLAN #1 Trochanteric Bursitis Left Hip Left trochanter bursitis. Patient desires steroid injection today. Discussed injection procedure, common side effects, and not 100% effective. She would like to proceeds. Hip site - L greater troch bursa : injection only Date/Time: 02/15/2019 5:00 PM Performed by: Cecil Ni M.D. Authorized by: Cecil Ni M.D. PROCEDURE DETAILS Pre procedure pain score: 8/10 Post procedure pain score: 5/10 Procedure Location hip Hip site: L greater troch bursa Site prep: patient was prepped and draped in usual sterile fashion Patient position: side-lying Procedural approach: lateral Procedure performed: injection only Needle gauge: 25 GNeedle length: 1 in. Procedural Medication The following medications were administered at the target site(s) Local anesthetic: 4 mL lidocaine 10 mg/mL (1 %) Corticosteroid: 80 mg triamcinolone acetonide 40 mg/mL CONSENT Consent obtained: verbal The benefits, risks and alternatives to the procedure and the potential need for sedation or anesthesia as well as the names, roles, and responsibilities of healthcare team members performing significant interventional tasks were discussed with the patient and/or decision maker. Additional blood product consent comments: na. PRE-PROCEDURE DETAILS Procedure purpose: therapeutic Indications: Left trochanter bursitis. Appropriate hand hygiene, gown, cap, mask, protective eyewear, sterile gloves, skin preparation, sterile drape, and strict aseptic technique were utilized as applicable for the procedure: yes Skin preparation: alcohol and chlorhexidine SEDATION / ANESTHESIA Anesthesia method: local infiltration Local infiltrate type: lidocaine POST-PROCEDURE DETAILS Procedure completed successfully: yes Complications: no apparent complications Post-procedure instructions: avoid strenuous activity for 2 days and post- procedure activity instructions provided Discharge instructions: ice area as needed for comfort #2 Rosacea Metronidazole gel refilled. Topical treatment preferred for her due to her multiple medications for other conditions. Other orders - metroNIDAZOLE (ROSADAN) 0.75 % gel; Apply topically daily., Starting Delmi 02/15/2019, Normal documented in this encounter Plan of Treatment Not on filedocumented as of this encounter Procedures Procedure Name Priority Date/Time Associated Diagnosis Comme nts SC ARTHCS ASP/INJ Routine 02/15/2019 4:15 PM Trochanteric Burs itis Results for this MJR JT WO US CDT Left Hip procedure are i n the results section. documented in this encounter Results SC ARTHCS ASP/INJ MJR JT WO US (02/15/2019 4:15 PM CDT) Narrative Cecil Ni M.D. - 02/15/2019 4:15 PM CD T Cecil Ni M.D. ? 02/15/2019 ??5:06 PM Hip site - L greater troch bursa : injec tion only Date/Time: 02/15/2019 5:00 PM Performed by: Cecil Ni M.D. Authorized by: Cecil Ni M.D. PROCEDURE DETAILS Pre procedure pain score: 8/10 Post procedure pain score: 5/10 Procedure Location hip Hip site: L greater troch bursa Site prep: patient was prepped and drape d in usual sterile fashion ?? Patient position: side-lying Procedural approach: lateral Procedure performed: injection only Needle gauge: 25 GNeedle length: 1 in. Procedural Medication The following medications were administe red at the target site(s) Local anesthetic: 4 mL lidocaine 10 mg/m L (1 %) Corticosteroid: 80 mg triamcinolone acet onide 40 mg/mL CONSENT Consent obtained: verbal The benefits, risks and alternatives to the procedure and the potential need for sedation or anesthesia as well as the names, roles, and responsibilities of healthcare team memb ers performing significant interventional tasks were discussed with the patient and/or decision maker. Additional blood product consent comment s: na. PRE-PROCEDURE DETAILS Procedure purpose: therapeutic Indications: Left trochanter bursitis. Appropriate hand hygiene, gown, cap, mas k, protective eyewear, sterile gloves, skin preparation, sterile drape, and strict aseptic technique were utilized as applicable for the procedure : yes ?? Skin preparation: alcohol and chlorhexid ine SEDATION / ANESTHESIA Anesthesia method: local infiltration Local infiltrate type: lidocaine POST-PROCEDURE DETAILS Procedure completed successfully: yes Complications: no apparent complications ?? Post-procedure instructions: avoid stren uous activity for 2 days and post-procedure activity instructions pro vided Discharge instructions: ice area as need ed for comfort Cecil Ni M.D. PROCEDURE/MINOR SURGICAL ORD ERABLES documented in this encounter Visit Diagnoses Diagnosis Trochanteric Bursitis Left Hip - Primary Rosacea documented in this encounter Administered Medications Inactive Administered Medications - up to 3 most recent administrations Medication Order MAR Action Action Date Dose Rate Site lidocaine 10 mg/mL (1 %) injection 4 Given 02/15/2019 5:00 PM CD T 4 mL mL (XYLOCAINE) 4 mL, infiltration, One-Time Injection, Starting on Delmi 02/15/19 at 1700, For 1 dose triamcinolone acetonide injection 80 mg Given 02/15/2019 5:00 PM CDT 80 mg (KENALOG-40) 80 mg, intra-articular, One-Time Injection, Starting on Delmi 02/15/19 at 1700, For 1 dose documented in this encounter Additional Health Concerns Assessment Noted Time PHQ-9 Depression Total Score: 2 10/14/2015 4:09 PM CDT documented as of this encounter Care Teams Property Clerk Relationship Specialty Start Date End Date Elsewhere, Pcp PCP - General Internal Medicine 02/15/19 documented as of this encounter
--- OUTSIDE RECORDS SUMMARY | 2022-03-04 19:01 | XMS_ITS | Encounter Summary ---
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 1506, For 1 dose, Imaging Protocol Orders sodium chloride 0.9 % injection 10 mL Given 10/24/2018 3:09 PM CDT 10 mL 10 mL, intravenous, Once in imaging, line care, prior to CT, Starting on Tue10/24/18 at 1505, For 1 dose documented in this encounter Active and Recently Administered Medications Times are shown in CDT. Scheduled Medication Order 10/22/2018 10/23/2018 10/24/2018 ibuprofen tablet 600 mg (ADVIL,MOTRIN) (COMPLETED) 1402 (Given - Provider: Jessica Husain R.N.) 600 mg, oral, Once, On Tue10/24/18 at 1354, For 1 dose sodium chloride (PF) 0.9 % injection 1-100 mL (COMPLETED) 1506 (Given - Provider: Sanju Canela(R)(CT), R.T.(R)) 1-100 mL, intravenous, Once, On Tue at 1506, For 1 dose, Imaging Protocol Orders PRN Medication Order 10/22/2018 10/23/2018 10/24/2018 iohexol 350 mg iodine/mL solution 1-200 mL (OMNIPAQUE) (COMPLETE D) 1509 (Given - Provider: Sanju Canela(R)(CT), R.T.(R) - Comment: lot [id number]) 1-200 mL, intravenous, Once in imaging, contrast, Starting on Tue10/24/18 at 1505, For 1 dose, Imaging Protocol Orders, Dose per Radiant Medication Guidelines sodium chloride 0.9 % injection 10 mL (COMPLETED) 1509 (Given - Provider: Sanju Canela(Marcio)(CT), Sanju(R)) 10 mL, intravenous, Once in imaging, yakelin e care, prior to CT, Starting on Tue10/24/18 at 1505, For 1 dose No Frequency Medication Order 10/22/2018 10/23/2018 10/24/2018 ypmzpmfv-thaorsbwfs-qlxhftjtl (NEOSPORIN ) 3.5 mg-400 unit-5,000 unit ointment packet - ADS Override Pull (COMPLETED) 1 600 (Given - Provider: Jessica Husain R.N. - Comment: to elbow abrasion/scab) Starting on Tue10/24/18 at 1450, For 1 dose, Created by tania garcia documented in this encounter Additional Health Concerns Assessment Noted Time PHQ-9 Depression Total Score: 2 10/14/2015 4:09 PM CDT documented as of this encounter
--- OUTSIDE RECORDS SUMMARY | 2022-03-04 19:01 | XMS_ITS | Encounter Summary ---
:1960 Author Organization [facility] Address [address] [place] [address] Care Team Providers Name Role Phone Elsewhere, Pcp Primary Care Provider Unavailable Reason for Visit Reason Onset Date Comments Outpatient COVID-19 Testing 03/17/2020 Encounter Details Date Type Department Care Team Description 03/17/2020 External Outreach Department of [facility] Shabana Coronado , Infection Upper Medicine in [facility], C.N.P. Respiratory ([place], [place] [address] Dx) [address] [place] [phone] Social History Tobacco Use Types Packs/Day Years Used Date Smoking Tobacco: Never Smokeless Tobacco: Never Sex Assigned at Date Recorded Not on file documented as of this encounter Progress Notes Tia Christy RJeremiah. - 03/17/2020 1:32 PM CDT Encounter created for the drive-through COVID-19 testing. documented in this encounter Miscellaneous Notes Addendum Note - Avelina Seaman LPavanP.N. - 03/17/2020 1:32 PM CDT Addended by: AVELINA SEAMAN on: 03/19/2020 08:26 AM Modules accepted: Orders documented in this encounter Plan of Treatment Not on filedocumented as of this encounter Visit Diagnoses Diagnosis Infection Upper Respiratory - Primary documented in this encounter Additional Health Concerns Infection Onset Date Last Indicated Resolved Time COVID19 Pending 03/17/2020 03/17/2020 03/19/2020 8:26 AM CDT Assessment Noted Time PHQ-9 Depression Total Score: 2 10/14/2015 4:09 PM CDT documented as of this encounter Care Teams Acid Splicer Relationship Specialty Start Date End Date Elsewhere, Pcp PCP - General Internal Medicine 02/15/19 documented as of this encounter
--- OUTSIDE RECORDS SUMMARY | 2022-03-04 19:01 | XMS_ITS | Encounter Summary ---
:1960 Author Organization [facility] Address [address] [place] [address] Care Team Providers Name Role Phone Elsewhere, Pcp Primary Care Provider Unavailable Reason for Visit Reason Comments Rectal Bleeding Tarry stools, dizzy, weaknes s, Hx of stomach ulcers. Appointment Request (Routine) - Closed Specialty Diagnoses / Procedures Referred By Contact Refer red To Contact Family Medicine Referral ID Status Reason Start Date Expiration Date Visits Requ ested Visits Authorized [id number] Closed 11/09/2021 11/09/2022 1 1 Encounter Details Date Type Department Care Team Description 11/09/2021 Office Visit Department of Family Maria Fernanda Mackay, Bonnie n Left Upper Quadrant (Primary Dx); Medicine in [employer], C.N.P., Bleeding Recta l; Alfredo Blake M.S.N. Pain Hip Left; [address] [place] [address] [phone] Social History Tobacco Use Types Packs/Day Years Used Date Smoking Tobacco: Never Smokeless Tobacco: Never Sex Assigned at Date Recorded Not on file documented as of this encounter Last Filed Vital Signs Vital Sign Reading Time Taken Comments Blood Pressure 184/97 11/09/2021 1:24 PM CDT Pulse 68 11/09/2021 1:24 PM CDT Temperature 36.5 ??C (97.7 ??F) 11/09/2021 1:24 PM CDT Respiratory Rate - - Oxygen Saturation 100% 11/09/2021 1:24 PM CDT Inhaled Oxygen Concentration - - Weight 76.2 kg (168 lb) 11/09/2021 1:24 PM CDT Height - - Body Mass Index 28.84 10/24/2018 12:58 PM CDT documented in this encounter Progress Notes Maria Fernanda Mackay APRN, C.NEve., M.S.N. - 11/09/2021 1:30 PM CDT SUBJECTIVE CHIEF COMPLAINT / REASON FOR VISIT Ailyn Barrett is a 61 y.o. female who presents for evaluation of Rectal Bleeding (Tarry stools, dizzy, weakness, Hx of stomach ulcers. ). HISTORY OF PRESENT ILLNESS Ailyn Barrett is a 61 y.o. female who presents to the clinic for evaluation a possible bleeding gastric ulcer. Her primary care provider is Dr. Mercado in [place]. Last year in Julyor August 2020 she was prescribed meloxicam for hip pain. She used this on and off for the next year and earlier this year in August 2021 she was taking Vicodin, ibuprofen, meloxicam, and Tylenol to manage chronic left hip and back pain. She noticed GI upset and discontinue the meloxicam several times. In the last 2-4 weeks she stopped meloxicam by started taking ibuprofen 400 mg every 4 hours. Last week she noticed upper left quadrant abdominal pain and bloating. She is currently rating the pain a 4/10 on a 0-10 scale but it increases to an 8/10 with pressure. She has nausea but no vomiting. Last week she had a black tarry stool. She had a large black tarry stool yesterday. She denies bright red rectal bleeding. She denies constipation or diarrhea. She has been feeling dizzy or lightheaded at times as if she will faint. She has had a headache for the last several days and a diminished appetite. Yesterday she restarted omeprazole concerned that she could have a bleeding gastric ulcer. She took Pepto yesterday as well. She was diagnosed with a bleeding gastric ulcer in her 20s and feels hercurrent symptoms are similar. She denies concern with and she is menopausal for the last 6 years. She denies urinary symptoms. She denies vaginal symptoms. No fever or chills. She is fatigued. She has noticed her blood pressure to be elevated recently. She has lost weight and blood pressure improved. She is no longer taking blood pressure medication. The following portions of the patient's history were reviewed and updated as appropriate: allergies,current medications, medical history, social history, surgical history and problem list. REVIEW OF SYSTEMS Pertinent items are noted in HPI; all other review of systems was negative. OBJECTIVE VITAL SIGNS BP (!) 184/97 (BP Location: Right arm, Patient Position: Sitting, Cuff Size: Regular) Pulse 68 Temp 36.5 ??C (Temporal) Wt 76.2 kg SpO2 100% BMI 28.84 kg/m?? PHYSICAL EXAM General: Patient is a pleasant, cooperative 61 y.o. female. She is alert, oriented x3, well-groomed,and reliable historian. She is in mild distress and lays on the exam table for our encounter. Skin: Color pink, warm, dry, and intact. She is diaphoretic. Cardiovascular: Heart rate and rhythm regular. S1S2 heard with no abnormal heart sounds. No edema. Radial pulses 2+. Capillary refill brisk. Respiratory: Respirations regular and unlabored. Lungs are clear to auscultation bilaterally. Abdomen: Abdomen is soft, symmetric. Bowel sounds are active in all 4 quadrants. Discomfort with palpation of the upper abdomen, especially the left upper quadrant. No masses or organomegaly noted. No rebound tenderness. DIAGNOSTICS Recent Results (from the past 72 hour(s)) Hemoglobin (HGB), POCT Collection Time: 11/09/21 1:37 PM Result Value Hemoglobin, POCT, B 16.0 (H) Urinalysis with Microscopic if Indicated Collection Time: 11/09/21 1:58 PM Result Value Source Urine, Urine, Clean Catch Clarity Clear Color Yellow Blood Negative Nitrite Negative Leukocyte Esterase Negative Protein Negative Glucose Negative Ketones, QI(U) Negative Bilirubin Negative pH 7.5 Specific [place] 1.020 Urobilinogen 0.2 Lipase Collection Time: 11/09/21 1:58 PM Result Value Lipase, P 37 Comprehensive Metabolic Panel Collection Time: 11/09/21 1:58 PM Result Value Potassium, P 4.3 Sodium, P 140 Chloride, P 102 Bicarbonate, P 29 Anion Gap, P 9 BUN (Blood Urea Nitrogen), P 16 Creatinine, P 0.61 eGFR-Black/ >90 eGFR Non-Black/ >90 Calcium, Total, P 10.1 (H) Glucose, P 113 Protein, Total, P 7.9 Albumin, P 4.9 Aspartate Aminotransferase (AST), P 32 Alkaline Phosphatase, P 113 (H) Alanine Aminotransferase (ALT), P 43 Bilirubin, Total, P 0.9 CBC with Differential, Blood Collection Time: 11/09/21 1:59 PM Result Value Hemoglobin 15.5 (H) Hematocrit 44.3 Erythrocytes 4.87 MCV 91.0 RBC Distrib Width 12.3 Platelet Count 354 Leukocytes 8.6 Neutrophils See manual differential Morphology Evaluation Collection Time: 11/09/21 1:59 PM Result Value RBC Morphology Normal PLT Morphology Normal PLT Estimate Adequate Manual Differential, B Collection Time: 11/09/21 1:59 PM Result Value Segmented Neutrophils 63 Lymphocytes % 26 Monocytes 6 Eosinophils 5 (H) Manual Absolute Neutrophil Count 5.42 ASSESSMENT / PLAN 1. Pain Left Upper Quadrant 2. Bleeding Rectal Patient presents to the clinic for evaluation of left upper quadrant abdominal pain with abdominal bloating, nausea, and black tarry stool. She denies vomiting, constipation, and diarrhea. She has beenusing NSAIDs including meloxicam and high-dose ibuprofen for treatment of chronic hip and back pain.She is concerned that she may have a bleeding gastric ulcer as she had similar symptoms when diagnosed with this in her 20s. On exam she has left upper quadrant abdominal pain with palpation. No rebound tenderness. Will proceed with further lab evaluation. Point of care hemoglobin was 16.0. CBC confirms hemoglobin mildly elevated at 15.5. No leukocytosis and white blood cell differential is unremarkable. Comprehensive metabolic panel is essentially unremarkable. There is mild elevation of alkaline phosphatase 113. I do not have any previous results for comparison. Lipase is normal. Urinalysis is normal. Hemoccult was ordered for confirmation of rectal bleeding. She will return a stool sample to the clinic as soon as she is able. She was instructed to discontinue all NSAIDs including meloxicam and ibuprofen. These were removed from her medication list. Omeprazole was discontinued and she was started on pantoprazole 40 mg daily along with famotidine 40mg twice daily. She should maintain a bland diet and avoid acidic foods. She was given a prescription for Zofran due to her nausea. In the clinic she was able to ambulate to and from the bathroom without difficulty. Gait was steady.She denied presyncopal symptoms. We discussed the importance of follow-up if there is no improvement in her symptoms in the next 24-48 hours. She should seek care emergently for any worsening of her symptoms including abdominal pain, persistent vomiting, and continued black tarry stool. I would like her to follow up with her primary care provider or provider in this clinic in 1-2 weeks. 3. Pain Hip Left Patient will discontinue all NSAIDs including meloxicam and ibuprofen. She may continue with Tylenol. She may continue with Vicodin. Informed patient that refill of Vicodin will not be provided by our clinic and she will need to discuss this with her primary care provider. She was given a refill of Voltaren gel to use as needed. She will need to follow up with her primary care provider or specialty provider to determine a plan for chronic pain management now that she should not be using NSAIDs. 4. Hypertension Essential Primary Blood pressure at goal: No. BP (!) 184/97 (BP Location: Right arm, Patient Position: Sitting, Cuff Size: Regular) Blood pressure is elevated today and this is at least partially influenced by her acute illness and pain. Beginning a blood pressure medication was deferred today. I would like her to monitor her bloodpressure at home the next few days as symptoms improve. I would like her to follow up with her primary care provider or our clinic in the next 1-2 weeks to monitor her blood pressure. May need to resume blood pressure medications. All questions answered. Patient verbalized understanding and agreement with the plan of care. She was discharged in a stable condition. ADDENDUM 11/10/2021: Called patient to review lab results and received an update on her condition. She reports that the abdominal pain is greatly improved. Nausea has also improved without the use of Zofran. She continues to feel weak and tired but overall better than yesterday. She is now constipated and had only a hard small stool. She has been unable to collect a sample for the Hemoccult. She has taken a stool softener. Recommended follow-up visit in the next 24-48 hours if she continues with symptoms. Patient declined and plans to follow up if needed. Discuss need for CT scan if abdominal pain continues. Patient again declined and will follow-up if needed. Reminded her that she should follow-up with our clinic or primary care provider in the next 1-2 weeks regardless of symptoms. Reminded her that she will need to developed a plan for her chronic pain now that she is no longer taking NSAIDs. Patient verbalized understanding and agreement with the above plan. documented in this encounter Plan of Treatment Not on filedocumented as of this encounter Procedures Procedure Name Priority Date/Time Associated Comments Diagnosis MORPHOLOGY EVALUATION Routine 11/09/2021 1:59 PM Results for this CDT procedure are i n the results section. MANUAL DIFFERENTIAL, B Routine 11/09/2021 1:59 PM Results for this CDT procedure are i n the results section. CBC WITH DIFFERENTIAL, Routine 11/09/2021 1:59 PM Bleedi ng Rectal Results for this B CDT Pain Left Upper procedure ar e in Quadrant the results section. URINALYSIS WITH Routine 11/09/2021 1:58 PM Pain Left Upper Res ults for this MICROSCOPIC IF CDT Quadrant procedure are in INDICATED, U the results section. LIPASE, S/P Routine 11/09/2021 1:58 PM Pain Left Upper Result s for this CDT Quadrant procedure are i n the results section. COMPREHENSIVE Routine 11/09/2021 1:58 PM Pain Left Upper Resul ts for this METABOLIC PANEL, S/P CDT Quadrant procedu re are in the results section. HEMOGLOBIN (HGB), Routine 11/09/2021 1:37 PM Bleeding Rectal R esults for this POCT, B CDT procedure are i n the results section. documented in this encounter Results Hemoccult, Feces (11/11/2021 1:19 PM CDT) P athologist Signature Hemoccult Negative Negative 11/11/2021 [facility] 5:14 PM CDT Specimen Anatomical Collection Method Collection Time Receive d Time (Source) Location / / Volume Laterality Stool (Stool) 11/11/2021 1:19 PM 11/12/19 3:49 CDT PM CDT Bowen Donovan APRN.N.P., M.S.N. LAB BODY FLUIDS AN D STOOLS ORDERABLES Performing Organization Address City/State/ZIP Code Phon e Number [facility]- [address] [place] [address] [place] [address] [place] [address] [address] [facility] (ABNORMAL) Manual Differential, B (11/09/2021 1:59 PM CDT) P athologist Signature Segmented 63 50 - 75 % 11/09/2021 [facility] Neutrophils 9:59 PM CDT Lymphocytes % 26 18 - 42 % 11/09/2021 [facility] 9:59 PM CDT Monocytes 6 2 - 11 % 11/09/2021 [facility] 9:59 PM CDT Eosinophils 5 (H) 1 - 3 % 11/09/2021 [facility] 9:59 PM CDT Manual Absolute 5.42 1.56 - 11/09/2021 [facility] Neutrophil Count 6.45 9:59 PM CDT x10(9)/L Comment: ----ADDITIONAL INFORMATION---- The manual absolute neutrophil count is derived from a manual differential count and therefore is not exactly comparable to the automated absolute lily trophil count. Specimen Anatomical Collection Method Collection Time Receive d Time (Source) Location / / Volume Laterality Blood 11/09/2021 1:59 PM 2 7:21 CDT PM CDT Bowen Donovan APRN.N.P., M.S.N. LAB BLOOD ADD-ON Performing Organization Address City/State/ZIP Code Phon e Number [facility]- [address] [place] [address] [place] [address] Morphology Evaluation (11/09/2021 1:59 PM CDT) Analysis Performed At Patho logist Time Signature RBC Morphology Normal 11/09/2021 [facility] 9:59 PM CDT PLT Morphology Normal 11/09/2021 [facility] 9:59 PM CDT PLT Estimate Adequate Adequate 11/09/2021 [facility] 9:59 PM CDT Specimen Anatomical Collection Method Collection Time Receive d Time (Source) Location / / Volume Laterality Blood 11/09/2021 1:59 PM 2 7:21 CDT PM CDT Maria Fernanda Mackay APRN C.N.P., M.S.N. LAB BLOOD ADD-ON Performing Organization Address City/State/ZIP Code Phon e Number [facility]- [facility] [address] [place], [place] [address] [place] [address] (ABNORMAL) CBC with Differential, Blood (11/09/2021 1:59 PM CDT) Component Value Ref Test Analysis Performed At Patholo gist Range Method Time Signature Hemoglobin 15.5 (H) 11.6 - 11/09/2021 [facility] 15.0 9:59 PM CDT g/dL Hematocrit 44.3 35.5 - 11/09/2021 [facility] 44.9 % 9:59 PM CDT Erythrocytes 4.87 3.92 - 11/09/2021 [facility] 5.13 9:59 PM CDT x10(12)/ L MCV 91.0 78.2 - 11/09/2021 [facility] 97.9 fL 9:59 PM CDT RBC Distrib 12.3 12.2 - 11/09/2021 [facility] Width 16.1 % 9:59 PM CDT Platelet Count 354 157 - 11/09/2021 [facility] 371 9:59 PM CDT x10(9)/L Leukocytes 8.6 3.4 - 11/09/2021 [facility] 9.6 9:59 PM CDT x10(9)/L Neutrophils See manual 1.56 - 11/09/2021 [facility] differential 6.45 9:57 PM CDT x10(9)/L Specimen Anatomical Collection Method Collection Time Receive d Time (Source) Location / / Volume Laterality Blood (Blood, 11/09/2021 1:59 PM 11/10/19 22 7:21 Venous) CDT PM CDT Maria Fernanda Mackay APRN C.N.P., M.S.N. LAB BLOOD ADD-ON Performing Organization Address City/State/ZIP Code Phon e Number [facility]- [facility] [address] [place], [place] [address] [place] [address] [place] [address] [address] [facility] Urinalysis with Microscopic if Indicated (11/09/2021 1:58 PM CDT) P athologist Signature Source Urine, 11/09/2021 [facility] Urine, Clean 2:02 PM CDT Catch Clarity Clear Clear 11/09/2021 [facility] 2:05 PM CDT Color Yellow 11/09/2021 [facility] 2:05 PM CDT Comment: ----REFERENCE VALUE---- Colorless Yellow Elayne Blood Negative Negative 11/09/2021 2:05 PM CDT [facility] Nitrite Negative Negative 11/09/2021 2:05 PM CDT [facility] Leukocyte Esterase Negative Negative 11/09/2021 2:05 PM CD T [facility] Protein Negative mg/dL 11/09/2021 2:05 PM CDT [facility] Comment: ----REFERENCE VALUE---- Negative Trace Glucose Negative Negative mg/dL 11/09/2021 2:05 PM CDT MT [facility]Y Ketones, QI(U) Negative Negative mg/dL 11/09/2021 2:05 PM C DT [facility] Bilirubin Negative Negative 11/09/2021 2:05 PM CDT [facility] pH 7.5 5.0 - 8.0 11/09/2021 2:05 PM CDT MT[facility] Specific [place] 1.020 1.001 - 1.035 11/09/2021 2:05 PM CDT [facility] Urobilinogen 0.2 0.2 - 1.0 mg/dL 11/09/2021 2:05 PM CD T [facility] Specimen Anatomical Collection Method Collection Time Receive d Time (Source) Location / / Volume Laterality Urine (Urine, 11/09/2021 1:58 PM 11/10/19 2:02 Clean Catch) CDT PM CDT Maria Fernanda Mackay APRN C.N.P., M.S.N. LAB URINE ORDERABL ES Performing Organization Address City/State/ZIP Code Phon e Number [facility]- [address] [place], [place] [address] [facility] [place] [address] [facility] [address] Lipase (11/09/2021 1:58 PM CDT) P athologist Signature Lipase, P 37 13 - 60 U/L 11/09/2021 7:41 [facility] PM CDT Specimen Anatomical Collection Method Collection Time Receive d Time (Source) Location / / Volume Laterality Blood (Blood, 11/09/2021 1:58 PM 11/10/19 7:21 Venous) CDT PM CDT Christine Donovan APRNNPavanP., M.S.N. LAB BLOOD ADD-ON Performing Organization Address City/State/ZIP Code Phon e Number [facility]- [address] [place], [place] [address] [facility] [place] [address] (ABNORMAL) Comprehensive Metabolic Panel (11/09/2021 1:58 PM CDT) P athologist Signature Potassium, P 4.3 3.6 - 5.2 11/09/2021 [facility] mmol/L 7:41 PM CDT Sodium, P 140 135 - 145 11/09/2021 [facility] mmol/L 7:41 PM CDT Chloride, P 102 98 - 107 11/09/2021 [facility] mmol/L 7:41 PM CDT Bicarbonate, P 29 22 - 29 11/09/2021 [facility] mmol/L 7:41 PM CDT Anion Gap, P 9 7 - 15 11/09/2021 [facility] 7:41 PM CDT BUN (Blood Urea 16 6 - 21 11/09/2021 [facility] Nitrogen), P mg/dL 7:41 PM CDT Creatinine, P 0.61 0.59 - 1.04 11/09/2021 [facility] mg/dL 7:41 PM CDT eGFR-Black/Afri >90 >=60 11/09/2021 [facility] can [place] mL/min/BSA 7:41 PM CDT Comment: ----ADDITIONAL INFORMATION---- Estimated GFR calculated using the 2009 CKD_EPI creatinine equation. eGFR Non-Black/ >90 >=60 mL/min/BSA 11/09/2021 7:41 PM CDT NPR[facility] Comment: ----ADDITIONAL INFORMATION---- Estimated GFR calculated using the 2009 CKD_EPI creatinine equation. Calcium, Total, P 10.1 (H) 8.6 - 10.0 mg/dL 11/09/2021 7:41 PM CDT NPR[facility] Glucose, P 113 70 - 140 mg/dL 11/09/2021 7:41 PM CDT N PRG Protein, Total, P 7.9 6.3 - 7.9 g/dL 11/09/2021 7:41 P M CDT NPR[facility] Albumin, P 4.9 3.5 - 5.0 g/dL 11/09/2021 7:41 PM CDT N PRG Aspartate Aminotransferase 32 8 - 43 U/L 11/09/2021 7 :41 PM CDT [facility] (AST), P Alkaline Phosphatase, P 113 (H) 35 - 104 U/L 11/09/2021 7: 41 PM CDT NPR[facility] Alanine Aminotransferase 43 7 - 45 U/L 11/09/2021 7:4 1 PM CDT [facility] (ALT), P Bilirubin, Total, P 0.9 <=1.2 mg/dL 11/09/2021 7:41 PM CDT [facility] Specimen Anatomical Collection Method Collection Time Receive d Time (Source) Location / / Volume Laterality Blood (Blood, 11/09/2021 1:58 PM 11/10/19 7:21 Venous) CDT PM CDT Maria Fernanda Mackay APRN, Bowen.N.P., M.S.N. LAB BLOOD ADD-ON Performing Organization Address City/[facility]/ZIP Code Phon e Number [address] [place] [address] (ABNORMAL) Hemoglobin (HGB), POCT (11/09/2021 1:37 PM CDT) P athologist Signature Hemoglobin, 16.0 (H) 11.6 - 11/09/2021 [facility] POCT, B 15.0 g/dL 1:38 PM CDT Specimen Anatomical Collection Method Collection Time Receive d Time (Source) Location / / Volume Laterality Blood (Blood, 11/09/2021 1:37 PM 11/10/19 1:38 Capillary) CDT PM CDT Maria Fernanda Mackay APRN, C.N.P., M.S.N. LAB POCT ORDERABLE S - DEVICE Performing Organization Address City/State/ZIP Code Phon e Number [address] [place] [address] [facility] [place] [address] [facility] [address] documented in this encounter Visit Diagnoses Diagnosis Pain Left Upper Quadrant - Primary Bleeding Rectal Pain Hip Left Hypertension Essential Primary documented in this encounter Additional Health Concerns Assessment Noted Time PHQ-9 Depression Total Score: 2 10/14/2015 4:09 PM CDT documented as of this encounter Care Teams Steward/[employer]ward[employer] Relationship Specialty Start Date End Date Elsewhere, Pcp PCP - General Internal Medicine 02/15/19 documented as of this encounter
--- OUTSIDE RECORDS SUMMARY | 2022-03-04 19:01 | XMS_ITS | Encounter Summary ---
:1960 Author Organization [facility] Address [address] [place] [address] Care Team Providers Name Role Phone Unavailable Primary Care Provider Unavailable Encounter Details Date Type Department Care Team Description 04/22/2016 Hospital Encounter HX [facility] PEDROEALLida Soni, SERGIO, C.N.P., M.S.N. [address] [facility] [address] [place], [place] [id number] (Wo rk) Social History Tobacco Use Types Packs/Day Years Used Date Smoking Tobacco: Never Assessed Sex Assigned at Date Recorded Not on file documented as of this encounter Medications at Time of Discharge Medication Sig Dispensed Refills Start Date End Date calcium carbonate Take by mouth. 0 11/03/2015 (OS-ASIF) 1,250 mg (500 mg calcium) tablet cetirizine 10 mg capsule Take 10 mg by mouth. 0 0 09/30/2014 fluticasone propionate Administer 1 spray 0 01/04 (FLONASE) 50 into affected mcg/actuation nasal spray nostril(s). rizatriptan LONGWALL SHEARER OPERATOR Place 10 mg under 0 11/09/2010 (MAXALT-LONGWALL SHEARER OPERATOR) 10 mg the tongue. disintegrating tablet calcium carb/vit Os-Asif 250 with D 0 03/30/2010 0 02/05/2021 D3/minerals (CALCIUM-VITAMIN D ORAL) HYDROcodone-acetaminophen Take 1 tablet by 0 08/10/201510/24/2018 (NORCO) 5-325 mg per mouth. tablet documented as of this encounter Plan of Treatment Not on filedocumented as of this encounter Procedures Procedure Name Priority Date/Time Associated Comments Diagnosis HXQUANTIFERON TB-GOLD Routine 04/22/2016 9:25 AM Results for this CDT procedure are i n the results section. MMRV IMMUNE STATUS Routine 04/22/2016 9:25 AM Res ults for this PROFILE CDT procedure are i n the results section. HBS ANTIBODY, SERUM Routine 04/22/2016 9:25 AM Re sults for this CDT procedure are i n the results section. documented in this encounter Results HXQUANTIFERON TB-GOLD (04/22/2016 9:25 AM CDT) athologist Signature QuantiFERON-TB Negative Negative POWERCHART Gold Result Comment: No interferon-gamma response to M. tuber culosis antigens was detected. Infection with M. tubercul osis is unlikely. A negative result alone does not exclude infection with M. tuberculosis. For detailed information regarding test interpretation see: [email or web address]/test-cat alog/ Clinical+and+Interpretive/96382 HX TB Ag-Nil Result -Tarzana 0.00 INTUML LAKISHA RCHART HX Mitogen Mqc-Kvhtfo-Nxyw >10.00 INTUML POW ERCHART HX Nil Result-Tarzana 0.02 INTUML POWERCHART Comment: Test Performed by: [place] [address] Animal Attendant: Waqar Storm II, M.D., Ph.D. Specimen (Source) Anatomical Collection Method Collection Time Re ceived Time Location / / Volume Laterality Blood 04/22/2016 9:25 AM CDT Lida Dean APRN, C.N.P., M.S.N. LAB HISTORI ASIF ORDERS Performing Organization Address City/State/ZIP Code Phon e Number POWERCHART Hepatitis B Surface, Ab (04/22/2016 9:25 AM CDT) athologist Signature HBs Antibody, <3.500 MIUML POWERCHART Quantitative, S Comment: 0.000-8.499 = Negative 8.500-11.499 = Borderline >= 11.500 = Positive Interpretation Negative POWERCHART Comment: Biotin has been identified by the calli miles as a potential interfering substance. Higher concentrations of biotin may be found in multivitamins, hair/nail supplements, and workout supplements. If the result does not match clinical observat ions, repeat testing after patient refrains from the use of supplements for at least 12 hours. Specimen (Source) Anatomical Collection Method Collection Time Re ceived Time Location / / Volume Laterality Blood 04/22/2016 9:25 AM CDT Lida Duvall Jermaine HILL C.N.P., M.S.N. LAB MICROBI OLOGY - BLOOD ORDERABLES Performing Organization Address City/State/ZIP Code Phon e Number POWERCHART MMRV Immune Status Profile (04/22/2016 9:25 AM CDT) P athologist Signature Measles Positive POWERCHART (Rubeola) Ab, IgG, S Comment: Results suggest response to immunization or prior exposure to the virus. REFERENCE VALUE------ Vaccinated: Positive (>=1.1 AI) Unvaccinated: Negative (<=0.8 AI) Measles IgG Antibody Index 3.6 [facility] Mumps Ab, IgG, S Positive POWERCHART Comment: Results suggest response to immunization or prior exposure to the virus. REFERENCE VALUE------ Vaccinated: Positive (>=1.1 AI) Unvaccinated: Negative (<=0.8 AI) Mumps Ab, IgG, S 3.5 POWERCHART HX Rubella IgG-Tarzana Positive POWERCHART Comment: Results suggest response to immunization or prior exposure to the virus. REFERENCE VALUE------ Vaccinated: Positive (>=1.0 AI) Unvaccinated: Negative (<=0.7 AI) Rubella IgG Antibody Index 3.6 POW ERCHART Varicella-Zoster Ab, IgG, S Positive PO WERCHART Comment: Results suggest response to immunization or prior exposure to the virus. REFERENCE VALUE------ Vaccinated: Positive (>=1.1 AI) Unvaccinated: Negative (<=0.8 AI) Varicella-Zoster Ab, IgG, S 3.0 PO WERCHART Comment: Test Performed by: [place] [address] Animal Attendant: Waqar Storm II, M.D., Ph.D. Specimen (Source) Anatomical Collection Method Collection Time Re ceived Time Location / / Volume Laterality Blood 04/22/2016 9:25 AM CDT Lida Dean APRN C.N.P., M.S.N. LAB MICROBI OLOGY - BLOOD ORDERABLES Performing Organization Address City/State/ZIP Code Phon e Number POWERCHART documented in this encounter Visit Diagnoses Not on filedocumented in this encounter Additional Health Concerns Assessment Noted Time PHQ-9 Depression Total Score: 2 10/14/2015 4:09 PM CDT documented as of this encounter
--- OUTSIDE RECORDS SUMMARY | 2022-03-04 19:01 | XMS_ITS | Encounter Summary ---
:1960 Author Organization [facility] Address [address] [place] [address] Care Team Providers Name Role Phone Elsewhere, Pcp Primary Care Provider Unavailable Reason for Visit Reason Comments Nausea Flu Symptoms Encounter Details Date Type Department Care Team Description 01/30/2021 Nurse Triage [facility] Flu Symptoms Medicine in [place], Jamie Kwan [place] [phone] [address] ([place]) [place] [address] Social History Tobacco Use Types Packs/Day Years Used Date Smoking Tobacco: Never Smokeless Tobacco: Never Sex Assigned at Date Recorded Not on file documented as of this encounter Miscellaneous Notes Telephone Encounter - Robles PioneerChela hinson R.N. - 01/30/2021 2:33 PM CDT Chief Complaint / Reason for Call Patient is a 60 y.o. female calling regarding Nausea and Flu Symptoms. Assessment Concern: Patient is reporting stomach flu symptoms starting back on 01/15 and was better by 01/21. On 01/24 she developed nausea again that resolved on 01/25. On 01/28 she vomited 3 times after work. She stillis feeling unwell but no longer vomiting. She has a severe headache that will not go away that she rates 7-8/10. She states she is fully vaccinated for Covid. Present for: Off and on for over 2 weeks Home cares tried: Ibuprofen for headache (is not helping today) Calling to request: advice The recommended disposition is See a health care provider within 4 hours. Patient was warm transferred to [facility] at the clinic for further assistance. Care Advice Patient/Caregiver understands and will follow care advice?: Yes, able to teach back SEE PCP WITHIN 4 HOURS (OR PCP TRIAGE): PAIN MEDICINES: * For pain relief, take acetaminophen, ibuprofen, or naproxen. * Use the lowest amount that makes your pain feel better. * Before taking any medicine, read all the instructions on the package. DRIVING: Another adult should drive. CALL BACK IF: * You become worse. Reason for Disposition ??? [1] SEVERE headache (e.g., excruciating) AND [2] not improved after 2 hours of pain medicine Protocols used: [id number] documented in this encounter Plan of Treatment Not on filedocumented as of this encounter Visit Diagnoses Not on filedocumented in this encounter Additional Health Concerns Assessment Noted Time PHQ-9 Depression Total Score: 2 10/14/2015 4:09 PM CDT documented as of this encounter Care Teams Tow Picker Relationship Specialty Start Date End Date Elsewhere, Pcp PCP - General Internal Medicine 02/15/19 documented as of this encounter
--- OUTSIDE RECORDS SUMMARY | 2022-03-04 19:01 | XMS_ITS | Encounter Summary ---
:1960 Author Organization [facility] Address [address] [place] [address] Care Team Providers Name Role Phone Elsewhere, Pcp Primary Care Provider Unavailable Reason for Visit Reason Onset Date Comments Outpatient COVID-19 Testing 10/25/2019 Encounter Details Date Type Department Care Team Description 10/25/2019 External Outreach Department of [facility] Margi Moulton Infection Upper Medicine in Diego Hood M.D. Respiratory ([place], [place] [address] Dx) [address] [place] [phone] Social History Tobacco Use Types Packs/Day Years Used Date Smoking Tobacco: Never Smokeless Tobacco: Never Sex Assigned at Date Recorded Not on file documented as of this encounter Progress Notes Margi Moulton M.D. - 10/25/2019 1:36 PM CDT Encounter created for the drive-through COVID-19 testing. documented in this encounter Plan of Treatment Not on filedocumented as of this encounter Procedures Procedure Name Priority Date/Time Associated Diagnosis Comme nts SARS CORONAVIRUS-2, Routine 10/25/2019 1:38 PM Infection Upper Results for this PCR CDT Respiratory procedure are i n the results section. documented in this encounter Results SARS Coronavirus-2, PCR (10/25/2019 1:38 PM CDT) Component Value Ref Range Test Analysis Performed Pathologis t Method Time At Signature SARS Swab, Nasopharynx 10/26/2019 DTL Coronavirus-2 5:21 PM Source CDT SARS Negative Negative 10/26/2019 DTL Coronavirus-2, 5:21 PM PCR CDT SARS Coronavirus This test was developed and its performance characteristics determined by 10/26/2019 DTL Interpretation [facility] in a manner cons istent with CLIA requirements. Independent review 5:21 PM by the U.S. Food and Drug Administration is pending. CDT For the most recent CDC guidelines for Coronavirus testing, visit: https://www.cdc.gov/coronavirus/ Fact Sheet for Healthcare Providers: Fact Sheet for Patients: Specimen Anatomical Collection Method Collection Time Receive d Time (Source) Location / / Volume Laterality Varies 10/25/2019 1:38 PM 0 8:46 (Nasopharynx) CDT PM CDT Margi Moulton M.D. LAB MICROBIOLOGY - GENERAL O ANGELINA Performing Organization Address City/State/ZIP Code Phon e Number [facility] - [address] [place] [address] [address] [place] [address] Laboratories-[facility] [address] [facility] documented in this encounter Visit Diagnoses Diagnosis Infection Upper Respiratory - Primary documented in this encounter Additional Health Concerns Assessment Noted Time PHQ-9 Depression Total Score: 2 10/14/2015 4:09 PM CDT documented as of this encounter Care Teams Commercial Lines Insurance Agent Relationship Specialty Start Date End Date Elsewhere, Pcp PCP - General Internal Medicine 02/15/19 documented as of this encounter
--- OUTSIDE RECORDS SUMMARY | 2022-03-04 19:01 | XMS_ITS | Encounter Summary ---
:1960 Author Organization [facility] Address [address] [place] [address] Care Team Providers Name Role Phone Elsewhere, Pcp Primary Care Provider Unavailable Reason for Visit Reason Onset Date Comments Outpatient COVID-19 Testing 05/02/2020 Encounter Details Date Type Department Care Team Description 05/02/2020 External Outreach Department of [place] [facility] Shabana Coronado , Infection Upper Medicine in [facility], C.N.P. Respiratory ([place], [place] [address] Dx) [address] [place] [phone] Social History Tobacco Use Types Packs/Day Years Used Date Smoking Tobacco: Never Smokeless Tobacco: Never Sex Assigned at Date Recorded Not on file documented as of this encounter Progress Notes Margarita Schaffer RPavanN. - 05/02/2020 3:15 PM CDT Encounter created for the drive-through COVID-19 testing. documented in this encounter Plan of Treatment Not on filedocumented as of this encounter Procedures Procedure Name Priority Date/Time Associated Diagnosis Comme nts SARS CORONAVIRUS-2 Routine 05/02/2020 3:56 PM Infection Upper Results for this RNA, V CDT Respiratory procedure are i n the results section. documented in this encounter Results SARS Coronavirus-2 RNA, V Symptomatic (05/02/2020 3:56 PM CDT) Patholo gist Method Time Signature SARS-CoV-2 Swab, 05/03/2020 MKTO Specimen Nasopharynx 11:25 AM Source CDT SARS CoV-2 Undetected Undetected 05/03/2020 MKTO RNA, TMA 11:25 AM CDT Comment: SARS-CoV-2 RNA absent. This result does not rule out COVID-19 in the patient, as the sensitivity of the test depends o n the timing of the specimen collection and the quality of the specim en. Result should be correlated with patient's history and clinical presentat ion. ----ADDITIONAL INFORMATION---- This test is performed using the Aptima SARS-CoV-2 assay ([employer] which has received Emergency Use Authori zation (EUA) by the U.S. Food and Drug Administration. Fact sheets for this Emergency Use Autho rization (EUA) assay can be found at the following links: For Healthcare Providers: https://www.Intrallect a.gov/media/686880/download For Patients: https://www.fda.gov/media/ 395987/download Specimen Anatomical Collection Method Collection Time Receive d Time (Source) Location / / Volume Laterality Varies 05/02/2020 3:56 PM 0 (Nasopharynx) CDT 10:30 PM CDT Shabana Coronado APRN C.N.P. LAB MICROBIOLOGY - GENERAL ORDERABLES Performing Organization Address City/State/[facility] Phon e Number [facility]- [address] [place] [phone] [place] [address] [place] [address] [address] documented in this encounter Visit Diagnoses Diagnosis Infection Upper Respiratory - Primary documented in this encounter Additional Health Concerns Infection Onset Date Last Indicated Resolved Time COVID19 Pending 05/02/2020 05/02/2020 05/03/2020 11:26 AM CDT Assessment Noted Time PHQ-9 Depression Total Score: 2 10/14/2015 4:09 PM CDT documented as of this encounter Care Teams Mri Supervisor Relationship Specialty Start Date End Date Elsewhere, Pcp PCP - General Internal Medicine 02/15/19 documented as of this encounter
--- OUTSIDE RECORDS SUMMARY | 2022-03-04 19:01 | XMS_ITS | Encounter Summary ---
:1960 Author Organization [facility] Address [address] [place] [address] Care Team Providers Name Role Phone Elsewhere, Pcp Primary Care Provider Unavailable Reason for Visit Reason Onset Date Comments Outpatient COVID-19 Testing 02/04/2020 Encounter Details Date Type Department Care Team Description 02/04/2020 External Outreach Department of [place], In [facility] Medicine in [facility] Respiratory ([place], [place] [address]) [address] [place] [address] [phone] Social History Tobacco Use Types Packs/Day Years Used Date Smoking Tobacco: Never Smokeless Tobacco: Never Sex Assigned at Date Recorded Not on file documented as of this encounter Progress Notes Sue Byrd RJeremiah. - 02/04/2020 3:45 PM CDT Encounter created for the drive-through COVID-19 testing. documented in this encounter Plan of Treatment Not on filedocumented as of this encounter Procedures Procedure Name Priority Date/Time Associated Diagnosis Comme nts SARS CORONAVIRUS-2 Routine 02/04/2020 4:25 PM Infection Upper Results for this RNA, V CDT Respiratory procedure are i n the results section. documented in this encounter Results SARS Coronavirus-2 RNA, V Symptomatic (02/04/2020 4:25 PM CDT) [facility] Method Time Signature SARS-CoV-2 Swab, 02/05/2020 MKTO Specimen Nasopharynx 8:00 PM CDT Source SARS CoV-2 Undetected Undetected 02/05/2020 MKTO RNA, TMA 8:00 PM CDT Comment: SARS-CoV-2 RNA absent. This result does not rule out COVID-19 in the patient, as the sensitivity of the test depends o n the timing of the specimen collection and the quality of the specim en. Result should be correlated with patient's history and clinical presentat ion. ----ADDITIONAL INFORMATION---- This test is performed using the Aptima SARS-CoV-2 assay ([employer] which has received Emergency Use Authori zation (EUA) by the U.S. Food and Drug Administration. Fact sheets for this Emergency Use Autho rization (EUA) assay can be found at the following links: For Healthcare Providers: https://www.SouthWing a.gov/media/082767/download For Patients: https://www.fda.gov/media/ 313702/download Specimen Anatomical Collection Method Collection Time Receive d Time (Source) Location / / Volume Laterality Varies 02/04/2020 4:25 PM 0 (Nasopharynx) CDT 10:24 PM CDT Niko Dye D.O. LAB MICROBIOLOGY - GENERAL O ANGELINA Performing Organization Address City/State/[facility] Code Phon e Number [facility] [address] [place] [address] [place] [address] [address] documented in this encounter Visit Diagnoses Diagnosis Infection Upper Respiratory - Primary documented in this encounter Additional Health Concerns Infection Onset Date Last Indicated Resolved Time COVID19 Pending 02/04/2020 02/04/2020 02/05/2020 8:01 PM CDT Assessment Noted Time PHQ-9 Depression Total Score: 2 10/14/2015 4:09 PM CDT documented as of this encounter Care Teams Manager Marketing Communications Relationship Specialty Start Date End Date Elsewhere, Pcp PCP - General Internal Medicine 02/15/19 documented as of this encounter
--- OUTSIDE RECORDS SUMMARY | 2022-03-04 19:01 | XMS_ITS | Encounter Summary ---
:1960 Author Organization [facility] Address [address] [place] [address] Care Team Providers Name Role Phone Elsewhere, Pcp Primary Care Provider Unavailable Encounter Details Date Type Department Care Team Description 10/24/2020 Orders Only [facility] PCP [facility] Remington Quigley Jr., M.D. [address] [place], [place] [address]paul [facility] [place] [address] [place] [phone] (Wo rk) Social History Tobacco Use Types [...] documented as of this encounter Care Teams Marine Services Technician Relationship Specialty Start Date End Date Elsewhere, Pcp PCP - General Internal Medicine 02/15/19 documented as of this encounter
--- OUTSIDE RECORDS SUMMARY | 2022-03-04 19:01 | XMS_ITS | Encounter Summary ---
:1960 Author Organization [facility] Address [address] [place] [address] Care Team Providers Name Role Phone Elsewhere, Pcp Primary Care Provider Unavailable Encounter Details Date Type Department Care Team Description 02/05/2021 Hospital Encounter Department of Radiology, [facility], in CARDIAC EXERCISE SPECIALIST, C.N.P., [facility] [address] [place] [address] [place], [place] [phone] [address] Social History Tobacco Use Types Packs/Day [...] mg Take by mouth. 0 2018 tablet multivitamin tablet 0 12/15/2020 OYSTER SHELL CALCIUM-VIT TAKE 1 TABLET TWO 3 01/22 D3 500 mg(1,250mg) -200 TIMES A DAY WITH unit per tablet FOOD rizatriptan FIXED INCOME TRADING VICE PRESIDENT Place 10 mg under 0 11/09/2010 (MAXALT-FIXED INCOME TRADING VICE PRESIDENT) 10 mg the tongue. disintegrating tablet zolpidem (AMBIEN) 5 mg TAKE 1 TABLET BY 0 021 tablet MOUTH AT BEDTIME ONCE A DAY ORALLY 30 DAYS ondansetron ODT Take 1 tablet (4 mg 9 tablet 0 02/06/2021 02/09/2021 (ZOFRAN-ODT) 4 mg total) by mouth disintegrating every 8 (eight) tabletIndications: hours as needed for Gastroenteritis, Nausea nausea or vomiting for up to 3 days. meloxicam (MOBIC) 15 mg TAKE 1 TABLET ONCE A 0 11/11/2021 tablet DAY BY MOUTH FOR 30 DAY(S) documented as of this encounter Plan of Treatment Not on filedocumented as of this encounter Procedures Procedure Name Priority Date/Time Associated Comments Diagnosis DX ABDOMEN SUPINE RAD - Routine 02/05/2021 8:47 Gastroenteriti s Results for this AND UPRIGHT 2 (most inpatients PM CDT Nausea procedure are in VIEWS and all the results outpatients) section. documented in this encounter Results DX [...] large amount of stool in the colon. Bowen Diaz APRN.N.Lala., D.N.P. IMG DIAGNOSTIC IMAG ING PROCEDURES documented in this encounter Visit Diagnoses Not on filedocumented in this encounter Additional Health Concerns Infection Onset Date Last Indicated Resolved Time COVID19 Pending 02/05/2021 02/05/2021 02/05/2021 8:57 PM CDT Assessment Noted Time PHQ-9 Depression Total Score: 2 10/14/2015 4:09 PM CDT documented as of this encounter Care Teams Hyperion Analyst Relationship Specialty Start Date End Date Elsewhere, Pcp PCP - General Internal Medicine 02/15/19 documented as of this encounter
--- OUTSIDE RECORDS SUMMARY | 2022-03-04 19:01 | XMS_ITS | Encounter Summary ---
:1960 Author Organization [facility] Address [address] [place] [address] Care Team Providers Name Role Phone Unavailable Primary Care Provider Unavailable Reason for Visit Reason Comments Communication Encounter Details Date Type Department Care Team Description 10/05/2017 Clinical Communication [place] Department Cecil Ni , Communication of Family Medicine and M.D. Residency in [place], [facility] [place], [place] [address] [address] [place] [address] (Work) [phone] Social History Tobacco Use Types Packs/Day Years Used Date Smoking Tobacco: Never Sex Assigned at Date Recorded Not on file documented as of this encounter Miscellaneous Notes Telephone Encounter - Margarita Schaffer R.N. - 10/05/2017 4:27 PM CDT Patient said she sees a different doctor and will get it refilled through them. Telephone Encounter - Yanira Rodgers - 10/05/2017 4:11 PM CDT Please do not reply to sender emails are not monitored. Thank you. Medication Refill: Pharmacy calling: Yes No Patient calling: Yes No *What is the medication? BP med *What is the medication used for? *How many pills do you have left? *What pharmacy do you use? *Have you contacted your pharmacy regarding this request? *message: Pt returning call a call to Julienne. She believes ot is regarding her BP med. documented in this encounter Plan of Treatment Not on filedocumented as of this encounter Visit Diagnoses Not on filedocumented in this encounter Additional Health Concerns Assessment Noted Time PHQ-9 Depression Total Score: 2 10/14/2015 4:09 PM CDT documented as of this encounter
--- OUTSIDE RECORDS SUMMARY | 2022-03-04 19:01 | XMS_ITS | Encounter Summary ---
:1960 Author Organization [facility] Address [address] [place] [address] Care Team Providers Name Role Phone Elsewhere, Pcp Primary Care Provider Unavailable Encounter Details Date Type Department Care Team Description 12/18/2020 Documentation Department of Physical Ruperto Smith P.T. , Medicine and Rehabilitation D.P. T. in [facility] [address] [place] [phone] (Wo rk) Social History Tobacco Use Types Packs/Day Years Used Date Smoking Tobacco: Never Smokeless Tobacco: Never Sex Assigned at Date Recorded Not on file documented as of this encounter Progress Notes Ruperto Smith P.T., D.P.T. - 12/18/2020 12:34 PM CDT Physical Therapy Discharge Summary Patient was seen for evaluation only on 11/13/2020 with left hip pain. An exercise program was developed during the evaluation was provided to the patient. Patient has since canceled her remaining physical therapy appointments. Current status is unknown due to no return. As patient has not been seen for over 1 month and does not have any follow-ups scheduled, plan at this time is to formally dischargepatient from skilled physical therapy services with home exercise program in place. If appropriate, patient may return with a new order. Functional Goals and Timeframes: PT Outpatient Goals PT Goal #1: Patient will be independent with home exercise program in order to manage symptoms following discharge. Unknown due to no return. PT Goal #1 Date: 12/18/20 PT Goal #2: Patient will be able to perform functional squats with little to no difficulty in order to better perform daily activities. Unknown due to no return. PT Goal #2 Date: 12/18/20 PT Goal #3: Patient will be able to ambulate at least 1 mi with little to no difficult. Unknown due to no return. PT Goal #3 Date: 12/18/20 PT Goal #4: Patient will be able to perform bed mobility and transfers including sit to stand and reverse with no pain. Unknown due to no return. PT Goal #4 Date: 12/18/20 documented in this encounter Plan of Treatment Not on filedocumented as of this encounter Visit Diagnoses Not on filedocumented in this encounter Additional Health Concerns Assessment Noted Time PHQ-9 Depression Total Score: 2 10/14/2015 4:09 PM CDT documented as of this encounter Care Teams Champagne Maker Relationship Specialty Start Date End Date Elsewhere, Pcp PCP - General Internal Medicine 02/15/19 documented as of this encounter
--- OUTSIDE RECORDS SUMMARY | 2022-03-04 19:01 | XMS_ITS | Encounter Summary ---
:1960 Author Organization [facility] Address [address] [place] [address] Care Team Providers Name Role Phone Elsewhere, Pcp Primary Care Provider Unavailable Reason for Visit Physical Therapy (Routine) - Closed Specialty Diagnoses / Procedures Referred By Contact Refer red To Contact Diagnoses Pain Hip Left Sahara Mercado M.D. [facility] Procedures PT Evaluate and treat [address] [place] [address] Referral ID Status Reason Start Date Expiration Date Visits Requ ested Visits Authorized [id number] Closed 09/29/2020 07/24/2021 1 1 Encounter Details Date Type Department Care Team Description 11/13/2020 Comprehensive Visit Department of Physical Sahara Yu M.D. [address] [place] [address] Pain Hip Left Medicine and Ruperto Smith P.T., D.P.T. [address] [place] [phone] (Primary Dx) Rehabilitation in [place], [place] [address] [place] [phone] Social History Tobacco Use Types Packs/Day Years Used Date Smoking Tobacco: Never Smokeless Tobacco: Never Sex Assigned at Date Recorded Not on file documented as of this encounter Consult Notes Ruperto Smith P.T., D.P.T. - 11/13/2020 3:15 PM CDT Physical Therapy Outpatient Evaluation/Treatment By co-signing this note, the provider certifies the therapy being provided to this patient is reasonable and necessary for the diagnosis or treatment of this patient. Physician Signature: Date Print Name: Time: SUBJECTIVE Patient's Name: Ailyn Barrett Referring Provider: Sahara Mercado M.D. Visit Diagnosis: 1. Pain Hip Left Payor: [facility] / Plan: [employer] + MEDICARE / Product Type: HMO / DNA SEQ Visit Count: 1 PERTINENT MEDICAL / SURGICAL HISTORY: Patient Active Problem List Diagnosis ??? Hypertension Chronic ??? Chronic Obstructive Pulmonary Disease (HCC) ??? Polyp Colon Adenomatous ??? Phobia Social ??? Personal History Of Other Diseases Of The Musculoskeletal System And Connective Tissue ??? Other Prison Current Drug Therapy ??? Dermatitis Contact ??? Depression Major Recurrent Mild (HCC) ??? Chronic Fatigue Syndrome ??? Anxiety Generalized Disorder ??? Allergy Initial ??? Rosacea Past Surgical History: Procedure Laterality Date ??? EXCISION BONE SPUR CALCANEUS ??? MENISCECTOMY VS REPAIR ROOT KNEE Diagnostic Tests: Reports x-ray taken last month. Some mild arthritic changes but not likely cause pain Ailyn Barrett is a 60 y.o. female who presents to outpatient physical therapy for evaluation. Her symptoms consist of: 1. Left hip pain 2. Muscle weakness 3. Muscle tightness 4. Impaired gait and mobility Overall she reports her status is worsening . History of Present Illness: Patient states that her L hip pain started about 6 years ago. Would flare up after she would walk an hour or 2 but when would resolve. Patient does report breaking R knee (tibial plateau) when she was younger so not sure if she has been favoring it and straining her L hip. Her hip significant got worse about a year ago. Did go to PT for a visit but then everything got shut down due to COVID restrictions. Recently she saw her primary, Dr. Mercado, for a wellness check on 09/25/2020, mentioned the hip. X-ray was taken and was negative. Some arthritis but not likely the problem. Prescribed an anti inflammatory which helped, continues to take. To try PT. No associated N&T, does have known scitatica L. Aggravating Factors: sit to stand/ pivot, walking long distances Relieving Factors: pain medication, rest. 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 Patient goals: to improve the hip pain. Contact monitoring: PPE used during therapy: Therapist was wearing the following PPE throughout entire session: surgicalmask Patient was wearing a mask during therapy session: yes Additional Staff Present During Session: None OBJECTIVE REVIEW OF SYSTEMS Pt denies the following red flag symptoms: immunosuppresion, recent spine surgery, fever/chills, rash, history of spine infection, unexplained weight loss, cancer history, increased night pain, osteoporosis (fracture risk), trauma, systemic steroids (fracture risk), foot drop, incapacitating pain. PHYSICAL EXAM Pain: Pain Assessment Pain Assessment: 0-10 Numeric Pain Intensity Scale Pain Score: 10 - Worst possible pain when pain flares up, mild to moderate pain at rest Pain Type: Chronic pain Pain Orientation: Left Pain Descriptors: Jabbing, Sharp Pain Onset: Ongoing Pain Frequency: Intermittent Clinical Progression: Gradually worsening Observation/Inspection: No observed redness, bruising, swelling. Alert and oriented. No acute distress. Posture: stands with weight shifted on to right lower extremity Ambulation/Balance: ambulates with a slight antalgic gait pattern favoring left lower extremity withshortened stance time on the left, shortened stride length on the right. Palpation: demonstrates some pain to palpation along length of left proximal IT band, gluteus medius, gluteus minimus, piriformis, psoas. Denies pain to palpation along quadriceps and hamstring. Range of Motion (PROM): R L Hip Within functional limits Within functional limits, pain with end range internal rotation Knee Within functional limits Within functional limits Ankle Within functional limits Within functional limits Strength: R L Core 4+/5 Hip Flexion 5/5 5/5 Hip Extension 5/5 5/5 Hip Abduction 4+/5 3+/5 Hip Adduction 4+/5 3+/5 Knee Flexion 5/5 5/5 Knee Extension 5/5 5/5 Ankle DF 5/5 5/5 Ankle PF 5/5 5/5 Neuro Screen/Motor Control: No myotomal or dermatomal deficits noted in patient's lower extremities. Full sensation to light touch Special Tests: Scour test negative provocation of symptoms FABERS's test negative for provocation of symptoms FADIRS's test positive for provocation of symptoms Active straight leg raise negative for provocation Passive straight leg raise 115 deg Ronnie's test negative IT band friction test positive for pain Outcome Measures: Lower Extremity Functional Scale: LEFS Score: 55 / 80 points Lower the score = More disability Minimum Level of Detectable Change (90% Confidence): 9 points Attendance policy was discussed with patient. Patient verbalized and agrees to no show policy expectations including discharge from therapy if attendance expectations are not met. Ortho Exam TREATMENT Treatment today consisted of: Manual therapy: With patient in right side-lying position, therapist performed myofascial release techniques to the length of patient's IT band using a foam roller and general trigger point techniques.Therapist then performed myofascial and trigger point release techniques to the patient's the left gluteus medius, minimus, piriformis. If patient in hook lying position than in supine position releaseto patient's left psoas. Therapeutic exercise: Clamshell times 20 repetitions with red Thera-Band, cues for larger range of motion, cues to not roll onto back Side-lying hip abduction times 15 repetitions Supine straight leg raises times 15 repetitions, slightly modified to perform a posterior pelvic tilt in abdominal set prior to straight leg raises in order to also build core strength Seated piriformis stretch, 2 repetitions with 30 second hold each. Pictorial handout was provided to the patient. With all the exercises noted above. Review to patient's satisfaction. Self soft tissue mobilization along length of IT band with rolling pin or similar object. Educated to perform to position self soft tissue mobilization along glute to musculature with patient in rightside-lying position using a tennis ball. Home Exercise Program/Education: Self soft tissue mobilization, clamshells with red Thera-Band, side-lying hip abduction, supine straight leg raises, seated piriformis stretch Assessment Clinical Impression: Ms. Barrett presents to physical therapy with signs and symptoms consistent with chronic left hip pain. Impairments: Patient currently presents with chronic left hip pain that seems to have significantly flared up in the past year but has been going on for approximately 6+ years. Pain seems to be better managed with anti-inflammatory medications prescribed to her that she continues actively take. Overall, patient demonstrates good range of motion throughout both lower extremities however does have paincomplaints into hip internal rotation especially when combined with hip adduction. Patient does havegood strength in bilateral lower extremities but significant weakness in her hip abductors and abductors on the left. Demonstrates no signs of neurologic involvement. Does have a history of chronic lowback pain with sciatica on the left but symptoms seem to be unrelated. Patient is receptive to learning and motivated to make progress. Is appropriate for skilled physical therapy services Functional deficits: Difficulties with walking long distances, standing for long periods of time, completing recreational activities and ADLs. Rehab Potential: Ms. Barrett has Good potential to achieve established physical therapy goals withinthe time frame outlined below, provided she actively participates in her physical therapy treatment plan and home program. Comorbid Conditions: Arthritis (Anxiety, depression, social phobia) Clinical Presentation: Evolving Examination elements: 1-2 Clinical Decision Making: Low complexity clinical decision making Functional Goals and Timeframes: PT Outpatient Goals PT Goal #1: Patient will be independent with home exercise program in order to manage symptoms following discharge PT Goal #1 Date: 12/18/20 PT Goal #2: Patient will be able to perform functional squats with little to no difficulty in order to better perform daily activities PT Goal #2 Date: 12/18/20 PT Goal #3: Patient will be able to ambulate at least 1 mi with little to no difficult PT Goal #3 Date: 12/18/20 PT Goal #4: Patient will be able to perform bed mobility and transfers including sit to stand and reverse with no pain. PT Goal #4 Date: 12/18/20 Plan Ms. Barrett was educated regarding evaluative findings, diagnosis, prognosis, potential risks and benefits of rehabilitation interventions. A collaborative effort was used to establish goals and plan of care. She was informed of her right to make decisions regarding her care, including refusal of examination or treatment or selection of services from another provider if desired. The treatment plan may be progressed or modified based upon her response to treatment. Physical Therapy Attestation Statement: Patient agrees with the plan of care and goals. Treatment Plan: Plan: Plan of care initiated Start of Plan of Care: 11/13/2020 PT Next Certification Date: 01/08/21 Number of Visits:8 visits PT Duration: 35 days PT Frequency: PT Frequency: 2 times per week (1 to 2 times a week) Treatment interventions may include: Treatment/Interventions: Therapeutic exercise, Therapeutic functional activity, Neuromuscular re-education, Manual therapy, Gait training, Therapeutic modalities as needed Plan for next session: Warmup on recumbent elliptical, continue manual therapy techniques including soft tissue mobilization introduce joint mobilizations. Review home exercise program and potentially add an IT band stretch to program. Potentially consider ultrasound patient expressed interest during today's visit. Time Spent with Patient PT Evaluation (min): 23 min Manual Therapy (min): 15 min Therapeutic Exercise (min): 15 min Time Calculation Total Timed Units (min): 30 min Total Treatment Time (min): 53 min Ruperto Smith P.T., D.P.T. Department of Physical Medicine and Rehabilitation in [address] [address] Dept: [phone] documented in this encounter Plan of Treatment Not on filedocumented as of this encounter Visit Diagnoses Diagnosis Pain Hip Left - Primary documented in this encounter Additional Health Concerns Assessment Noted Time PHQ-9 Depression Total Score: 2 10/14/2015 4:09 PM CDT documented as of this encounter Care Teams Babcock Tester Relationship Specialty Start Date End Date Elsewhere, Pcp PCP - General Internal Medicine 02/15/19 documented as of this encounter
--- OUTSIDE RECORDS SUMMARY | 2022-03-04 19:01 | XMS_ITS | Encounter Summary ---
:1960 Author Organization [facility] Address [address] [place] [address] Care Team Providers Name Role Phone Elsewhere, Pcp Primary Care Provider Unavailable Reason for Visit Reason Onset Date Comments Outpatient COVID-19 Testing 06/30/2020 Encounter Details Date Type Department Care Team Description 06/30/2020 External Outreach Department of Kristi Leyva Infection Upper Medicine in [place] A, SKIP LOAD DRIVER, C.N.P., Respir atory ([place], [place] M.S.N. Dx) [address] [phone] Social History Tobacco Use Types Packs/Day Years Used Date Smoking Tobacco: Never Smokeless Tobacco: Never Sex Assigned at Date Recorded Not on file documented as of this encounter Progress Notes Leighann Monteiro R.N. - 06/30/2020 11:05 AM CST Encounter created for the drive-through COVID-19 testing. /VAULT SUPERVISOR documented in this encounter Plan of Treatment Not on filedocumented as of this encounter Procedures Procedure Name Priority Date/Time Associated Comments Diagnosis SARS CORONAVIRUS 2 Routine 06/30/2020 12:03 Resul ts for this PCR DETECT, V PM CAGE/VAULT SUPERVISOR procedure are in the results section. documented in this encounter Results SARS Coronavirus 2 RNA Detection (06/30/2020 12:03 PM CAGE/VAULT SUPERVISOR) [facility] Method Time Signature SARS-CoV-2 Nasopharynx 07/01/2020 [facility] Specimen 4:29 AM CAGE/VAULT SUPERVISOR Source SARS-CoV-2 Undetected Undetected 07/01/2020 [facility] RNA by PCR 4:29 AM CAGE/VAULT SUPERVISOR Comment: SARS-CoV-2 RNA absent. This result does not rule out COVID-19 in the patient, as the sensitivity of the test depends o n the timing of the specimen collection and the quality of the specim en. Result should be correlated with patient's history and clinical presentat ion. ----ADDITIONAL INFORMATION---- This PCR test was performed using the Syntasia SARS-CoV-2 assay ([employer] on the lisandro YPlan0 System under emergency use authorization (EUA) by the U.S. Food and Drug Administ ration. Fact sheets for this assay can be found at the following links: For Healthcare Providers: https://www.Floqq a.gov/media/862294/download For Patients: https://www.fda.gov/media/ 031538/download Specimen Anatomical Collection Method Collection Time Receive d Time (Source) Location / / Volume Laterality Varies 06/30/2020 12:03 06/30/2020 PM CAGE/VAULT SUPERVISOR 10:43 PM CAGE/VAULT SUPERVISOR Christine Ingram APRNNPavanP., M.S.N. LAB MICROBIOLOGY - GENERAL ORDERABLES Performing Organization Address City/State/ZIP Code Phon e Number [facility] [address] [place] [address] [facility] [place] [address] Laboratory Medicine and Pathology [address] [place] documented in this encounter Visit Diagnoses Diagnosis Infection Upper Respiratory - Primary documented in this encounter Additional Health Concerns Infection Onset Date Last Indicated Resolved Time COVID19 Pending 06/30/2020 06/30/2020 06/30/2020 1:56 PM CAGE/VAULT SUPERVISOR Assessment Noted Time PHQ-9 Depression Total Score: 2 10/14/2015 4:09 PM CDT documented as of this encounter Care Teams Sparmaker Relationship Specialty Start Date End Date Elsewhere, Pcp PCP - General Internal Medicine 02/15/19 documented as of this encounter
--- OUTSIDE RECORDS SUMMARY | 2022-03-04 19:01 | XMS_ITS | Encounter Summary ---
:1960 Author Organization [facility] Address [address] [place] [address] Care Team Providers Name Role Phone Elsewhere, Pcp Primary Care Provider Unavailable Reason for Visit Reason Comments COVID Nurse Line Encounter Details Date Type Department Care Team Description 02/04/2020 Clinical Communication Central Appointment Line, Covid COVID Nurse Line Office in [facility] [address] [place], [place] [address] Social History Tobacco Use Types Packs/Day Years Used Date Smoking Tobacco: Never Smokeless Tobacco: Never Sex Assigned at Date Recorded Not on file documented as of this encounter Miscellaneous Notes Telephone Encounter - Radha Ma R.N. - 02/04/2020 3:36 PM CDT COVID-19 Nurse Line Screening ASSESSMENT COVID 19 Screening Have you had close contact with a person who has a LABORATORY CONFIRMED case of COVID-19?: No - Continue screening. In the last 48 hours have you had any of the following symptoms?: New sore throat, New nausea, New myalgias (muscle aches), New headache(dizzy) Do you have any urgent symptoms?: None- Patient meets criteria for testing. PLAN Endpoint recommendation: Screening positive, testing indicated, advised to be swabbed for COVID-19, sent to [facility] located at [address] [place]. Testing hours are M-F 8:30 am to 4:30 pm. Sat-Sun 9 am to 12:30 pm. When you arrive stay in your car and someone will direct you. Care Points provided: STANDARD PRECAUTIONS FOR ALL PATIENTS: Wash hands often with soap and water for at least 20 seconds, especially after blowing your nose, coughing, sneezing, or having been in a public place. If soap and water aren't available, use a hand batch room technician that contains at least 60% alcohol. Avoid close contact with anyone who may be exhibiting respiratory symptoms such as coughing and sneezing. Avoid touching your eyes, nose and mouth. Clean and disinfect frequently touched surfaces daily. Cover your mouth and nose with a cloth face cover when around others or in public. The cloth face cover is not a substitute for social distancing. Continue to keep about 6 feet between yourself andothers. Monitor for symptoms. Do not take your temperature within 30 minutes of exercise. If your test or screen is negative and new symptoms develop please contact your provider. Educational Resource: https://www.cdc.gov/coronavirus/2019-ncov/wctgokg-lskdfav-atvx/index.html RECOMMENDATIONS TESTING CRITERIA IS MET: Stay home except to get medical care. Avoid public areasand public transportation. Separate yourself from other people and stay in a specific sick room ifpossible. Wear a cloth face covering, over your nose and mouth if you must be around other people even at home). Cover your nose and mouth when coughing or sneezing. Contact employer/occupational health department to notify them that they are being tested. Seek emergent care if any of the following occur: 1) Trouble breathing, 2) Bluish lips or face, 3) Persistent pain or pressure in the chest, 4) Newly confused or unable to stay alert and awake. Notify appropriate care provider if any new or worsening symptoms. If your test is negative and new symptoms develop please contact your care provider to determine if re-testing is necessary. Education Resources: https://www.cdc.gov/coronavirus/2019-ncov/i h-gax-yfj-sick/ztban-ehsm-lncc.html SELF CARE FOR ALL PATIENTS: Take breaks from watching, reading, or listening to news stories. Make time to unwind. Try to do some other activities you enjoy. Connect with others. Be creative in keepingconnected with loved ones, especially those at high risk. Try healthy coping strategies such as meditation, relaxation, exercise, healthy eating habits, and avoid alcohol and drugs. Education: patient/caregiver Patient/caregiver able to teach back Patient agreeable to plan of care: Yes The following references were used: [facility] novel coronavirus (COVID- 19) resources CDC web site https://www.cdc.gov/coronavirus/2019-ncov/summary.html Nursing judgement documented in this encounter Plan of Treatment Not on filedocumented as of this encounter Visit Diagnoses Not on filedocumented in this encounter Additional Health Concerns Assessment Noted Time PHQ-9 Depression Total Score: 2 10/14/2015 4:09 PM CDT documented as of this encounter Care Teams Logistics Supervisor Relationship Specialty Start Date End Date Elsewhere, Pcp PCP - General Internal Medicine 02/15/19 documented as of this encounter
--- OUTSIDE RECORDS SUMMARY | 2022-03-04 19:01 | XMS_ITS | Encounter Summary ---
:1960 Author Organization [facility] Address [address] [place] [address] Care Team Providers Name Role Phone Elsewhere, Pcp Primary Care Provider Unavailable Reason for Visit Reason Onset Date Comments Outpatient COVID-19 Testing 03/24/2021 Encounter Details Date Type Department Care Team Description 03/24/2021 External Outreach Urgent Care, Shabana Coronado Contac t With And [facility], in USER EXPERIENCE ARCHITECT, C.N.P. (Suspected) Exposure [place] [address] [facility] To COVID-19 (Primary [place], [place] Dx) [address] [facility] [address] [place], [place] [phone] [phone] (Work) [phone] Social History Tobacco Use Types Packs/Day Years Used Date Smoking Tobacco: Never Smokeless Tobacco: Never Sex Assigned at Date Recorded Not on file documented as of this encounter Progress Notes Anabell Camejo RJeremiah. - 03/24/2021 11:40 AM CDT Encounter created for COVID-19 screening. documented in this encounter Plan of Treatment Not on filedocumented as of this encounter Procedures Procedure Name Priority Date/Time Associated Diagnosis Comme nts SARS CORONAVIRUS-2 STAT 03/24/2021 1:14 PM Contact With And Results for this RNA, V CDT (Suspected) Exposure procedu re are in To COVID-19 the results section. documented in this encounter Results SARS Coronavirus-2 RNA, V Asymptomatic (03/24/2021 1:14 PM CDT) [facility] Method Time Signature SARS-CoV-2 Swab, 03/25/2021 MKTO Specimen Nasopharynx 4:43 AM CDT Source SARS CoV-2 Undetected Undetected 03/25/2021 MKTO RNA, TMA 4:43 AM CDT Comment: SARS-CoV-2 RNA absent. This result does not rule out COVID-19 in the patient, as the sensitivity of the test depends o n the timing of the specimen collection and the quality of the specim en. Result should be correlated with patient's history and clinical presentat ion. ----ADDITIONAL INFORMATION---- This molecular amplification test was pe rformed using the Aptima SARS-CoV-2 assay ([employer] on the Guguchus tem under emergency use authorization (EUA) by the U.S. Food and Drug Administ ration. Fact sheets for this EUA assay can be fo und at the following links: For Healthcare Providers: https://www.[employer] a.gov/media/113185/download For Patients: https://www.fda.gov/media/ 855019/download Specimen Anatomical Collection Method Collection Time Receive d Time (Source) Location / / Volume Laterality Varies 03/24/2021 1:14 PM (Nasopharynx) CDT 11:06 PM CDT Shabana Coronado APRN C.N.P. LAB MICROBIOLOGY - GENERAL ORDERABLES Performing Organization Address City/State/ZIP Code Phon e Number [facility]- [address] [place] [phone] [place] [address] [place] [address] System in [address] documented in this encounter Visit Diagnoses Diagnosis Contact With And (Suspected) Exposure To COVID-19 - Primary documented in this encounter Additional Health Concerns Infection Onset Date Last Indicated Resolved Time COVID19 Pending 03/24/2021 03/24/2021 03/25/2021 4:43 AM CDT Assessment Noted Time PHQ-9 Depression Total Score: 2 10/14/2015 4:09 PM CDT documented as of this encounter Care Teams Basin Cleaner Relationship Specialty Start Date End Date Elsewhere, Pcp PCP - General Internal Medicine 02/15/19 documented as of this encounter
--- OUTSIDE RECORDS SUMMARY | 2022-03-04 19:01 | XMS_ITS | Encounter Summary ---
:1960 Author Organization [facility] Address [address] [place] [address] Care Team Providers Name Role Phone Elsewhere, Pcp Primary Care Provider Unavailable Reason for Visit Reason Comments COVID Nurse Line Encounter Details Date Type Department Care Team Description 10/25/2019 Clinical Communication Central Appointment Line, [place] COVID Nurse Line Office in [facility] [address] [place], [place] [phone] Social History Tobacco Use Types Packs/Day Years Used Date Smoking Tobacco: Never Smokeless Tobacco: Never Sex Assigned at Date Recorded Not on file documented as of this encounter Miscellaneous Notes Telephone Encounter - dAa Arzola R.N., C.C.T.C. - 10/25/2019 11:34 AM CDT COVID-19 Nurse Line Screening ASSESSMENT COVID 19 Screening Have you had close contact with a person who has a LABORATORY CONFIRMED case of COVID-19?: No - Continue screening. In the last 48 hours have you had any of the following symptoms?: New shortness of breath, New sore throat, New respiratory distress (fast breathing), New myalgias (muscle aches) Do you have any urgent symptoms?: Currently feeling as if you're going to collapse every time you stand or sit up Instructed to go in to the nearest ETU immediately. Her daughter will drive her. PLAN Endpoint recommendation: Emergency Department and Screening positive, testing indicated, advised to be swabbed for COVID-19, sent to [place], [place] Care Points provided: PRECAUTIONS Wash hands often with soap and water for at least 20 seconds, especially after blowing your nose, coughing, sneezing, or having been in a public place If soap and water aren't available, use a hand boom man that contains at least 60% alcohol Avoid touching your face,nose and eyes IF PATIENT MEETS CRITERIA FOR TESTING Stay home except to get medical care Avoid public areas (do not go to work, school, etc) Avoid public transportation Stay in a specific room away from other people and pets Use a separate bathroom if possible Wear a facemask if you are sick before you enter the medical office Advise to contact their employer/occupational health department If patientis living with a high risk family member, seek medical advice from their primary care provider. *High risk includes family member with heart of lung disease (e.g. asthma, COPD), immunosuppression (e.g.cancer, HIV/AIDS), women, or 65 years and older IF PATIENT DOES NOT MEET CRITERIA FOR TESTING Patient should stay home until: You have had no fever for at least 72 hours (three full days without fever without the use of fever reducing medicine, such as Tylenol/ibuprofen) AND other symptoms have improved (e.g. when your cough, shortness of breath has improved) AND at least 7 days have passes since your symptoms first appeared Go to the nearest emergency department if any of the following occur: 1) New shortness of breath at rest, 2) Pain, pressure or tightness unrelated to coughing in the chest, jaw or arm, 3) Newly confused or unable to stay alert and awake Notify primary care provider isany new or worsening symptoms Educational resources include- http://www.cdc.gov/coronavirus Education: patient/caregiver Patient/caregiver able to teach back Patient agreeable to plan of care: Yes The following references were used: [facility] novel coronavirus (COVID- 19) resources CDC web site https://www.cdc.gov/coronavirus/2019-ncov/summary.html [place] Department of Health ([facility]) Guidelines for self-isolation [place], Telephone Triage Prot[facility] documented in this encounter Plan of Treatment Not on filedocumented as of this encounter Visit Diagnoses Not on filedocumented in this encounter Additional Health Concerns Assessment Noted Time PHQ-9 Depression Total Score: 2 10/14/2015 4:09 PM CDT documented as of this encounter Care Teams [employer] Principal Relationship Specialty Start Date End Date Elsewhere, Pcp PCP - General Internal Medicine 02/15/19 documented as of this encounter
--- OUTSIDE RECORDS SUMMARY | 2022-03-04 19:01 | XMS_ITS | Encounter Summary ---
:1960 Author Organization [facility] Address [address] [place] [address] Care Team Providers Name Role Phone Elsewhere, Pcp Primary Care Provider Unavailable Encounter Details Date Type Department Care Team Description 03/24/2021 Admin Visit Urgent Care, [facility], in [place], [place] [address] [place] [address] Social History Tobacco Use Types Packs/Day [...] documented as of this encounter Care Teams Spool Cleaner Relationship Specialty Start Date End Date Elsewhere, Pcp PCP - General Internal Medicine 02/15/19 documented as of this encounter
--- OUTSIDE RECORDS SUMMARY | 2022-03-04 19:01 | XMS_ITS | Encounter Summary ---
:1960 Author Organization [facility] Address [address] [place] [address] Care Team Providers Name Role Phone Unavailable Primary Care Provider Unavailable Reason for Visit Reason Comments Med Refill Encounter Details Date Type Department Care Team Description 10/04/2017 Refill Department of Family Medicine Cecil Tenorio M.D. Med Refill in [facility] [address] [place] [phone] (Wo rk) Social History Tobacco Use Types Packs/Day Years Used Date Smoking Tobacco: Never Sex Assigned at Date Recorded Not on file documented as of this encounter Miscellaneous Notes Telephone Encounter - Melody Gramajo, L.P.N. - 10/05/2017 8:59 AM CDT Pt has not been seen since 2015. Needs appointment before refill. Left message on pts voicemail to call back. documented in this encounter Plan of Treatment Not on filedocumented as of this encounter Visit Diagnoses Not on filedocumented in this encounter Additional Health Concerns Assessment Noted Time PHQ-9 Depression Total Score: 2 10/14/2015 4:09 PM CDT documented as of this encounter
--- OUTSIDE RECORDS SUMMARY | 2022-03-04 19:02 | XMS_ITS | Encounter Summary ---
:1960 Author Organization [facility] Address [address] [place] [address] Care Team Providers Name Role Phone Unavailable Primary Care Provider Unavailable Encounter Details Date Type Department Care Team Description 03/30/2010 Hospital Encounter [facility]X [facility] Zaria Orellana P.A. [address] [place] [address] (Wo rk) Social History Tobacco Use Types Packs/Day Years Used Date Smoking Tobacco: Never Assessed Sex Assigned at Date Recorded Not on file documented as of this encounter Medications at Time of Discharge Medication Sig Dispensed Refills Start Date End Date calcium carb/vit Os-Joe 250 with D 0 03/30/2010 0 02/05/2021 D3/minerals (CALCIUM-VITAMIN D ORAL) documented as of this encounter Plan of Treatment Not on filedocumented as of this encounter Visit Diagnoses Not on filedocumented in this encounter
--- OUTSIDE RECORDS SUMMARY | 2022-03-04 19:02 | XMS_ITS | Encounter Summary ---
:1960 Author Organization [facility] Address [address] [place] [address] Care Team Providers Name Role Phone Unavailable Primary Care Provider Unavailable Encounter Details Date Type Department Care Team Description 04/06/2016 Hospital Encounter HX [facility] Bere Adams M.D. [address] [place] [address] (Wo rk) Social History Tobacco Use Types Packs/Day Years Used Date Smoking Tobacco: Never Assessed Sex Assigned at Date Recorded Not on file documented as of this encounter Last Filed Vital Signs Vital Sign Reading Time Taken Comments Blood Pressure 148/76 04/06/2016 3:13 PM CDT Pulse 54 04/06/2016 3:13 PM CDT Temperature - - Respiratory Rate 16 04/06/2016 3:13 PM CDT Oxygen Saturation - - Inhaled Oxygen Concentration - - Weight 67.1 kg (147 lb 14.9 oz) 04/06/2016 3:13 PM CDT Height 164 cm (5' 4.57) 04/06/2016 3:13 PM CDT Body Mass Index 24.95 04/06/2016 3:13 PM CDT documented in this encounter Medications at Time of Discharge Medication Sig Dispensed Refills Start Date End Date calcium carbonate Take by mouth. 0 11/03/2015 (OS-ASIF) 1,250 mg (500 mg calcium) tablet cetirizine 10 mg capsule Take 10 mg by mouth. 0 0 09/30/2014 fluticasone propionate Administer 1 spray 0 01/04 (FLONASE) 50 into affected mcg/actuation nasal spray nostril(s). rizatriptan TELECOMMUNICATIONS LINE INSTALLER Place 10 mg under 0 11/09/2010 (MAXALT-TELECOMMUNICATIONS LINE INSTALLER) 10 mg the tongue. disintegrating tablet calcium carb/vit Os-Asif 250 with D 0 03/30/2010 0 02/05/2021 D3/minerals (CALCIUM-VITAMIN D ORAL) HYDROcodone-acetaminophen Take 1 tablet by 0 10/201510/24/2018 (NORCO) 5-325 mg per mouth. tablet documented as of this encounter Progress Notes Rafa Zaman M.D. - 04/06/2016 3:05 PM CDT [id number] CHIEF COMPLAINT/REASON FOR VISIT Cough and sore throat. HISTORY OF PRESENT ILLNESS A 55-year-old female who has been sick for 2 days with cough, sore throat, yellow phlegm and some hoarseness. PAST MEDICAL/SURGICAL HISTORY Past medical history positive for chronic fatigue syndrome, COPD, hypertension, depression. MEDICATIONS Current meds Aldactone. Ativan. Buspirone. Cymbalta. Flonase. Metoprolol tartrate. Neurontin. OsCal. Zyrtec. SYSTEM REVIEW No sweats or chills. Low-grade temp noted. She has been without any chest pain, palpitations or syncope. PHYSICAL EXAMINATION VITAL SIGNS: Temp 37, heart rate 54, blood pressure 140/76. Weight is 67 kg. SKIN: Warm and dry. HEENT: Pharynx is not severely injected. A little bit of hoarseness or gruffness of her voice is noted. She has laryngeal area soreness without swelling or tenderness on the neck. LUNGS: Lung sounds are clear. HEART: Rhythm is regular. IMPRESSION/REPORT/PLAN Laryngitis/bronchitis. PLAN Zithromax 500 daily x5 days. She can either start today or wait 2 to 3 days to determine if she can turn the corner without treatment and if not, consider antibiotic care. Follow up after treatment if not improving. Rafa Zaman M.D./pos Electronically Signed By: RAFA ZAMAN MD On: 04/09/2016 09:46 AM Source: [facility] MHSDOLBEYNONRADSYS Document Id: [id number] documented in this encounter Miscellaneous Notes Miscellaneous - Rafa Zaman M.D. - 04/06/2016 3:39 PM CDT Ambulatory Patient Summary [address] [id number] Visit Information Name: SERENAAILYN COWART [facility] Number: [id number] Current Date: 04/06/2016 15:39:08 Physicians Attending Provider: RAFA ZAMAN MD Primary Care Provider: PCP, ELSEWHERE AILYN SOTELO SHIRIN has been given the following list of follow-up instructions, medication list, and patient education materials: Follow-up Instructions Your Medications Here is a list of your medications. It is important to take your medications as directed. Use a pillbox or chart to help remind you to take your medications. Please let your doctor or nurse know if you have problems taking your medications. Medication/Strength How to Take Indications/Special Instructions/Comments/Notes for Patient Medication Changes/Routing azithromycin (Zithromax 500 mg oral tablet) 1 Tablet(s), Oral, once a day x 5 day(s) New Routed to [address] [id number] busPIRone (busPIRone) 15 mg, , two times a day calcium-vitamin D (Os-Asif 250 with D) cetirizine (ZyrTEC) 10 mg, Oral, once a day duloxetine (Cymbalta) 60 mg, Oral, once a day fluticasone nasal (Flonase 50 mcg/inh nasal spray) 2 [place](s), Nostrils(Both), once a day gabapentin (Neurontin 600 mg oral tablet) See Instructions 300mg q am and 600mg q pm lorazepam (Ativan) 1 mg, Oral, as needed metoprolol (Metoprolol Tartrate 25 mg oral tablet) 1 Tablet(s), Oral, two times a day Dosing has been decreased to 1 Tab Daily spironolactone (Aldactone 25 mg oral tablet) 1 Tablet(s), Oral, once a day Stop Taking the Following Medications: Medication list as of 04-06-16 15:39 Attention: If you have any medications at home that are not on this list, DO NOT take them until youcontact your provider for clarification. Give a copy of your medication list to your primary care provider. Update your medication list any time medications or doses are changed and carry your medication list at all times in case of emergency. Electronically Signed By: RAFA ZAMAN MD Signed On:06-APR-2016 15:38:40 Your Allergies & Intolerances Substance Reaction Symptoms Category Comments codeine nausea, vomiting Drug Ambien sleep walking Drug Reglan Panic attack Drug Your Problem List Problem Status Onset Comments Depression* Active Anxiety neurosis Active COPD* Active Hypertension (HTN) Chronic Active Chronic Fatigue Syndrome (CFS) Active Acne Cystic Active Your Upcoming Appointments Date Time Location Provider No Appointments found Attention: Contact your local Clinic if further appointment detail needed. Laryngitis Laryngitis is a swelling of the tissues around the vocal cords. As a result, your voice may be hoarse or perhaps you can only speak in a whisper. This may be caused by a viral illness, such as a head or chest cold. It may also be due to overuse and strain of the voice (yelling or screaming). This condition will resolve in a few days. Home Care: ?? Rest the voice until it recovers. Talk as little as possible. ?? Breathing cool steam from a humidifier/vaporizer or in a steamy shower is helpful. ?? Drink plenty of fluids to stay well hydrated. ?? You may use acetaminophen (Tylenol) or ibuprofen (Motrin, Advil) to control pain, unless another medicine was prescribed. [NOTE: If you have chronic liver or kidney disease or ever had a stomach ulcer or GI bleeding, talk with your doctor before using these medicines.] (Aspirin should never be usedin anyone under 18 years of age who is ill with a fever. It may cause severe liver damage.) Follow Up with your doctor or this facility if you have not improved after one week. Get Prompt Medical Attention if any of the following occur: ?? Severe pain with swallowing ?? Neck swelling ?? Noisy breathing or trouble breathing ?? Fever of 100.4?F (38?C) or higher, or as directed by your healthcare provider ?? [id number] Rod Davey, [address] [place] [address], [place] [address]. All rights reserved. This information is not intended as a substitute for professional medical care. Always follow your healthcare professional's instructions. Consider Using Patient Online Services Patient [employer] is a secure online and Mobile application that lets you: ?? View lab and test results ?? View portions of your medical record including clinical notes, immunizations and discharge summaries ?? Request an appointment or medication refill ?? Review your appointment schedule ?? Send secure messages to your care team Its easy to create an account if you dont have one. Go to [email or web address] and click on Create Your Account. Then, follow the directions to complete the online form. Youll be asked for your [facility] number which you can find at the top of this document. Your Goals/Additional instructions: This document has images extracted. Please consider using [employer] for all your patient education needs. Source: [facility] POWERCHART Document Id: [id number] Miscellaneous - Rafa Zaman M.D. - 04/06/2016 3:39 PM CDT Ambulatory Discharge Medication List [address] [id number] Visit Information Name: AILYN SOTELO [facility] Number: [id number] Visit Date: 04/06/2016 15:39:07 Attending Provider: RAFA ZAMAN MD Primary Care Provider: PCP, ELSEWHERE AILYN SOTELO has been given the following list of medications: Your Medications It is important to take your medications as directed. Use a pill box or chart to help remind you to take your medications. Please let your doctor or nurse know if you have problems taking your medications. Medication/Strength How to Take Indications/Special Instructions/Comments/Notes for Patient Medication Changes/Routing azithromycin (Zithromax 500 mg oral tablet) 1 Tablet(s), Oral, once a day x 5 day(s) New Routed to [address] [place] [address] busPIRone (busPIRone) 15 mg, , two times a day calcium-vitamin D (Os-Asif 250 with D) cetirizine (ZyrTEC) 10 mg, Oral, once a day duloxetine (Cymbalta) 60 mg, Oral, once a day fluticasone nasal (Flonase 50 mcg/inh nasal spray) 2 [place](s), Nostrils(Both), once a day gabapentin (Neurontin 600 mg oral tablet) See Instructions 300mg q am and 600mg q pm lorazepam (Ativan) 1 mg, Oral, as needed metoprolol (Metoprolol Tartrate 25 mg oral tablet) 1 Tablet(s), Oral, two times a day Dosing has been decreased to 1 Tab Daily spironolactone (Aldactone 25 mg oral tablet) 1 Tablet(s), Oral, once a day Stop Taking the Following Medications: Medication list as of 04-06-16 15:39 Attention: If you have any medications at home that are not on this list, DO NOT take them until youcontact your provider for clarification. Give a copy of your medication list to your primary care provider. Update your medication list any time medications or doses are changed and carry your medication list at all times in case of emergency. Electronically Signed By: RAFA ZAMAN MD Signed On:06-APR-2016 15:38:40 Additional Information: Source: [facility] POWERCHART Document Id: [id number] Miscellaneous - Ada Nelson, L.P.N. - 04/06/2016 3:13 PM CDT Adult Alarm Signal Operator Intake/History Adult Alarm Signal Operator Intake/History Entered On: 04/06/2016 15:16 CDT Performed On: 04/06/2016 15:13 CDT by ADA NELSON LPN Intake Chief Complaint : Cough S.T. coughing up green/yellow phlegm x 2. Temperature Core : 37.2 DegC(Converted to: 99.0 DegF) Peripheral Pulse Rate : 54 /min (LOW) Respiratory Rate : 16 /min Systolic Blood Pressure : 148 mmHg (HI) Diastolic Blood Pressure : 76 mmHg NIBP Mean : 100 mmHg SpO2 : 99 % Height : 164 cm(Converted to: 5 ft 5 inch(es), 65 inch(es)) Actual Weight : 67.1 kg(Converted to: 147 lb 15 oz) Dosing Weight Clinic : 67.1 kg Clinic BSA : 1.75 Body Mass Index : 24.95 kg/m2 ADA NELSON [facility] - 04/06/2016 15:13 CDT General Info Languages : Russian Is Patient Female and 13-50 no hysterectomy : No ADA NELSON [facility] - 04/06/2016 15:13 CDT Subjective Pain Symptoms : No ADA NELSON OBSTETRICS TECHNICIAN - 04/06/2016 15:13 CDT Dependent Habits Exposure to Tobacco Smoke : Care provider denies smoking in home Smoking Status : Never smoker Tobacco 2A : No Tobacco Use/Currently Using : No Tobacco Use/Last 30 Days : No Tobacco Use/Last 12 months : No ADA NELSON OBSTETRICS TECHNICIAN - 04/06/2016 15:13 CDT Source: [facility] [employer]upplerCHART Document Id: [id number] CDT!27 documented in this encounter Plan of Treatment Not on filedocumented as of this encounter Procedures Procedure Name Priority Date/Time Associated Diagnosis Comme nts RAPID STREP A Routine 04/06/2016 3:15 PM Results for this SCREEN CDT procedure are i n the results section. RAPID STREP A Routine 04/06/2016 3:15 PM Results for this SCREEN CDT procedure are i n the results section. documented in this encounter Results Rapid Strep A Screen (04/06/2016 3:15 PM CDT) [facility] Method Time Signature HXRapid Strep POWERCHART Confirmation HXPre Negative for POWERCHART Group A Strep by culture. HXFinal Negative for POWERCHART Group A Strep by culture. Specimen Anatomical Collection Method Collection Time Receive d Time (Source) Location / / Volume Laterality Throat 04/06/2016 3:15 PM 6 3:15 CDT PM CDT Rafa Zaman M.D. LAB MICROBIOLOGY - GENERAL O RDERABLES Performing Organization Address City/State/ZIP Code Phon e Number POWERCHART Rapid Strep A Screen (04/06/2016 3:15 PM CDT) [facility] Method Time Signature HXStrep A POWERCHART Screen Rapid HXFinal Negative for POWERCHART Strep Group A by rapid screen. HXFinal Culture POWERCHART confirmation to follow. Specimen (Source) Anatomical Collection Method Collection Time Re ceived Time Location / / Volume Laterality Throat 04/06/2016 3:15 PM CDT Rafa Zaman M.D. LAB MICROBIOLOGY - GENERAL O [place]INA Performing Organization Address City/[facility]/ZIP Code Phon e Number POWERCHART documented in this encounter Visit Diagnoses Not on filedocumented in this encounter Additional Health Concerns Assessment Noted Time PHQ-9 Depression Total Score: 2 10/14/2015 4:09 PM CDT documented as of this encounter
--- OUTSIDE RECORDS SUMMARY | 2022-03-04 19:02 | XMS_ITS | Encounter Summary ---
:1960 Author Organization [facility] Address [address] [place] [address] Care Team Providers Name Role Phone Unavailable Primary Care Provider Unavailable Encounter Details Date Type Department Care Team Description 08/22/2014 Hospital Encounter HX RST EMERGENCY Provider, Historic al TRAUMA UNI Social History Tobacco Use Types Packs/Day Years Used Date Smoking Tobacco: Never Assessed Sex Assigned at Date Recorded Not on file documented as of this encounter Medications at Time of Discharge Medication Sig Dispensed Refills Start Date End Date fluticasone propionate Administer 1 spray 0 01/04 (FLONASE) 50 into affected mcg/actuation nasal spray nostril(s). rizatriptan CARRIER OPERATOR Place 10 mg under 0 11/09/2010 (MAXALT-CARRIER OPERATOR) 10 mg the tongue. disintegrating tablet calcium carb/vit Os-Joe 250 with D 0 03/30/2010 0 02/05/2021 D3/minerals (CALCIUM-VITAMIN D ORAL) documented as of this encounter Plan of Treatment Not on filedocumented as of this encounter Procedures Procedure Name Priority Date/Time Associated Comments Diagnosis TEST, U Routine 08/22/2014 4:39 PM Resu lts for this [facility] procedure are i n the results section. DIPSTICK, POCT, U Routine 08/22/2014 4:29 PM Resu lts for this (DIPC1) [facility] procedure are i n the results section. DX CHEST AP OR PA AND Routine 08/22/2014 2:08 PM Results for this LATERAL 2 VIEWS [facility] procedure ar e in the results section. PH BLOOD GAS Routine 08/22/2014 1:37 PM Results f or this [facility] procedure are i n the results section. CARDIAC BIOMARKER Routine 08/22/2014 1:37 PM Resu lts for this PANEL, S [facility] procedure are i n the results section. NT-PRO B-TYPE Routine 08/22/2014 1:37 PM Results for this NATRIURETIC PEPTIDE [facility]ER procedur e are in (BNP), S the results section. CBC WITH Routine 08/22/2014 1:37 PM Results f or this DIFFERENTIAL, B [facility]ER procedure ar e in the results section. THYROID-STIMULATING Routine 08/22/2014 1:37 PM Re sults for this HORMONE-SENSITIVE [facility] procedure are in (S-TSH) the results section. MAGNESIUM, S Routine 08/22/2014 1:37 PM Results f or this [facility] procedure are i n the results section. LACTATE, B/P Routine 08/22/2014 1:37 PM Results f or this [facility] procedure are i n the results section. CALCIUM, IONIZED, S/B Routine 08/22/2014 1:37 PM Results for this [facility] procedure are i n the results section. BASIC METABOLIC Routine 08/22/2014 1:37 PM Result s for this PANEL, S/P [facility] procedure are i n the results section. ECG Routine 08/22/2014 1:05 PM Results f or this [facility] procedure are i n the results section. documented in this encounter Results Test, Qualitative, Urine (08/22/2014 4:39 PM [facility]NC GRINDER) [employer] Method Time Signature Negative [facility] Test, [facility] Specimen Anatomical Collection Method Collection Time Receive d Time (Source) Location / / Volume Laterality 08/22/2014 4:39 PM 5 4:39 [facility] PM [facility] Barry Johnson M.D. LAB URINE ORDERABLES Performing Organization Address City/State/ZIP Code Phon e Number [facility] - [address] [place], [place] [address] [facility] Dipstick, POCT, Urine (lab) (08/22/2014 4:29 PM [facility]NC GRINDER) [employer] Method Time Signature Glucose, Negative Negative [facility] POCT, [facility] Bilirubin, Negative Negative [facility] POCT, [facility] Blood, POCT, Negative Negative [facility] pH, POCT, 7.0 5.0 - 8.0 [facility] Urine [facility] Protein, Negative Negative [facility] POCT, [facility] Urobilinogen, 0.2 0.2 - 1.0 [facility] POCT, Urine [facility] Nitrites, Negative Negative [facility] POCT, U [facility] - [facility] Leukocytes, Negative Negative [facility] POCT, U [facility] Ketone, POCT, Negative Negative [facility] U [facility] - [facility] Specific 1.015 1.001 - [facility] Nixon, 1.035 LABORATORIES - POCT, U [facility] Specimen Anatomical Collection Method Collection Time Receive d Time (Source) Location / / Volume Laterality 08/22/2014 4:29 PM 5 4:29 [facility] PM [facility] Historical Provider LAB POCT ORDERABLES - DEVICE Performing Organization Address City/State/ZIP Code Phon e Number [facility] - [address] [place], [place] [address] [facility] DX Chest AP or PA and Lateral 2 Views (08/22/2014 2:08 PM [facility]NC GR[facility]ER) Anatomical Region Laterality Modality Chest N/A Radiographic Imaging Specimen (Source) Anatomical Collection Method Collection Time Re ceived Time Location / / Volume Laterality 08/22/2014 2:08 PM [facility]ER Impressions 08/22/2014 2:10 PM [facility]ER ??Negative chest. Electronically signed by: ?? Susan ??Bolivar ROSENTHAL ??[id number] 22-Aug-2014 14:10 Narrative 08/22/2014 2:10 PM [facility]ER 22-Aug-2014 14:08:00 ??Exam: Chest-- 2 Views Indications: syncopal episode ORIGINAL REPORT - 22-Aug-2014 14:10:00 EXAM: ??Chest 2 views Procedure Note Dayana Lutz M.D. - 10/20/2017Form atting of this note might be different from the original. 22-Aug-2014 14:08:00 Exam: Chest-- 2 Vie ws Indications: syncopal episode ORIGINAL REPORT - 22-Aug-2014 14:10:00 EXAM: Chest 2 views IMPRESSION: Negative chest. Electronically signed by: Susan Lutz [id number] [id number] 22-Aug-2014 14:1 0 Barry SHI DIAGNOSTIC IMAGING PROCE DURES (ABNORMAL) CBC with Differential (08/22/2014 1:37 PM [facility]NC GR[facility]ER) [facility] Method Time Signature Hemoglobin 14.8 12.0 - [facility] 15.5 G/DL [facility] Hematocrit 42.5 34.9 - [facility] 44.5 % [facility] - [facility] RBC Distrib 12.8 11.9 - [facility] Width 15.5 % [facility] - [facility] Platelet Count 335 150 - 450 [facility] X10(9)/L [facility] - [facility] Lymphocytes 2.39 0.90 - [facility] 2.90 LABORATORIES - X10(9)/L [facility] Monocytes 0.97 (H) 0.30 - [facility] 0.90 LABORATORIES - X10(9)/L [facility] Erythrocytes 4.75 3.90 - [facility] 5.03 LABORATORIES - X10(12)/L [facility] MCV 89.5 81.6 - [facility] 98.3 FL [facility] - [facility] Leukocytes 10.2 3.5 - [facility] 10.5 LABORATORIES - X10(9)/L [facility] Neutrophils 6.67 1.70 - [facility] 7.00 LABORATORIES - X10(9)/L [facility] Eosinophils 0.14 0.05 - [facility] 0.50 LABORATORIES - X10(9)/L [facility] Basophils 0.06 0.00 - [facility] 0.30 LABORATORIES - X10(9)/L [facility] Specimen Anatomical Collection Method Collection Time Receive d Time (Source) Location / / Volume Laterality 08/22/2014 1:37 PM 5 1:37 [facility]ER PM [facility] Barry Johnson M.D. LAB BLOOD ADD-ON Performing Organization Address City/State/ZIP Code Phon e Number [facility] - [address] [place], [place] [address] [facility] BMP (Basic Metabolic Panel) (08/22/2014 1:37 PM CNC GRINDER) P athologist Signature Sodium, P 135 135 - 145 [facility] MMOL/L [facility] - [facility] Potassium, P 3.8 3.6 - 5.2 [facility] MMOL/L [facility] - [facility] BUN (Blood 10 6 - 21 [facility] Urea MG/DL LABORATORIES - Nitrogen), S [facility] HX 26 22 - 29 [facility] Bicarbonate, MMOL/L LABORATORIES - P/S [facility] Chloride, S 99 98 - 107 [facility] MMOL/L [facility] - [facility] Creatinine, S 0.7 0.6 - 1.1 [facility] MG/DL [facility] - [facility] eGFR >60 >60 [facility] Non-Black/Afri ML/MIN/BSA LABORATORIES - can [place]andan [facility] eGFR-Black/Afr >60 >60 [facility] ican [place] ML/MIN/BSA [facility] - [facility] Glucose, S 80 70 - 140 [facility] MG/DL [facility] Anion Gap 10 7 - 15 [facility] Specimen Anatomical Collection Method Collection Time Receive d Time (Source) Location / / Volume Laterality 08/22/2014 1:37 PM 5 1:37 [facility] PM [facility] Barry Johnson M.D. LAB BLOOD ADD-ON Performing Organization Address City/State/[facility] Code Phon e Number [facility] - [address] [place] [address] [facility] Cardiac Biomarker Panel (08/22/2014 1:37 PM CNC GRINDER) Analysis Performed At Patho logist Time Signature Delta Interp Not Sig [facility] Comment: No significant delta observed. Troponin Delta 0.00 NG/ML [facility] Troponin T 6H, S . [facility] Comment: Test canceled. Patient discharg ed - N/C Delta Interp . [facility] LABOR [facility] Troponin T, S <0.01 <0.01 NG/ML [facility] LA [facility] Troponin T 3H, S <0.01 <0.01 NG/ML [facility] Troponin Delta . [facility] Specimen Anatomical Collection Method Collection Time Receive d Time (Source) Location / / Volume Laterality 08/22/2014 1:37 PM 5 1:37 [facility]ER PM [facility] Barry Johnson M.D. LAB BLOOD ADD-ON Performing Organization Address City/State/ZIP Code Phon e Number [facility] - [address] [place] [address] [facility] Magnesium (08/22/2014 1:37 PM CNC GRINDER) P athologist Signature Magnesium, S 2.2 1.7 - 2.3 [facility] MG/DL [facility] Specimen Anatomical Collection Method Collection Time Receive d Time (Source) Location / / Volume Laterality 08/22/2014 1:37 PM 201 5 1:37 [facility]ER PM [facility] Barry Johnson M.D. LAB BLOOD ADD-ON Performing Organization Address City/State/ZIP Code Phon e Number [facility] - [address] [place], [place] [address] [facility] NT-Pro B-Type Natriuretic Peptide (BNP) (08/22/2014 1:37 PM [facility]ER) athologist Signature NT-Pro BNP 121 5 - 152 [facility] PG/ML [facility] - [facility] Comment: NT-proBNP values less than 300 pg/mL hav e a 99% negative predictive value ? for excluding acute congestive heart flora lure. A cutoff of 1200 pg/mL for ? patients with an eGFR<60 yields a diagno stic sensitivity and specificity of ? 89% and 72% for acute congestive heart f ailure. ??A diagnostic NT-proBNP ? cutoff of 900 pg/mL has been suggested i n adults 50-75 years of age in the ? absence of renal failure. ? Specimen Anatomical Collection Method Collection Time Receive d Time (Source) Location / / Volume Laterality 08/22/2014 1:37 PM 5 1:37 [facility] PM [facility] Barry Johnson M.D. LAB BLOOD ADD-ON Performing Organization Address City/[facility]/ZIP Code Phon e Number [facility] - [address] Lactate (08/22/2014 1:37 PM CNC GRINDER) P athologist Signature Lactate, P 1.5 0.6 - 2.3 [facility] MMOL/L [facility] Specimen Anatomical Collection Method Collection Time Receive d Time (Source) Location / / Volume Laterality 08/22/2014 1:37 PM 5 1:37 [facility]ER PM [facility] Barry Johnson M.D. LAB BLOOD NON ADD-ON Performing Organization Address City/[facility]/ZIP Code Phon e Number [facility] - [address] S-TSH (Thyroid-Stimulating Hormone - Sensitive) (08/22/2014 1:37 PM CNC GRINDER) P athologist Signature TSH, Sensitive 3.2 0.3 - 4.2 [facility] MIU/L [facility] Specimen Anatomical Collection Method Collection Time Receive d Time (Source) Location / / Volume Laterality 08/22/2014 1:37 PM 5 1:37 [facility]ER PM [facility] Barry Johnson M.D. LAB BLOOD ADD-ON Performing Organization Address City/[facility]/ZIP Code Phon e Number [facility] - [address] [place] [address] [facility] Calcium, Ionized (08/22/2014 1:37 PM CNC GRINDER) P athologist Signature Calcium, 4.88 4.65 - [facility] Ionized, B 5.30 MG/DL [facility]ATORIES - [facility] Specimen Anatomical Collection Method Collection Time Receive d Time (Source) Location / / Volume Laterality 08/22/2014 1:37 PM 5 1:37 [facility]ER PM [facility]ER Barry Johnson M.D. LAB BLOOD NON ADD-ON Performing Organization Address City/[facility]/ZIP Code Phon e Number [facility] - [address] [place] [address] [facility] pH (08/22/2014 1:37 PM CNC GRINDER) P athologist Signature pH 7.37 7.35 - 7.45 [facility] PH [facility] - [facility] Specimen Anatomical Collection Method Collection Time Receive d Time (Source) Location / / Volume Laterality 08/22/2014 1:37 PM 5 1:37 [facility]ER PM [facility] Barry Johnson M.D. LAB HISTORICAL ORDERS Performing Organization Address City/[facility] Code Phon e Number [facility] - [address] [place] [address] [facility] ECG 12 Lead (08/22/2014 1:05 PM CNC GRINDER) Specimen (Source) Anatomical Collection Method Collection Time Re ceived Time Location / / Volume Laterality 08/22/2014 1:05 PM [facility] RADIOLOGY SYSTEM - 08/23/2014 9:33 AM [facility]NC GRINDER 22Aug2014 13:05 VENTRICULAR RATE 59 Sinus bradycardia Low anterior forces No previous ECGs available [id number]^UTE ??^BROOK Procedure Note Brook Mar M.D. - 10/14/2017Form atting of this note might be different from the original. 22Aug2014 13:05 VENTRICULAR RATE 59 Sinus bradycardia Low anterior forces No previous ECGs available [id number]^UTE ROSENTHAL^BROOK Barry Johnson M.D. ECG ORDERABLES Performing Organization Address City/[facility]/ZIP Code Phon e Number HX [facility] RADIOLOGY SYSTEM [address] [place] [address], U SA documented in this encounter Visit Diagnoses Not on filedocumented in this encounter
--- OUTSIDE RECORDS SUMMARY | 2022-03-04 19:02 | XMS_ITS | Encounter Summary ---
:1960 Author Organization [facility] Address [address] [place] [address] Care Team Providers Name Role Phone Unavailable Primary Care Provider Unavailable Encounter Details Date Type Department Care Team Description 08/27/2014 Hospital Encounter HX [facility] [place] Man Harris M.D. [address] [place], [place] [phone] (Wo rk) Social History Tobacco Use Types Packs/Day Years Used Date Smoking Tobacco: Never Assessed Sex Assigned at Date Recorded Not on file documented as of this encounter Last Filed Vital Signs Vital Sign Reading Time Taken Comments Blood Pressure 155/93 08/27/2014 6:08 PM CONTENT MANAGER Pulse 57 08/27/2014 6:08 PM CONTENT MANAGER Temperature - - Respiratory Rate 18 08/27/2014 6:08 PM CONTENT MANAGER Oxygen Saturation - - Inhaled Oxygen Concentration - - Weight 81.8 kg (180 lb 5.7 oz) 08/27/2014 4:48 PM CONTENT MANAGER Height 163 cm (5' 4.17) 08/27/2014 6:08 PM CONTENT MANAGER Body Mass Index 30.79 08/27/2014 4:48 PM CONTENT MANAGER documented in this encounter Discharge Summaries Dodie Francois R.N. - 08/27/2014 6:35 PM CST ED Discharge Instructions [address] [address] Name: DIA SOTELO Date of : 1960 12:00 AM Visit Date: 08/27/2014 4:44 PM [facility] Number: [id number] Address: [address] [place] [phone] Primary Care Provider: FATOUMATA STOCK MD IMPORTANT: [facility] in [place] would like to thank you for allowing us to assistyou with your healthcare needs. The following includes patient education materials and information regarding your injury/illness. Diagnosis: Hypertension (HTN) Chronic Follow-Up Instructions: With: Address: When: Follow up with primary care provider Within 2 - 4 days Comments: RECORD BLOOD PRESSURE AND PULSE 3x DAILY. Your Upcoming Appointments: Date Time Location Provider No Appointments found Patient Education Materials: [id number] HIGH BLOOD PRESSURE --ESTABLISHED High Blood Pressure (Hypertension) is a chronic disease. The cause is unknown in most cases. It can usually be controlled with lifestyle changes and/or medicines. Symptoms of high blood pressure may include headache, dizziness, visual changes, chest pain and shortness of breath. Sometimes it causes no symptoms at all. However, even if there are no symptoms, untreated high blood pressure increases therisk of heart attack, also known as acute myocardial infarction, or AMI, and stroke. It is a serioushealth risk and should not be ignored. A normal blood pressure is 120/80 or less. The first (top) number is the systolic pressure. The second (bottom) number is the diastolic pressure. Hypertension exists when either the top number is 140 or higher, OR the bottom number is 90 or higher on repeated measurements. HOME CARE: All patients with high blood pressure should do the following to lower their pressure. If you are onmedicines, then these methods may reduce or eliminate your need for medicines in the future. 1. Begin a weight loss program if you are overweight. 2. Reduce your salt intake. o Avoid high salt foods (olives, pickles, smoked meats, salted potato chips, etc.). o Do not add salt to your food at the table. o Use only small amounts of salt when cooking. 3. Begin an exercise program. Discuss with your doctor what type of exercise program would be best for you. It doesn't have to be difficult. Even brisk walking for 20 minutes three times a week is a good form of exercise. 4. Avoid medicines which contain heart stimulants. This includes many cold and sinus decongestant pills and sprays as well as diet pills. Check the warnings about hypertension on the label. Stimulants such as amphetamine or cocaine could be lethal for someone with hypertension. Never take these. 5. Limit your caffeine intake or switch to caffeine-free products. 6. Stop smoking. If you are a long-time smoker, this can be hard. Enroll in a stop-smoking program to improve your chance of success. 7. Learning how to handle stress better is an important part of any program to lower blood pressure.Learn about relaxation methods such as meditation, yoga or biofeedback. 8. If medicines were prescribed, take them exactly as directed. Missing doses may cause your blood pressure get out of control. 9. Consider buying an automatic blood pressure machine (available at most pharmacies). Use this to monitor your blood pressure at home and report the results to your doctor. FOLLOW UP: Regular visits to your own physician for blood pressure checks and medicine adjustment isan important part of your care. Make a follow-up appointment as directed by our staff. GET PROMPT MEDICAL ATTENTION if any of the following occur: ?? Chest pain or shortness of breath ?? Severe headache ?? Throbbing or rushing sound in the ears ?? Nosebleed ?? Sudden severe abdominal pain ?? Extreme drowsiness, confusion or fainting ?? Dizziness or vertigo (dizziness with spinning sensation) ?? Weakness of an arm or leg or one side of the face Difficulty with speech or vision ?? [phone] [facility], [address] [place] [address]. All rights reserved. This information is not intended as a substitute for professional medical care. Always follow your healthcare professional's instructions. ED Tests and Procedures: Order Status Discharge Prescriptions & Home Medications: Medication/Strength Dose Route Frequency Indications/Special Instructions/Comments/Notes cetirizine (ZyrTEC) 10 mg Oral once a day labetalol (labetalol) 1 Oral once a day levonorgestrel-ethinyl estradiol (Alesse 100 mcg-20 mcg oral tablet) 1 tab(s) Oral once a day doxycycline (doxycycline) 100 mg Oral two times a day gabapentin (Neurontin 600 mg oral tablet) See Instructions 300mg q am and 600mg q pm calcium-vitamin D (Os-Joe 250 with D) multivitamin, ( Multivitamins oral capsule) lorazepam (Ativan) 1 mg Oral as needed busPIRone (busPIRone) See Instructions 15 mg in the am and 30 mg in the pm duloxetine (Cymbalta) 60 mg Oral once a day Attention: If you have any medications at home not on this list, DO NOT take them until you contact your provider for clarification. Give a copy of your medication list to your primary care provider. Update your medication list any time medications or doses are changed and carry your medication list at all times in case of emergency. Medication Reconciliation: Reconciliation is a process of identifying the most accurate list of all medications a patient is taking - including name, dosage, frequency, and route - and using this list to provide to the patient information about how to take those medications. DIA SOTELO or refugio has reviewed the home medications you have listed with us. Review the following instructions: You have NOT received any prescriptions and you have told us you are not currently taking any home medications You have NOT received any prescriptions. You have been provided a discharge medications list and you may CONTINUE taking your medications as previously prescribed by your regular providers. You have received the listed prescriptions and BEGIN all listed prescriptions as directed. Since you have listed no home medications, please check with your family doctor if you are taking any other medications. You have received the listed prescriptions and BEGIN all listed prescriptions as directed. Youhave been provided a discharge medications list and you may CONTINUE all home medications as previously prescribed by your regular providers. You have received the listed prescriptions and BEGIN all listed prescriptions as directed. Youhave been provided a discharge medications list. The following CHANGES have been made to your medication list; Otherwise, CONTINUE all home medications as previously prescribed by your regular provider. IMPORTANT: We examined and treated you today on an emergency basis only. This was not a substitute for, or an effort to provide, complete medical care. In most cases, you must let your doctor check youagain. Tell your doctor about any new or lasting problems. We cannot recognize and treat all injuries or illnesses in one Emergency Department visit. If you had special tests, such as EKG's or X- rays, we will review them again within 24 hours. We will call you if there are any new suggestions. Please follow the instructions above carefully. If you are being transferred to another facility, your follow up plan of care will be determined by the receiving facility. If you are a patient that is being discharged from the Emergency Department after receiving narcotics or other medications that may impair your judgment you may be a risk to yourself or others if you operate a motor vehicle. We recommend that you arrange a ride home with a responsible democrat. I, DIA SOTELO , or responsible democrat have received this information and my questions havebeen answered. I have discussed any challenges I see with this plan with the nurse or physician. Patient Signature or Responsible Libertarian/Relationship Date Time Provider Signature Date Time Medication Reconciliation: Reconciliation is a process of identifying the most accurate list of all medications a patient is taking - including name, dosage, frequency, and route - and using this list to provide to the patient information about how to take those medications. DIA SOTELO or designee has reviewed the home medications you have listed with us. Review the following instructions: You have NOT received any prescriptions and you have told us you are not currently taking any home medications You have NOT received any prescriptions. You have been provided a discharge medications list and you may CONTINUE taking your medications as previously prescribed by your regular providers. You have received the listed prescriptions and BEGIN all listed prescriptions as directed. Since you have listed no home medications, please check with your family doctor if you are taking any other medications. You have received the listed prescriptions and BEGIN all listed prescriptions as directed. Youhave been provided a discharge medications list and you may CONTINUE all home medications as previously prescribed by your regular providers. You have received the listed prescriptions and BEGIN all listed prescriptions as directed. Youhave been provided a discharge medications list. The following CHANGES have been made to your medication list; Otherwise, CONTINUE all home medications as previously prescribed by your regular provider. IMPORTANT: We examined and treated you today on an emergency basis only. This was not a substitute for, or an effort to provide, complete medical care. In most cases, you must let your doctor check youagain. Tell your doctor about any new or lasting problems. We cannot recognize and treat all injuries or illnesses in one Emergency Department visit. If you had special tests, such as EKG's or X- rays, we will review them again within 24 hours. We will call you if there are any new suggestions. Please follow the instructions above carefully. If you are being transferred to another facility, your follow up plan of care will be determined by the receiving facility. If you are a patient that is being discharged from the Emergency Department after receiving narcotics or other medications that may impair your judgment you may be a risk to yourself or others if you operate a motor vehicle. We recommend that you arrange a ride home with a responsible democrat. I RAFIQ SOTELOI SHIRIN , or responsible democrat have received this information and my questions havebeen answered. I have discussed any challenges I see with this plan with the nurse or physician. Patient Signature or Responsible Libertarian/Relationship Date Time Provider Signature Date Time This document has images extracted. Please consider using [employer] for all your patient education needs. Source: [facility] POWERCHART Document Id: [id number] ENT MANAGER Dodie Francois R.N. - 08/27/2014 6:35 PM CST ED Depart Summary [facility] Emergency Department Clinical Discharge Summary PERSON INFORMATION Name DIA SOTELO Age 54 Years 1960 12:00 AM Sex Female Language Egyptian PCP FATOUMATA STOCK MD Marital Status Visit Id Visit Reason HT - Hypertension; HIGH BLOOD PRESURE Specialty Enc Type Emergency Med Service Emergency Medicine Referred by [facility] ED Discharge 08/27/2014 6:29 PM Tracking Id [id number] Checkout 08/27/2014 6:29 PM Checkin 08/27/2014 4:44 PM Acuity 4 -Less Urgent Dispo Type * Discharged to Home or Self Care Arrival 08/27/2014 4:44 PM Reg Status LOS 000 01:45 Address: [address] [place] [id number] Comment: PROVIDER INFORMATION Provider Role Provider Contact Time MAN GARDINER MD ED Provider 08/27/14 16:49 DODIE FRANCOIS WILDLIFE BIOLOGY TECHNICIAN Nurse 08/27/14 17:13 DIAGNOSIS Hypertension (HTN) Chronic Comment: PATIENT EDUCATION INFORMATION Instructions: HYPERTENSION, Established Follow up: With: Address: When: Follow up with primary care provider Within 2 - 4 days Comments: RECORD BLOOD PRESSURE AND PULSE 3x DAILY. Source: [facility] POWERCHART Document Id: [id number] ENT MANAGER documented in this encounter Medications at Time of Discharge Medication Sig Dispensed Refills Start Date End Date fluticasone propionate Administer 1 spray 0 01/04 (FLONASE) 50 into affected mcg/actuation nasal spray nostril(s). rizatriptan INSIDE OUTSIDE SALES REPRESENTATIVE Place 10 mg under 0 11/09/2010 (MAXALT-INSIDE OUTSIDE SALES REPRESENTATIVE) 10 mg the tongue. disintegrating tablet calcium carb/vit Os-Joe 250 with D 0 03/30/2010 0 02/05/2021 D3/minerals (CALCIUM-VITAMIN D ORAL) documented as of this encounter ED Notes Dodie Francois RJeremiah. - 08/27/2014 6:33 PM CST ED Disposition Summary ED Disposition Summary Entered On: 08/27/2014 18:33 CONTENT MANAGER Performed On: 08/27/2014 18:33 CONTENT MANAGER by DODIE FRANCOIS RN ED Disposition Summary Accompanied By : Alone Mode of Discharge : Ambulatory Transportation : Private vehicle Printed Discharge Instructions Given to Patient : Yes DODIE FRANCOIS RN - 08/27/2014 18:33 CONTENT MANAGER Source: [facility] POWERCHART Document Id: [id number] CONTENT MANAGER!6 ENT MANAGER Man Gardiner M.D. - 08/27/2014 5:48 PM CST HT - Hypertension Patient: DIA SOTELO Age: 54 years Sex: Female : 1960 Author: MAN GARDINER MD Attachments: None Associated Diagnosis: Hypertension (HTN) Chronic Basic Information Time seen: Immediately upon arrival. History source: Patient. Arrival mode: Private vehicle. History limitation: None. Additional information: Chief Complaint from Nursing Triage Note : Chief Complaint Description 08/27/2014 16:48 CONTENT MANAGER Chief Complaint Description pt presents with concerns about her high BP . History of Present Illness 54-year-old female apparently has had hypertension for some period of time. She does not regularly check it. However, over the course of last 2 years she has had multiple episodes of lightheadedness and near-syncope. During each of these episodes, she has had her blood pressure measured and is typically been running about 200/105. The most recent of these episodes was 4 days ago. She happened to be with a friend at the [facility] in [place]. She was taken to the ER where she was fully evaluated including blood work, EKG is an echocardiogram. She was told that was all normal. Nevertheless, her blood pressure was high. She normally takes labetalol. She had been taking 100 mg 1 time per day. Upon her return home after her ER visit, she looked at the label for her prescription and realized that she was supposed to be taking it twice a day. Therefore, 4 days ago she made that change. She is not written down her blood pressure since that time. 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 She had a blood pressure checked. It was 170/100. She called the nurse line to ask what to do. Although the patient has an appointment with their primary physician tomorrow, the expert RN line directed her to come into the emergency department. At this time the patient has no symptoms. The patient presents with high blood pressure. The onset was chronic. The course/duration of symptoms is constant. The current degree of hypertension As above. . Risk factors consist of hypertension, family history, Had been taking half of her labetalol by a simple mistake. and not smoking. Prior episodes: none. Therapy today: none. Associated symptoms: Syncope in the past, but not today. . Review of Systems Constitutional symptoms: Negative except as documented in HPI. Skin symptoms: Negative except as documented in HPI. Respiratory symptoms: No shortness of breath. Cardiovascular symptoms: No chest pain. Gastrointestinal symptoms: Negative except as documented in HPI. Genitourinary symptoms: Negative except as documented in HPI. Neurologic symptoms: Negative except as documented in HPI. Health Status Allergies: Allergic Reactions (Selected) Severity Not Documented Ambien- Sleep walking. Codeine- Nausea, vomiting. Reglan- Panic attack.. Past Medical/ Family/ Social History Medical history: No active or resolved past medical history items have been selected or recorded.. Surgical history: History of knee surgery (SNOMED CT 5744753423). 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 Comments: 05/13/2014 16:39 - MAYELA LOPEZ surgery on axilla r/t to problem. Family history: No family history items have been selected or recorded.. Physical Examination Vital Signs: Vital Signs 08/27/2014 16:48 CONTENT MANAGER Temperature Core 36.8 DegC Peripheral Pulse Rate 59 /min LOW Respiratory Rate 18 /min SpO2 98 % Systolic Blood Pressure 180 mmHg >HHI Diastolic Blood Pressure 105 mmHg >HHI Mean Arterial Pressure 130 mmHg , Measurements 08/27/2014 16:48 CONTENT MANAGER Height 163 cm Height Source Stated Dosing Weight 81.81 kg Actual Weight 81.81 kg Body Mass Index 30.79 kg/m2 , SpO2 08/27/2014 16:48 CONTENT MANAGER SpO2 98 % . General: Alert and no acute distress. Skin: Warm, dry and pink. Head: Normocephalic. Neck: Supple. Eye: Pupils are equal, round and reactive to light. Cardiovascular: Regular rate and rhythm, No edema and Systolic murmur: 2 /6, at (right sternal border, left sternal border). Respiratory: Lungs are clear to auscultation and respirations are non-labored. Chest wall: No tenderness. Back: Nontender. Musculoskeletal: Normal ROM Gastrointestinal: Soft and Nontender. Genitourinary Neurological: No focal neurological deficit observed. Lymphatics Psychiatric: Cooperative. Medical Decision Making Rationale:Patient seems to have to problems. First, every time she has checked, which has not been all that often, she has been having high blood pressure on the order of 200 systolic. Second, most of the time when she has had her blood pressure checked, it has been associated with a syncopal or near-syncopal event. It is unclear if there is a relation. Nevertheless, the patient had a comprehensive evaluation in the emergency department had [facility] 4 days ago. This included EKG blood work an echocardiogram which the patient reports were all normal. Had these things not been done, I might have been tempted to do them. However, what she needs more than anything right now is to log her blood pressure over the course ofmultiple days, 2 or three times per day, particularly given the fact that she essentially doubled her labetalol dose within the last 4 days. I would not be inclined to make another blood pressure medication adjustment at this time, particularly given that her blood pressure is trending back towards normal, even if it is still running 180s. She may need another blood pressure medication adjustment, but it seems reasonable to wait until a few more readings are available. I had a discussion with the patient about the dangers of abruptly lowering blood pressure, as was done with nifedipine in the 1990s in emergency department patients. I want to avoid this pit fall. Patient has a primary physician appointment tomorrow. It might be wahl to push this pack a day year to so that her appointment will coincide with 1 week after her labetalol medication change. She is going to go waste picker a monitor so she can check her blood pressure at home 3 times daily and record. . Impression and Plan Diagnosis Hypertension (HTN) Chronic (Discharge, Emergency medicine, Medical) Plan Condition: Stable. Disposition: Discharged: Time 08/27/2014 17:58:00, to home. Patient was given the following educational materials: HYPERTENSION, Established, HYPERTENSION, Established. Follow up with: ; Follow up with primary care provider Within 2 - 4 days RECORD BLOOD PRESSURE AND PULSE 3x DAILY.. Counseled: Patient. Electronically Signed By: MAN GARDINER MD On: 08/27/2014 05:59 PM Source: [facility] POWERCHART Document Id: [id number]} ENT MANAGER Dodie Francois R.N. - 08/27/2014 4:48 PM CST ED Primary Assessment Document Has Been Updated ED Primary Assessment Entered On: 08/27/2014 16:58 CONTENT MANAGER Performed On: 08/27/2014 16:48 CONTENT MANAGER by DODIE FRANCOIS RN Reason For Visit (As Of: 08/27/2014 16:58:04 CONTENT MANAGER) Problems(Active) Anxiety neurosis (ICD-9-CM :300.00 ) Name of Problem: Anxiety neurosis ; Recorder: COLE LAI AMD; Confirmation: Confirmed ; Classification: Medical ; Code: 300.00 ; Contributor System: [employer] ; Last Updated: 01/08/2013 15:23 CDT ; Life Cycle Date: 01/08/2013 ; Life Cycle Status: Active ; Responsible Provider: COLE LAI MD; Vocabulary: ICD-9-CM COPD* (ICD-9-CM :496 ) Name of Problem: COPD* ; Recorder: COLE LAI MD; Confirmation: Confirmed ; Classification: Medical ; Code: 496 ; Contributor System: [employer] ; Last Updated: 01/08/201315:23 CDT ; Life Cycle Date: 01/08/2013 ; Life Cycle Status: Active ; Responsible Provider: COLE LAI MD; Vocabulary: ICD-9-CM Depression* (ICD-9-CM :311 ) Name of Problem: Depression* ; Recorder: COLE LAI MD; Confirmation: Confirmed ; Classification: Medical ; Code: 311 ; Contributor System: [employer] ; Last Updated: 01/08/2013 15:23 CDT ; Life Cycle Date: 01/08/2013 ; Life Cycle Status: Active ; Responsible Provider: COLE LAI MD; Vocabulary: ICD-9-CM Diagnoses(Active) HT - Hypertension Date: 08/27/2014 ; Diagnosis Type: Reason For Visit ; Confirmation: Complaint of ;Clinical Dx: HT - Hypertension ; Classification: Medical ; Clinical Service: Emergency medicine ; Code: PNED ; Probability: 0 ; Diagnosis Code: [id number] Triage Chief Complaint Description : pt presents with concerns about her high BP Information Given By : Patient Accompanied By : Alone Mode of Arrival ED : Private vehicle Track : Medical Languages : Egyptian Vital Signs Assessed : Yes Treatments Prior to Arrival : None Is Patient Female and 13-50 no hysterectomy : No DODIE FRANCOIS RN - 08/27/2014 16:48 CONTENT MANAGER Vital Signs Temperature Core : 36.8 DegC(Converted to: 98.2 DegF) Peripheral Pulse Rate : 59 /min (LOW) Respiratory Rate : 18 /min Systolic Blood Pressure : 180 mmHg (>HHI) Diastolic Blood Pressure : 105 mmHg (>HHI) NIBP Mean : 130 mmHg SpO2 : 98 % Oxygen Therapy : Room air Height : 163 cm(Converted to: 5 ft 4 inch(es)) Actual Weight : 81.81 kg Actual Weight Conversion to Pounds : 179.982 lb Height Source : Stated Body Mass Index : 30.79 kg/m2 DODIE FRANCOIS RN - 08/27/2014 16:48 CONTENT MANAGER Pain Assessment Pain Symptoms : DODIE Queen RN - 08/27/2014 16:48 CONTENT MANAGER ELOISE ELOISE Level 1 : No ELOISE Level 2 : No ELOISE Level 3 : One DODIE FRANCOIS RN - 08/27/2014 16:48 CONTENT MANAGER DCP GENERIC CODE Tracking Acuity : 4 -Less Urgent Tracking Group : MAQN ED DODIE FRANCOIS RN - 08/27/2014 16:48 CONTENT MANAGER Allergy (As Of: 08/27/2014 16:58:04 CONTENT MANAGER) Allergies (Active) Ambien Estimated Onset Date: Unspecified ; Reactions: sleep walking ; Created By: FENG NELSON LPN; Reaction Status: Active ; Category: Drug ; Substance: Ambien ; Type: Allergy ; Updated By: FENG NELSON LPN; Reviewed Date: 05/17/2014 14:06 CDT codeine Estimated Onset Date: Unspecified ; Reactions: nausea, vomiting ; Created By: FENG NELSON LPN; Reaction Status: Active ; Category: Drug ; Substance: codeine ; Type: Allergy ; Updated By: FENG NELSON LPN; Reviewed Date: 05/17/2014 14:06 CDT Reglan Estimated Onset Date: Unspecified ; Reactions: Panic attack ; Created By: EMIGDIO SALAZAR; Reaction Status: Active ; Category: Drug ; Substance: Reglan ; Type: Allergy ; Updated By: EMIGDIO SALAZAR; Reviewed Date: 05/17/2014 14:06 CDT ID Screen Drug Resistant Organism : No Travel Within Last 21 Days : No DODIE FRANCOIS RN - 08/27/2014 16:48 CONTENT MANAGER Respiratory Airway : Patent Respirations : Unlabored Respiratory Pattern : Regular DODIE FRANCOIS RN - 08/27/2014 16:48 CONTENT MANAGER Cardiovascular Heart Rhythm : Regular Skin Color : Normal for ethnicity Skin Description : Dry Skin Temperature : Warm DODIE FRANCOIS RN - 08/27/2014 16:48 CONTENT MANAGER Neurological Last Well Time Known : Not applicable Level of Consciousness : Alert Orientation : Oriented x 3 Characteristics of Speech : Appropriate for age Neuro Patient Stated Symptoms : None DODIE FRANCOIS RN - 08/27/2014 16:48 CONTENT MANAGER ED Psychosocial Affect/Behavior : Calm, Cooperative Domestic Abuse Concerns : None DODIE FRANCOIS RN - 08/27/2014 16:48 CONTENT MANAGER Gastrointestinal Nutrition ED : Adequate DODIE FRANCOIS RN - 08/27/2014 16:48 CONTENT MANAGER Musculoskeletal Fall Prevention Education Provided : NA DODIE FRANCOIS RN - 08/27/2014 16:48 CONTENT MANAGER Social Habits Tobacco Use/Currently Using : No Smoking Status : Never smoker DODIE FRANCOIS RN - 08/27/2014 16:48 CONTENT MANAGER Tobacco Use Grid Last Use : never DODIE FRANCOIS RN - 08/27/2014 16:48 CONTENT MANAGER [facility] Document Id: [id number] CONTENT MANAGER!65 ENT MANAGER documented in this encounter Miscellaneous Notes Miscellaneous - Dodie Francois RPavanNPavan - 08/27/2014 6:34 PM CST Valuables/Belongings Valuables/Belongings Entered On: 08/27/2014 18:34 CONTENT MANAGER Performed On: 08/27/2014 18:34 CONTENT MANAGER by DODIE FRANCOIS RN Valuables/Belongings Belongings Sent Home With : all belongings sent with pt DODIE FRANCOIS RN - 08/27/2014 18:34 CONTENT MANAGER Source: [facility] [employer] Document Id: [id number] CONTENT MANAGER!3 ENT MANAGER Miscellaneous - Conversion, Historical Provider Ser - 08/27/2014 6:29 PM CONTENT MANAGER Coding Summary-Paper Based CODING DATE: 08/28/2014 FINAL [facility] STATUS: * Discharged to Home or Self Care PAYOR: Medicare APC DESCRIPTION 0614 Level 3 Type A Emergency Visits ADMIT DX: 401.9 Unspecified Essential Hypertension REASON FOR VISIT DX: 401.9 Unspecified Essential Hypertension FINAL DX: PRINCIPAL: 401.9 Unspecified Essential Hypertension SECONDARY: PYMT PROC APC STAT DESCRIPTION DOCTOR NAME DATE [id number] 0614 V Emergency department MAN GARDINER MD 08/27/2014 visit for the evaluation and management of a patient, which requires these 3 chatman components: An expanded problem focused history; An expanded problem focused examination; and Medical decision making of moderate.. NOTE: The code number assigned matches the documented diagnosis and / or procedure in the patient's chart. However, the narrative phrase printed from the coding software may appear abbreviated, or result in slightly different terminology. Coded By: NOEMI GILLETTE Date Saved: 08/28/2014 01:48 pm [facility] Document Id: [id number] Miscellaneous - Dodie Francois, R.N. - 08/27/2014 4:44 PM CST Facility Charge Ticket 2.0 11.0 DX Facility Charge Ticket 2.0 11.0 DX Entered On: 08/27/2014 18:34 CONTENT MANAGER Performed On: 08/27/2014 16:44 CONTENT MANAGER by DODIE FRANCOIS RN Facility Charge Ticket 2.0 11.0 DX ED Other Charges : Standard ED Encounter TVL Level Translated RTF : HT - Hypertension TVL:3 TVL Level for Facility Charge Ticket : Level 3 Arrival Mode Calc : 1 Mode of Arrival ED : [facility] Mode of Arrival Interpreted : Standard [facility] Process Management : None [facility]x Order Management : None 30 Minutes Critical Care : No Nursing Notes RTF : Nursing Notes ED Primary Assessment,08/27/14 16:48,DODIE FRANCOIS RN [facility]x Nursing Assessment : Triage and 1-2 nursing assessments Lynx Disposition : Discharge Disposition RTF : discharge [facility]x Total Points with Diagnosis Control : 5 Lynx Visit Level : 84912 Level 3 Treatments Prior to Arrival : None DODIE FRANCOIS RN - 08/27/2014 18:34 CONTENT MANAGER [facility] Document Id: [id number] CONTENT MANAGER!18 ENT MANAGER documented in this encounter Plan of Treatment Not on filedocumented as of this encounter Visit Diagnoses Not on filedocumented in this encounter
--- OUTSIDE RECORDS SUMMARY | 2022-03-04 19:02 | XMS_ITS | Encounter Summary ---
:1960 Author Organization [facility] Address [address] [place] [address] Care Team Providers Name Role Phone Unavailable Primary Care Provider Unavailable Encounter Details Date Type Department Care Team Description 04/14/2016 Hospital Encounter HX [facility] Bere Adams M.D. [address] [place] [address] (Wo rk) Social History Tobacco Use Types Packs/Day Years Used Date Smoking Tobacco: Never Assessed Sex Assigned at Date Recorded Not on file documented as of this encounter Last Filed Vital Signs Vital Sign Reading Time Taken Comments Blood Pressure 104/60 04/14/2016 3:57 PM CDT Pulse 60 04/14/2016 3:57 PM CDT Temperature - - Respiratory Rate 16 04/14/2016 3:57 PM CDT Oxygen Saturation - - Inhaled Oxygen Concentration - - Weight 65.3 kg (143 lb 15.4 oz) 04/14/2016 3:57 PM CDT Height 164 cm (5' 4.57) 04/14/2016 3:57 PM CDT Body Mass Index 24.28 04/14/2016 3:57 PM CDT documented in this encounter Medications at Time of Discharge Medication Sig Dispensed Refills Start Date End Date calcium carbonate Take by mouth. 0 11/03/2015 (OS-ASIF) 1,250 mg (500 mg calcium) tablet cetirizine 10 mg capsule Take 10 mg by mouth. 0 0 09/30/2014 fluticasone propionate Administer 1 spray 0 01/04 (FLONASE) 50 into affected mcg/actuation nasal spray nostril(s). rizatriptan BLOCKER HEATED METAL FORMS Place 10 mg under 0 11/09/2010 (MAXALT-BLOCKER HEATED METAL FORMS) 10 mg the tongue. disintegrating tablet calcium carb/vit Os-Asif 250 with D 0 03/30/2010 0 02/05/2021 D3/minerals (CALCIUM-VITAMIN D ORAL) HYDROcodone-acetaminophen Take 1 tablet by 0 10/201510/24/2018 (NORCO) 5-325 mg per mouth. tablet documented as of this encounter Progress Notes Rafa Zaman M.D. - 04/14/2016 3:48 PM CDT [id number] CHIEF COMPLAINT/REASON FOR VISIT Persisting weakness. HISTORY OF PRESENT ILLNESS A 55-year-old female, who was evaluated on 04/06 with cough and sore throat. At that time, we elected to apply watchful waiting strategy and if not improved, Zithromax was prescribed for use. She had anegative rapid strep on that date. She presents today primarily with weakness. The cough and the laryngeal symptoms have improved, but she feels profoundly weak, lightheaded and without fever. She denies any vomiting, diarrhea, no abdominal pain. PAST MEDICAL/SURGICAL HISTORY Past medical history is also notable for: Chronic fatigue syndrome. Mild COPD based on previous spirometry measurements at another clinic. Hypertension. Anxiety/depression. SYSTEMS REVIEW No rigors, shakes or chills. Denies hemoptysis or chest pain. Denies any nausea, but appetite is suppressed. She denies any new joint swellings. No skin reactions. PHYSICAL EXAMINATION VITAL SIGNS: Temp 36.9, heart rate 60, blood pressure 104/60. Weight is 65 kg. Sat room air 98%. Dia has unlabored respiratory efforts. HEENT: TMs and canals clear. Nose not draining. Pharynx not injected. NECK: No neck tenderness, swelling, or mass. LUNGS: Sounds are clear without crackles. Chest x-ray is negative. Over-read reviewed and confirms. ABDOMEN: Soft, symmetric, and nontender. SKIN: No skin rash. Good color. EXTREMITIES: No pedal edema. IMPRESSION/REPORT/PLAN Viral syndrome starting with upper respiratory tract symptoms which are now resolving, but noting severe fatigue whle convalescing. PLAN: Dia is rather tenacious in regards to her desire to feel better immediately, although I do not feel further antibiotic treatment is needed. She elected to use some antibiotic at home, not the Zithromax that was earlier prescribed. I have suggested that she discontinue this as there does not seem to be any rationale for her to be on antibiotics at this time, all things considered. Prednisone 40mg daily for the next 3 days to hopefully assist with some of the post viral symptomatology. She is to continue watchful waiting. Follow up in a week for further workup and evaluation if not improved. Rafa Zaman M.D./pos Electronically Signed By: RAFA ZAMAN MD On: 04/15/2016 09:38 AM Modified by and Electronically Signed by: RAFA ZAMAN MD On: 04/15/2016 09:38 AM Source: [facility] [employer]SDOLBEYNON[employer] Document Id: [id number] documented in this encounter Nursing Notes Ada Nelson L.P.NPavan - 04/14/2016 4:00 PM CDT Orthostatics Orthostatics Entered On: 04/14/2016 16:01 CDT Performed On: 04/14/2016 16:00 CDT by ADA NELSON LPN Orthostatics Systolic Blood Pressure Supine : 104 mmHg Diastolic Blood Pressure Supine : 60 mmHg Pulse Supine : 60 /min Patient Response Supine : No response Systolic Blood Pressure Standing Immediate : 100 mmHg Diastolic Blood Pressure Standing Immediate : 60 mmHg Pulse Standing Immediate : 54 /min Patient Response Standing Immediate : Dizziness ADA NELSON LPN - 04/14/2016 16:00 CDT Source: [facility] [employer] Document Id: [id number] CDT!10 documented in this encounter Miscellaneous Notes Miscellaneous - Leisa Perera R.N. - 07/13/2016 11:09 AM CST Med Management Document Contains Addenda Addendum by MING BARON MD on July 13, 2016 11:15:15 CHILD WELFARE COUNSELOR From: MING BARON MD To: [facility] Nurse; Sent: 07/13/2016 11:15:15 CHILD WELFARE COUNSELOR Subject: RE: Med Management Done. Addendum by MING BARON MD on July 13, 2016 11:15:09 CHILD WELFARE COUNSELOR Approved Order:spironolactone (Aldactone 25 mg oral tablet) 1 tab(s) PO Daily Qty: 30 tab(s) Refills: 3 Substitutions Allowed Route To Pharmacy - [facility] Signed by MING BARON MD 07/13/2016 11:15:05 From: LEISA PERERA RN ([facility] Nurse) To: MING BARON MD; Sent: 07/13/2016 11:09:44 CHILD WELFARE COUNSELOR Subject: Med Management On hold pending signature Order:spironolactone (Aldactone 25 mg oral tablet) 1 tab(s) PO Daily Qty: 30 tab(s) Refills: 3 Substitutions Allowed Route To Pharmacy - [facility] Jones Caller is: ( ) Patient ( ) Mother ( ) Father ( ) Spouse ( ) Daughter ( ) Son ( x ) Pharmacy ( ) Other: Provider: Last Pharmacy: 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 - 04/14/2016 4:54 PM CDT Ambulatory Patient Summary [address] [place], [place] [phone] Visit Information Name: DIA SOTELO [facility] Number: [id number] Current Date: 04/14/2016 16:54:01 Physicians Attending Provider: RAFA ZAMAN MD Primary Care Provider: PCP, ELSEWHERE DIA SOTELO has been given the following list [...] Take Indications/Special Instructions/Comments/Notes for Patient Medication Changes/Routing busPIRone (busPIRone) 15 mg, , two times a day calcium-vitamin D (Os-Asif 250 with D) cetirizine (ZyrTEC) 10 mg, Oral, once a day duloxetine (Cymbalta) 60 mg, Oral, once a day fluticasone nasal (Flonase 50 mcg/inh nasal spray) 2 Brady(s), Nostrils(Both), once a day gabapentin (Neurontin 600 mg oral tablet) See Instructions 300mg q am and 600mg q pm lorazepam (Ativan) 1 mg, Oral, as needed metoprolol (Metoprolol Tartrate 25 mg oral tablet) 1 Tablet(s), Oral, two times a day Dosing has been decreased to 1 Tab Daily predniSONE (predniSONE 20 mg oral tablet) 2 Tablet(s), Oral, once a day x 3 day(s) New Routed to [address] [id number] spironolactone (Aldactone 25 mg oral tablet) 1 Tablet(s), Oral, once a day Stop Taking the Following Medications: amoxicillin (amoxicillin) Medication list as of 04-14-16 16:54 Attention: If you have any medications at [...] Electronically Signed By: RAFA ZAMAN MD Signed On:14-APR-2016 16:53:43 Your Allergies & Intolerances Substance Reaction Symptoms [...] local Clinic if further appointment detail needed. Viral Syndrome (Adult) A viral illness may cause a number of symptoms. The symptoms depend on the part of the body that thevirus affects. If it settles in the nose, throat, and lungs, it may cause cough, sore throat, congestion, and sometimes headache. If it settles in the stomach and intestinal tract, it may cause vomiting and diarrhea. Sometimes it causes vague symptoms like aching all over, feeling tired, loss of appetite, or fever. A viral illness usually lasts 1 to 2 weeks, but sometimes it lasts longer. In some cases, a more serious infection can look like a viral syndrome in the first few days of the illness. You may need another exam and additional tests to know the difference. Watch for the warning signs listed below. Home care Follow these guidelines for taking care of yourself at home: ?? If symptoms are severe, rest at home for the first 2 to 3 days. ?? Stay away from cigarette smoke - both your smoke and the smoke from others. ?? You may use acetaminophen or ibuprofen for fever, muscle aching, and headache, unless another medicine was prescribed for this. If you have chronic liver or kidney disease or ever had a stomach ulcer or GI bleeding, talk with your doctor before using these medicines No one who is younger than 18 and ill with a fever should take aspirin. It may cause severe liver damage. ?? Your appetite may be poor, so a light diet is fine. Avoid dehydration by drinking 8 to 12 8-ounceglasses of fluids each day. This may include water; orange juice; lemonade; apple, grape, and cranberry juice; clear fruit drinks; electrolyte replacement and sports drinks; and decaffeinated teas and coffee. If you have been diagnosed with a kidney disease, ask your doctor how much and what types of fluids you should drink to prevent dehydration. If you have kidney disease, drinking too much fluid can cause it build up in the your body and be dangerous to your health. ?? Jcsz-lpd-nvhlvsb remedies won't shorten the length of the illness but may be helpful for cough, sore throat; and nasal and sinus congestion. Don't use decongestants if you have high blood pressure. Follow-up care Follow up with your health care provider if you do not improve over the next week. When to seek medical care Get prompt medical attention if any of these occur: ?? Cough with lots of colored sputum (mucus) or blood in your sputum ?? Chest pain, shortness of breath, wheezing, or difficulty breathing ?? Severe headache; face, neck, or ear pain ?? Severe, constant pain in the lower right side of your belly (abdominal) ?? Continued vomiting (cant keep liquids down) ?? Frequent diarrhea (more than 5 times a day); blood (red or black color) or mucus in diarrhea ?? Feeling weak, dizzy, or like you are going to faint ?? Extreme thirst ?? Fever of 100.4? F (38? C) oral or higher, not better with fever medication ?? Convulsion ?? [id number] [place] [address]. All rights reserved. This information is not [...] if you dont have one. Go to [email or web address] [email or web address] and click on Create Your Account. Then, follow the directions to complete the online form. Youll be asked for your [facility] number which you can find at the top of this document. Your Goals/Additional instructions: Source: [facility] POWERCHART Document Id: [id number] Miscellaneous - Rafa Zaman M.D. - 04/14/2016 4:54 PM CDT Ambulatory Discharge Medication List [address] [place], [place] [phone] Visit Information Name: DIA SOTELO [facility] Number: [id number] Visit Date: 04/14/2016 16:54:00 Attending Provider: RAFA ZAMAN MD Primary Care Provider: PCP, ELSEWHERE KEYAMARLADIA SHIRIN has been given the following list of medications: Your Medications It is important to take your medications as directed. Use a pill box or chart to help remind you to take your medications. Please let your doctor or nurse know if you have problems taking your medications. Medication/Strength How to Take Indications/Special Instructions/Comments/Notes for Patient Medication Changes/Routing busPIRone (busPIRone) 15 mg, , two times a day calcium-vitamin D (Os-Asif 250 with D) cetirizine (ZyrTEC) 10 mg, Oral, once a day duloxetine (Cymbalta) 60 mg, Oral, once a day fluticasone nasal (Flonase 50 mcg/inh nasal spray) 2 Brady(s), Nostrils(Both), once a day gabapentin (Neurontin 600 mg oral tablet) See Instructions 300mg q am and 600mg q pm lorazepam (Ativan) 1 mg, Oral, as needed metoprolol (Metoprolol Tartrate 25 mg oral tablet) 1 Tablet(s), Oral, two times a day Dosing has been decreased to 1 Tab Daily predniSONE (predniSONE 20 mg oral tablet) 2 Tablet(s), Oral, once a day x 3 day(s) New Routed to [facility] [address] [place], [place] [id number] spironolactone (Aldactone 25 mg oral tablet) 1 Tablet(s), Oral, once a day Stop Taking the Following Medications: amoxicillin (amoxicillin) Medication list as of 04-14-16 16:54 Attention: If you have any medications at [...] Electronically Signed By: RAFA ZAMAN MD Signed On:14-APR-2016 16:53:43 Additional Information: Source: [facility] POWERCHART Document Id: [id number] Miscellaneous - Ada Nelson L.P.N. - 04/14/2016 3:57 PM CDT Adult Rock Wool Applicator Intake/History Adult Rock Wool Applicator Intake/History Entered On: 04/14/2016 16:00 CDT Performed On: 04/14/2016 15:57 CDT by ADA NELSON LPN Intake Chief Complaint : F/U/ no better/ taking amoxicillon 500mg tid from her Dentist and not the zithromax. Temperature Core : 36.9 DegC(Converted to: 98.4 DegF) Peripheral Pulse Rate : 60 /min Respiratory Rate : 16 /min Systolic Blood Pressure : 104 mmHg Diastolic Blood Pressure : 60 mmHg NIBP Mean : 75 mmHg SpO2 : 98 % Height : 164 cm(Converted to: 5 ft 5 inch(es), 65 inch(es)) Actual Weight : 65.3 kg(Converted to: 143 lb 15 oz) Dosing Weight Clinic : 65.3 kg Clinic BSA : 1.72 Body Mass Index : 24.28 kg/m2 ADA NELSON LPN - 04/14/2016 15:57 CDT General Info Languages : Kyrgyz Is Patient Female and 13-50 no hysterectomy : No ADA NELSON LPN - 04/14/2016 15:57 CDT Subjective Pain Symptoms : No ADA NELSON LPN - 04/14/2016 15:57 CDT Dependent Habits Exposure to Tobacco Smoke : Care provider denies smoking in home Smoking Status : Never smoker Tobacco 2A : No Tobacco Use/Currently Using : No Tobacco Use/Last 30 Days : No Tobacco Use/Last 12 months : No ADA NELSON LPN - 04/14/2016 15:57 CDT Source: [facility] [employer] Document Id: [id number] CDT!27 documented in this encounter Plan of Treatment Not on filedocumented as of this encounter Procedures Procedure Name Priority Date/Time Associated Diagnosis Comme nts DX CHEST AP OR PA Routine 04/14/2016 4:22 PM Resu lts for this AND LATERAL 2 VIEWS CDT procedur e are in the results section. documented in this encounter Results DX Chest Anterior Posterior or Posterior Anterior and Lateral 2 Views (04/14/2016 4:22 PM CDT) Anatomical Region Laterality Modality Chest N/A Radiographic Imaging Specimen (Source) Anatomical Collection Method Collection Time Re ceived Time Location / / Volume Laterality 04/14/2016 4:22 PM CDT Addenda Addendum by Provider, Betina Spencer 04/14/2016 4:22 PM CDT RAD^^^MA XR Chest 2 Views 04/14/2016 16:22:27 Narrative 04/14/2016 4:39 PM CDT Exam: ?? XR Chest 2 Views Clinical history: cough Comparison: 05/22/2013 Findings: The heart and mediastinum are within nor mal limits. ??The bilateral costophrenic angles and hemidiaphragms a re sharp. There is no acute interstitial or airspace opacity identif ied. The pulmonary vasculature is within normal limits. [<> ] Impression: No acute disease Procedure Note Goldy Shepard M.D. / Provider, Dustin olvera M.D. - 11/27/2016 Exam: XR Chest 2 Views Clinical history: cough Comparison: 05/22/2013 Findings: The heart and mediastinum are within nor mal limits. The bilateral costophrenic angles and hemidiaphragms a re sharp. There is no acute interstitial or airspace opacity identif ied. The pulmonary vasculature is within normal limits. [<> ] Impression: No acute disease [place] Bills(R) IMG DIAGNOSTIC IMAGING PROCE DURES documented in this encounter Visit Diagnoses Not on filedocumented in this encounter Additional Health Concerns Assessment Noted Time PHQ-9 Depression Total Score: 2 10/14/2015 4:09 PM CDT documented as of this encounter
--- OUTSIDE RECORDS SUMMARY | 2022-03-04 19:02 | XMS_ITS | Encounter Summary ---
:1960 Author Organization [facility] Address [address] [place] [address] Care Team Providers Name Role Phone Unavailable Primary Care Provider Unavailable Encounter Details Date Type Department Care Team Description 01/08/2013 Hospital Encounter HX [facility] Radha Barajas M.D. [address] [place] [address] (Wo rk) Social History Tobacco Use Types Packs/Day Years Used Date Smoking Tobacco: Never Assessed Sex Assigned at Date Recorded Not on file documented as of this encounter Last Filed Vital Signs Vital Sign Reading Time Taken Comments Blood Pressure 122/80 01/08/2013 2:43 PM CDT Pulse 64 01/08/2013 2:43 PM CDT Temperature - - Respiratory Rate 16 01/08/2013 2:43 PM CDT Oxygen Saturation - - Inhaled Oxygen Concentration - - Weight 79.3 kg (174 lb 13.2 oz) 01/08/2013 2:43 PM CDT Height 165 cm (5' 4.96) 01/08/2013 2:43 PM CDT Body Mass Index 29.13 01/08/2013 2:43 PM CDT documented in this encounter Medications at Time of Discharge Medication Sig Dispensed Refills Start Date End Date fluticasone propionate Administer 1 spray 0 01/04 (FLONASE) 50 into affected mcg/actuation nasal spray nostril(s). rizatriptan SPA THERAPIST Place 10 mg under 0 11/09/2010 (MAXALT-SPA THERAPIST) 10 mg the tongue. disintegrating tablet calcium carb/vit Os-Joe 250 with D 0 03/30/2010 0 02/05/2021 D3/minerals (CALCIUM-VITAMIN D ORAL) documented as of this encounter Progress Notes Tanvi Lai M.D. - 01/08/2013 2:30 PM CDT [id number] HISTORY OF PRESENT ILLNESS Dia is a 52-year-old here today for several issues. One, she is having hot flashes. She has been having night sweats and hot flashes for the last year or so, and her friend gave her an Estraderm patchto try and that really helped. She used it for 3 nights in a row, and she had no symptoms and woke up dry, and so she would like to have a prescription for that if she could. She does get her period regularly. She is on Nortrel and has been on that for several years. She tried to go off it last year but had a period for 6 months, and so she was placed back on it. She has not had any vaginal dryness. She is not currently sexually active. She has had no vaginal discharge, itching or odor. No dryness. No mood irritability or other symptomatology of menopause. She sees a practitioner in [place] for her physical. She has a mammogram yearly and had a Pap smear last year. Again, she is not currently in a sexual relationship. Her second issue is rosacea. She has been having more trouble with rosacea. She takes doxycycline evie daily basis for her rosacea and has been having more lesions, and she is wondering if she can havea change in medication for that. The other issue she has is a rash on her hands. She has red, sore, tender skin of the fingers and very distal part of the hand that get ear irritated when she is out in the sun or even when she washes dishes. She has no open wounds or cracking, but this has been a recurring problem for her as well. She is a nonsmoker. She does not have problems with other skin lesions. No moles or rashes. No pelvic pain. She is tolerant of the doxy without nausea or vomiting. SOCIAL HISTORY She is not . PAST MEDICAL/SURGICAL HISTORY Past medical history significant for: 1. Chronic fatigue syndrome. 2. COPD. 3. Anxiety and depression. PHYSICAL EXAMINATION She is in no apparent distress. Vitals are as noted. She is very pleasant. She is a good historian. Mood and affect are bright and engaging. She is very personable. Her vitals are as noted in the EMR. Skin is examined. She has no active rosacea. Her hands are examined. She has erythema and scale with t hickening of the skin on the dorsum of all fingers up to about the lower 1/3 of the hands just beyond the MCPs. She has some cracking and some evidence of bleeding around the nail beds. No other skin lesions are noted. She otherwise appears to have healthy hair texture and skin texture. IMPRESSION/REPORT/PLAN 1. Hot flashes. I switched her from the Nortrel to a low-dose estrogen pill. That should hopefully decrease the amount of night sweats she is having by giving her more consistent dose of estrogenevery day. I advised her not to take the estrogen transdermal patch. We talked about uterine cancer,excessive amounts of estrogen, risk factors of estrogen including strokes, Pes, breast cancer. We also talked about prevention. She is agreeable to that plan. I gave her 1 refill. I need to have proof of physical exam and mammogram to continue to give her those as an option or she can go through her regular doctor. 2. control. I advised her that she does not have active control using the doxycycline with a control pill as the doxycycline can interfere with control pill effectiveness. If she becomes sexually active, she is well aware of that. She can use condoms, IUD or other options or get her off the doxycycline. 3. Rosacea. No active lesions at this time. No changes are made. It is possible with a different control pill she may have less lesions. She will call if she has persistent problems. 4. Eczema, contact dermatitis likely. I gave her triamcinolone 0.1% lotion to use 3 times a day to the affected area for the next 5 days. She will call if problems and 30mL given without a refill. She will follow up with her regular doctor otherwise. Again, she left with good understanding about family planning at her age with her medications. May also try a trial off her control and Prempro if she continues to have problems. FSH would be helpful as well off the control to see how close to menopause she is. This was all discussed. She left with good understanding. Tanvi Lai M.D./lashell Electronically Signed By: TANVI LAI MD On: 01/11/2013 10:26 AM Source: [facility] [id number] Document Id: [id number] documented in this encounter Miscellaneous Notes Miscellaneous - Kari Henderson, L.P.N. - 04/27/2013 3:45 PM CDT Custom Result Letter 27 April 2013 DIA SOTELO [address] [place] [id number] Dear DIA SOTELO, Thank you for choosing [facility] for your health care needs. Your chart indicates that you are due for colorectal cancer screening. To schedule a colonoscopy or the InSure?? FIT test please call our office at [phone] or and ask for the [facility]. Regular screening, beginning at age 50 and continuing until age 75 years is the chatman to preventing colorectal cancer. People at higher risk of developing colorectal cancer should begin screening at a younger age, and may need to be tested more frequently. Recommended screening tests and interval are: The InSure?? FIT test detects if there is any hidden blood in your stool. The presence of blood may be a sign of lower gastrointestinal disorders that should be treated. The sample is collected in the privacy of your home and the test is then developed at laboratories. Colonoscopy is a flexible, lighted tube is used to look at the interior pate of the rectum and the entire colon, should be done every 10 years or as advised. During this procedure, samples of tissue may be collected for closer examination, or polyps may be removed. Sincerely, KARI HENDERSON Electronic Signature Electronically Signed By: KARI HENDERSON LPN On: 27 April 2013 This document has images extracted. Source: [facility] POWERCHART Document Id: [id number] Miscellaneous - Tanvi Lai M.D. - 01/08/2013 3:24 PM CDT Ambulatory Patient Summary [address] [address] Visit Information Name: DIA SOTELO [facility] Number: [id number] Current Date: 01/08/2013 15:24:36 Physicians Attending Provider: TANVI LAI MD Primary Care Provider: TANVI LAI MD Your Medications Here is a list of your medications. It is important to take your medications as directed. Use a pillbox or chart to help remind you to take your medications. Please let your doctor or nurse know if you have problems taking your medications. Medication/Strength Dose Route Frequency Indications/Special Instructions/Comments triamcinolone topical (triamcinolone 0.1% topical lotion) 1 sylvester Topical three times a day levonorgestrel-ethinyl estradiol (Alesse 100 mcg-20 mcg oral tablet) 1 tab(s) Oral once a day doxycycline (doxycycline) 100 mg Oral two times a day gabapentin (Neurontin 600 mg oral tablet) 600 mg Oral two times a day calcium-vitamin D (Os-Joe 250 with D) multivitamin, [...] them until youcontact your provider for clarification. Your Allergies & Intolerances Substance Reaction Symptoms Category Comments codeine nausea, vomiting Drug Ambien sleep walking Drug Reglan Panic attack Drug Your Problem List Problem Status Onset Comments Depression* Active Anxiety neurosis Active COPD* Active Your Upcoming Appointments Date Time Location Reason Provider No Appointments found Your Goals/Additional instructions: Source: [facility] POWERCHART Document Id: [id number] Miscellaneous - Tanvi Lai M.D. - 01/08/2013 3:24 PM CDT Ambulatory Depart Summary [address] [address] Visit Information Name: DIA SOTELO SHIRIN [facility] Number: [id number] Visit Date: 01/08/2013 15:24:35 Attending Provider: TANVI LAI MD Primary Care Provider: TANVI LAI MD DIA SOTELO has been given the following list of medications: Your Medications It is important to take your medications as directed. Use a pill box or chart to help remind you to take your medications. Please let your doctor or nurse know if you have problems taking your medications. Medication/Strength Dose Route Frequency Indications/Special Instructions/Comments triamcinolone topical (triamcinolone 0.1% topical lotion) 1 sylvester Topical three times a day levonorgestrel-ethinyl estradiol (Alesse 100 mcg-20 mcg oral tablet) 1 tab(s) Oral once a day doxycycline (doxycycline) 100 mg Oral two times a day gabapentin (Neurontin 600 mg oral tablet) 600 mg Oral two times a day calcium-vitamin D (Os-Joe 250 with D) multivitamin, [...] them until youcontact your provider for clarification. Additional Information: Source: [facility] POWERCHART Document Id: [id number] Miscellaneous - Ada Nelson L.P.N. - 01/08/2013 2:43 PM CDT Adult High Scaler Intake/History Adult High Scaler Intake/History Entered On: 01/08/2013 14:48 CDT Performed On: 01/08/2013 14:43 CDT by ADA NELSON PARAMEDIC RN Intake Chief Complaint : Night sweats for couple years. Different acne med, has been using the doxy and isnt working as well. Hand redness. Temperature Core : 37.1 DegC(Converted to: 98.8 DegF) Peripheral Pulse Rate : 64 /min Respiratory Rate : 16 /min Systolic Blood Pressure : 122 mmHg Diastolic Blood Pressure : 80 mmHg NIBP Mean : 94 mmHg SpO2 : 98 % Height : 165 cm(Converted to: 5 ft 5 inch(es), 64.96 inch(es)) Actual Weight : 79.3 kg(Converted to: 174 lb 13 oz) Dosing Weight Clinic : 79.3 kg Clinic BSA : 1.91 Body Mass Index : 29.13 kg/m2 ADA NELSON LPN - 01/08/2013 14:43 CDT General Info Languages : Turkmen ADA NELSON LPN - 01/08/2013 14:43 CDT Subjective Pain Symptoms : No ADA NELSON LPN - 01/08/2013 14:43 CDT Dependent Habits Tobacco Use/Currently Using : No Smoking Status : Never smoker ADA NELSON LPN - 01/08/2013 14:43 CDT Source: [employer] Document Id: [id number] CDT!22 documented in this encounter Plan of Treatment Not on filedocumented as of this encounter Visit Diagnoses Not on filedocumented in this encounter
--- OUTSIDE RECORDS SUMMARY | 2022-03-04 19:02 | XMS_ITS | Encounter Summary ---
:1960 [facility] Address [address] [place] [address] Care Team Providers Name Role Phone Unavailable Primary Care Provider Unavailable Encounter Details Date Type Department Care Team Description 01/22/2016 Hospital Encounter HX [facility] MANP Ming Luque M.D. [address] [place] [phone] (Wo rk) Social History Tobacco Use Types Packs/Day Years Used Date Smoking Tobacco: Never Assessed Sex Assigned at Date Recorded Not on file documented as of this encounter Last Filed Vital Signs Vital Sign Reading Time Taken Comments Blood Pressure 140/86 01/22/2016 4:27 PM CDT Pulse 61 01/22/2016 4:27 PM CDT Temperature - - Respiratory Rate 16 01/22/2016 4:27 PM CDT Oxygen Saturation - - Inhaled Oxygen Concentration - - Weight 74.4 kg (164 lb 0.4 oz) 01/22/2016 4:27 PM CDT Height 164 cm (5' 4.57) 01/22/2016 4:27 PM CDT Body Mass Index 27.66 01/22/2016 4:27 PM CDT documented in this encounter Medications at Time of Discharge Medication Sig Dispensed Refills Start Date End Date calcium carbonate Take by mouth. 0 11/03/2015 (OS-ASIF) 1,250 mg (500 mg calcium) tablet cetirizine 10 mg capsule Take 10 mg by mouth. 0 0 09/30/2014 fluticasone propionate Administer 1 spray 0 01/04 (FLONASE) 50 into affected mcg/actuation nasal spray nostril(s). rizatriptan PHOTOGRAPHER MODEL Place 10 mg under 0 11/09/2010 (MAXALT-PHOTOGRAPHER MODEL) 10 mg the tongue. disintegrating tablet calcium carb/vit Os-Asif 250 with D 0 03/30/2010 0 02/05/2021 D3/minerals (CALCIUM-VITAMIN D ORAL) documented as of this encounter Progress Notes Ming Ni M.D. - 01/22/2016 4:42 PM CDT Clinic Full Note CHIEF COMPLAINT/REASON FOR VISIT left knee torn meniscus years ago, re injured last evening getting out of a car, would like a bracefor her knee, has appt with ortho 02/05/16 in [place], is having surgery on right knee soon for torn meniscus HISTORY OF PRESENT ILLNESS 55 year old female presents today for knee pain on both sides. Left knee pain worse last night after getting out of her car and twisted. Had torn meniscus many years ago, and no surgery done, did morewalking last week, pain increased, no swelling. Known meniscus tear at right knee more than a year ago, and did not have surgery either. She has Orthopedics appointment on 02/05/2016 for her knee condition. Would like knee braces for now. MEDICATIONS Ativan, 1 mg, PO, PRN busPIRone, 15 mg, 2xDay Cymbalta, 60 mg, PO, Daily doxycycline, 100 mg, PO, 2xDay Flonase 50 mcg/inh nasal spray, 2 spray(s), Nostrils(Both), Daily, 2 refills labetalol, 50 mg, PO, Daily Neurontin 600 mg oral tablet, See Instructions, 300mg q am and 600mg q pm ZyrTEC, 10 mg, PO, Daily ALLERGIES Ambien (sleep walking) codeine (nausea, vomiting) Reglan (Panic attack) PAST MEDICAL HISTORY Chronic Anxiety neurosis Chronic Fatigue Syndrome (CFS) COPD* Depression* Hypertension (HTN) Chronic Historical No historical problems PROCEDURES/SURGICAL HISTORY Pap smear (02/05/2015), Colonoscopy (09/08/2013), History of knee surgery, Hyperhidrosis. SOCIAL HISTORY Date Time: 01/22/2016 16:27 Tobacco: Smoking Status: Never smoker Exposure: Care provider denies smoking in home Alcohol: Use: No Results Found Recreational Drugs: Use: No Results Found Type: No Results Found FAMILY HISTORY Mother:Positive: Hypertension Father:Positive: Hypertension Brother:Positive: Hypertension Brother:Positive: Hypertension Brother:Positive: Hypertension SYSTEMS REVIEW All other systems review are negative except both knee pain. VITAL SIGNS T: 36.9 ??C (Core) HR: 61 RR: 16 BP: 140 / 86 SpO2: 98% HT: 164 cm WT: 74.4 kg BMI: 27.66 PHYSICAL EXAMINATION GENERAL: alert, oriented, normal speech, pleasant. LUNGS: clear to auscultation, no wheezing or rales. HEART: normal sinus rhythm, normal S1, S2, no murmurs. EXTREMITIES: both knees normal shape, no swelling, no effusions, and no joint line tenderness, and normal range of motion, and left knee medical ligament area tenderness. NEUROLOGY: no deficits noticed. PSYCHIATRY: alert and oriented to time, person and place, normal affect, and stable mood. IMPRESSION/REPORT/PLAN 1. Injury Knee Initial L Left knee known meniscus tear, new knee strain with pain. Activity modification and Orthopedics in 2 weeks. 2. Deranged Meniscus NOS Right knee known meniscus tear per patient report. Orthopedics in 2 weeks. Knee brace for comfort and pain control. Electronically Signed By: MING NI MD On: 01/22/2016 04:48 PM [facility] POWERCH[facility] Document Id: [id number] documented in this encounter Miscellaneous Notes Miscellaneous - Iwona Pina - 03/17/2016 3:28 PM CDT TOD-NEW BP MEDS Document Contains Addenda Addendum by CHICO HUBBARD RN on March 18, 2016 08:39:33 CDT spoke with patient and advised of phys advise as seen below -- patient ok with this plan. Advised to contact the clinic if having any further questions/concerns. Patient reports that she will call back to schedule an appt with a nurse for BP/HR check Addendum by MING NI MD on March 18, 2016 08:02:13 CDT From: MING NI MD To: [facility] Nurse; Sent: 03/18/2016 08:02:13 CDT Subject: RE: ELIZABETHNEW BP MEDS 48 is too low. It is reassuring that she has no symptoms of dizziness or shortness of breath. She should decrease the medication dose to once daily. Please have her come in for blood pressure and heartrate check with a nurse. Thank you. Addendum by IRENA DIAL RN on March 17, 2016 15:37:56 CDT From: IRENA DIAL RN ([facility] Nurse) To: MING NI MD; Sent: 03/17/2016 15:37:56 CDT Subject: FW: TOD-NEW BP MEDS Patient calling to update you, since starting the metoprolol her HR has decreased. She states that she had it checked at an appointment yesterday and she was 48, she checked it at home later in the evening and she was still 48. She notes no symptoms noted. She remembered you had told her to notify youif her heart rate was getting low. please advise recommendations. From: IWONA PINA ([facility]) To: [facility] Nurse; Cc: [facility]; Sent: 03/17/2016 15:28:24 CDT Subject: TOD-NEW BP MEDS If you need a prescription refill please call your pharmacy. Please allow 3 business days for processing. Call Center Template: ?? May we leave a message for you on this phone? ?? How soon do you need a call back? ?? What can I help you with today? she's on a new bp medication and takes it twice a day and said that her heart rate sometimes during the day is at a 48 wondering if that's ok please call her back. ?? If Medication Refill: o What is the medication? o What pharmacy do you use? o Have you contacted your pharmacy regarding this request? I will send this information to the appropriate staff member who will look into your concern. If thenurse needs to talk to you he or she will call you back within two hours. Thank you for calling [facility]. Source: [facility] POWERCHART Document Id: [id number] Electronically signed by Conversion, [facility] Welder [employer] [id number] at 12/18/2016 6:28 PM CDT Miscellaneous - Ming Ni M.D. - 01/22/2016 4:48 PM CDT Ambulatory Patient Summary [address] [id number] Visit Information Name: [facility] Number: [id number] Current Date: 01/22/2016 16:48:55 Physicians Attending Provider: MING NI MD Primary Care Provider: PCP, ELSEWHERE AILYN [...] (ZyrTEC) 10 mg, Oral, once a day doxycycline (doxycycline) 100 mg, Oral, two times a day duloxetine (Cymbalta) 60 mg, Oral, once a day fluticasone nasal (Flonase 50 mcg/inh nasal spray) 2 Elgin(s), Nostrils(Both), once a day gabapentin (Neurontin 600 mg oral tablet) See Instructions 300mg q am and 600mg q pm labetalol (labetalol) 50 mg, Oral, once a day lorazepam (Ativan) 1 mg, Oral, as needed Stop Taking the Following Medications: Medication list as of 01-22-16 16:48 Attention: If you have any medications at home that are not on this list, DO NOT take them until youcontact your provider for clarification. Give a copy of your medication list to your primary care provider. Update your medication list any time medications or doses are changed and carry your medication list at all times in case of emergency. Electronically Signed By: MING NI MD Signed On:22-JAN-2016 16:48:52 Your Allergies & Intolerances Substance Reaction Symptoms Category Comments codeine nausea, vomiting Drug Ambien sleep walking Drug Reglan Panic attack Drug Your Problem List Problem Status Onset Comments Depression* Active Anxiety neurosis Active COPD* Active Hypertension (HTN) Chronic Active Chronic Fatigue Syndrome (CFS) Active Your Upcoming Appointments Date Time Location Provider No Appointments found Attention: Contact your local Clinic if further appointment detail needed. Consider Using Patient Online Services Patient Online [...] if you dont have one. Go to [email or web address] and click on Create Your Account. Then, follow the directions to complete the online form. Youll be asked for your [facility] number which you can find at the top of this document. Your Goals/Additional instructions: Source: [facility] POWERCHART Document Id: [id number] Miscellaneous - Ming Ni M.D. - 01/22/2016 4:48 PM CDT Ambulatory Discharge Medication List [address] [id number] Visit Information Name: [facility] Number: [id number] Visit Date: 01/22/2016 16:48:54 Attending Provider: MING NI MD Primary Care Provider: PCP, AILYN PERSAUD has been given the following list of [...] (ZyrTEC) 10 mg, Oral, once a day doxycycline (doxycycline) 100 mg, Oral, two times a day duloxetine (Cymbalta) 60 mg, Oral, once a day fluticasone nasal (Flonase 50 mcg/inh nasal spray) 2 Elgin(s), Nostrils(Both), once a day gabapentin (Neurontin 600 mg oral tablet) See Instructions 300mg q am and 600mg q pm labetalol (labetalol) 50 mg, Oral, once a day lorazepam (Ativan) 1 mg, Oral, as needed Stop Taking the Following Medications: Medication list as of 01-22-16 16:48 Attention: If you have any medications at home that are not on this list, DO NOT take them until youcontact your provider for clarification. Give a copy of your medication list to your primary care provider. Update your medication list any time medications or doses are changed and carry your medication list at all times in case of emergency. Electronically Signed By: MING NI MD Signed On:22-JAN-2016 16:48:52 Additional Information: Source: [facility] POWERCHART Document Id: [id number] Miscellaneous - Man Gramajo, L.P.N. - 01/22/2016 4:27 PM CDT Adult Tower Technician Intake/History Adult Tower Technician Intake/History Entered On: 01/22/2016 16:29 CDT Performed On: 01/22/2016 16:27 CDT by MAN GRAMAJO METAL PUNCH PRESS OPERATOR Intake Chief Complaint : left knee torn meniscus years ago, re injured last evening getting out of a car, would like a brace for her knee, has appt with ortho 02/05/16 in [place], is having surgery on right knee soon for torn meniscus Temperature Core : 36.9 DegC(Converted to: 98.4 DegF) Peripheral Pulse Rate : 61 /min Respiratory Rate : 16 /min Heart Rhythm : Regular Systolic Blood Pressure : 140 mmHg Diastolic Blood Pressure : 86 mmHg NIBP Mean : 104 mmHg BP Location : Right upper extremity Blood Pressure Cuff Size : Regular SpO2 : 98 % Oxygen Therapy : Room air Height : 164 cm(Converted to: 5 ft 5 inch(es), 65 inch(es)) Actual Weight : 74.4 kg(Converted to: 164 lb 0 oz) Weight Source : Standing scale Dosing Weight Clinic : 74.4 kg Clinic BSA : 1.84 Body Mass Index : 27.66 kg/m2 MAN GRAMAJO [facility] - 01/22/2016 16:27 CDT General Info Information Given By : Patient Preferred Communication Mode : Verbal Languages : Georgian Is Patient Female and 13-50 no hysterectomy : No MAN GRAMAJO [facility] - 01/22/2016 16:27 CDT Subjective Pain Symptoms : Yes MAN GRAMAJO [facility] - 01/22/2016 16:27 CDT Pain Scale Pain Scale Verbal 0-10 : Open MAN GRAMAJO [facility] - 01/22/2016 16:27 CDT Pain Pain Assessment Grid Pain 1 Location : Knee Laterality : Bilateral MAN GRAMAJO [facility] 01/22/2016 16:27 CDT Dependent Habits Exposure to Tobacco Smoke : Care provider denies smoking in home Smoking Status : Never smoker Tobacco 2A : No Tobacco Use/Currently Using : No Tobacco Use/Last 30 Days : No Tobacco Use/Last 12 months : No MAN GRAMAJO [facility] - 01/22/2016 16:27 CDT Source: [employer] Document Id: [id number] CDT!41 documented in this encounter Plan of Treatment Not on filedocumented as of this encounter Visit Diagnoses Not on filedocumented in this encounter Additional Health Concerns Assessment Noted Time PHQ-9 Depression Total Score: 2 10/14/2015 4:09 PM CDT documented as of this encounter
--- OUTSIDE RECORDS SUMMARY | 2022-03-04 19:02 | XMS_ITS | Encounter Summary ---
:1960 Author Organization [facility] Address [address] [place] [address] Care Team Providers Name Role Phone Unavailable Primary Care Provider Unavailable Encounter Details Date Type Department Care Team Description 01/07/2016 Hospital Encounter HX [facility] GENEVIEVE GONZALEZMarcio Chang P.A.-C., TAVIA Social History Tobacco Use Types Packs/Day Years Used Date Smoking Tobacco: Never Assessed Sex Assigned at Date Recorded Not on file documented as of this encounter Last Filed Vital Signs Vital Sign Reading Time Taken Comments Blood Pressure 116/64 01/07/2016 6:12 PM CDT Pulse 60 01/07/2016 6:12 PM CDT Temperature - - Respiratory Rate - - Oxygen Saturation - - Inhaled Oxygen Concentration - - Weight - - Height 164 cm (5' 4.57) 01/07/2016 6:12 PM CDT Body Mass Index - - documented in this encounter Medications at Time of Discharge Medication Sig Dispensed Refills Start Date End Date calcium carbonate Take by mouth. 0 11/03/2015 (OS-ASIF) 1,250 mg (500 mg calcium) tablet cetirizine 10 mg capsule Take 10 mg by mouth. 0 0 09/30/2014 fluticasone propionate Administer 1 spray 0 01/04 (FLONASE) 50 into affected mcg/actuation nasal spray nostril(s). rizatriptan BARYTES GRINDER Place 10 mg under 0 11/09/2010 (MAXALT-BARYTES GRINDER) 10 mg the tongue. disintegrating tablet calcium carb/vit Os-Asif 250 with D 0 03/30/2010 0 02/05/2021 D3/minerals (CALCIUM-VITAMIN D ORAL) documented as of this encounter Progress Notes Chan Obregon P.A.-C. - 01/07/2016 6:10 PM CDT [id number] LOCATION: [facility] CHIEF COMPLAINT/REASON FOR VISIT Left ear pain. MEDICATIONS Review documentation in [employer]. ALLERGIES Review documentation in [employer]. HISTORY OF PRESENT ILLNESS She has had left ear pain for weeks. I see that she did see another provider December 14 and he treated her for otitis externa, as he felt she had scratched her ear canal and it was infected from digging inthere. She also had an irrigation to clear the ear wax at that time, and a little bit of an effusionwas noted. She indicates that her ear has not gotten better. She is a never-smoker. She does have a long history of allergy issues and is on her Zyrtec, she has been taking that. SYSTEMS REVIEW CONSTITUTIONAL: Negative for fever, fatigue or body aches. ENT: She has the ear pain and pressure, some nasal congestion off and on from her allergies. No sore throat. RESPIRATORY: No cough. SKIN: No rashes. GI: No stomach upset. PAST MEDICAL/SURGICAL HISTORY Please see the ambulatory summary in the electronic medical record. She does have some depression and anxiety issues. Hypertension. COPD. Chronic fatigue as well. She is on medications for those issues. PHYSICAL EXAMINATION PSYCH: Alert and oriented. She is somewhat anxious today. ENT: Ears: Both canals are clear. They are not reddened. The tympanic membranes are both pearly grayand bulging from clear fluid. Nose: A little bit of clear nasal drainage. Throat is clear. No lymphadenopathy. SKIN: Color pink. Warm and dry. IMPRESSION/REPORT/PLAN Serous otitis, secondary to under-treated allergies at this time. When I was explaining the phenomenon with a diagram to the patient, she initially became upset with me, but after a few minutes of discussion she calmed down and did agree that this has been an issue with her before, so she agrees to take the Zyrtec every day. We will start Flonase nasal spray 2 sprays each nostril once daily until earsymptoms subside. She can take Tylenol or ibuprofen as needed for comfort. She is to follow up for any further concerns. She is in agreement with this plan. Fe Wahl./pos Electronically Signed By: CHAN OBREGON PA-C On: 01/08/2016 02:11 PM Source: [facility] MHSDOLBEYNTERRYSYS Document Id: [id number] documented in this encounter Miscellaneous Notes Miscellaneous - Chan Obregon P.A.-C. - 01/07/2016 6:31 PM CDT Ambulatory Patient Summary [facility] Care - [address] [id number] Visit Information Name: AILYN SOTELO [facility] Number: [id number] Current Date: 01/07/2016 18:31:09 Physicians Attending Provider: CHAN OBREGON PA-C Primary Care Provider: PCP, ELSEWHERE AILYN SOTELO [...] nasal (Flonase 50 mcg/inh nasal spray) 2 Hunt(s), Nostrils(Both), once a day New Routedto Printer gabapentin (Neurontin 600 mg oral tablet) See Instructions 300mg q am and 600mg q pm labetalol (labetalol) 50 mg, Oral, once a day lorazepam (Ativan) 1 mg, Oral, as needed Stop Taking the Following Medications: Medication list as of 01-07-16 18:31 Attention: If you have any medications at home that are not on this list, DO NOT take them until youcontact your provider for clarification. Give a copy of your medication list to your primary care provider. Update your medication list any time medications or doses are changed and carry your medication list at all times in case of emergency. Electronically Signed By: Signed On: Your Allergies & Intolerances Substance Reaction Symptoms [...] if you dont have one. Go to [email or web address] and click on Create Your Account. Then, follow the directions to complete the online form. Youll be asked for your [facility] number which you can find at the top of this document. Your Goals/Additional instructions: Source: [facility] POWERCHART Document Id: [id number] Miscellaneous - Chan Obregon P.A.-C. - 01/07/2016 6:31 PM CDT Ambulatory Discharge Medication List [facility] - [address] [id number] Visit Information Name: AILYN SOTELO [facility] Number: [id number] Visit Date: 01/07/2016 18:31:08 Attending Provider: CHAN OBREGON PA-C Primary Care Provider: PCP, AILYN PERSAUDANNE has been given the following list of [...] nasal (Flonase 50 mcg/inh nasal spray) 2 Hunt(s), Nostrils(Both), once a day New Routedto Printer gabapentin (Neurontin 600 mg oral tablet) See Instructions 300mg q am and 600mg q pm labetalol (labetalol) 50 mg, Oral, once a day lorazepam (Ativan) 1 mg, Oral, as needed Stop Taking the Following Medications: Medication list as of 01-07-16 18:31 Attention: If you have any medications at home that are not on this list, DO NOT take them until youcontact your provider for clarification. Give a copy of your medication list to your primary care provider. Update your medication list any time medications or doses are changed and carry your medication list at all times in case of emergency. Electronically Signed By: Signed On: Additional Information: Source: [facility] POWERCHART Document Id: [id number] Miscellaneous - Kim Thrope, CPavanM.A. 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 Machine Operator Intake/History Entered On: 01/07/2016 18:15 CDT Performed On: 01/07/2016 18:12 CDT by KIM THORPE Intake Chief Complaint : Left ear ache; glands ache; roof of mouth of mouth, tired Onset of Symptoms : ear: few weeks Temperature Core : 36.9 DegC(Converted to: 98.4 DegF) Peripheral Pulse Rate : 60 /min Systolic Blood Pressure : 116 mmHg Diastolic Blood Pressure : 64 mmHg NIBP Mean : 81 mmHg Height : 164 cm(Converted to: 5 ft 5 inch(es), 65 inch(es)) KIM THORPE - 01/07/2016 18:12 CDT General Info Languages : Bahamian Is Patient Female and 13-50 no hysterectomy : No KIM THORPE - 01/07/2016 18:12 CDT Subjective Pain Symptoms : Yes KIM THORPE - 01/07/2016 18:12 CDT Pain Scale Pain Scale Verbal 0-10 : Open KIM THORPE - 01/07/2016 18:12 CDT Pain Pain Assessment Grid Pain 1 Location : Ear Laterality : Left KIM THORPE - 01/07/2016 18:12 CDT Dependent Habits Exposure to Tobacco Smoke : Care provider denies smoking in home Smoking Status : Never smoker Tobacco 2A : No Tobacco Use/Currently Using : No Tobacco Use/Last 30 Days : No Tobacco Use/Last 12 months : No KMI THORPE - 01/07/2016 18:12 CDT Source: [place] Document Id: [id number] CDT!29 documented in this encounter Plan of Treatment Not on filedocumented as of this encounter Visit Diagnoses Not on filedocumented in this encounter Additional Health Concerns Assessment Noted Time PHQ-9 Depression Total Score: 2 10/14/2015 4:09 PM CDT documented as of this encounter
--- OUTSIDE RECORDS SUMMARY | 2022-03-04 19:02 | XMS_ITS | Encounter Summary ---
:1960 Author Organization [facility] Address [address] [place] [address] Care Team Providers Name Role Phone Unavailable Primary Care Provider Unavailable Encounter Details Date Type Department Care Team Description 09/17/2015 Hospital Encounter HX NO MAPPING Julienne Crane P .A.-C., [place] Social History Tobacco Use Types Packs/Day Years Used Date Smoking Tobacco: Never Assessed Sex Assigned at Date Recorded Not on file documented as of this encounter Medications at Time of Discharge Medication Sig Dispensed Refills Start Date End Date cetirizine 10 mg capsule Take 10 mg by mouth. 0 0 09/30/2014 fluticasone propionate Administer 1 spray 0 01/04 (FLONASE) 50 into affected mcg/actuation nasal spray nostril(s). rizatriptan RAIL CAR MAINTENANCE MECHANIC Place 10 mg under 0 11/09/2010 (MAXALT-RAIL CAR MAINTENANCE MECHANIC) 10 mg the tongue. 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 However, the narrative phrase printed from the coding software may appear abbreviated, or result in slightly different terminology. Coded By: SPENCER DIEZ Saved: 09/29/2015 10:35 am Source: [facility] POWERCHART Document Id: [id number] documented in this encounter Plan of Treatment Not on filedocumented as of this encounter Visit Diagnoses Not on filedocumented in this encounter Additional Health Concerns Assessment Noted Time PHQ-9 Depression Total Score: 9 09/03/2014 3:39 PM SOLE LEVELING MACHINE OPERATOR documented as of this encounter
--- OUTSIDE RECORDS SUMMARY | 2022-03-04 19:02 | XMS_ITS | Encounter Summary ---
:1960 Author Organization [facility] Address [address] [place] [address] Care Team Providers Name Role Phone Unavailable Primary Care Provider Unavailable Encounter Details Date Type Department Care Team Description 10/14/2015 Hospital Encounter [facility]X [facility] Bere Adams M.D. [address] [place] [address] (Wo rk) Social History Tobacco Use Types Packs/Day Years Used Date Smoking Tobacco: Never Assessed Sex Assigned at Date Recorded Not on file documented as of this encounter Last Filed Vital Signs Vital Sign Reading Time Taken Comments Blood Pressure 136/72 10/14/2015 4:07 PM CDT Pulse 54 10/14/2015 4:07 PM CDT Temperature - - Respiratory Rate 14 10/14/2015 4:07 PM CDT Oxygen Saturation - - Inhaled Oxygen Concentration - - Weight 74.1 kg (163 lb 5.8 oz) 10/14/2015 4:07 PM CDT Height 164 cm (5' 4.57) 10/14/2015 4:07 PM CDT Body Mass Index 27.55 10/14/2015 4:07 PM CDT documented in this encounter Medications at Time of Discharge Medication Sig Dispensed Refills Start Date End Date cetirizine 10 mg capsule Take 10 mg by mouth. 0 0 09/30/2014 fluticasone propionate Administer 1 spray 0 01/04 (FLONASE) 50 into affected mcg/actuation nasal spray nostril(s). 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 disintegrating tablet calcium carb/vit Os-Joe 250 with D 0 03/30/2010 0 02/05/2021 D3/minerals (CALCIUM-VITAMIN D ORAL) documented as of this encounter Progress Notes Rafa Zaman M.D. - 10/14/2015 3:28 PM CDT [id number] CHIEF COMPLAINT/REASON FOR VISIT Blood pressure follow up. HISTORY OF PRESENT ILLNESS A 55-year-old female, who has been treated for elevated blood pressure for several years. She was initially started in the emergency department on labetalol and she gradually has been decreasing her dosage now on 50 mg daily. Dia denies any new symptoms. She reports that with weight loss her blood pre ssure usually responds appropriately and she is wondering if she can get off of medication. Her regular medical care is provided by [facility] and she plans to continue regular primary care through that venue. MEDICATIONS Current meds: Ativan as needed. Buspirone. Cymbalta. Labetalol. Neurontin. Os-Joe. vitamins. Zyrtec. PAST MEDICAL/SURGICAL HISTORY PAST HISTORY: 1. Hypertension. 2. Depression/anxiety. SYSTEMS REVIEW Review of systems negative for fever, chills, sweats, shortness of breath or chest pain. No medication intolerances noted. PHYSICAL EXAMINATION VITAL SIGNS: Temp 37.2, heart rate 54, blood pressure 136/72, weight is 74 kg. SKIN: Warm and dry. LUNGS: Sounds are clear. HEART: Rhythm is regular without a murmur. No pedal edema. IMPRESSION/REPORT/PLAN 1. Hypertension. PLAN: Dia's blood pressure has been in good control the last three measurements she has taken here.In the event that she needs long-term blood pressure management, I would wonder if she might have better statistical success using either an DARIEL inhibitor, diuretic or calcium channel gianna versus the labetalol as noted above. None the less, she would like to try off and I think it is reasonable. She is to consider follow up blood pressure recheck in a couple of weeks with nursing staff and if medication restart is required, I would suggest a trial of lisinopril 5 mg by mouth daily as the next step. Rafa Zaman M.D./pos Electronically Signed By: RAFA ZAMAN MD On: 10/17/2015 01:01 PM Source: [facility] MHSDOLBEYNONRADSYS Document Id: [id number] documented in this encounter Miscellaneous Notes Miscellaneous - Rafa Zaman M.D. - 10/14/2015 4:34 PM CDT Ambulatory Patient Summary [address] [id number] Visit Information Name: SERENADIA GUTIÉRREZ SHIRIN [facility] Number: [id number] Current Date: 10/14/2015 16:34:38 Physicians Attending Provider: RAFA ZAMAN MD Primary Care Provider: RAFA ZAMAN MD DEEPAKRAFIQMia CARPIO has been given the following list of [...] , two times a day calcium-vitamin D (Os-Joe 250 with D) cetirizine (ZyrTEC) 10 mg, Oral, once a day doxycycline (doxycycline) 100 mg, Oral, two times a day duloxetine (Cymbalta) 60 mg, Oral, once a day gabapentin (Neurontin 600 mg oral tablet) See Instructions 300mg q am and 600mg q pm labetalol (labetalol) 50 mg, Oral, once a day lorazepam (Ativan) 1 mg, Oral, as needed multivitamin, ( Multivitamins oral capsule) Stop Taking the Following Medications: Medication list as of 10-14-15 16:34 Attention: If you have any medications at [...] Electronically Signed By: RAFA ZAMAN MD Signed On:14-OCT-2015 16:32:37 Your Allergies & Intolerances Substance Reaction Symptoms Category Comments codeine nausea, vomiting Drug Ambien sleep walking Drug Reglan Panic attack Drug Your Problem List Problem Status Onset Comments Depression* Active Anxiety neurosis Active COPD* Active Hypertension (HTN) Chronic Active Your Upcoming Appointments Date Time Location Provider No Appointments found Attention: Contact your local Clinic if further appointment detail needed. Risk Factors for Heart Disease A risk factor is something that increases your chance of having heart disease. Heart disease (also called coronary artery disease) involves damage to arteries, blood vessels that carry oxygen-rich blood through your body. Things like smoking or unhealthy cholesterol levels can damage arteries. You cant control some risk factors, such as age and a family history of heart disease. But most, including those listed below, are things you can control. Unhealthy Cholesterol Levels Cholesterol is a fatty substance in your blood. It can build up inside your arteries and block the blood flow to your heart or brain. Your risk of heart disease goes up if you have high levels of LDL (bad) cholesterol or triglycerides (another substance that can build up) Youre also at risk if you do n't have enough HDL cholesterol (good) cholesterol that clears the bad cholesterol away. Smoking This is the most important risk factor you can change. Smoking damages your arteries. It reduces blood flow to your heart and brain. It greatly increases your risk of heart disease, stroke, lung disease, and cancer. If you smoke, you are two to four times more likely to develop coronary artery disease. High blood pressure High blood pressure occurs when blood pushes too hard against artery pate as it passes through the arteries. This damages the artery lining. High blood pressure raises your risk of heart attack, also known as acute myocardial infarction, or AMI, and especially stroke. Negative Emotions Stress, pent-up anger, and other negative emotions have been linked to heart disease. Over time, these emotions could raise your heart disease risk. Metabolic Syndrome This is caused by a combination of certain risk factors. It puts you at extra high risk of heart disease, stroke, and diabetes. You have metabolic syndrome if you have three or more of the following: low HDL cholesterol; high triglycerides; high blood pressure; high blood sugar; extra weight around the waist. Diabetes Diabetes occurs when you have high levels of sugar (glucose) in your blood. This can damage arteriesif not kept under control. Having diabetes also makes you more likely to have a silent heart attack--one without any symptoms. Excess Weight Excess weight makes other risk factors, such as diabetes, more likely. Excess weight around the waist or stomach increases your heart disease risk the most. Lack of Physical Activity When youre not active, youre more likely to develop diabetes, high blood pressure, abnormal cholesterol levels, and excess weight. Most people with heart disease have more than one risk factor. ?? [id number] [facility], [address] [place] [address], [place] [address]. All rights reserved. This information is not intended as a substitute for professional medical care. Always follow your healthcare professional's instructions. What Is High Blood Pressure? High blood pressure (also called hypertension) is known as the silent killer. This is because most of the time it doesnt cause symptoms. In fact, many people dont know they have it until other problemsdevelop. In most cases, high blood pressure cant be cured. Its a disease that requires lifelong treatment. The good news is that it CAN be managed. Blood flows freely through a healthy artery. Artery pate are roughened by high blood pressure. Thismakes it easier for plaque to build up. Plaque collects, narrowing and stiffening the wall of the artery. Understanding Blood Pressure The circulatory system is made up of the heart and blood vessels that carry blood through the body. Your heart is the pump for this system. With each heartbeat (contraction), the heart sends blood out through large blood vessels called arteries. Blood pressure is a measure of how hard the moving bloodpushes against the pate of the arteries. High Blood Pressure Can Harm Your Health High blood pressure makes the heart work harder to pump blood. Frequent high blood pressure can alsocause changes in the artery pate. The pate thicken and become rough, which leads to a buildup of plaque (a fatty material). This can damage the arteries. It can also reduce blood flow through the artery. If blood pressure is not controlled, all these effects can lead to serious health problems. These include heart disease, heart attack (also known as acute myocardial infarction, or AMI), stroke, kidney disease, and blindness. Measuring Blood Pressure An example of a blood pressure measurement is 120/70 (120 over 70). The top number is the pressure of blood against the artery pate during a heartbeat (systolic). The bottom number is the pressure of blood against artery pate between heartbeats (diastolic). Talk with your health care provider to find out what your blood pressure goals should be. Controlling Blood Pressure If your blood pressure is too high, work with your doctor on a plan for lowering it. Below are stepsyou can take that will help lower your blood pressure. ?? Choose heart-healthy foods. Eating healthier meals helps you control your blood pressure. Ask your doctor about the DASH eating plan. This plan helps reduce blood pressure by limiting the amount of sodium (salt) you have in your diet. ?? Maintain a healthy weight. Being overweight makes you more likely to have high blood pressure. Losing excess weight helps lower blood pressure. ?? Exercise regularly. Daily exercise helps your heart and blood vessels work better and stay healthier. It can help lower your blood pressure. ?? Stop smoking. Smoking increases blood pressure and damages blood vessels. ?? Limit alcohol. Drinking too much alcohol can raise blood pressure. Men should have no more than 2drinks a day. Women should have no more than 1. (A drink is equal to 1 beer, or a small glass of wine, or a shot of liquor.) ?? Control stress. Stress makes your heart work harder and beat faster. Controlling stress helps youcontrol your blood pressure. Facts About High Blood Pressure Feeling OK does not mean that blood pressure is under control. Likewise, feeling bad doesnt mean its out of control. The only way to know for sure is to check your pressure regularly. Medication is only one part of controlling high blood pressure. You also need to manage your weight, get regular exercise, and adjust your eating habits. High blood pressure is usually a lifelong problem. But it can be controlled with healthy lifestyle changes and medication. Hypertension is not the same as stress. Although stress may be a factor in high blood pressure, its only one part of the story. Blood pressure medications need to be taken every day. Stopping suddenly may cause a d angerous increase in pressure. ?? [id number] [facility], [address] [place] [address], [place] [address]. All rights reserved. This information is not [...] if you dont have one. Go to [email or web address] and click on Create Your Account. Then, follow the directions to complete the online form. Youll be asked for your [facility] number which you can find at the top of this document. Your Goals/Additional instructions: This document has images extracted. Please consider using [employer] for all your patient education needs. Source: [facility] POWERCHART Document Id: [id number] Miscellaneous - Rafa Zaman M.D. - 10/14/2015 4:34 PM CDT Ambulatory Discharge Medication List [place] [place], [place] [id number] Visit Information Name: SERENADIA GUTIÉRREZ SHIRIN [facility] Number: [id number] Visit Date: 10/14/2015 16:34:37 Attending Provider: RAFA ZAMAN MD Primary Care Provider: RAFA ZAMAN MD DEEPAK DIA CARPIO has been given the following list of [...] , two times a day calcium-vitamin D (Os-Joe 250 with D) cetirizine (ZyrTEC) 10 mg, Oral, once a day doxycycline (doxycycline) 100 mg, Oral, two times a day duloxetine (Cymbalta) 60 mg, Oral, once a day gabapentin (Neurontin 600 mg oral tablet) See Instructions 300mg q am and 600mg q pm labetalol (labetalol) 50 mg, Oral, once a day lorazepam (Ativan) 1 mg, Oral, as needed multivitamin, ( Multivitamins oral capsule) Stop Taking the Following Medications: Medication list as of 10-14-15 16:34 Attention: If you have any medications at [...] Electronically Signed By: RAFA ZAMAN MD Signed On:14-OCT-2015 16:32:37 Additional Information: Source: [facility] ShotSpotter Document Id: [id number] Miscellaneous - Ada Nelson, AndreasPBen - 10/14/2015 4:09 PM CDT PHQ-9 PHQ-9 Entered On: 10/14/2015 16:10 CDT Performed On: 10/14/2015 16:09 CDT by ADA NELSON LPN PHQ-9 Little interest or pleasure in doing things : Not at all Feeling down, depressed, or hopeless : Not at all Trouble falling or staying asleep, or sleeping too much : More than half the days Feeling tired or having little energy : Not at all Poor appetite or overeating : Not at all Feeling bad about yourself or that you are a failure : Not at all Trouble concentrating on things : Not at all Moving or speaking slowly; restless or fidgety : Not at all Thoughts that you would be better off /hurting self : Not at all PHQ-9 Calculated Score : 2 ADA NELSON LPN - 10/14/2015 16:09 CDT Source: [facility] [employer]Spotter Document Id: [id number] CDT!12 Evangelista - Ada Nelson L.P.N. 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 check Peripheral Pulse Rate : 54 /min (LOW) Respiratory Rate : 14 /min Systolic Blood Pressure : 136 mmHg Diastolic Blood Pressure : 72 mmHg NIBP Mean : 93 mmHg SpO2 : 98 % Height : 164 cm(Converted to: 5 ft 5 inch(es), 65 inch(es)) Actual Weight : 74.1 kg(Converted to: 163 lb 6 oz) Dosing Weight Clinic : 74.1 kg Clinic BSA : 1.84 Body Mass Index : 27.55 kg/m2 ADA NELSON LPN - 10/14/2015 16:07 CDT General Info Languages : Slovenian Is Patient Female and 13-50 no hysterectomy : No ADA NELSON LPN - 10/14/2015 16:07 CDT Subjective Pain Symptoms : No ADA NELSON LPN - 10/14/2015 16:07 CDT Dependent Habits Exposure to Tobacco Smoke : Care provider denies smoking in home Smoking Status : Never smoker Tobacco 2A : No Tobacco Use/Currently Using : No Tobacco Use/Last 30 Days : No Tobacco Use/Last 12 months : No ADA NELSON LPN - 10/14/2015 16:07 CDT Source: [facility] POWERCHART Document Id: [id number] CDT!26 Evangelista - Ada Nelson L.P.N. - 10/14/2015 4:06 PM CDT Health Assessment Health Assessment Entered On: 10/14/2015 16:06 CDT Performed On: 10/14/2015 16:06 CDT by ADA NELSON LPN Health Assessment Complete Health Assessment Complete or Modified : Annual Health Assessment Annual Health Assessment Completed : Yes ADA NELSON LPN - 10/14/2015 16:06 CDT Nutrition Nutrition Risk Factors by History Adult : None LESLIE ADA Moncada LPN - 10/14/2015 16:06 CDT Functional Current Daily Living Assistance : None ADA NELSON LPN - 10/14/2015 16:06 CDT Dependent Habits Exposure to Tobacco Smoke : Care provider denies smoking in home Smoking Status : Never smoker Tobacco 2A : No Tobacco Use/Currently Using : No Tobacco Use/Last 30 Days : No Tobacco Use/Last 12 months : No Alcohol Use : Yes ADA NELSON LPN - 10/14/2015 16:06 CDT AUDIT Tool How Often Do You Have A Drink : 2 to 4 times a month How Many Drinks in a Day When Drinking : 3 or 4 Six or More Drinks On One Occassion : Never Audit Phase 1 Score : 3 ADA NELSON LPN - 10/14/2015 16:06 CDT Psychosocial Domestic Abuse Concerns : None Behavioral Health Screen/Safety Assmt : No Restoration Preference : ADA Mcintosh LPN - 10/14/2015 16:06 CDT Advance Directive Advanced Directives : No Advance Directive Additional Information : No ADA NELSON LPN - 10/14/2015 16:06 CDT Educ Needs Learning Style Preference Adult Grid Patient : Printed materials Family : Printed materials ADA NELSON LPN - 10/14/2015 16:06 CDT Source: [facility] POWERCHART Document Id: [id number] CDT!32 documented in this encounter Plan of Treatment Not on filedocumented as of this encounter Visit Diagnoses Not on filedocumented in this encounter Additional Health Concerns Assessment Noted Time PHQ-9 Depression Total Score: 2 10/14/2015 4:09 PM CDT documented as of this encounter
--- OUTSIDE RECORDS SUMMARY | 2022-03-04 19:02 | XMS_ITS | Encounter Summary ---
:1960 Author Organization [facility] Address [address] [place] [address] Care Team Providers Name Role Phone Unavailable Primary Care Provider Unavailable Encounter Details Date Type Department Care Team Description 08/13/2013 Hospital Encounter HX [facility] JACK Tanvi Montemayor D.O. [address] [place] [id number] (Wo rk) Social History Tobacco Use Types Packs/Day Years Used Date Smoking Tobacco: Never Assessed Sex Assigned at Date Recorded Not on file documented as of this encounter Last Filed Vital Signs Vital Sign Reading Time Taken Comments Blood Pressure 122/80 08/13/2013 9:52 AM [employer] Pulse 72 08/13/2013 9:52 AM ENVIRON[employer]AL [employer]ER Temperature - - Respiratory Rate 14 08/13/2013 9:52 AM ENVIRON[employer]AL [employer]ER Oxygen Saturation - - Inhaled Oxygen Concentration - - Weight 82 kg (180 lb 12.4 oz) 08/13/2013 9:52 AM ENVIRONMENTAL [employer]ER Height 165 cm (5' 4.96) 08/13/2013 9:52 AM ENVIRONMENTAL [employer]ESTER Body Mass Index 30.12 08/13/2013 9:52 AM ENVIRONMENTAL [employer]CTION FORESTER documented in this encounter Medications at Time of Discharge Medication Sig Dispensed Refills Start Date End Date fluticasone propionate Administer 1 spray 0 01/04 (FLONASE) 50 into affected mcg/actuation nasal spray nostril(s). 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 disintegrating tablet calcium carb/vit Os-Joe 250 with D 0 03/30/2010 0 02/05/2021 D3/minerals (CALCIUM-VITAMIN D ORAL) documented as of this encounter Progress Notes Tanvi Orourke D.O. - 08/13/2013 9:45 AM CST [id number] CHIEF COMPLAINT/REASON FOR VISIT Nausea. HISTORY OF PRESENT ILLNESS This 52-year-old female, who sees a primary provider outside of this health system, with a history of chronic fatigue syndrome and depression, presents feeling nauseated about 80% of the time for the past several months; perhaps going back even 5 years. She reports a feeling of bloating, nausea without vomiting, some loose stools on and off. A 16-year-old son just had an H. pylori antibody test that came back positive and she is wondering if she also has this issue. She also reports she has discussed this with her primary provider in the past and she does not think and H. pylori has been done, nor has any EGD, but other blood tests have been normal. Her symptoms do not tend to wake her up, but she finds that Rolaids tend to help, but she has not tried other acid reducers or blockers. She does note increased burping and gas sensation. She has not noted any weight loss, but reports actually weight gain. She continues to have fatigue. ALLERGIES AMBIEN. CODEINE. REGLAN. MEDICATIONS Alesse oral contraceptive pill. Doxycycline 100 mg twice a day for rosacea. Cymbalta 60 mg a day for depression. Gabapentin 300 mg in the morning, 600 mg in the evening. Lorazepam 1 mg as needed for anxiety. Multivitamin daily. Calcium plus D. Buspirone 15 mg in the morning, 30 mg in the evening. PAST MEDICAL/SURGICAL HISTORY SURGICAL HISTORY: She has had a left knee surgery and a sympathectomy for hyperhidrosis. PAST MEDICAL HISTORY: Positive for depression, acne hyperhidrosis, chronic fatigue syndrome, COPD. SOCIAL HISTORY No tobacco. Occasional alcohol. She is . FAMILY HISTORY Daughter 14, has had some chronic abdominal problems, diagnosed with questionably irritable bowel. One sister had breast cancer. One brother committed suicide. Two brothers living and healthy. Mother living with diabetes. Father of unknown etiology. PHYSICAL EXAMINATION VITAL SIGNS: She is afebrile. Pulse 72, blood pressure 122/80, O2 sat 98% on room air, weight is 82 kg, BMI is 30. GENERAL: She is in no acute distress. NECK: Supple. No thyromegaly, lymphadenopathy, or peripheral edema. CARDIOVASCULAR: No carotid bruits. Heart regular. No murmurs. LUNGS: Are clear. Breath sounds equal. No wheezes, rales, rhonchi. ABDOMEN: Is soft. Bowel sounds present. No guarding, rebound, or rigidity. Some faint right upper quadrant tenderness without guarding. [place]ows sign was negative. IMPRESSION/REPORT/PLAN Generalized abdominal pain with bloating and nausea. PLAN: We discussed options. She really was interested in screening for H. pylori. I did discuss withher that the antibody test is not a great test, but easier to do obviously than endoscopy. I discussed that H. pylori antibody serum testing is not a good test to evaluate the adequacy of treatment if H. pylori is treated. She would like the serum test done after our counseling on this issue alone. Vilma discussed other etiologies for bloating, gas, and nausea, which could be gallbladder disease. So we will do a CBC and a comp panel. We also discussed that other less common things such as ovarian cancer could be an issue. She reports she gets regular female checkups with her primary care provider. She reports that she will follow up with her primary care provider if her symptoms do not improve. She also agrees to start a proton pump inhibitor, pantoprazole 40 mg once a day. If her H. pylori antibody is abnormal, we will go ahead and treat her accordingly and then she should follow up with herprimary care provider. I also counseled her on the importance of colorectal cancer screening. She declined a FIT test today. Over half the 30 minute visit was counseling on these GI issues. Tanvi Orourke D.O./pos Electronically Signed By: TANVI OROURKE DO On: 08/14/2013 12:06 PM Source: [facility] MHSDOLBEYNONRADSYS Document Id: [id number] [employer]ON[employer]OTECTION FORESTER documented in this encounter Miscellaneous Notes Miscellaneous - Irena Fontaine R.N. - 09/18/2013 3:58 PM CST Medication not covered - Pantoprazole Document Contains Addenda Addendum by JIIRENA CHANG RN on 24 October 2013 08:30:46 CDT Submitted: Order:Rx Retail Pharmacy Communication Communication MISC Once Patient is due for f/u appointment, PA not being sought. Omeprazole is available OTC. (Original order). Qty: 1 each Substitutions Allowed Route To Pharmacy - [facility] Signed by IRENA FONTAINE RN Addendum by TANVI OROURKE DO on 23 October 2013 17:28:39 CDT From: TANVI OROURKE DO To: [facility] Nurse; Sent: 10/23/2013 17:28:39 CDT Subject: RE: Medication not covered - Pantoprazole Omeprazole is OTC Addendum by TANVI OROURKE DO on 23 October 2013 17:28:13 CDT From: TANVI OROURKE DO To: KARLIE Blake [facility] Nurse; Sent: 10/23/2013 17:28:13 CDT Subject: RE: Medication not covered - Pantoprazole As I discussed at her appointment, she needs to f/u with her primary provider if the abdm pain and nausea are ongoing. Addendum by IRENA FONTAINE RN on 23 October 2013 11:52:14 CDT From: IRENA FONTAINE RN ([facility] Nurse) To: TANVI OROURKE DO; Sent: 10/23/2013 11:52:14 CDT Subject: FW: Medication not covered - Pantoprazole Another fax from [facility] received: Last Month we called saying Pantoprazole is not covered but Aciphex (rabeprazole) would be covered.It was, however for only one month. All PPIs will require Prior Auth. Thanks, [facility] Do you want to seek PA for Aciphex? Please advise. For PA: Addendum by MAYELA ROSENTHAL RN on 19 September 2013 08:45:01 ENVIRONMENTAL [employer]OTECTION [employer]ESTER Left message for patient that mediation was switched to Aciphex and sent to pharmacy. Addendum by TANVI OROURKE DO on 19 September 2013 07:53:49 ENVIRONMENTAL [employer]OTECTION FORESTER From: TANVI OROURKE DO To: [facility] Nurse; Sent: 09/19/2013 07:53:49 ENVIRONMENTAL [employer]OTECTION FORESTER Subject: RE: Medication not covered - Pantoprazole Ok for rabeprazole (Aciphex) 20mg/d. Approve for 2 months. Be sure to f/u with primary provider. From: IRENA FONTAINE RN ([facility] Nurse) To: TANVI OROURKE DO; Sent: 09/18/2013 15:58:39 ENVIRONMENTAL [employer]OTECTION FORESTER Subject: Medication not covered - Pantoprazole Fax from [facility]. We need a PA for Dia's pantoprazole please. *09/18/13 Generic Aciphex would be covered. Please advise. Thank you Do you want to seek PA for pantoprazole or change Rx to Aciphex? Please advise. Plan # ID# [id number] Source: [facility] POWERCHART Document Id: [id number] Electronically signed by [facility] Bilingual Receptionist [id number] at 12/21/2016 8:58 AM CDT Miscellaneous - Tanvi Orourke D.O. - 08/15/2013 11:32 AM CST Results Notification Document Contains Addenda Addendum by MEGAN HENDERSON LPN on 16 August 2013 14:31:52 ENVIRONMENTAL [employer]ER notified and she made an appt with her pcp for next week From: TANVI OROURKE DO To: MEGAN HENDERSON LPN; Sent: 08/15/2013 11:32:16 ENVIRONMENTAL [employer]OTECTION [employer]ESTER Show up: 08/15/2013 11:31:00 ENVIRONMENTAL [employer]OTECTION FORESTER Subject: Results Notification Actions: Notify patient of results Blood tests normal including H. pylori antibody negative. (NL lytes, liver/kidney function, CBC). Be sure to f/u with her primary provider to investigate her symptoms further. Results: Date Result Name Value Ref Range 08/13/2013 10:25 Sodium Lvl 138 mmol/L (135 - 145) 08/13/2013 10:25 Potassium Lvl 4.4 mmol/L (3.5 - 5.0) 08/13/2013 10:25 Chloride 102 mmol/L (95 - 106) 08/13/2013 10:25 CO2 25 mmol/L (21 - 32) 08/13/2013 10:25 AGAP 11 mmol/L (7 - 15) 08/13/2013 10:25 Alkaline Phosphatase 40 U/L (34 - 114) 08/13/2013 10:25 Glucose Lvl 129 mg/dL (70 - 139) 08/13/2013 10:25 Creatinine 0.7 mg/dL (0.6 - 1.2) 08/13/2013 10:25 EGFR (MDRD) >60.0 (>=60.0 - ) 08/13/2013 10:25 EGFR (MDRD) >60.0 (>=60.0 - ) 08/13/2013 10:25 BUN 16 mg/dL (5 - 24) 08/13/2013 10:25 Calcium Lvl 9.1 mg/dL (8.9 - 10.1) 08/13/2013 10:25 Protein Total 6.5 g/dL (6.2 - 7.5) 08/13/2013 10:25 Albumin Lvl 3.9 g/dL (3.0 - 5.0) 08/13/2013 10:25 AST 17 U/L (3 - 35) 08/13/2013 10:25 ALT 13 U/L (6 - 50) 08/13/2013 10:25 Bili Total 0.7 mg/dL (0.1 - 1.2) 08/13/2013 10:25 Hgb 14.3 g/dL (12.0 - 15.5) 08/13/2013 10:25 Hct 42.4 % (34.9 - 44.5) 08/13/2013 10:25 WBC 10.3 x10(9)/L (3.5 - 10.5) 08/13/2013 10:25 RBC 4.69 x10(12)/L (3.90 - 5.03) 08/13/2013 10:25 MCV 90.4 fL (81.6 - 98.3) 08/13/2013 10:25 RDW 12.3 % (11.9 - 15.5) 08/13/2013 10:25 Platelet 299 x10(9)/L (150 - 450) 08/13/2013 10:25 Neutro Absolute 6.38 10(9)/L (1.70 - 7.00) 08/13/2013 10:25 Lymph Absolute 2.89 x10(9)/L (0.90 - 2.90) 08/13/2013 10:25 [place] Absolute 0.82 x10(9)/L (0.30 - 0.90) 08/13/2013 10:25 Eos Absolute <0.50 x10(9)/L (0.05 - 0.50) 08/13/2013 10:25 Baso Absolute <0.50 x10(9)/L (0.00 - 0.30) 08/13/2013 10:25 Differential? Auto 08/13/2013 10:25 H pylori IgG-[place] Negative (Negative - ) 08/13/2013 10:25 H pylori IgG Idx-[place] 1.12 Source: [facility] POWERCHART Document Id: [id number] Electronically signed by Tereza, [facility] Bilingual Receptionist [id number] at 12/21/2016 8:58 AM CDT Miscellaneous - Tanvi Orourke D.O. - 08/13/2013 10:23 AM CST Ambulatory Patient Summary [address] [address] Visit Information Name: DIA SOTELO [facility] Number: [id number] Current Date: 08/13/2013 10:23:00 Physicians Attending Provider: TANVI OROURKE DO Primary Care Provider: PCP, ELSEWHERE DIA SOTELO [...] Instructions/Comments/Notes for Patient Medication Changes/Routing busPIRone (busPIRone) See Instructions 15 mg in the am and 30 mg in the pm calcium-vitamin D (Os-Joe 250 with D) doxycycline (doxycycline) 100 mg, Oral, two times a day duloxetine (Cymbalta) 60 mg, Oral, once a day gabapentin (Neurontin 600 mg oral tablet) See Instructions 300mg q am and 600mg q pm levonorgestrel-ethinyl estradiol (Alesse 100 mcg-20 mcg oral tablet) 1 Tablet(s), Oral, once a day lorazepam (Ativan) 1 mg, Oral, as needed multivitamin, ( Multivitamins oral capsule) pantoprazole (pantoprazole 40 mg oral delayed release tablet) 1 Tablet(s), Oral, once a day New Routed to [address] [address] Stop Taking the Following Medications: Medication list as of 08-13-13 10:23 Attention: If you have any medications at home that are not on this list, DO NOT take them until youcontact your provider for clarification. Give a copy of your medication list to your primary care provider. Update your medication list any time medications or doses are changed and carry your medication list at all times in case of emergency. Your Allergies & Intolerances Substance Reaction Symptoms Category Comments codeine nausea, vomiting Drug Ambien sleep walking Drug Reglan Panic attack Drug Your Problem List Problem Status Onset Comments Depression* Active Anxiety neurosis Active COPD* Active Your Upcoming Appointments Date Time Location Reason Provider No Appointments found Attention: Contact your local Clinic if further appointment detail needed. Your Goals/Additional instructions: -Be sure to follow up with your regular doctor soon. Source: [facility] POWERCHART Document Id: [id number] RONMENT[employer]OTECTION FORESTER Miscellaneous - Tanvi Orourke D.O. - 08/13/2013 10:22 AM CST Ambulatory Depart Summary [place] [address] [place] [address] Visit Information Name: DIA SOTELO [facility] Number: [id number] Visit Date: 08/13/2013 10:22:58 Attending Provider: TANVI OROURKE DO Primary Care Provider: PCP, LISA DIA SOTELO has been given the following list of medications: Your Medications It is important to take your medications as directed. Use a pill box or chart to help remind you to take your medications. Please let your doctor or nurse know if you have problems taking your medications. Medication/Strength How to Take Indications/Special Instructions/Comments/Notes for Patient Medication Changes/Routing busPIRone (busPIRone) See Instructions 15 mg in the am and 30 mg in the pm calcium-vitamin D (Os-Joe 250 with D) doxycycline (doxycycline) 100 mg, Oral, two times a day duloxetine (Cymbalta) 60 mg, Oral, once a day gabapentin (Neurontin 600 mg oral tablet) See Instructions 300mg q am and 600mg q pm levonorgestrel-ethinyl estradiol (Alesse 100 mcg-20 mcg oral tablet) 1 Tablet(s), Oral, once a day lorazepam (Ativan) 1 mg, Oral, as needed multivitamin, ( Multivitamins oral capsule) pantoprazole (pantoprazole 40 mg oral delayed release tablet) 1 Tablet(s), Oral, once a day New Routed to [place] [id number] Stop Taking the Following Medications: Medication list as of 08-13-13 10:22 Attention: If you have any medications at home that are not on this list, DO NOT take them until youcontact your provider for clarification. Give a copy of your medication list to your primary care provider. Update your medication list any time medications or doses are changed and carry your medication list at all times in case of emergency. Additional Information: Source: [facility] POWERCHART Document Id: [id number] [employer]ONMENT[employer]OTECTION FORESTER Miscellaneous - Ada Nelson L.P.NPavan - 08/13/2013 9:52 AM CST Adult Hand I Tube Bender Intake/History Adult Hand I Tube Bender Intake/History Entered On: 08/13/2013 9:56 ENVIRONMENTAL [employer]OTECTION FORESTER Performed On: 08/13/2013 9:52 ENVIRONMENTAL PROTECTION FORESTER by ADA NELSON LPN Intake Chief Complaint : Nauseated all the time for the last 5 years. Bloated and gasy all the time. Increase fatigue. Temperature Core : 37.0 DegC(Converted to: 98.6 DegF) Peripheral Pulse Rate : 72 /min Respiratory Rate : 14 /min Systolic Blood Pressure : 122 mmHg Diastolic Blood Pressure : 80 mmHg NIBP Mean : 94 mmHg SpO2 : 98 % Height : 165 cm(Converted to: 5 ft 5 inch(es), 64.96 inch(es)) Actual Weight : 82.0 kg(Converted to: 180 lb 12 oz) Dosing Weight Clinic : 82 kg Clinic BSA : 1.94 Body Mass Index : 30.12 kg/m2 ADA NELSON LPN - 08/13/2013 9:52 ENVIRONMENTAL PROTECTION FORESTER General Info Languages : Telugu ADA NELSON LPN - 08/13/2013 9:52 ENVIRONMENTAL PROTECTION FORESTER Subjective Pain Symptoms : No ADA NELSON LPN - 08/13/2013 9:52 ENVIRONMENTAL PROTECTION FORESTER Dependent Habits Tobacco Use/Currently Using : No Smoking Status : Never smoker ADA NELSON LPN - 08/13/2013 9:52 ENVIRONMENTAL PROTECTION FORESTER Tobacco Use Grid Last Use : never ADA NELSON LPN - 08/13/2013 9:52 ENVIRONMENTAL PROTECTION FORESTER Source: [facility] POWERCHART Document Id: [id number] ENVIRONMENTAL PROTECTION FORESTER!25 RONMENTAL PROTECTION FORESTER documented in this encounter Plan of Treatment Not on filedocumented as of this encounter Procedures Procedure Name Priority Date/Time Associated Comments Diagnosis HELICOBACTER PYLORI Routine 08/13/2013 10:25 Resu lts for this IGG AB-SILVA SHELG AM ENVIRONMENTAL PROTECTION FORESTER procedure are in the results section. AUTOMATED Routine 08/13/2013 10:25 Results for this DIFFERENTIAL, B AM ENVIRONMENTAL PROTECTION FORESTER procedure ar e in the results section. CBC WITH DIFFERENTIAL, Routine 08/13/2013 10:25 R esults for this B AM ENVIRONMENTAL PROTECTION FORESTER procedure are i n the results section. COMPREHENSIVE Routine 08/13/2013 10:25 Results fo r this METABOLIC PANEL, S/P AM ENVIRONMENTAL PROTECTION FORESTER procedu re are in the results section. documented in this encounter Results Automated Differential (08/13/2013 10:25 AM ENVIRONMENTAL PROTECTION FORESTER) athologist Signature Absolute 6.38 1.70 - POWERCHART Neutrophils 7.00 109L Lymphocytes 2.89 0.90 - POWERCHART 2.90 X109L Monocytes 0.82 0.30 - POWERCHART 0.90 X109L Eosinophils <0.50 0.05 - POWERCHART 0.50 X109L Absolute <0.50 0.00 - POWERCHART Basophil 0.30 X109L Specimen Anatomical Collection Method Collection Time Receive d Time (Source) Location / / Volume Laterality Blood 08/13/2013 10:25 08/13/2013 AM ENVIRON[employer]CTION FORESTER 10:25 AM ENVIRONMENTAL PROTECTION FORESTER Tanvi Orourke D.O. LAB BLOOD ADD-ON Performing Organization Address City/[facility]/ZIP Code Phon e Number POWERCHART CBC with Differential (08/13/2013 10:25 AM ENVIRONMENTAL PROTECTION FORESTER) athologist Signature Leukocytes 10.3 3.5 - 10.5 POWERCHART X109L Erythrocytes 4.69 3.90 - POWERCHART 5.03 [id number] Hemoglobin 14.3 12.0 - POWERCHART 15.5 GDL Hematocrit 42.4 34.9 - POWERCHART 44.5 MCV 90.4 81.6 - POWERCHART 98.3 FL HX RDW 12.3 11.9 - POWERCHART 15.5 Platelet Count 299 150 - 450 POWERCHART X109L HXDifferential? Auto POWERCHART Specimen (Source) Anatomical Collection Method Collection Time Re ceived Time Location / / Volume Laterality Blood 08/13/2013 10:25 AM ENVIRONMENTAL PROTECTION FORESTER Tanvi Orourke D.O. LAB BLOOD ADD-ON Performing Organization Address City/[facility] Code Phon e Number POWERCHART HELICOBACTER PYLORI IGG AB-[place] SHELG (08/13/2013 10:25 AM ENVIRONMENTAL PROTECTION FORESTER) athologist Signature HXH pylori Negative Negative POWERCHART IgG-[place] HXH pylori IgG 1.12 POWERCHART Idx-[place] Comment: Results with Index Values of <8.95 are n egative. Test Performed by: [facility] [address] [place] [address] Header Boss: Mu Jamie gusman III, M.D. Specimen (Source) Anatomical Collection Method Collection Time Re ceived Time Location / / Volume Laterality Blood 08/13/2013 10:25 AM ENVIRONMENTAL PROTECTION FORESTER Tanvi Orourke D.O. LAB HISTORICAL ORDERS Performing Organization Address City/State/ZIP Code Phon e Number POWERCHART CMP (Comprehensive Metabolic Panel) (08/13/2013 10:25 AM ENVIRONMENTAL PROTECTION FORESTER) [employer] gist Method Time Signature Alanine 13 6 - 50 UL POWERCHART Amniotransferase, LD Albumin, S 3.9 3.0 - 5.0 POWERCHART GDL Alkaline 40 34 - 114 POWERCHART Phosphatase, S UL Aspartate 17 3 - 35 UL POWERCHART Aminotransferase (AST), S Sodium, S 138 135 - 145 POWERCHART MMOLL Potassium, S 4.4 3.5 - 5.0 POWERCHART MMOLL Chloride, S 102 95 - 106 POWERCHART MMOLL CO2 Total 25 21 - 32 POWERCHART MMOLL BUN (Blood Urea 16 5 - 24 POWERCHART Nitrogen), S MGDL Creatinine, S 0.7 0.6 - 1.2 POWERCHART MGDL Calcium, Total, S 9.1 8.9 - POWERCHART 10.1 MGDL Anion Gap 11 7 - 15 POWERCHART MMOLL HXeGFR (MDRD) >60.0 >=60.0 POWERCHART eGFR Black/ >60.0 >=60.0 POWERCHART Thai Bilirubin, Total, S 0.7 0.1 - 1.2 POWERCHART MGDL Total Protein, S 6.5 6.2 - 7.5 POWERCHART GDL Glucose 129 70 - 139 POWERCHART MGDL Specimen (Source) Anatomical Collection Method Collection Time Re ceived Time Location / / Volume Laterality Blood 08/13/2013 10:25 AM ENVIRONMENTAL PROTECTION FORESTER Tanvi Orourke D.O. LAB BLOOD ADD-ON Performing Organization Address City/State/ZIP Code Phon e Number POWERCHART documented in this encounter Visit Diagnoses Not on filedocumented in this encounter
--- OUTSIDE RECORDS SUMMARY | 2022-03-04 19:02 | XMS_ITS | Encounter Summary ---
:1960 Author Organization [facility] Address [address] [place] [address] Care Team Providers Name Role Phone Unavailable Primary Care Provider Unavailable Encounter Details Date Type Department Care Team Description 09/17/2015 Hospital Encounter HX [facility] Marcio Harding P.A.-C., TAVIA Social History Tobacco Use Types Packs/Day Years Used Date Smoking Tobacco: Never Assessed Sex Assigned at Date Recorded Not on file documented as of this encounter Last Filed Vital Signs Vital Sign Reading Time Taken Comments Blood Pressure 122/64 09/17/2015 4:14 PM SENIOR SECURITY ANALYST Pulse 58 09/17/2015 4:14 PM SENIOR SECURITY ANALYST Temperature - - Respiratory Rate - - Oxygen Saturation - - Inhaled Oxygen Concentration - - Weight - - Height 163 cm (5' 4.17) 09/17/2015 4:14 PM SENIOR SECURITY ANALYST Body Mass Index - - documented in this encounter Medications at Time of Discharge Medication Sig Dispensed Refills Start Date End Date cetirizine 10 mg capsule Take 10 mg by mouth. 0 0 09/30/2014 fluticasone propionate Administer 1 spray 0 01/04 (FLONASE) 50 into affected mcg/actuation nasal spray nostril(s). 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 disintegrating tablet calcium carb/vit Os-Joe 250 with D 0 03/30/2010 0 02/05/2021 D3/minerals (CALCIUM-VITAMIN D ORAL) documented as of this encounter Progress Notes Julienne Obregon PNancy-Christine - 09/17/2015 4:11 PM CST [id number] CHIEF COMPLAINT/REASON FOR VISIT The patient comes in complaining of a cough that she has had for about 5 to 6 days, a little bit of chest congestion but not much, a little bit of a sore throat as well, fatigue, a little lightheadedness, and headache. She has recently been diagnosed with sciatica and just finished burst prednisone yes terday. She has COPD, but is presently not using any inhalers and has not been short of breath, but admits to chest heaviness and pressure that has been present since last evening. She denies any nausea, vomiting, sweating, or pain in her arms, jaw, neck, or any other place. Her sciatic appears to be under control. She is a never smoker. SYSTEMS REVIEW CONSTITUTIONAL: Remarkable for fatigue. No fever. No complaint of body aches. She had per se. ENT: No ear pain. Slight nasal congestion. Slight sore throat. RESPIRATORY: Cough with some slight congestion. CARDIAC: Some chest heaviness or pressure since last night. SKIN: No sweating. GI: No stomach upset. NEURO: Slight headache generalized. TESTS: Rapid strep test is negative. Culture is pending. PAST MEDICAL/SURGICAL HISTORY She has had diagnosis of COPD, hypertension, and some anxiety and depression issues. PHYSICAL EXAMINATION PSYCH: Alert and oriented. No acute distress. HEENT: Ears: TMs pearly dean. Nose: A little bit of clear nasal drainage. Throat: Mild erythema of posterior pharynx. No lymphadenopathy. LUNGS: Are clear to auscultation. Oxygen saturation 100% on room air. HEART: 58 beats per minute. The rate is regular. I do not hear any murmurs or adventitious sounds. She does admit to some chest heaviness or pressure since last night, mild according to her. NECK: Is supple. SKIN: [place], warm, and dry. IMPRESSION/REPORT/PLAN 1. Non-strep pharyngitis. 2. Chest heaviness, pressure. PLAN: Rest, fluids. I told her that she really needs to go to the ER and be evaluated because of thechest pressure and heaviness that she has had since last night and that I could not evaluate that symptom here and it might be a sign of a heart issue that could become serious. The patient states thatshe is in agreement with this plan. She again is strongly advised to go to directly to the ER for further evaluation and treatment. Fe Wahl./pos Electronically Signed By: JULIENNE OBREGON PA-C On: 09/28/2015 02:09 PM Source: [facility] [id number] Document Id: [id number] OR SECURITY ANALYST documented in this encounter Procedure Notes Chasidy Lopez C.M.A. - 09/17/2015 4:35 PM CST Rapid Strep A Screen POC Rapid Strep A Screen POC Entered On: 09/17/2015 16:35 SENIOR SECURITY ANALYST Performed On: 09/17/2015 16:35 SENIOR SECURITY ANALYST by CHASIDY LOPEZ Rapid Strep A Screen POC Rapid Strep A Screen POC : Negative Internal Positive QC : Pass Internal Negative QC : Pass Rapid Strep Device Lot Number : [id number] Rapid Strep Device Expiration Date : 12/22/2016 CDT CHASIDY LOPEZ - 09/17/2015 16:35 SENIOR SECURITY ANALYST Source: [facility] POWERCHART Document Id: [id number] SENIOR SECURITY ANALYST!7 OR SECURITY ANALYST documented in this encounter Miscellaneous Notes Miscellaneous - Julienne Obregon P.A.-C. - 09/17/2015 4:48 PM CST Ambulatory Patient Summary Express Care - [address] [id number] Visit Information Name: DIA SOTELO [facility] Number: [id number] Current Date: 09/17/2015 16:48:53 Physicians Attending Provider: JULIENNE OBREGON PA-C Primary Care Provider: RAFA ZAMAN MD DIA SOTELO has been given the [...] pm calcium-vitamin D (Os-Joe 250 with D) cetirizine (ZyrTEC) 10 mg, Oral, once a day doxycycline (doxycycline) 100 mg, Oral, two times a day duloxetine (Cymbalta) 60 mg, Oral, once a day gabapentin (Neurontin 600 mg oral tablet) See Instructions 300mg q am and 600mg q pm ibuprofen (ibuprofen 200 mg oral tablet) 4 Tablet(s), Oral, three times a day as needed for Pain labetalol (labetalol) 50 mg, Oral, once a day levonorgestrel-ethinyl estradiol (Alesse 100 mcg-20 mcg oral tablet) 1 Tablet(s), Oral, once a day lorazepam (Ativan) 1 mg, Oral, as needed multivitamin, ( Multivitamins oral capsule) Stop Taking the Following Medications: Medication list as of 09-17-15 16:48 Attention: If you have any medications [...] Your Upcoming Appointments Date Time Location Provider 10/07/2015 15:15 JACK Zaman MD, Rafa Liriano Attention: Contact your local Clinic if further [...] if you dont have one. Go to [email or web address] and click on Create Your Account. Then, follow the directions to complete the online form. Youll be asked for your [facility] number which you can find at the top of this document. Your Goals/Additional instructions: Source: [facility] POWERCHART Document Id: [id number] OR SECURITY ANALYST Miscellaneous - Julienne Obregon P.A.-C. - 09/17/2015 4:48 PM CST Ambulatory Discharge Medication List [facility] Care - [address] [id number] Visit Information Name: DIA SOTELO [facility] Number: [phone] Visit Date: 09/17/2015 16:48:52 Attending Provider: JULIENNE OBREGON PA-C Primary Care Provider: RAFA ZAMAN MD DIA SOTELO has been given the [...] pm calcium-vitamin D (Os-Joe 250 with D) cetirizine (ZyrTEC) 10 mg, Oral, once a day doxycycline (doxycycline) 100 mg, Oral, two times a day duloxetine (Cymbalta) 60 mg, Oral, once a day gabapentin (Neurontin 600 mg oral tablet) See Instructions 300mg q am and 600mg q pm ibuprofen (ibuprofen 200 mg oral tablet) 4 Tablet(s), Oral, three times a day as needed for Pain labetalol (labetalol) 50 mg, Oral, once a day levonorgestrel-ethinyl estradiol (Alesse 100 mcg-20 mcg oral tablet) 1 Tablet(s), Oral, once a day lorazepam (Ativan) 1 mg, Oral, as needed multivitamin, ( Multivitamins oral capsule) Stop Taking the Following Medications: Medication list as of 09-17-15 16:48 Attention: If you have any medications [...] Signed By: Signed On: Additional Information: Source: [facility] POWERCHART Document Id: [id number] OR SECURITY ANALYST Miscellaneous - Chasidy Lopez C.M.A. - 09/17/2015 4:14 PM CST Adult Flight Simulator Teacher Intake/History Document Has Been Updated Adult Flight Simulator Teacher Intake/History Entered On: 09/17/2015 16:18 SENIOR SECURITY ANALYST Performed On: 09/17/2015 16:14 SENIOR SECURITY ANALYST by CHASIDY LOPEZ Intake Chief Complaint : cough w/ slight prod, slight chest congestion, ST. Tired. Dizzy feeling, spacy, slight TINEO CHASIDY LOPEZ - 09/17/2015 16:18 SENIOR SECURITY ANALYST Onset of Symptoms : 1 wk ago CHASIDY LOPEZ 09/17/2015 16:14 SENIOR SECURITY ANALYST Ambulatory Intake Additional Information : pt dx with CFS. Pt finished prednison yest ibuprofen yest; last night CHASIDY LOPEZ - 09/17/2015 16:18 SENIOR SECURITY ANALYST Temperature Core : 36.8 DegC(Converted to: 98.2 DegF) Peripheral Pulse Rate : 58 /min (LOW) Systolic Blood Pressure : 122 mmHg Diastolic Blood Pressure : 64 mmHg NIBP Mean : 83 mmHg SpO2 : 100 % Height : 163 cm(Converted to: 5 ft 4 inch(es), 64 inch(es)) CHASIDY LOPEZ - 09/17/2015 16:14 SENIOR SECURITY ANALYST General Info Languages : Upper Sorbian Is Patient Female and 13-50 no hysterectomy : No CHASIDY LOPEZ - 09/17/2015 16:14 SENIOR SECURITY ANALYST Subjective Pain Symptoms : Yes CHASIDY LOPEZ - 09/17/2015 16:14 SENIOR SECURITY ANALYST Pain Scale Pain Scale Verbal 0-10 : Open CHASIDY LOPEZ - 09/17/2015 16:14 SENIOR SECURITY ANALYST Pain Pain Assessment Grid Pain 1 Location : Throat CHASIDY LOPEZ - 09/17/2015 16:14 SENIOR SECURITY ANALYST Dependent Habits Exposure to Tobacco Smoke : Care provider denies smoking in home Smoking Status : Never smoker Tobacco 2A : No Tobacco Use/Currently Using : No Tobacco Use/Last 30 Days : No Tobacco Use/Last 12 months : No CHASIDY LOPEZ John 09/17/2015 16:14 SENIOR SECURITY ANALYST Source: [facility] POWERCHART Document Id: [id number] SENIOR SECURITY ANALYST!4 OR SECURITY ANALYST documented in this encounter Plan of Treatment Not on filedocumented as of this encounter Procedures Procedure Name Priority Date/Time Associated Diagnosis Comme nts RAPID STREP A Routine 09/17/2015 4:35 PM Results for this SCREEN SENIOR SECURITY ANALYST procedure are i n the results section. documented in this encounter Results Rapid Strep A Screen (09/17/2015 4:35 PM SENIOR SECURITY ANALYST) [facility] Method Time Signature HXRapid Strep POWERCHART Confirmation HXPre Negative for POWERCHART Group A Strep by culture. HXFinal Negative for POWERCHART Group A Strep by culture. Specimen (Source) Anatomical Collection Method Collection Time Re ceived Time Location / / Volume Laterality Throat 09/17/2015 4:35 PM SENIOR SECURITY ANALYST Historical Provider LAB MICROBIOLOGY - GENERAL O RDERABLES Performing Organization Address City/State/ZIP Code Phon e Number POWERCHART documented in this encounter Visit Diagnoses Not on filedocumented in this encounter Additional Health Concerns Assessment Noted Time PHQ-9 Depression Total Score: 9 09/03/2014 3:39 PM SENIOR SECURITY ANALYST documented as of this encounter
--- OUTSIDE RECORDS SUMMARY | 2022-03-04 19:02 | XMS_ITS | Encounter Summary ---
:1960 Author Organization [facility] Address [address] [place] [address] Care Team Providers Name Role Phone Unavailable Primary Care Provider Unavailable Encounter Details Date Type Department Care Team Description 12/15/2015 Hospital Encounter HX [facility] Darshan Medina M.D. [address] [place] [address] (Wo rk) Social History Tobacco Use Types Packs/Day Years Used Date Smoking Tobacco: Never Assessed Sex Assigned at Date Recorded Not on file documented as of this encounter Last Filed Vital Signs Vital Sign Reading Time Taken Comments Blood Pressure 124/76 12/15/2015 1:55 PM CDT Pulse 64 12/15/2015 1:55 PM CDT Temperature - - Respiratory Rate - - Oxygen Saturation - - Inhaled Oxygen Concentration - - Weight 77.2 kg (170 lb 3.1 oz) 12/15/2015 1:55 PM CDT Height 164 cm (5' 4.57) 12/15/2015 1:55 PM CDT Body Mass Index 28.7 12/15/2015 1:55 PM CDT documented in this encounter Medications at Time of Discharge Medication Sig Dispensed Refills Start Date End Date calcium carbonate Take by mouth. 0 11/03/2015 (OS-ASIF) 1,250 mg (500 mg calcium) tablet cetirizine 10 mg capsule Take 10 mg by mouth. 0 0 09/30/2014 fluticasone propionate Administer 1 spray 0 01/04 (FLONASE) 50 into affected mcg/actuation nasal spray nostril(s). rizatriptan HORSE RANCHER Place 10 mg under 0 11/09/2010 (MAXALT-HORSE RANCHER) 10 mg the tongue. disintegrating tablet calcium carb/vit Os-Asif 250 with D 0 03/30/2010 0 02/05/2021 D3/minerals (CALCIUM-VITAMIN D ORAL) documented as of this encounter Progress Notes Darshan Wong M.D. - 12/15/2015 2:02 PM CDT FM - progress note CHIEF COMPLAINT/REASON FOR VISIT Left ear pain and headache HISTORY OF PRESENT ILLNESS The patient is a 55-year-old female with a history of chronic fatigue syndrome, depression, rosaceaand hypertension. She presents for evaluation of left ear pain. She reports that she began having left the ear pain, Tuesday. It started as a gradual ache and now over the last 24 hours it has become a persistent ache. She noticed that the hearing was decreased out of that ear today. She has had low grade fevers, making her concerned that she might have an ear infection. She has had no drainage from the ear. She describes no other upper respiratory or sinus symptoms. She has had a a frontal headache.She has been using ibuprofen 800 mg three times a day for the ear pain and headache. She feels that this is helping minimally. She describes no personal history of ear infections. Both her mother and daughter have had problemswith the ear wax. MEDICATIONS Ativan, 1 mg, PO, PRN busPIRone, 15 mg, 2xDay Cymbalta, 60 mg, PO, Daily doxycycline, 100 mg, PO, 2xDay labetalol, 50 mg, PO, Daily Neurontin 600 mg oral tablet, See Instructions, 300mg q am and 600mg q pm ZyrTEC, 10 mg, PO, Daily ALLERGIES Ambien (sleep walking) codeine (nausea, vomiting) Reglan (Panic attack) PAST MEDICAL HISTORY Chronic Anxiety neurosis COPD* Depression* Hypertension (HTN) Chronic Historical No historical problems PROCEDURES/SURGICAL HISTORY Pap smear (02/05/2015), Colonoscopy (09/08/2013), History of knee surgery, Hyperhidrosis. SOCIAL HISTORY Date Time: 12/15/2015 13:55 Tobacco: Smoking Status: Never smoker Exposure: Care provider denies smoking in home Alcohol: Use: No Results Found Recreational Drugs: Use: No Results Found Type: No Results Found VITAL SIGNS T: 37.3 ??C (Core) HR: 64 BP: 124 / 76 SpO2: 98% HT: 164 cm WT: 77.2 kg BMI: 28.7 PHYSICAL EXAMINATION GENERAL: Patient is alert, oriented and appears to be in no acute distress. HEAD: Head is atraumatic and normocephalic. EYES: Pupils are equal round and reactive to light. Extraocular movements are intact. OROPHARYNX: Mucous membranes are moist. There is no pharyngeal erythema. EARS: Ears are externally normal. Ear canals are occluded with cerumen.The ears were irrigated. Right ear canal subsequently appeared normal with a normal appearing TM. Left ear canal is erythematous.There is a small inner ear effusion but no evidence of tympanic membrane bulging or redness. NECK: Neck is supple and without mass. There is no adenopathy or thyromegaly. CARDIOVASCULAR: Heart is regular rate and rhythm. There are no murmurs, gallops or rubs. RESPIRATORY: Breathing is nonlabored. Lungs are clear to auscultation bilaterally. IMPRESSION/REPORT/PLAN 1. Otitis External L She was reassured that she has no evidence of an inner ear infection. This appears to be otitis externa. She will be started on Cortisporin ear drops as prescribed. She was encouraged to avoid hearingaids and ear plugs in the year until treatment is completed. She was encouraged to continue to use ibuprofen as needed for discomfort. She should return in 5 to 7 days if there is no improvement in the ear discomfort, sooner if she has any increasing redness, swelling or discomfort around the ear. Ordered: neomycin/polymyxin B/hydrocortisone otic, 2 drop(s), Ears (Both), 4xDay, x 10 day(s), # 10 mL, 0 Refill(s), Acute, Pharmacy: [id number] neomycin/polymyxin B/hydrocortisone otic, 2 drop(s), Ears (Both), 4xDay, x 10 day(s), # 10 mL, 0 Refill(s), Acute, Pharmacy: [facility] Cerumen Impacted Hemant Irrigated by nursing. Ordered: Removal of Impacted Cerumen Using Irrigation/Lavage Charge [id number] Electronically Signed By: DARSHAN WONG MD On: 12/15/2015 03:05 PM Source: [facility] POWERCHART Document Id: [id number] documented in this encounter Nursing Notes Darshan Wong M.D. - 12/15/2015 2:39 PM CDT Ambulatory Patient Education The following Patient Education Materials have been given to the patient: Patient Education Materials: Ambulatory EXTERNAL EAR INFECTION (Adult) Ambulatory External Ear Infection [Adult] This is an infection in the ear canal due to an overgrowth of bacteria or fungus. This often occurs a few days after water gets trapped in the ear canal (swimming or bathing). It may also occur after cleaning too deeply in the ear canal with a cotton swab or other object. Sometimes hair care products get into the ear canal and cause this problem. There may be itching, redness, drainage, or swelling of the ear canal and temporary loss of hearing. Home Care: ?? Do not try to clean the ear canal. That could push pus and bacteria deeper into the canal. ?? Use the drops prescribed to reduce swelling and fight the infection. If an EAR WICK was placed inthe ear canal, apply drops right onto the end of the wick. The wick will draw the medicine into the ear canal even if it is swollen closed. ?? Do not allow water to get into your ear when bathing. No swimming during this time. ?? A cotton ball may be loosely placed in the outer ear to absorb any drainage. ?? You may use acetaminophen (Tylenol) or ibuprofen (Motrin, Advil) to control pain, unless another medicine was prescribed. [NOTE: If you have chronic liver or kidney disease or ever had a stomach ulcer or GI bleeding, talk with your doctor before using these medicines.] Preventing Future Infections: You can usually avoid this problem by using an eardrop that removes the water from your ear canal when you feel there is water trapped there. You can get these drops over the counter (Swim Ear, Aqua Ear and other brands). Follow Up with your doctor or this facility in one week or as instructed by our staff. Get Prompt Medical Attention if any of the following occur: ?? Ear pain becomes worse or does not begin to improve after 3 days of treatment ?? Redness or swelling of the outer ear occurs or gets worse ?? Headache, painful or stiff neck, ?? Feeling drowsy or confused ?? Fever of 100.4??F (38??C) or higher, or as directed by your healthcare provider ?? Seizure ?? [id number] [facility], [address] [place] [address]. All rights reserved. This information is not intended as a substitute for professional medical care. Always follow your healthcare professional's instructions. This document has images extracted. Please consider using [employer] for all your patient education needs. Source: [facility] POWERCHART Document Id: [id number] documented in this encounter Miscellaneous Notes Miscellaneous - Darshan Wong M.D. - 12/15/2015 2:39 PM CDT Ambulatory Patient Summary [address] [id number] Visit Information Name: AILYN SOTELO [facility] Number: [id number] Current Date: 12/15/2015 14:39:58 Physicians Attending Provider: DARSHAN WONG MD Primary Care Provider: PCP, AILYN PERSAUD [...] as needed multivitamin, ( Multivitamins oral capsule) neomycin/polymyxin B/hydrocortisone otic (Cortisporin otic solution) 2 Drops, Ears (Both), four times a day x 10 day(s) New Routed to [facility] [address] [place] [address] Stop Taking the Following Medications: Medication list as of 12-15-15 14:39 Attention: If you have any medications at [...] local Clinic if further appointment detail needed. External Ear Infection [Adult] This is an infection in the ear canal due to an overgrowth of bacteria or fungus. This often occurs a few days after water gets trapped in the ear canal (swimming or bathing). It may also occur after cleaning too deeply in the ear canal with a cotton swab or other object. Sometimes hair care products get into the ear canal and cause this problem. There may be itching, redness, drainage, or swelling of the ear canal and temporary loss of hearing. Home Care: ?? Do not try to clean the ear canal. That could push pus and bacteria deeper into the canal. ?? Use the drops prescribed to reduce swelling and fight the infection. If an EAR WICK was placed inthe ear canal, apply drops right onto the end of the wick. The wick will draw the medicine into the ear canal even if it is swollen closed. ?? Do not allow water to get into your ear when bathing. No swimming during this time. ?? A cotton ball may be loosely placed in the outer ear to absorb any drainage. ?? You may use acetaminophen (Tylenol) or ibuprofen (Motrin, Advil) to control pain, unless another medicine was prescribed. [NOTE: If you have chronic liver or kidney disease or ever had a stomach ulcer or GI bleeding, talk with your doctor before using these medicines.] Preventing Future Infections: You can usually avoid this problem by using an eardrop that removes the water from your ear canal when you feel there is water trapped there. You can get these drops over the counter (Swim Ear, Aqua Ear and other brands). Follow Up with your doctor or this facility in one week or as instructed by our staff. Get Prompt Medical Attention if any of the following occur: ?? Ear pain becomes worse or does not begin to improve after 3 days of treatment ?? Redness or swelling of the outer ear occurs or gets worse ?? Headache, painful or stiff neck, ?? Feeling drowsy or confused ?? Fever of 100.4?F (38?C) or higher, or as directed by your healthcare provider ?? Seizure ?? [id number] [place] [address]. All rights reserved. This information is not [...] if you dont have one. Go to [email or web address] and click on Create Your Account. Then, follow the directions to complete the online form. Youll be asked for your [facility] number which you can find at the top of this document. Your Goals/Additional instructions: This document has images extracted. Please consider using [employer] for all your patient education needs. Source: [facility] POWERCHART Document Id: [id number] Miscellaneous - Darshan Wong M.D. - 12/15/2015 2:39 PM CDT Ambulatory Discharge Medication List [place] [facility] [address] [place], [place] [phone] Visit Information Name: AILYN SOTELO [facility] Number: [id number] Visit Date: 12/15/2015 14:39:57 Attending Provider: DARSHAN WONG MD Primary Care Provider: PCP, ELSEWHERE AILYN [...] as needed multivitamin, ( Multivitamins oral capsule) neomycin/polymyxin B/hydrocortisone otic (Cortisporin otic solution) 2 Drops, Ears (Both), four times a day x 10 day(s) New Routed to [facility] [address] [place] [address] Stop Taking the Following Medications: Medication list as of 12-15-15 14:39 Attention: If you have any medications at [...] Signed By: Signed On: Additional Information: Source: [facility] POWERCHART Document Id: [id number] Miscellaneous - Dariel Meza L.P.N. - 12/15/2015 1:55 PM CDT Adult Knitted Cloth Examiner Intake/History Adult Knitted Cloth Examiner Intake/History Entered On: 12/15/2015 13:59 CDT Performed On: 12/15/2015 13:55 CDT by DARIEL MEZA LPN Intake Chief Complaint : Left ear pain and headache Onset of Symptoms : Tuesday Temperature Core : 37.3 DegC(Converted to: 99.1 DegF) Peripheral Pulse Rate : 64 /min Systolic Blood Pressure : 124 mmHg Diastolic Blood Pressure : 76 mmHg NIBP Mean : 92 mmHg BP Location : Right upper extremity Blood Pressure Cuff Size : Regular SpO2 : 98 % Oxygen Therapy : Room air Height : 164 cm(Converted to: 5 ft 5 inch(es), 65 inch(es)) Actual Weight : 77.2 kg(Converted to: 170 lb 3 oz) Weight Source : Standing scale Dosing Weight Clinic : 77.2 kg Clinic BSA : 1.88 Body Mass Index : 28.7 kg/m2 DARIEL MEZA LPN - 12/15/2015 13:55 CDT General Info Information Given By : Patient Preferred Communication Mode : Verbal Languages : Malagasy Is Patient Female and 13-50 no hysterectomy : No DARIEL MEZA LPN - 12/15/2015 13:55 CDT Subjective Pain Symptoms : Yes DARIEL MEZA LPN - 12/15/2015 13:55 CDT Pain Scale Pain Scale Verbal 0-10 : Open DARIEL MEZA LPN - 12/15/2015 13:55 CDT Pain Pain Assessment Grid Pain 1 Pain 2 Location : Ear Head Laterality : Left Intensity : 6 4 DARIEL MEZA LPN - 12/15/2015 13:55 CDT DARIEL MEZA LPN - 12/15/2015 13:55 CDT Dependent Habits Exposure to Tobacco Smoke : Care provider denies smoking in home Smoking Status : Never smoker Tobacco 2A : No Tobacco Use/Currently Using : No Tobacco Use/Last 30 Days : No Tobacco Use/Last 12 months : No DARIEL MEZA LPN 12/15/2015 13:55 CDT Source: [facility] POWERCHART Document Id: [id number] CDT!44 documented in this encounter Plan of Treatment Not on filedocumented as of this encounter Visit Diagnoses Not on filedocumented in this encounter Additional Health Concerns Assessment Noted Time PHQ-9 Depression Total Score: 2 10/14/2015 4:09 PM CDT documented as of this encounter
--- OUTSIDE RECORDS SUMMARY | 2022-03-04 19:02 | XMS_ITS | Encounter Summary ---
:1960 Author Organization [facility] Address [address] [place] [address] Care Team Providers Name Role Phone Unavailable Primary Care Provider Unavailable Encounter Details Date Type Department Care Team Description 03/30/2010 [facility] Gu[facility] Orell[facility], PPavanA. [address] [place] [address] (Wo rk) Social History Tobacco Use Types Packs/Day Years Used Date Smoking Tobacco: Never Assessed Sex Assigned at Date Recorded Not on file documented as of this encounter Medications at Time of Discharge Medication Sig Dispensed Refills Start Date End Date calcium carb/vit Os-Joe 250 with D 0 03/30/2010 0 02/05/2021 D3/minerals (CALCIUM-VITAMIN D ORAL) documented as of this encounter Progress Notes Guerrero Orellana, P.A. - 03/30/2010 12:00 AM CDT [id number] CHIEF COMPLAINT / REASON FOR VISIT Not feeling well for several days. HISTORY OF PRESENT ILLNESS This is a 49-year-old female who complains that she feels she has been ill for 2 days. She has had chills and sweating but has not been able to check her temperature at home. She has nausea, bloating, gas, and constipation. She denies vomiting or diarrhea. She had a migraine which she treated with ibuprofen. She does have a history of migraines. She complains of hematuria without dysuria. She has pain throughout the abdomen without back pain. CURRENT MEDICATIONS Reviewed and no changes per EMR. ALLERGIES Reviewed and no changes per EMR. VITAL SIGNS Vitals stable; see EMR. PHYSICAL EXAM GENERAL: Well-nourished. No acute distress but obviously not feeling well. SKIN: Warm and dry with normal turgor and texture. Free of lesions. HEART: Regular rate and rhythm without murmur. LUNGS: Clear to auscultation. ABDOMEN: Abdominal palpation yields tenderness throughout. No CVA tenderness. IMPRESSION / REPORT / PLAN DIAGNOSTICS: Urinalysis reveals a specific gravity of 1.015 with protein 30, blood large, leukocyte esterase trace, 5-10 WBCs and RBCs, and a few bacteria. Culture is pending. 1) Acute urinary tract infection (UTI). 2) Constipation. PLAN: 1) Cipro 500 mg twice daily for 1 week. 2) No Pyridium. 3) Recommend [id number] laxative. 4) Aggressive hydration therapy. 5) I think that she should follow up with her primary care provider in about 2 weeks to make sure her urine has returned to normal, sooner for any increased or persistent symptoms. Lawrence Bailey Electronically Signed By:GUERRERO JEREZ On 04/02/2010 03:16 PM Source: [facility] MHSDOLBEYNONRADSYS Document Id: [id number] documented in this encounter Miscellaneous Notes Miscellaneous - Awilda Ortega, C.N.A. 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 Intake/History Entered On: 03/30/2010 14:16 CDT Performed On: 03/30/2010 14:13 CDT by AWILDA SALAZAR Intake Chief Complaint: sweating and cold - migraine - nausea - bloating -blood with urination Temperature Oral: 37.0DegC(Converted to: 98.6DegF) Peripheral Pulse Rate: 72bpm Respiratory Rate: 16br/min Systolic Blood Pressure: 110mmHg Diastolic Blood Pressure: 80mmHg NIBP Mean: 90mmHg BP Location: Right upper extremity Actual Weight: 67.600kg(Converted to: 149.033lb) Dosing Weight Clinic: 67.60kg AWILDA SALAZAR - 03/30/2010 14:13 CDT Subjective Pain Symptoms: Yes AWILDA SALAZAR - 03/30/2010 14:13 CDT Pain Pain Assessment Grid Pain 1 Location: Head AWILDA SALAZAR - 03/30/2010 14:13 CDT Dependent Habits Tobacco Use/Currently Using: No AWILDA SALAZAR - 03/30/2010 14:13 CDT Allergies Allergies (Active) Reglan Estimated Onset Date: Unspecified ; Reactions: Panic attack ; Created By: AWILDA SALAZAR; Reaction Status: Active ; Category: Drug ; Substance: Reglan ; Type: Allergy ; Updated By: AWILDA SALAZAR; Reviewed Date: 03/30/2010 14:12 CDT Source: [facility] Document Id: [id number] CDT!20 documented in this encounter Plan of Treatment Not on filedocumented as of this encounter Visit Diagnoses Not on filedocumented in this encounter
--- OUTSIDE RECORDS SUMMARY | 2022-03-04 19:02 | XMS_ITS | Encounter Summary ---
:1960 Author Organization [facility] Address [address] [place] [address] Care Team Providers Name Role Phone Unavailable Primary Care Provider Unavailable Encounter Details Date Type Department Care Team Description 04/06/2016 Hospital Encounter HX NO MAPPING Lisa Zaman M.D. [address] [place], [place] [phone] (Wo rk) Social History Tobacco Use Types [...] into affected mcg/actuation nasal spray nostril(s). rizatriptan [facility]EDIS REVIEW NURSE Place 10 mg under 0 11/09/2010 (MAXALT-HEDIS REVIEW NURSE) 10 mg the tongue. disintegrating tablet calcium carb/vit Os-Asif 250 with D 0 03/30/2010 0 02/05/2021 D3/minerals (CALCIUM-VITAMIN D ORAL) HYDROcodone-acetaminophen Take 1 tablet by 0 10/201510/24/2018 (NORCO) 5-325 mg per mouth. tablet documented as of this encounter Miscellaneous Notes Miscellaneous - Conversion, Historical Provider Ser - 04/06/2016 11:59 PM CDT Coding Summary-Paper Based CODING DATE: 04/15/2016 FINAL [facility] STATUS: * Discharged to Home or Self Care PAYOR: Medicare ADMIT DX: REASON FOR VISIT DX: FINAL DX: PRINCIPAL: J02.9 Acute pharyngitis, unspecified SECONDARY: PROCEDURES DOCTOR NAME DATE NOTE: The code number assigned matches the documented diagnosis and / or procedure in the patient's chart. However, the narrative phrase printed from the coding software may appear abbreviated, or result in slightly different terminology. Coded By: MEDINA CARVAJAL Date Saved: 04/15/2016 10:30 am Source: [employer] Document Id: [id number] documented in this encounter Plan of Treatment Not on filedocumented as of this encounter Visit Diagnoses Not on filedocumented in this encounter Additional Health Concerns Assessment Noted Time PHQ-9 Depression Total Score: 2 10/14/2015 4:09 PM CDT documented as of this encounter
--- OUTSIDE RECORDS SUMMARY | 2022-03-04 19:02 | XMS_ITS | Encounter Summary ---
:1960 Author Organization [facility] Address [address] [place] [address] Care Team Providers Name Role Phone Unavailable Primary Care Provider Unavailable Encounter Details Date Type Department Care Team Description 11/30/2013 Hospital Encounter HX [facility] Bere Adams M.D. [address] [place] [address] (Wo rk) Social History Tobacco Use Types Packs/Day Years Used Date Smoking Tobacco: Never Assessed Sex Assigned at Date Recorded Not on file documented as of this encounter Last Filed Vital Signs Vital Sign Reading Time Taken Comments Blood Pressure 142/80 11/30/2013 3:15 AM CDT Pulse 66 11/30/2013 3:15 AM CDT Temperature - - Respiratory Rate - - Oxygen Saturation - - Inhaled Oxygen Concentration - - Weight - - Height - - Body Mass Index - - documented in this encounter Medications at Time of Discharge Medication Sig Dispensed Refills Start Date End Date fluticasone propionate Administer 1 spray 0 01/04 (FLONASE) 50 into affected mcg/actuation nasal spray nostril(s). rizatriptan CARE TECH Place 10 mg under 0 11/09/2010 (MAXALT-CARE TECH) 10 mg the tongue. disintegrating tablet calcium carb/vit Os-Joe 250 with D 0 03/30/2010 0 02/05/2021 D3/minerals (CALCIUM-VITAMIN D ORAL) documented as of this encounter Miscellaneous Notes Miscellaneous - Ada Nelson L.P.N. - 11/30/2013 3:15 AM CDT Ambulatory Vitals Height Weight Ambulatory Vitals Height Weight Entered On: 11/30/2013 16:05 CDT Performed On: 11/30/2013 3:15 CDT by ADA NELSON LPN Vitals/Ht/Wt Peripheral Pulse Rate : 66 /min Systolic Blood Pressure : 142 mmHg (HI) Diastolic Blood Pressure : 80 mmHg NIBP Mean : 101 mmHg ADA NELSON LPN - 11/30/2013 16:05 CDT [facility] [employer] Document Id: [id number] CDT!6 documented in this encounter Plan of Treatment Not on filedocumented as of this encounter Visit Diagnoses Not on filedocumented in this encounter
--- OUTSIDE RECORDS SUMMARY | 2022-03-04 19:02 | XMS_ITS | Encounter Summary ---
:1960 Author Organization [facility] Address [address] [place] [address] Care Team Providers Name Role Phone Unavailable Primary Care Provider Unavailable Encounter Details Date Type Department Care Team Description 09/03/2014 Hospital Encounter HX [facility] Bere Adams M.D. [address] [place] [address] (Wo rk) Social History Tobacco Use Types Packs/Day Years Used Date Smoking Tobacco: Never Assessed Sex Assigned at Date Recorded Not on file documented as of this encounter Last Filed Vital Signs Vital Sign Reading Time Taken Comments Blood Pressure 118/70 09/03/2014 3:20 PM CHILD WELFARE CASEWORKER Pulse 68 09/03/2014 3:20 PM CHILD WELFARE CASEWORKER Temperature - - Respiratory Rate 14 09/03/2014 3:20 PM CHILD WELFARE CASEWORKER Oxygen Saturation - - Inhaled Oxygen Concentration - - Weight 83.5 kg (184 lb 1.4 oz) 09/03/2014 3:20 PM CHILD WELFARE CASEWORKER Height 163 cm (5' 4.17) 09/03/2014 3:20 PM CHILD WELFARE CASEWORKER Body Mass Index 31.43 09/03/2014 3:20 PM CHILD WELFARE CASEWORKER documented in this encounter Medications at Time of Discharge Medication Sig Dispensed Refills Start Date End Date fluticasone propionate Administer 1 spray 0 01/04 (FLONASE) 50 into affected mcg/actuation nasal spray nostril(s). rizatriptan OYSTER WORKER Place 10 mg under 0 11/09/2010 (MAXALT-OYSTER WORKER) 10 mg the tongue. disintegrating tablet calcium carb/vit Os-Joe 250 with D 0 03/30/2010 0 02/05/2021 D3/minerals (CALCIUM-VITAMIN D ORAL) documented as of this encounter Progress Notes Rafa Zaman M.D. - 09/03/2014 3:06 PM CST [id number] CHIEF COMPLAINT/REASON FOR VISIT High blood pressure. HISTORY OF PRESENT ILLNESS A 54-year-old female, who has a recorded blood pressure at home that has been higher than in the past. She is using labetalol to control her blood pressure. She does report being under a fair amount ofstress at the present time. She is dealing with some school performance issues with her son. MEDICATIONS Current meds: Alesse 100 mcg-20 mcg tablets once daily. Ativan 1 mg by mouth as needed for anxiety. Buspirone 15 mg in the morning and 30 mg at night. Cymbalta 60 mg daily. Doxycycline 100 mg twice a day. Labetalol 1 tab twice a day. She is unclear of her present dose. Neurontin 600 mg 1/2 tablet in the morning, 2 tablets in the afternoon. Os-Joe 150 mg once daily. vitamins once daily. Zyrtec 10 mg daily. PAST MEDICAL/SURGICAL HISTORY Past history: 1. COPD. 2. Depression. 3. Anxiety. SYSTEMS REVIEW Negative for chills, sweats, fever. Denies chest pain, palpitations. She has had a couple episodes of near syncope, one of which recently required emergency room visit in August. Blood pressure was on the high side at that visit. Therefore she did not appear to be hypotensive. There was no arrhythmia noted. VITAL SIGNS Temp 36.8, heart rate 68, blood pressure is 124/78, weight 83 kg. PHYSICAL EXAMINATION SKIN: Warm and dry. There is no flushing. No neck tenderness, swelling, or mass. LUNGS: Sound clear. HEART: Rhythm is regular without murmur. No gallop, precordial heave or thrill. IMPRESSION/REPORT/PLAN Hypertension borderline control by ambulatory measurements except she is normal today. PLAN Recommending weekly blood pressure rechecks in clinic here for the next 2 to 3 weeks and then will reassess. Not inclined to change her medication dosing or add new medications with normal blood pressure today. I am somewhat concerned however about the continuation of oral contraceptives in this individual who is now 54, is treated for hypertension, and in my opinion, has an elevated cardiovascular/stroke risk. Ailyn and I had a discussion about this today. Her prescriber is in a [facility] and she is going to have a discussion in near future about that. 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 Rafa Zaman M.D./pos Electronically Signed By: RAFA ZAMAN MD On: 09/09/2014 07:48 AM Source: [facility] MHSDOLBEYNONRADSYS Document Id: [id number] D WELFARE CASEWORKER documented in this encounter Miscellaneous Notes Miscellaneous - Rafa Zaman M.D. - 09/04/2014 6:28 PM CST Ambulatory Patient Summary [address] [id number] Visit Information Name: AILYN SOTELO [facility] Number: [id number] Current Date: 09/04/2014 18:28:51 Physicians Attending Provider: RAFA ZAMAN MD Primary Care Provider: RAFA ZAMAN MD AILYN SOTELOE has been given the following list of [...] am and 600mg q pm labetalol (labetalol) 1, Oral, two times a day levonorgestrel-ethinyl estradiol (Alesse 100 mcg-20 mcg oral tablet) 1 Tablet(s), Oral, once a day lorazepam (Ativan) 1 mg, Oral, as needed multivitamin, ( Multivitamins oral capsule) Stop Taking the Following Medications: Medication list as of 09-04-14 18:28 Attention: If you have any medications at [...] Electronically Signed By: RAFA ZAMAN MD Signed On:04-SEP-2014 18:28:42 Your Allergies & Intolerances Substance Reaction Symptoms Category Comments codeine nausea, vomiting Drug Ambien sleep walking Drug Reglan Panic attack Drug Your Problem List Problem Status Onset Comments Depression* Active Anxiety neurosis Active COPD* Active Hypertension (HTN) Chronic Active Your Upcoming Appointments Date Time Location Provider No Appointments found Attention: Contact your local Clinic if further appointment detail needed. Your Goals/Additional instructions: Source: [facility] POWERCHART Document Id: [id number] D WELFARE CASEWORKER Miscellaneous - Rafa Zaman M.D. - 09/04/2014 6:28 PM CST Ambulatory Discharge Medication List [address] [id number] Visit Information Name: AILYN SOTELOANNE [facility] Number: [id number] Visit Date: 09/04/2014 18:28:50 Attending Provider: RAFA ZAMAN MD Primary Care Provider: RAFA ZAMAN MD KEYAMARLAAILYN SHIRIN has been given the following list [...] am and 600mg q pm labetalol (labetalol) 1, Oral, two times a day levonorgestrel-ethinyl estradiol (Alesse 100 mcg-20 mcg oral tablet) 1 Tablet(s), Oral, once a day lorazepam (Ativan) 1 mg, Oral, as needed multivitamin, ( Multivitamins oral capsule) Stop Taking the Following Medications: Medication list as of 09-04-14 18:28 Attention: If you have any medications at [...] Electronically Signed By: RAFA ZAMAN MD Signed On:04-SEP-2014 18:28:42 Additional Information: Source: [facility] POWERCHART Document Id: [id number] D WELFARE CASEWORKER Miscellaneous - Rafa Zaman M.D. - 09/03/2014 4:17 PM CST Work Excuse 03 September 2014 AILYN SOTELO [address] [place] [id number] Dear AILYN SOTELO, You were examined in my office on: 09/03/2014 Reason for work excuse: Medical Illness ( x_ ) Yes ( _ ) No Injury ( _ ) Yes ( _ ) No Is excused from all work: ( _ ) Yes ( _ ) No Has work limitations: ( _ ) Yes ( _ ) No As follows: _ Limitations apply until: _No further restrictions including no driving restrictions at the present time. Follow-Up Appointment : ( _ ) Return to Work date: _ Notes: _ Sincerely, RAFA ZAMAN [address] [place] [phone] Electronic Signature Electronically Signed By: RAFA ZAMAN MD On: 03 September 2014 This document has images extracted. Source: [facility] [employer] Document Id: [id number] Ada Zimmerman L.P.N. - 09/03/2014 3:39 PM CST PHQ-9 PHQ-9 Entered On: 09/03/2014 15:40 CHILD WELFARE CASEWORKER Performed On: 09/03/2014 15:39 CHILD WELFARE CASEWORKER by ADA NELSON LPN PHQ-9 Little interest or pleasure in doing things : Several days Feeling down, depressed, or hopeless : Several days Trouble falling or staying asleep, or sleeping too much : Several days Feeling tired or having little energy : More than half the days Poor appetite or overeating : More than half the days Feeling bad about yourself or that you are a failure : Several days Trouble concentrating on things : Several days Moving or speaking slowly; restless or fidgety : Not at all Thoughts that you would be better off /hurting self : Not at all PHQ-9 Calculated Score : 9 Problems make work, home, or dealing with others : Not difficult at all ADA NELSON LPN - 09/03/2014 15:39 CHILD WELFARE CASEWORKER Source: [facility] [employer] Document Id: [id number] CHILD WELFARE CASEWORKER!13 D WELFARE CASEWORKER Ada Zimmerman L.P.N. 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 running high. Peripheral Pulse Rate : 68 /min Respiratory Rate : 14 /min Systolic Blood Pressure : 118 mmHg Diastolic Blood Pressure : 70 mmHg NIBP Mean : 86 mmHg Height : 163 cm(Converted to: 5 ft 4 inch(es), 64 inch(es)) Actual Weight : 83.5 kg(Converted to: 184 lb 1 oz) Dosing Weight Clinic : 83.5 kg Clinic BSA : 1.94 Body Mass Index : 31.43 kg/m2 ADA NELSON LPN - 09/03/2014 15:20 CHILD WELFARE CASEWORKER General Info Languages : Portuguese Is Patient Female and 13-50 no hysterectomy : No ADA NELSON LPN - 09/03/2014 15:20 CHILD WELFARE CASEWORKER Subjective Pain Symptoms : No ADA NELSON LPN - 09/03/2014 15:20 CHILD WELFARE CASEWORKER Dependent Habits Tobacco Use/Currently Using : No Smoking Status : Never smoker AAD NELSON LPN - 09/03/2014 15:20 CHILD WELFARE CASEWORKER Tobacco Use Grid Last Use : never ADA NELSON LPN - 09/03/2014 15:20 CHILD WELFARE CASEWORKER ID Screen Drug Resistant Organism : No Travel Within Last 21 Days : No ADA NELSON LPN - 09/03/2014 15:20 CHILD WELFARE CASEWORKER Source: [employer] Document Id: [id number] CHILD WELFARE CASEWORKER!27 D WELFARE CASEWORKER Miscellaneous - Ada Nelson, L.P.N. - 09/03/2014 3:19 PM CST Health Assessment Health Assessment Entered On: 09/03/2014 15:19 CHILD WELFARE CASEWORKER Performed On: 09/03/2014 15:19 CHILD WELFARE CASEWORKER by ADA NELSON LPN Health Assessment Complete Health Assessment Complete or Modified : Annual Health Assessment Annual Health Assessment Completed : Yes ADA NELSON LPN - 09/03/2014 15:19 CHILD WELFARE CASEWORKER Nutrition Nutrition Risk Factors by History Adult : None ADA NELSON LPN - 09/03/2014 15:19 CHILD WELFARE CASEWORKER Functional Current Daily Living Assistance : None ADA NELSON LPN - 09/03/2014 15:19 CHILD WELFARE CASEWORKER Dependent Habits Tobacco Use/Currently Using : No Smoking Status : Never smoker ADA NELSON BENZENE WORKER - 09/03/2014 15:19 CHILD WELFARE CASEWORKER Tobacco Use Grid Last Use : never ADA NELSON BENZENE WORKER - 09/03/2014 15:19 CHILD WELFARE CASEWORKER Psychosocial Domestic Abuse Concerns : None Orthodoxy Preference : ADA Mcintosh LPN - 09/03/2014 15:19 CHILD WELFARE CASEWORKER Advance Directive Advanced Directives : No Advance Directive Additional Information : No ADA NELSON BENZENE WORKER - 09/03/2014 15:19 CHILD WELFARE CASEWORKER Educ Needs Learning Style Preference Adult Grid Patient : Demonstration, Printed materials, Verbal explanation Family : Printed materials ADA NELSON BENZENE WORKER - 09/03/2014 15:19 CHILD WELFARE CASEWORKER Source: [facility] POWERCHART Document Id: [id number] CHILD WELFARE CASEWORKER!24 D WELFARE CASEWORKER documented in this encounter Plan of Treatment Not on filedocumented as of this encounter Visit Diagnoses Not on filedocumented in this encounter Additional Health Concerns Assessment Noted Time PHQ-9 Depression Total Score: 9 09/03/2014 3:39 PM CHILD WELFARE CASEWORKER documented as of this encounter
--- OUTSIDE RECORDS SUMMARY | 2022-03-04 19:02 | XMS_ITS | Encounter Summary ---
:1960 Author Organization [facility] Address [address] [place] [address] Care Team Providers Name Role Phone Unavailable Primary Care Provider Unavailable Encounter Details Date Type Department Care Team Description 09/11/2015 Hospital Encounter HX [facility] Ming Luque M.D. [address] [place] [address] (Wo rk) Social History Tobacco Use Types Packs/Day Years Used Date Smoking Tobacco: Never Assessed Sex Assigned at Date Recorded Not on file documented as of this encounter Last Filed Vital Signs Vital Sign Reading Time Taken Comments Blood Pressure 130/82 09/11/2015 3:54 PM STATISTICAL TYPIST Pulse 62 09/11/2015 3:54 PM STATISTICAL TYPIST Temperature - - Respiratory Rate 16 09/11/2015 3:54 PM STATISTICAL TYPIST Oxygen Saturation - - Inhaled Oxygen Concentration - - Weight 72.4 kg (159 lb 9.8 oz) 09/11/2015 3:54 PM STATISTICAL TYPIST Height 163 cm (5' 4.17) 09/11/2015 3:54 PM STATISTICAL TYPIST Body Mass Index 27.25 09/11/2015 3:54 PM STATISTICAL TYPIST documented in this encounter Medications at Time of Discharge Medication Sig Dispensed Refills Start Date End Date cetirizine 10 mg capsule Take 10 mg by mouth. 0 0 09/30/2014 fluticasone propionate Administer 1 spray 0 01/04 (FLONASE) 50 into affected mcg/actuation nasal spray nostril(s). rizatriptan [facility] [employer] Place 10 mg under 0 11/09/2010 (MAXALT-COLOR FINISHER) 10 mg the tongue. disintegrating tablet calcium carb/vit Os-Joe 250 with D 0 03/30/2010 0 02/05/2021 D3/minerals (CALCIUM-VITAMIN D ORAL) documented as of this encounter Progress Notes Ming Ni M.D. - 09/11/2015 4:19 PM CST Clinic Full Note CHIEF COMPLAINT/REASON FOR VISIT right mid back pain radiates down right leg to mid calf x 2 months, has had sciatica in left side and can usually relieve it with exercise, not working on the right side HISTORY OF PRESENT ILLNESS 55 year old female presents today for right side buttock pain shooting down to right lower leg for last 2 months, not better with her exercise, no weakness of right leg, no bowel or bladder problems. Had history of left side sciatica in the past, no known disc disease in lumbar. MEDICATIONS Alesse 100 mcg-20 mcg oral tablet, 1 tab(s), PO, Daily, 0 refills Ativan, 1 mg, PO, PRN busPIRone, See Instructions, 15 mg in the am and 30 mg in the pm Cymbalta, 60 mg, PO, Daily doxycycline, 100 mg, PO, 2xDay ibuprofen 200 mg oral tablet, 400 mg, 2 tab(s), PO, 3xDay, PRN labetalol, 50 mg, PO, Daily Neurontin 600 mg oral tablet, See Instructions, 300mg q am and 600mg q pm ZyrTEC, 10 mg, PO, Daily ALLERGIES Ambien (sleep walking) codeine (nausea, vomiting) Reglan (Panic attack) PAST MEDICAL HISTORY Chronic Anxiety neurosis COPD* Depression* Hypertension (HTN) Chronic Historical No historical problems PROCEDURES/SURGICAL HISTORY Pap smear (02/05/2015), Colonoscopy (09/08/2013), History of knee surgery, Hyperhidrosis. SOCIAL HISTORY No Data Available Non smoker. SYSTEMS REVIEW All other systems review are negative except right side leg pain. VITAL SIGNS T: 37.2 ??C (Core) HR: 62 RR: 16 BP: 130 / 82 SpO2: 98% HT: 163 cm WT: 72.4 kg BMI: 27.25 PHYSICAL EXAMINATION GENERAL: alert, oriented, normal speech, pleasant. LUNGS: clear to auscultation, no wheezing or rales. HEART: normal sinus rhythm, normal S1, S2, no murmurs. EXTREMITIES: lumbar with no focal tenderness, normal range of motion. Right leg raising test positive at 45 degree. NEUROLOGY: no deficits noticed. PSYCHIATRY: alert and oriented to time, person and place, normal affect, and stable mood. IMPRESSION/REPORT/PLAN Sciatica R Symptoms indicating possible right side sciatica, presumed degenerative disc disease. Recommended physical therapy, Medro dose pack. Patient would like to try medication first. She will call back if not better. Physical therapy referral then and possible Dr. Chairez consult for injection. Ordered: methylPREDNISolone, See special instructions, PO, As Directed, x 6 day(s), # 21 tab(s), 0 Refill(s), Acute, [facility]: [facility] Electron[facility] Signed By: MING NI MD On: 09/11/2015 04:23 PM Source: [employer] Document Id: [id number] ISTICAL TYPIST documented in this encounter Nursing Notes Ming Ni M.D. - 09/11/2015 4:12 PM CST Ambulatory Patient Education The following Patient Education Materials have been given to the patient: Patient Education Materials: Ambulatory BACK PAIN w/ SCIATICA Orthopaedics Understanding Sciatica Ambulatory Sciatica Sciatica (Lumbar Radiculopathy) causes a pain that spreads from the lower back down into the buttock, hip and leg. Sometimes leg pain can occur without any back pain. Sciatica is due to irritation orpressure on a spinal nerve as it comes out of the spinal canal. This is most often due to a bulge orrupture of a nearby spinal disk (the cartilage cushion between each spinal bone), which presses on anearby nerve. Other causes include spinal stenosis (narrowing of the spinal canal) and spasm of the pyriform muscle (a muscle in the buttocks that the sciatic nerve passes through). Sciatica may begin after a sudden twisting/bending force (such as in a car accident), or sometimes after a simple awkward movement. In either case, muscle spasm is commonly present and contributes to the pain. The diagnosis of sciatica is made from the symptoms and physical exam. Unless you had a physical injury (such as a car accident or fall), X-rays are usually not ordered for the initial evaluation of sciatica because the nerves and disks cannot be seen on an x-ray. If signs of a compressed nerve are present (for example, loss of tendon reflex or strength in the leg), an MRI (magnetic resonance imaging) scan will need to be scheduled as an outpatient. Most sciatica (80-90%) gets better with medicine, exercise, physical therapy. If symptoms continue after at least three months of medical treatment, surgery may be considered. Home Care: You may need to stay in bed the first few days. But, as soon as possible, begin sitting or walking to avoid problems with prolonged bed rest. When in bed, try to find a position of comfort. A firm mattress is best. Try lying flat on your backwith pillows under your knees. You can also try lying on your side with your knees bent up towards your chest and a pillow between your knees. Avoid prolonged sitting. This puts more stress on the lower back than standing or walking. Some persons find relief with heat (hot shower, hot bath or heating pad) and massage, while others prefer cold packs (crushed or cubed ice in a plastic bag, wrapped in a towel). Try both and use the method that feels best for 20 minutes several times a day. You may use acetaminophen (Tylenol) or ibuprofen (Motrin, Advil) to control pain, unless another pain medicine was prescribed. [ NOTE: If you have chronic liver or kidney disease or ever had a stomach ulcer or GI bleeding, talk with your doctor before using these medicines.] Be aware of safe lifting methods and do not lift anything over 15 pounds until all the pain is gone. Follow Up with your doctor or this facility if your symptoms do not start to improve after one week. Physical therapy or further testing may be needed. [NOTE: If X-rays were taken, they will be reviewed by a radiologist. You will be notified of any newfindings that may affect your care.] Get Prompt Medical Attention if any of the following occur: ?? Pain becomes worse, not controlled by the prescribed medicine ?? Weakness or numbness in one or both legs ?? Numbness in the groin, genital area ?? Loss of bowel or bladder control ?? [id number] [facility], [address] [place] [address], [place] [address]. All rights reserved. This information is not intended as a substitute for professional medical care. Always follow your healthcare professional's instructions. Orthopaedics Understanding Sciatica Sciatica is leg pain often due to pressure on a nerve in your low back that connects to the sciatic nerve. This pressure may be caused by a damaged disk or by abnormal bone growth. You may feel pain, burning, tingling, or numbness that shoots down your leg. Pressure from a Damaged Disk Constant wear and tear on a disk can cause it to weaken. Part of the disk may push outward (herniate). Part of the disk may then press on nearby nerves. If this nerve leads to the sciatic nerve, you may feel pain down your leg. Pressure from Bone A disk can wear out and thin with age. This can cause the vertebrae above and below the disk to touch, putting pressure on a nerve. Abnormal bone growths called bone spurs can also form where the bonesrub together. These can narrow the spinal canal and press on nerves. ?? [id number] [place] [address]. All rights reserved. This information is not intended as a substitute for professional medical care. Always follow your healthcare professional's instructions. This document has images extracted. Please consider using [employer] for all your patient education needs. Source: [facility] POWERCHART Document Id: [id number] ISTICAL TYPIST documented in this encounter Miscellaneous Notes Miscellaneous - Ming Ni M.D. - 09/11/2015 4:12 PM CST Ambulatory Patient Summary [address] [id number] Visit Information Name: AILYN SOTELO [facility] Number: [id number] Current Date: 09/11/2015 16:12:24 Physicians Attending Provider: MING NI MD Primary Care Provider: RAFA ZAMAN MD AILYN SOTELO has been given the following [...] the Following Medications: Medication list as of 09-11-15 16:12 Attention: If you have any medications at [...] Electronically Signed By: MING NI MD Signed On:11-SEP-2015 16:09:36 Your Allergies & Intolerances Substance Reaction Symptoms Category Comments codeine nausea, vomiting Drug Ambien sleep walking Drug Reglan Panic attack Drug Your Problem List Problem Status Onset Comments Depression* Active Anxiety neurosis Active COPD* Active Hypertension (HTN) Chronic Active Your Upcoming Appointments Date Time Location Provider 09/17/2015 15:45 JACK Zaman MD, Rafa Liriano Attention: Contact your local Clinic if further appointment detail needed. Sciatica Sciatica (Lumbar Radiculopathy) causes a pain that spreads from the lower back down into the buttock, hip and leg. Sometimes leg pain can occur without any back pain. Sciatica is due to irritation orpressure on a spinal nerve as it comes out of the spinal canal. This is most often due to a bulge orrupture of a nearby spinal disk (the cartilage cushion between each spinal bone), which presses on anearby nerve. Other causes include spinal stenosis (narrowing of the spinal canal) and spasm of the pyriform muscle (a muscle in the buttocks that the sciatic nerve passes through). Sciatica may begin after a sudden twisting/bending force (such as in a car accident), or sometimes after a simple awkward movement. In either case, muscle spasm is commonly present and contributes to the pain. The diagnosis of sciatica is made from the symptoms and physical exam. Unless you had a physical injury (such as a car accident or fall), X-rays are usually not ordered for the initial evaluation of sciatica because the nerves and disks cannot be seen on an x-ray. If signs of a compressed nerve are present (for example, loss of tendon reflex or strength in the leg), an MRI (magnetic resonance imaging) scan will need to be scheduled as an outpatient. Most sciatica (80-90%) gets better with medicine, exercise, physical therapy. If symptoms continue after at least three months of medical treatment, surgery may be considered. Home Care: You may need to stay in bed the first few days. But, as soon as possible, begin sitting or walking to avoid problems with prolonged bed rest. When in bed, try to find a position of comfort. A firm mattress is best. Try lying flat on your backwith pillows under your knees. You can also try lying on your side with your knees bent up towards your chest and a pillow between your knees. Avoid prolonged sitting. This puts more stress on the lower back than standing or walking. Some persons find relief with heat (hot shower, hot bath or heating pad) and massage, while others prefer cold packs (crushed or cubed ice in a plastic bag, wrapped in a towel). Try both and use the method that feels best for 20 minutes several times a day. You may use acetaminophen (Tylenol) or ibuprofen (Motrin, Advil) to control pain, unless another pain medicine was prescribed. [ NOTE: If you have chronic liver or kidney disease or ever had a stomach ulcer or GI bleeding, talk with your doctor before using these medicines.] Be aware of safe lifting methods and do not lift anything over 15 pounds until all the pain is gone. Follow Up with your doctor or this facility if your symptoms do not start to improve after one week. Physical therapy or further testing may be needed. [NOTE: If X-rays were taken, they will be reviewed by a radiologist. You will be notified of any newfindings that may affect your care.] Get Prompt Medical Attention if any of the following occur: ?? Pain becomes worse, not controlled by the prescribed medicine ?? Weakness or numbness in one or both legs ?? Numbness in the groin, genital area ?? Loss of bowel or bladder control ?? [place] [address]. All rights reserved. This information is not intended as a substitute for professional medical care. Always follow your healthcare professional's instructions. Understanding Sciatica Sciatica is leg pain often due to pressure on a nerve in your low back that connects to the sciatic nerve. This pressure may be caused by a damaged disk or by abnormal bone growth. You may feel pain, burning, tingling, or numbness that shoots down your leg. Pressure from a Damaged Disk Constant wear and tear on a disk can cause it to weaken. Part of the disk may push outward (herniate). Part of the disk may then press on nearby nerves. If this nerve leads to the sciatic nerve, you may feel pain down your leg. Pressure from Bone A disk can wear out and thin with age. This can cause the vertebrae above and below the disk to touch, putting pressure on a nerve. Abnormal bone growths called bone spurs can also form where the bonesrub together. These can narrow the spinal canal and press on nerves. ?? [place] [address]. All rights reserved. This information is not [...] online form. Youll be asked for your [facility] number which you can find at the top of this document. Your Goals/Additional instructions: This document has images extracted. Please consider using [employer] for all your patient education needs. Source: [facility] POWERCHART Document Id: [id number] ISTICAL TYPIST Miscellaneous - Ming Ni M.D. - 09/11/2015 4:12 PM CST Ambulatory Discharge Medication List [address] [id number] Visit Information Name: SERENAMARLARAFIQI SHIRIN [facility] Number: [id number] Visit Date: 09/11/2015 16:12:23 Attending Provider: MING NI MD Primary Care Provider: RAFA ZAMAN MD AILYN SOTELO has been given the following [...] the Following Medications: Medication list as of 09-11-15 16:12 Attention: If you have any medications at [...] Electronically Signed By: MING NI MD Signed On:11-SEP-2015 16:09:36 Additional Information: Source: [facility] POWERCHART Document Id: [id number] ISTICAL TYPIST Miscellaneous - Man Gramajo, L.P.N. 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 Intake/History Entered On: 09/11/2015 15:57 STATISTICAL TYPIST Performed On: 09/11/2015 15:54 STATISTICAL TYPIST by MAN GRAMAJO LPN Intake Chief Complaint : right mid back pain radiates down right leg to mid calf x 2 months, has had sciatica in left side and can usually relieve it with exercise, not working on the right side Temperature Core : 37.2 DegC(Converted to: 99.0 DegF) Peripheral Pulse Rate : 62 /min Respiratory Rate : 16 /min Heart Rhythm : Regular Systolic Blood Pressure : 130 mmHg Diastolic Blood Pressure : 82 mmHg NIBP Mean : 98 mmHg BP Location : Right upper extremity Blood Pressure Cuff Size : Regular SpO2 : 98 % Oxygen Therapy : Room air Height : 163 cm(Converted to: 5 ft 4 inch(es), 64 inch(es)) Actual Weight : 72.4 kg(Converted to: 159 lb 10 oz) Weight Source : Standing scale Dosing Weight Clinic : 72.4 kg Clinic BSA : 1.81 Body Mass Index : 27.25 kg/m2 MAN GRAMAJO LPN - 09/11/2015 15:54 STATISTICAL TYPIST General Info Information Given By : Patient Preferred Communication Mode : Verbal Languages : Tajik Is Patient Female and 13-50 no hysterectomy : No MAN GRAMAJO LPN - 09/11/2015 15:54 STATISTICAL TYPIST Subjective Pain Symptoms : Yes MAN GRAMJAO [facility] - 09/11/2015 15:54 STATISTICAL TYPIST Pain Scale Pain Scale Verbal 0-10 : Open MAN GRAMAJO [facility] - 09/11/2015 15:54 STATISTICAL TYPIST Pain Pain Assessment Grid Pain 1 Location : Lower back Laterality : Right Intensity : 5 MAN GRAMAJO [facility] - 09/11/2015 15:54 STATISTICAL TYPIST Dependent Habits Smoking Status : Never smoker Tobacco 2A : No Tobacco Use/Currently Using : No Tobacco Use/Last 30 Days : No Tobacco Use/Last 12 months : No MAN GRAMAJO [facility] - 09/11/2015 15:54 STATISTICAL TYPIST Source: [facility] [employer] Document Id: [id number] STATISTICAL TYPIST!41 ISTICAL TYPIST documented in this encounter Plan of Treatment Not on filedocumented as of this encounter Visit Diagnoses Not on filedocumented in this encounter Additional Health Concerns Assessment Noted Time PHQ-9 Depression Total Score: 9 09/03/2014 3:39 PM STATISTICAL TYPIST documented as of this encounter
--- OUTSIDE RECORDS SUMMARY | 2022-03-04 19:02 | XMS_ITS | Encounter Summary ---
:1960 Author Organization [facility] Address [address] [place] [address] Care Team Providers Name Role Phone Unavailable Primary Care Provider Unavailable Encounter Details Date Type Department Care Team Description 05/22/2013 Hospital Encounter [facility] Adriana Gr M.D. Social History Tobacco Use Types Packs/Day Years Used Date Smoking Tobacco: Never Assessed Sex Assigned at Date Recorded Not on file documented as of this encounter Last Filed Vital Signs Vital Sign Reading Time Taken Comments Blood Pressure 157/94 05/22/2013 1:30 PM CDT Pulse 59 05/22/2013 1:30 PM CDT Temperature - - Respiratory Rate 16 05/22/2013 1:30 PM CDT Oxygen Saturation - - Inhaled Oxygen Concentration - - Weight - - Height 163.8 cm (5' 4.5) 05/22/2013 12:49 PM CDT Body Mass Index - - documented in this encounter Discharge Summaries Fran Claros R.N. - 05/22/2013 2:54 PM CDT ED Discharge Instructions [address] [address] [place] [address] Name: DIA SOTELO Date of : 1960 12:00 AM Visit Date: 05/22/2013 12:40 PM [facility] Number: [id number] Address: [address] [place] [phone] Primary Care Provider: COLE LAI MD IMPORTANT: [facility] in [place] would like to thank you for allowing us to assistyou with your healthcare needs. The following includes patient education materials and information regarding your injury/illness. Chief Complaint: Syncope/Near syncope; DIZZY HIGH BLOOD PRESSURE Follow-Up Instructions: With: Address: When: Follow up with primary care provider Within As Soon As Possible Comments: Patient Education Materials: [id number] NEAR-FAINTING:Uncertain Cause Fainting (syncope) is a temporary loss of consciousness (passing out). It occurs when blood flow to the brain is reduced. Near-fainting (near-syncope) is like fainting, but you do not fully pass out. The common minor causes of near fainting include sudden fear, pain, emotional stress, overexertion, or quickly standing up after sitting or lying for a long time. The more serious causes for near fainting are due to either a very slow or very fast heart beat, dehydration, anemia, blood loss, problems related to the heart, or taking too much high blood pressure medicine. The exact cause of your episode is not certain. More tests may be required. Therefore, it is important that you follow up with your doctor as advised. HOME CARE: 1) Rest today. Resume your normal activities as soon as you are feeling back to normal. 2) If you become light-headed or dizzy, lie down right away or sit with your head between your knees. 3) Because we do not know the exact cause of your near fainting spell, another spell could occur without warning. Therefore, do not drive a car or use dangerous equipment. D o not take a bath alone (use a shower instead). Do not swim alone. You can resume these activities when your doctor says that you are no longer in danger of having a near fainting spell. 4) Stay well hydrated by drinking enough fluid each day. FOLLOW UP with your doctor as instructed. GET PROMPT MEDICAL ATTENTION if any of the following occur: -- Another fainting spell occurs, and it is not explained by the common causes listed above -- Chest, arm, neck, jaw, back or abdominal pain -- Shortness of breath -- Weakness, tingling or numbness in one side of the face, one arm or leg -- Slurred speech, confusion, trouble walking or seeing -- Seizure -- Blood in vomit, stools (black or red color) -- (In women) unexpected vaginal bleeding ?? [id number] [facility], [address] [place] [address], [place] [address]. All rights reserved. This information is not intended as a substitute for professional medical care. Always follow your healthcare professional's instructions. ED Tests and Procedures: Order Status UR Microscopic Completed EKG-Lab Completed Automated Diff-5 Part Completed Basic Metabolic Panel Completed CBC (includes Auto Differential) Completed CKMB Completed Magnesium Level Completed Troponin T Completed Urinalysis with Microscopic if Indicated Completed XR Chest 2 Views Completed Discharge Prescriptions & Home Medications: Medication/Strength Dose Route Frequency Indications/Special Instructions/Comments/Notes levonorgestrel-ethinyl estradiol (Alesse 100 mcg-20 mcg oral [...] am and 30 mg in the pm *duloxetine (Cymbalta) 60 mg Oral once a day * You have let us know that you are not taking this medication as listed. Please talk with your primary care provider or the health care provider who prescribed the medication as soon as possible. Attention: If you have any medications at home not on this list, DO NOT take them until you contact your provider for clarification. Medication Reconciliation: Reconciliation is a process of [...] a ride home with a responsible democrat. DEEPAK Oneill LORI JEANNE , or responsible democrat have received this information and my questions havebeen answered. I have discussed any challenges I see with this plan with the nurse or physician. Patient Signature or Responsible Alliance Party/Relationship Date Time Provider Signature Date Time Medication [...] a ride home with a responsible democrat. DEEPAK Oneill LORI JEANNE , or responsible democrat have received this information and my questions havebeen answered. I have discussed any challenges I see with this plan with the nurse or physician. Patient Signature or Responsible Alliance Party/Relationship Date Time Provider Signature Date Time Source: [facility] POWERCHART Document Id: [id number] Fran Claros R.N. - 05/22/2013 2:54 PM CDT ED Depart Summary [facility] Emergency Department Clinical Discharge Summary PERSON INFORMATION Name DIA SOTELO Age 52 Years 1960 12:00 AM Sex Female Language Pashto PCP COLE LAI MD Marital Status Single N [id number] Visit Id Visit Reason Syncope/Near syncope; DIZZY HIGH BLOOD PRESSURE Specialty Enc Type Emergency Med Service Emergency Medicine Referred by Track Group MAQN ED Discharge 05/22/2013 2:47 PM Tracking Id [id number] Checkout 05/22/2013 2:47 PM Checkin 05/22/2013 12:40 PM Acuity 3 -Urgent Dispo Type * Discharged to Home or Self Care Arrival 05/22/2013 12:40 PM Reg Status LOS 000 02:07 Address: [address] [place] [phone] Comment: PROVIDER INFORMATION Provider Role Provider Contact Time ADRIANA BAUMANN MD ED Provider 05/22/13 12:41 VESNA OLSON RN ED Nurse 05/22/13 13:05 DIAGNOSIS Near syncope 780.2 Comment: PATIENT EDUCATION INFORMATION Instructions: NEAR SYNCOPE, Unknown Follow up: With: Address: When: Follow up with primary care provider Within As Soon As Possible Comments: Source: [facility] POWERCHART Document Id: [id number] documented in this encounter Medications at Time of Discharge Medication Sig Dispensed Refills Start Date End Date fluticasone propionate Administer 1 spray 0 01/04 (FLONASE) 50 into affected mcg/actuation nasal spray nostril(s). rizatriptan REPEATER OPERATOR Place 10 mg under 0 11/09/2010 (MAXALT-REPEATER OPERATOR) 10 mg the tongue. disintegrating tablet calcium carb/vit Os-Joe 250 with D 0 03/30/2010 0 02/05/2021 D3/minerals (CALCIUM-VITAMIN D ORAL) documented as of this encounter ED Notes Fran Claros R.N. - 05/22/2013 2:51 PM CDT ED Disposition Summary ED Disposition Summary Entered On: 05/22/2013 14:51 CDT Performed On: 05/22/2013 14:51 CDT by FRAN CLAROS RN ED Disposition Summary Accompanied By : Alone Discharge From ED With : Home Med List Printed Discharge Instructions Given to Patient : Yes Patient Status at Discharge from ED : Improved Comment : I think that my sugar just dropped FRAN CLAROS RN - 05/22/2013 14:51 CDT Source: [place] Document Id: [id number] CDT!7 Vesna Olson R.N. - 05/22/2013 1:31 PM CDT ED Nurse Reassess ED Nurse Reassess Entered On: 05/22/2013 13:32 CDT Performed On: 05/22/2013 13:31 CDT by VESNA OLSON RN Pain Assessment Pain Symptoms : Yes VESNA OLSON RN - 05/22/2013 13:31 CDT Neuro Reassess Last Well Time Known : Not applicable Orientation : Oriented x 3 Characteristics of Speech : Clear Level of Consciousness : Alert Neuro Note : Assisted to bathroom, states feeling better (much) now. Dizziness gone, no c/o chest pain. VS and awake overnight monitor stable; to xray. VESNA OLSON RN - 05/22/2013 13:31 CDT Source: [place] Document Id: [id number] CDT!9 O Adriana Langston M.D. - 05/22/2013 12:54 PM CDT Syncope/Near syncope Patient: DIA SOTELO Age: 52 years Sex: Female : 1960 Author: ADRIANA BAUMANN MD Attachments: None Associated Diagnosis: Near syncope 780.2 Basic Information Time seen: Immediately upon arrival. History of Present Illness The patient presents with near syncope. 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 Hands and feet tingling. Went to see nurse and BP noted high. Ambulance called. Sx basically resolved but BP still high side. Review of Systems Constitutional symptoms: No fever, no chills or no sweats. Skin symptoms: Negative except as documented in HPI. Eye symptoms: Vision unchanged. ENMT symptoms: Negative except as documented in HPI. Respiratory symptoms: Negative except as documented in HPI. Cardiovascular symptoms: No chest pain, no palpitations, no tachycardia or no diaphoresis. Gastrointestinal symptoms: No abdominal pain, no nausea or no vomiting. Genitourinary symptoms: Negative except as documented in HPI. Musculoskeletal symptoms: Negative except as documented in HPI. Neurologic symptoms: No headache or no dizziness. Additional review of systems information: All other systems reviewed and otherwise negative. Health Status Allergies: . Allergic Reactions (Selected) Severity Not Documented Ambien- Sleep walking. Codeine- Nausea, vomiting. Reglan- Panic attack. Past Medical/ Family/ Social History Medical history: Chronic fatigue syndrome. Surgical history: . No active procedure history items have been selected or recorded. Family history: . No family history items have been selected or recorded. Social history: Alcohol use: Occasionally, Tobacco use: Denies, Drug use: Denies. Physical Examination Vital Signs Vital Signs. 05/22/2013 13:30 CDT Peripheral Pulse Rate 59 /min LOW Respiratory Rate 16 /min SpO2 100 % Systolic Blood Pressure 157 mmHg HI Diastolic Blood Pressure 94 mmHg >HHI BP Location Left upper 05/22/2013 12:49 CDT Temperature Core 36.8 DegC Peripheral Pulse Rate 60 /min Respiratory Rate 16 /min SpO2 100 % Systolic Blood Pressure 180 mmHg >HHI Diastolic Blood Pressure 97 mmHg >HHI Mean Arterial Pressure 125 mmHg BP Location Left upper General: Alert and no acute distress. Skin: Warm and dry. Head: Normocephalic and atraumatic. Neck: Supple. Eye: Pupils are equal, round and reactive to light and extraocular movements are intact. Ears, nose, mouth and throat: Tympanic membranes clear and no pharyngeal erythema or exudate. Cardiovascular: Regular rate and rhythm, Normal peripheral perfusion, No edema and Systolic murmur: 3 /6, at left sternal border (upper). Respiratory: Lungs are clear to auscultation. Gastrointestinal: Soft and Nontender. Musculoskeletal: Normal ROM. normal strength. Neurological: Alert and oriented to person, place, time, and situation, No focal neurological deficit observed and CN II-XII intact. Psychiatric: Cooperative. Medical Decision Making Electrocardiogram:EP Interp, WNL. Results review:Lab results : Lab View. 05/22/2013 13:22 CDT UUA Source. UA Color Yellow UA Spec Grav 1.010 UA pH 7.0 UA Protein Negative UA Glucose Negative UA Ketones Negative UA Bili Negative UA Urobilinogen 0.2 UA Blood Trace UA Nitrite Negative UA Leuk Est Negative UA WBC 1-3 UA RBC 0-2 UA Bacteria 1+ UA Appear Clear UA Epi 1+ 05/22/2013 13:13 CDT Hgb 14.6 g/dL Hct 41.3 % WBC 9.9 x10(9)/L RBC 4.56 x10(12)/L MCV 90.6 fL RDW 12.5 % Platelet 330 x10(9)/L Neutro Absolute 6.22 10(9)/L Lymph Absolute 2.59 x10(9)/L [place] Absolute 0.92 x10(9)/L HI Eos Absolute <0.50 x10(9)/L Baso Absolute <0.50 x10(9)/L Differential? Auto Sodium Lvl 135 mmol/L Potassium Lvl 3.5 mmol/L Chloride 98 mmol/L CO2 26 mmol/L AGAP 11 mmol/L Glucose Lvl 98 mg/dL Creatinine 0.6 mg/dL EGFR (MDRD) >60.0 EGFR (MDRD) >60.0 BUN 13 mg/dL Calcium Lvl 9.2 mg/dL Magnesium 2.1 mg/dL CK-MB <3.0 ng/mL Troponin-T <0.010 ng/mL Chest X-Ray: Reason For Exam syncope Report EXAM: XR Chest 2 Views INDICATION: syncope COMPARISON: None. Two views of the chest were obtained, demonstrating the heart and pulmonary vasculature to be within normal limits. The lungs are clear. IMPRESSION: No active intrathoracic disease. Signature Line Final Dictated: 05/22/2013 2:07 pm NEREIDA KING MD . Reexamination/ Reevaluation Notes: No further sx here. Impression and Plan Diagnosis Near syncope 780.2 (Discharge, Emergency medicine, Medical) Plan Condition: Stable. Disposition: Medically cleared, Discharged: Time 05/22/2013 14:35:00, to home. Patient was given the following educational materials: NEAR SYNCOPE, Unknown. Follow up with: ; Follow up with primary care provider Within As Soon As Possible. Electronically Signed By: ADRIANA BAUMANN MD On: 05/22/2013 08:09 PM Modified by and Electronically Signed by: ADRIANA BAUMANN MD On: 05/22/2013 02:38 PM Source: [facility] T-Quad 22 Document Id: [id number]} Vesna Olson R.N. - 05/22/2013 12:49 PM CDT ED Pre-Arrival Note Pre-Arrival Summary Name: , Current Date: 05/22/2013 12:49:17 CDT Gender: Female Age: 52 Pre-Arrival Type: Ambulance ETA: 05/22/2013 13:00:00 CDT Presenting Problem: Pre-Arrival User: VESNA OLSON RN Referring Source: Location: EDWR Pre-Arrival Communication Form Presenting History:52 y.o. female coming per [facility] ambulance with c/o dizziness and hypertension, hx borderline DM. BP 195/91, HR 73, O2 sat 93% on 15L/nonrebreather mask. Alert and oriented. Level 1 Level 2 Callers Name Callers Phone # BP P EKG R O2 Sat NC NRB ET OPA/NPA Combitube GCS LOC Bld. Sugar IV Access IV Fluids C-Spine Splint Dressing CPR Defib Medications Given: Source: [facility] POWERCHART Document Id: [id number] Vesna Olson R.N. - 05/22/2013 12:49 PM CDT ED Primary Assessment Document Has Been Updated ED Primary Assessment Entered On: 05/22/2013 12:56 CDT Performed On: 05/22/2013 12:49 CDT by VESNA OLSON RN Reason For Visit (As Of: 05/22/2013 12:56:17 CDT) Problems(Active) Anxiety neurosis (ICD-9-CM :300.00 ) Name of Problem: Anxiety neurosis ; Recorder: COLE LAI AMD; Confirmation: Confirmed ; Classification: Medical ; Code: 300.00 ; Contributor System: PowerChart ; Last Updated: 01/08/2013 15:23 CDT ; Life Cycle Date: 01/08/2013 ; Life Cycle Status: Active ; Responsible Provider: COLE LAI MD; Vocabulary: ICD-9-CM COPD* (ICD-9-CM :496 ) Name of Problem: COPD* ; Recorder: COLE LAI MD; Confirmation: Confirmed ; Classification: Medical ; Code: 496 ; Contributor System: PowerChart ; Last Updated: 01/08/201315:23 CDT ; Life [...] Provider: COLE LAI MD; Vocabulary: ICD-9-CM Diagnoses(Active) Syncope/Near syncope Date: 05/22/2013 ; Diagnosis Type: Reason For Visit ; Confirmation: Complaint of ; Clinical Dx: Syncope/Near syncope ; Classification: Medical ; Clinical Service: Emergency medicine ; Code: PNED ; Probability: 0 ; Diagnosis Code: [id number] Triage Chief Complaint Description : 52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 Assisted to nurse's office, BP elevated. Now pt. states she feelssome better but still a bit dizzy. Mode of Arrival ED : Ambulance Track : Medical Languages : Pashto Vital Signs Assessed : Yes Treatments Prior to Arrival : Oxygen VESNA OLSON RN - 05/22/2013 12:49 CDT Vital Signs Temperature Core : 36.8 DegC(Converted to: 98.2 DegF) Peripheral Pulse Rate : 60 /min Respiratory Rate : 16 /min Systolic Blood Pressure : 180 mmHg (>HHI) Diastolic Blood Pressure : 97 mmHg (>HHI) NIBP Mean : 125 mmHg BP Location : Left upper extremity SpO2 : 100 % Oxygen Saturation Monitoring Frequency : Intermittent Oxygen Therapy : Room air Height : 163.83 cm(Converted to: 5 ft 5 inch(es)) Estimated Weight : 77.27 kg Estimated Weight Conversion to Pounds : 169.99 lb VESNA OLSON RN - 05/22/2013 12:49 CDT Pain Assessment Pain Symptoms : Yes VESNA OLSON RN - 05/22/2013 12:49 CDT Pain Pain Assessment Grid Pain 1 Location : Chest Laterality : Left Intensity : 1 Time Pattern : Acute Onset : Sudden VESNA OLSON RN - 05/22/2013 12:49 CDT ED Physician Notification Time ED Physician Notification Time : 05/22/2013 12:53 CDT VESNA OLSON RN - 05/22/2013 12:49 CDT ELOISE ELOISE Level 1 : No ELOISE Level 2 : No ELOISE Level 3 : Many VESNA OLSON RN - 05/22/2013 12:49 CDT DCP GENERIC CODE Tracking Acuity : 3 -Urgent Tracking Group : MAQN ED VESNA OLSON RN - 05/22/2013 12:49 CDT Allergy Latex Reaction : No Latex Hives/Itch : No Latex Congestion/Eye Irr/Breathing : No Latex Symptom Progression : No Latex Previous Test : No VESNA OLSON RN - 05/22/2013 12:49 CDT (As Of: 05/22/2013 12:56:17 CDT) Allergies (Active) Ambien Estimated Onset Date: Unspecified ; Reactions: sleep walking ; Created By: FENG NELSON LPN; Reaction Status: Active ; Category: Drug ; Substance: Ambien ; Type: Allergy ; Updated By: FENG NELSON LPN; Reviewed Date: 01/08/2013 14:38 CDT codeine Estimated Onset Date: Unspecified ; Reactions: nausea, vomiting ; Created By: FENG NELSON LPN; Reaction Status: Active ; Category: Drug ; Substance: codeine ; Type: Allergy ; Updated By: FENG NELSON LPN; Reviewed Date: 01/08/2013 14:39 CDT Reglan Estimated Onset Date: Unspecified ; Reactions: Panic attack ; Created By: EMIGDIO SALAZAR; Reaction Status: Active ; Category: Drug ; Substance: Reglan ; Type: Allergy ; Updated By: EMIGDIO SALAZAR; Reviewed Date: 03/30/2010 14:12 CDT ID Screen Drug Resistant Organism : No VESNA OLSON RN - 05/22/2013 12:49 CDT TB Symptoms Grid Bloody Sputum : No Fatigue : No Fever : No Loss of Appetite : No Night Sweats : No Persistent Cough Greater Than 3 Weeks : No Weight Loss : No VESNA OLSON RN - 05/22/2013 12:49 CDT Immunizations Immunizations Current : Yes VESNA OLSON RN - 05/22/2013 12:49 CDT Respiratory Airway : Patent Respirations : Unlabored Respiratory Pattern : Regular VESNA OLSON RN - 05/22/2013 12:49 CDT Cardiovascular Heart Rhythm : Regular Skin Color : Normal for ethnicity Skin Description : Dry Skin Temperature : Warm VESNA OLSON RN - 05/22/2013 12:49 CDT Neurological Last Well Time Known : Not applicable Level of Consciousness : Alert Orientation : Oriented x 3 Characteristics of Speech : Clear VESNA OLSON RN - 05/22/2013 12:49 CDT ED Psychosocial Affect/Behavior : Calm, Cooperative Domestic Abuse Concerns : None VESNA OLSON RN - 05/22/2013 12:49 CDT Gastrointestinal Nutrition ED : Adequate VESNA OLSON RN - 05/22/2013 12:49 CDT Musculoskeletal Fall Prevention Education Provided : Yes VESNA OLSON RN - 05/22/2013 12:49 CDT Social Habits Tobacco Use/Currently Using : No Smoking Status : Unknown if ever smoke VESNA OLSON RN - 05/22/2013 12:49 CDT Source: [place] Document Id: [id number] CDT!83 documented in this encounter Miscellaneous Notes Miscellaneous - Fran Claros R.N. - 05/22/2013 2:52 PM CDT Valuables/Belongings Valuables/Belongings Entered On: 05/22/2013 14:52 CDT Performed On: 05/22/2013 14:52 CDT by FRAN CLAROS RN Valuables/Belongingalbaro Home Medication Disposition : None brought in with patient FRAN CLAROS RN - 05/22/2013 14:52 CDT [email or web address] Document Id: [id number] CDT!3 Miscellaneous - Fran Claros R.N. - 05/22/2013 12:40 PM CDT Facility Charge Ticket Facility Charge Ticket Entered On: 05/22/2013 14:53 CDT Performed On: 05/22/2013 12:40 CDT by FRAN CLAROS RN Facility Charge TVL Level Translated RTF : Syncope/Near syncope TVL:4 TVL Level for Facility Charge Ticket : Level 4 Mode of Arrival ED : Ambulance Arrival Mode Calc : 33 [facility] Mode of Arrival Interpreted : BLS/Police [facility] Process Management : None Order Management RTF : Laboratory Basic Metabolic Panel,05/22/13 12:56,ADRIANA BAUMANN MD Completed CBC (includes Auto Differential),05/22/13 12:56,ADRIANA BAUMANN MD Completed CKMB,05/22/13 12:56,ADRIANA BAUMANN MD Completed Magnesium Level,05/22/13 12:56,ADRIANA BAUMANN MD Completed Troponin T,05/22/13 12:56,ADRIANA BAUMANN MD Completed Urinalysis with Microscopic if Indicated,05/22/13 12:57,ADRIANA BAUMANN MD Completed Notification Only,05/22/13 12:58,ADRIANA BAUMANN MD Completed Automated Diff-5 Part,05/22/13 13:20,ADRIANA BAUMANN MD Completed UR Microscopic,05/22/13 13:58,ADRIANA BAUMANN MD Completed Xray XR Chest 2 Views,05/22/13 12:58,ADRIANA BAUMANN MD Completed [place] Order Management : Lab tests, Xray - plain films 30 Minutes Critical Care : No Nursing Notes RTF : Nursing Notes ED Primary Assessment,05/22/13 12:49,VESNA OLSON GLUING PRESSMAN Nurse Reassess,05/22/13 13:31,VESNA OLSON RN [facility] Nursing Assessment : Triage and 1-2 nursing assessments Disposition RTF : discharge [facility] Disposition : Discharge [facility] Total Points with Diagnosis Control : 10 [facility] Visit Level : 08197 Level 4 Treatments Prior to Arrival : Oxygen FRAN CLAROS RN - 05/22/2013 14:53 CDT Source: [place] Document Id: [id number] CDT!18 documented in this encounter Plan of Treatment Not on filedocumented as of this encounter Procedures Procedure Name Priority Date/Time Associated Comments Diagnosis DX CHEST AP OR PA AND Routine 05/22/2013 1:26 PM Results for this LATERAL 2 VIEWS CDT procedure ar e in the results section. URINALYSIS, ROUTINE Routine 05/22/2013 1:22 PM Re sults for this CDT procedure are i n the results section. URINE MICROSCOPIC Routine 05/22/2013 1:22 PM Resu lts for this CDT procedure are i n the results section. CREATINE KINASE (CK) Routine 05/22/2013 1:13 PM R esults for this MB ISOENZYME, S CDT procedure ar e in the results section. AUTOMATED Routine 05/22/2013 1:13 PM Results f or this DIFFERENTIAL, B CDT procedure ar e in the results section. CBC WITH Routine 05/22/2013 1:13 PM Results f or this DIFFERENTIAL, B CDT procedure ar e in the results section. TROPONIN T, 5TH GEN, Routine 05/22/2013 1:13 PM R esults for this P CDT procedure are i n the results section. MAGNESIUM, S Routine 05/22/2013 1:13 PM Results f or this CDT procedure are i n the results section. BASIC METABOLIC Routine 05/22/2013 1:13 PM Result s for this PANEL, S/P CDT procedure are i n the results section. ECG Routine 05/22/2013 1:05 PM Results f or this CDT procedure are i n the results section. documented in this encounter Results DX Chest AP or PA and Lateral 2 Views (05/22/2013 1:26 PM CDT) Anatomical Region Laterality Modality Chest N/A Radiographic Imaging Specimen (Source) Anatomical Collection Method Collection Time Re ceived Time Location / / Volume Laterality 05/22/2013 1:26 PM CDT Addenda Addendum by Provider, Betina Spencer o n 05/22/2013 1:26 PM CDT RAD^^^MA XR Chest 2 Views 05/22/2013 13:26:00 Impressions 05/22/2013 2:07 PM CDT No active intrathoracic disease. Narrative 05/22/2013 2:07 PM CDT EXAM: XR Chest 2 Views INDICATION: syncope COMPARISON: None. Two views of the chest were obtained, de monstrating the heart and pulmonary vasculature to be within nima l limits. The lungs are clear. Procedure Note Nereida King M.D. / Provider, Adriana khanna M.D. - 12/10/2016 EXAM: XR Chest 2 Views INDICATION: syncope COMPARISON: None. Two views of the chest were obtained, de monstrating the heart and pulmonary vasculature to be within nima l limits. The lungs are clear. IMPRESSION: No active intrathoracic dise ase. Miguel Ángel Bills(R)(CT) IMG DIAGNOSTIC IMAGING PROC EDURES (ABNORMAL) Urine Microscopic (05/22/2013 1:22 PM CDT) athologist Signature HXUr WBC 1-3 POWERCHART Red Blood Cell 0-2 0 - 2 POWERCHART Clump, Urine HXUr Bacteria 1+ (A) Negative POWERCHART HXUr Epithelial 1+ (A) Negative POWERCHART Specimen Anatomical Collection Method Collection Time Receive d Time (Source) Location / / Volume Laterality Urine 05/22/2013 1:22 PM 3 1:22 CDT PM CDT Adriana Langston M.D. LAB URINE ORDERABLES Performing Organization Address City/[facility] Phon e Number POWERCHART (ABNORMAL) Urinalysis, Routine (05/22/2013 1:22 PM CDT) [facility] Method Time Signature Source Clean Void POWERCHART Urine HXUr Color Yellow Yellow POWERCHART Appearance Clear Clear POWERCHART Glucose Negative Negative POWERCHART HXBILIRUBIN Negative Negative POWERCHART Ketones, QL(U) Negative Negative POWERCHART Specific 1.010 1.000 - POWERCHART [place], POCT, U 1.030 HXBLOOD Trace (A) Negative POWERCHART pH, POCT, Urine 7.0 5.0 - 9.0 POWERCHART Protein, Ur, Dip Negative Negative POWERCHART Urobilinogen 0.2 0.1 - 2.0 POWERCHART HXNITRITE Negative Negative POWERCHART Leukocyte Negative Negative POWERCHART Esterase Specimen (Source) Anatomical Collection Method Collection Time Re ceived Time Location / / Volume Laterality Urine 05/22/2013 1:22 PM CDT Adriana Langston M.D. LAB URINE ORDERABLES Performing Organization Address [facility] Phon e Number POWERCHART (ABNORMAL) Automated Differential (05/22/2013 1:13 PM CDT) [facility] [employer] Method Time Signature Absolute 6.22 1.70 - POWERCHART Neutrophils 7.00 109L Lymphocytes 2.59 0.90 - POWERCHART 2.90 X109L Monocytes 0.92 (H) 0.30 - POWERCHART 0.90 X109L Eosinophils <0.50 0.05 - POWERCHART 0.50 X109L Absolute <0.50 0.00 - POWERCHART Basophil 0.30 X109L Specimen Anatomical Collection Method Collection Time Receive d Time (Source) Location / / Volume Laterality Blood 05/22/2013 1:13 PM 3 1:13 CDT PM CDT Adriana Langston M.D. LAB BLOOD ADD-ON Performing Organization Address City/State/ZIP Code Phon e Number POWERCHART CBC with Differential (05/22/2013 1:13 PM CDT) P athologist Signature Leukocytes 9.9 3.5 - 10.5 POWERCHART X109L Erythrocytes 4.56 3.90 - POWERCHART 5.03 [id number] Hemoglobin 14.6 12.0 - POWERCHART 15.5 GDL Hematocrit 41.3 34.9 - POWERCHART 44.5 MCV 90.6 81.6 - POWERCHART 98.3 FL HX RDW 12.5 11.9 - POWERCHART 15.5 Platelet Count 330 150 - 450 POWERCHART X109L HXDifferential? Auto POWERCHART Specimen (Source) Anatomical Collection Method Collection Time Re ceived Time Location / / Volume Laterality Blood 05/22/2013 1:13 PM CDT Adriana Langston M.D. LAB BLOOD ADD-ON Performing Organization Address City/State/ZIP Code Phon e Number POWERCHART Troponin T (05/22/2013 1:13 PM CDT) P athologist Signature Troponin T, S <0.010 <=0.010 POWERCHART NGML Comment: Values > or = 0.01 ng/mL have b een shown to have prognostic value. Specimen (Source) Anatomical Collection Method Collection Time Re ceived Time Location / / Volume Laterality Blood 05/22/2013 1:13 PM CDT Adriana Langston M.D. LAB BLOOD ADD-ON Performing Organization Address City/State/ZIP Code Phon e Number POWERCHART Magnesium (05/22/2013 1:13 PM CDT) athologist Signature Magnesium, S 2.1 1.7 - 2.3 POWERCHART MGDL Specimen (Source) Anatomical Collection Method Collection Time Re ceived Time Location / / Volume Laterality Blood 05/22/2013 1:13 PM CDT Adriana Langston M.D. LAB BLOOD ADD-ON Performing Organization Address City/State/ZIP Code Phon e Number POWERCHART Creatine Kinase (CK) MB Isoenzyme (05/22/2013 1:13 PM CDT) athologist Signature Creatine <3.0 <=3.7 NGML POWERCHART Kinase(CK) MB Isoenzyme, S Specimen (Source) Anatomical Collection Method Collection Time Re ceived Time Location / / Volume Laterality Blood 05/22/2013 1:13 PM CDT Adriana Langston M.D. LAB BLOOD ADD-ON Performing Organization Address City/State/ZIP Code Phon e Number POWERCHART BMP (Basic Metabolic Panel) (05/22/2013 1:13 PM CDT) athologist Signature Sodium, S 135 135 - 145 POWERCHART MMOLL Potassium, S 3.5 3.5 - 5.0 POWERCHART MMOLL Chloride, S 98 95 - 106 POWERCHART MMOLL CO2 Total 26 21 - 32 POWERCHART MMOLL BUN (Blood Urea 13 5 - 24 MGDL POWERCHART Nitrogen), S Creatinine, S 0.6 0.6 - 1.2 POWERCHART MGDL Calcium, Total, 9.2 8.9 - 10.1 POWERCHART S MGDL Anion Gap 11 7 - 15 POWERCHART MMOLL HXeGFR (MDRD) >60.0 >=60.0 POWERCHART eGFR >60.0 >=60.0 POWERCHART Black/ Glucose 98 70 - 139 POWERCHART MGDL Specimen (Source) Anatomical Collection Method Collection Time Re ceived Time Location / / Volume Laterality Blood 05/22/2013 1:13 PM CDT Adriana Langston M.D. LAB BLOOD ADD-ON Performing Organization Address City/State/ZIP Code Phon e Number POWERCHART ECG 12 Lead (05/22/2013 1:05 PM CDT) Specimen (Source) Anatomical Collection Method Collection Time Re ceived Time Location / / Volume Laterality 05/22/2013 1:05 PM CDT [facility] - 05/22/2013 1:05 PM CDT Test Reason : EKG Blood Pressure : / mmHG Vent. Rate : 060 BPM ? Atrial Rate : 060 BPM ?? P-R Int : 148 ms ?QRS D ur : 086 ms ?QT Int : 446 ms ? P-R-T Axe s : -21 059 051 degrees ?? QTc Int : 446 ms Normal sinus rhythm Normal ECG No previous ECGs available Referred By: ADRIANA BAUMANN ? Confirmed By:TAMI LANZA MD Procedure Note Provider, Betina Spencer - 12/15/2016F ormatting of this note might be different from the original. Test Reason : EKG Blood Pressure : / mmHG Vent. Rate : 060 BPM Atrial Rate : 060 B PM P-R Int : 148 ms QRS Dur : 086 ms QT Int : 446 ms P-R-T Axes : -21 059 05 1 degrees QTc Int : 446 ms Normal sinus rhythm Normal ECG No previous ECGs available Referred By: ADRIANA BAUMANN Confirmed By: TAMI LANZA MD Tami Lanza M.D., M.B.A. ECG ORDERABLES Performing Organization Address City/State/ZIP Code Phon e Number [facility] [address] [place] [id number] documented in this encounter Visit Diagnoses Not on filedocumented in this encounter
--- OUTSIDE RECORDS SUMMARY | 2022-03-04 19:02 | XMS_ITS | Encounter Summary ---
:1960 Author Organization [facility] Address [address] [place] [address] Care Team Providers Name Role Phone Unavailable Primary Care Provider Unavailable Encounter Details Date Type Department Care Team Description 03/01/2014 Hospital Encounter HX [facility] Agustina Chery APRN, C.N.P. [address] [place] [phone] (Wo rk) Social History Tobacco Use Types Packs/Day Years Used Date Smoking Tobacco: Never Assessed Sex Assigned at Date Recorded Not on file documented as of this encounter Last Filed Vital Signs Vital Sign Reading Time Taken Comments Blood Pressure 162/100 03/01/2014 4:49 PM CDT Pulse 65 03/01/2014 4:49 PM CDT Temperature - - Respiratory Rate - - Oxygen Saturation - - Inhaled Oxygen Concentration - - Weight - - Height 165 cm (5' 4.96) 03/01/2014 4:49 PM CDT Body Mass Index - - documented in this encounter Medications at Time of Discharge Medication Sig Dispensed Refills Start Date End Date fluticasone propionate Administer 1 spray 0 01/04 (FLONASE) 50 into affected mcg/actuation nasal spray nostril(s). rizatriptan ASSEMBLY AND PACKING SUPERVISOR Place 10 mg under 0 11/09/2010 (MAXALT-ASSEMBLY [employer] PACKING SUPERVISOR) 10 mg the tongue. disintegrating tablet calcium carb/vit Os-Joe 250 with D 0 03/30/2010 0 02/05/2021 D3/minerals (CALCIUM-VITAMIN D ORAL) documented as of this encounter Progress Notes Shabana Chery APRN, C.N.P. - 03/01/2014 4:47 PM CDT [id number] [facility] CHIEF COMPLAINT/REASON FOR VISIT Stomach upset. HISTORY OF PRESENT ILLNESS This pleasant 53-year-old female presents to clinic today with concerns of stomach discomfort. HISTORY OF PRESENT ILLNESS This pleasant 53-year-old female presents to clinic today with onset of stomach discomfort central abdomen initially approximately a month ago, was seen by primary care provider. Symptoms have since persisted and presents today for further evaluation. MEDICATIONS As noted in electronic medical record [employer]. ALLERGIES REGLAN. AMBIEN. CODEINE. SYSTEMS REVIEW Approximately a month ago, patient was seen by primary care provider for ongoing nausea. No treatment. Nausea has persisted with occasional bloating, gassy sensation, and abdominal discomfort in the epigastric region. The patient has vomited and occasionally has which she would describe as stomach cramping however primarily in the epigastric region. Occasional diarrhea, no constipation, no fever, no chills. Symptoms increase with lying down after meals. PAST MEDICAL/SURGICAL HISTORY: The patient reports having a history of bleeding ulcer which was successfully treated with omeprazole. Patient currently is not reporting dark tarry or bright red stools. SOCIAL HISTORY Patient admits to having limited resources and is interested in treating with prescription medications versus mgmh-zjy-cgjijec medications. VITAL SIGNS Temperature is 37.4, pulse is 65, blood pressure is 162/100, O2 sats are 98%. PHYSICAL EXAMINATION GENERAL: Reveals a pleasant, talkative, 53-year-old female, in no acute distress. SKIN: Generally is warm, dry and intact. Afebrile at 37.4 degrees Celsius. HEENT: Head is normocephalic. Speech is clear and understandable. EXTREMITIES: Full range of motion upper and lower extremities. ABDOMEN: Discomfort noted to palpation in the epigastric region, central abdomen. Denies discomfort in the esophageal or lower abdominal regions to palpation. MENTAL STATUS: Alert, oriented, pleasant. IMPRESSION/REPORT/PLAN Epigastric discomfort. PLAN Trial of omeprazole 20 mg 1 tab by mouth daily for 30 days. If no relief of symptoms, patient to follow up with primary care provider. The patient to follow up with primary care provider if symptoms would worsen. Okay to try an nxsw-pyd-ddsejlw anti gas medication for bloating sensation. Patient may return as desires in the future for minor ailments. Patient is discharged in stable condition. Christine RinconNShon/pos Electronically Signed By: SHABANA CHERY [employer]OCIATE On: 03/05/2014 03:54 PM Modified by and Electronically Signed by: SHABANA CHERY [employer]IATE On: 03/05/2014 03:54 PM Source: [facility] MHSDOLBEYNGIDEONS Document Id: [id number] documented in this encounter Nursing Notes Shabana Chery APRN, C.NShon - 03/01/2014 6:27 PM CDT Ambulatory Patient Education The following Patient Education Materials have been given to the patient: Patient Education Materials: Ambulatory EPIGASTRIC PAIN (uncertain cause) Ambulatory Epigastric Pain (Uncertain Cause) Epigastric pain can be a sign of disease in the upper abdomen. Common causes include: ?? Acid reflux (stomach acid flowing up into the esophagus) ?? Gastritis (irritation of the stomach lining) ?? Peptic Ulcer Disease ?? Inflammation of the pancreas ?? Gallstone ?? Infection in the gall bladder Pain may be dull or burning. It may spread upward to the chest or to the back. There may be other symptoms such as belching, bloating, cramps or hunger pains. There may be weight loss or poor appetite,nausea or vomiting. Since the diagnosis of your pain is not certain yet, further tests will be needed. Sometimes the doctor will treat you for the most likely condition to see if there is improvement before doing further tests. Home Care: ?? Unless told otherwise, you may try antacids (Mylanta or Maalox) help neutralize stomach acid. This may relieve your pain. Take 1-2 tablespoons or tablets one hour after meals and at bedtime. The liquid form coats the stomach better than the chewable tablets and is preferred. If Tagamet (cimetidine), Zantac (ranitidine), or Carafate (sucralfate) has also been prescribed, allow one hour between taking this medicine and taking the antacids. ?? Avoid foods that irritate the stomach. Follow a light diet until you are feeling better. ?? Avoid alcohol, caffeine, and tobacco. Talk to your doctor before taking any ctaj-uxd-nmjstvm medicine that contains aspirin or an anti-inflammatory drug such as ibuprofen, Advil, Motrin, Naprosyn, or Aleve. Follow Up with your doctor or as advised if you do not improve over the next 48 hours. Get Prompt Medical Attention if any of the following occur: ?? Stomach pain worsens or moves to the right lower part of the abdomen ?? Chest pain appears, or if it worsens or spreads to the chest, back, neck, shoulder, or arm ?? Frequent vomiting (cant keep down liquids) ?? Blood in the stool or vomit (red or black color) ?? Feeling weak or dizzy, fainting, or having trouble breathing ?? Fever of 100.4??F (38??C) or higher, or as directed by your healthcare provider ?? Abdominal swelling ?? [id number] [place] [address]. All rights reserved. This information is not intended as a substitute for professional medical care. Always follow your healthcare professional's instructions. This document has images extracted. Please consider using [employer] for all your patient education needs. Source: [facility] [employer]See Document Id: [id number] Shabana Chery APRN, C.N.P. - 03/01/2014 6:26 PM CDT Ambulatory Patient Education The following Patient Education Materials have been given to the patient: Patient Education Materials: Source: [facility] [employer] Document Id: [id number] documented in this encounter Miscellaneous Notes Miscellaneous - Shabana Chery APRN, C.N.P. - 03/01/2014 6:27 PM CDT Ambulatory Patient Summary Express Care - [address], [place] [phone] Visit Information Name: DIA SOTELO [facility] Number: [id number] Current Date: 03/01/2014 18:27:13 Physicians Attending Provider: SHABANA CHERY NP Primary Care Provider: PCP, ELSEWHERE DIA SOTELO has been given the following list of follow-up instructions, medication list, and patient education materials: Follow-up Instructions With: Address: When: Return to Urgent Care Comments: If symptoms worsen. Hope you feel better soon. Caty Your Medications Here is a list of [...] as needed multivitamin, ( Multivitamins oral capsule) RABEprazole (AcipHex 20 mg oral delayed release tablet) 1 Tablet(s), Oral, once a day Stop Taking the Following Medications: Medication list as of 03-01-14 18:27 Attention: If you have any medications at home that are not on this list, DO NOT take them until youcontact your provider for clarification. Give a copy of your medication list to your primary care provider. Update your medication list any time medications or doses are changed and carry your medication list at all times in case of emergency. Electronically Signed By: SHABANA CHERY NP Signed On:01-MAR-2014 18:26:29 Your Allergies & Intolerances Substance Reaction Symptoms Category Comments codeine nausea, vomiting Drug Ambien sleep walking Drug Reglan Panic attack Drug Your Problem List Problem Status Onset Comments Depression* Active Anxiety neurosis Active COPD* Active Your Upcoming Appointments Date Time Location Reason Provider No Appointments found Attention: Contact your local Clinic if further appointment detail needed. Epigastric Pain (Uncertain Cause) Epigastric pain can be a sign of disease in the upper abdomen. Common causes include: ?? Acid reflux (stomach acid flowing up into the esophagus) ?? Gastritis (irritation of the stomach lining) ?? Peptic Ulcer Disease ?? Inflammation of the pancreas ?? Gallstone ?? Infection in the gall bladder Pain may be dull or burning. It may spread upward to the chest or to the back. There may be other symptoms such as belching, bloating, cramps or hunger pains. There may be weight loss or poor appetite,nausea or vomiting. Since the diagnosis of your pain is not certain yet, further tests will be needed. Sometimes the doctor will treat you for the most likely condition to see if there is improvement before doing further tests. Home Care: ?? Unless told otherwise, you may try antacids (Mylanta or Maalox) help neutralize stomach acid. This may relieve your pain. Take 1-2 tablespoons or tablets one hour after meals and at bedtime. The liquid form coats the stomach better than the chewable tablets and is preferred. If Tagamet (cimetidine), Zantac (ranitidine), or Carafate (sucralfate) has also been prescribed, allow one hour between taking this medicine and taking the antacids. ?? Avoid foods that irritate the stomach. Follow a light diet until you are feeling better. ?? Avoid alcohol, caffeine, and tobacco. Talk to your doctor before taking any ocni-mrc-mljvzsb medicine that contains aspirin or an anti-inflammatory drug such as ibuprofen, Advil, Motrin, Naprosyn, or Aleve. Follow Up with your doctor or as advised if you do not improve over the next 48 hours. Get Prompt Medical Attention if any of the following occur: ?? Stomach pain worsens or moves to the right lower part of the abdomen ?? Chest pain appears, or if it worsens or spreads to the chest, back, neck, shoulder, or arm ?? Frequent vomiting (cant keep down liquids) ?? Blood in the stool or vomit (red or black color) ?? Feeling weak or dizzy, fainting, or having trouble breathing ?? Fever of 100.4?F (38?C) or higher, or as directed by your healthcare provider ?? Abdominal swelling ?? [id number] Rod Davey, [address] [place] [address]. All rights reserved. This information is not intended as a substitute for professional medical care. Always follow your healthcare professional's instructions. Your Goals/Additional instructions: This document has images extracted. Please consider using [employer] for all your patient education needs. Source: [facility] POWERCHART Document Id: [id number] Miscellaneous - Shabana Chery APRN, C.N.P. - 03/01/2014 6:27 PM CDT Ambulatory Discharge Medication List [facility] Care - [address] [phone] Visit Information Name: DIA SOTELO [facility] Number: [id number] Visit Date: 03/01/2014 18:27:12 Attending Provider: SHABANA CHERY [employer] Primary Care Provider: PCP, DIA PERSAUD has been given the following list [...] as needed multivitamin, ( Multivitamins oral capsule) RABEprazole (AcipHex 20 mg oral delayed release tablet) 1 Tablet(s), Oral, once a day Stop Taking the Following Medications: Medication list as of 03-01-14 18:27 Attention: If you have any medications at home that are not on this list, DO NOT take them until youcontact your provider for clarification. Give a copy of your medication list to your primary care provider. Update your medication list any time medications or doses are changed and carry your medication list at all times in case of emergency. Electronically Signed By: SHABANA CHERY [employer]IATE Signed On:01-MAR-2014 18:26:29 Additional Information: Source: [facility] POWERCHART Document Id: [id number] Miscellaneous - Conversion, Historical Provider Ser - 03/01/2014 4:49 PM CDT Adult Call Center Specialist Intake/History Adult Call Center Specialist Intake/History Entered On: 03/01/2014 16:52 CDT Performed On: 03/01/2014 16:49 CDT by EMIGDIO HERRERA Intake Chief Complaint : pt c/o upset stomach, diarrhea, vomiting, stomach cramping Temperature Core : 37.4 DegC(Converted to: 99.3 DegF) Peripheral Pulse Rate : 65 /min Systolic Blood Pressure : 162 mmHg (>HHI) Diastolic Blood Pressure : 100 mmHg (>HHI) NIBP Mean : 121 mmHg BP Location : Right upper extremity Blood Pressure Cuff Size : Regular SpO2 : 98 % Height : 165 cm(Converted to: 5 ft 5 inch(es), 65 inch(es)) EMIGDIO HERRERA - 03/01/2014 16:49 CDT General Info Languages : Italian Is Patient Female and 13-50 no hysterectomy : No EMIGDIO HERRERA - 03/01/2014 16:49 CDT Subjective Pain Symptoms : No EMIGDIO HERRERA - 03/01/2014 16:49 CDT Dependent Habits Tobacco Use/Currently Using : No Smoking Status : Never smoker EMIGDIO HERRERA - 03/01/2014 16:49 CDT Tobacco Use Grid Last Use : never EMIGDIO HERRERA Joshua - 03/01/2014 16:49 CDT Source: [facility] POWERCHART Document Id: [id number] CDT!23 documented in this encounter Plan of Treatment Not on filedocumented as of this encounter Visit Diagnoses Not on filedocumented in this encounter
--- OUTSIDE RECORDS SUMMARY | 2022-03-04 19:02 | XMS_ITS | Encounter Summary ---
:1960 Author Organization [facility] Address [address] [place] [address] Care Team Providers Name Role Phone Unavailable Primary Care Provider Unavailable Encounter Details Date Type Department Care Team Description 08/28/2014 Hospital Encounter HX [facility] Bere Adams M.D. [address] [place] [phone] (Wo rk) Social History Tobacco Use Types Packs/Day Years Used Date Smoking Tobacco: Never Assessed Sex Assigned at Date Recorded Not on file documented as of this encounter Last Filed Vital Signs Vital Sign Reading Time Taken Comments Blood Pressure 160/84 08/28/2014 12:51 PM [employer] Pulse - - Temperature - - Respiratory Rate - - Oxygen Saturation - - Inhaled Oxygen Concentration - - Weight - - Height 163 cm (5' 4.17) 08/28/2014 12:51 PM [employer] Body Mass Index - - documented in this encounter Medications at Time of Discharge Medication Sig Dispensed Refills Start Date End Date fluticasone propionate Administer 1 spray 0 01/04 (FLONASE) 50 into affected mcg/actuation nasal spray nostril(s). rizatriptan CASE PICKER Place 10 mg under 0 11/09/2010 (MAXALT-CASE PICKER) 10 mg the tongue. disintegrating tablet calcium carb/vit Os-Joe 250 with D 0 03/30/2010 0 02/05/2021 D3/minerals (CALCIUM-VITAMIN D ORAL) documented as of this encounter Miscellaneous Notes Miscellaneous - Megan Henderson, L.P.N. - 08/28/2014 12:51 PM CST Ambulatory Vitals Height Weight Ambulatory Vitals Height Weight Entered On: 08/28/2014 12:52 [employer] Performed On: 08/28/2014 12:51 [employer] by MEGAN HENDERSON LPN Vitals/Ht/Wt Systolic Blood Pressure : 160 mmHg (HI) Diastolic Blood Pressure : 84 mmHg NIBP Mean : 109 mmHg BP Location : Left upper extremity Blood Pressure Cuff Size : Large Height : 163 cm(Converted to: 5 ft 4 inch(es), 64 inch(es)) MEGAN HENDERSON LPN - 08/28/2014 12:51 [employer] [facility] Document Id: [id number] [employer]ESE [employer]ER!8 M CHEESE MAKER documented in this encounter Plan of Treatment Not on filedocumented as of this encounter Visit Diagnoses Not on filedocumented in this encounter
--- OUTSIDE RECORDS SUMMARY | 2022-03-04 19:02 | XMS_ITS | Encounter Summary ---
:1960 Author Organization [facility] Address [address] [place] [address] Care Team Providers Name Role Phone Unavailable Primary Care Provider Unavailable Encounter Details Date Type Department Care Team Description 05/17/2014 Hospital Encounter HX [facility] CHLOÉ NETay Shook M.D. [address] [place] [address] (Wo rk) Social History Tobacco Use Types Packs/Day Years Used Date Smoking Tobacco: Never Assessed Sex Assigned at Date Recorded Not on file documented as of this encounter Last Filed Vital Signs Vital Sign Reading Time Taken Comments Blood Pressure 149/96 05/17/2014 3:20 PM CDT Pulse 68 05/17/2014 3:20 PM CDT Temperature - - Respiratory Rate 20 05/17/2014 3:20 PM CDT Oxygen Saturation - - Inhaled Oxygen Concentration - - Weight 83 kg (182 lb 15.7 oz) 05/17/2014 1:54 PM CDT Height 162 cm (5' 3.78) 05/17/2014 3:20 PM CDT Body Mass Index 31.63 05/17/2014 1:54 PM CDT documented in this encounter Discharge Summaries Desirae Morales RPavanN. - 05/17/2014 3:26 PM CDT Discharge Summary Discharge Summary Entered On: 05/17/2014 15:26 CDT Performed On: 05/17/2014 15:26 CDT by DESIRAE MORALES RN DC Information Date/Time of Discharge : 05/17/2014 15:26 CDT DESIRAE MORALES RN - 05/17/2014 15:26 CDT Source: [facility] POWERCHART Document Id: [id number] CDT!3 Desirae Morales R.N. - 05/17/2014 3:23 PM CDT Discharge Summary Discharge Summary Entered On: 05/17/2014 15:24 CDT Performed On: 05/17/2014 15:23 CDT by DESIRAE MORALES RN DC Information Discharged to : Home with family care Mode of Discharge : Ambulatory Discharge Transportation : Private vehicle Accompanied By : Other: no one Date/Time of Discharge : 05/17/2014 15:24 CDT DESIRAE MORALES RN - 05/17/2014 15:23 CDT Valuables/Belongings Valuables/Belongings Grid Valuables at Bedside Clothes, Patient Valuables : Pants, Shirt, Shoes, Undergarments Electronic Devices : Cell phone Jewelry : None Monetary Items : Purse Personal Devices : Glasses DESIRAE MORALES RN - 05/17/2014 15:23 CDT Room Orientation/Facility Policy Reviewed : Yes Belongings Sent Home With : clothing and glasses sent home with patient Home Medication Disposition : None brought in with patient DESIRAE MORALES RN - 05/17/2014 15:23 CDT [facility] Document Id: [id number] CDT!18 Desirae Morales R.N. - 05/17/2014 3:08 PM CDT Hospital Discharge Instructions [address] [address] Patient Discharge Instructions Name: DIA SOTELO Current Date: 05/17/2014 15:08:02 : 1960 12:00 AM [facility] Number: [id number] Patient Address: [address] [place] [phone] Patient Primary Care Provider: Name: PCP, LISA Phone: Discharge Diagnosis: Ganglion Joint [facility] in [place] would like to thank you for allowing us to assist you with yourhealthcare needs. The following includes patient education materials and information regarding your injury/illness. Comment: DIA SOTELO has been given the following list of follow-up instructions, medication list and patient education materials: Follow-up Instructions With: Address: When: NEREIDA MORSE [address] [place] [id number] Business (0) 05/31/2014 3:50 AM Comments: Keep drsg dry and intact until seen by the Dr. again. Use pain medications as directed. Note precautions with use of narcotics. Call the Dr. with questions and concern.s Discharge Diet Diet Type: Resume previous diet Discharge Incision/Wound Care Wound Location: hand Keep Wound Dry: 48 Hours Special Instructions: loosen dressing if it is too tight. change dressing in 48 hours to band aid orother small dressing. Medications Medication/Strength How to Take Indications/Special Instructions/Comments/Notes for Patient Medication Changes/Routing busPIRone (busPIRone) See Instructions 15 mg in the am and 30 mg in the pm calcium-vitamin D (Os-Joe 250 with D) cetirizine (ZyrTEC) 10 mg, Oral, once a day New doxycycline (doxycycline) 100 mg, Oral, two times a day duloxetine (Cymbalta) 60 mg, Oral, once a day gabapentin (Neurontin 600 mg oral tablet) See Instructions 300mg q am and 600mg q pm HYDROcodone-acetaminophen ([place] 5 mg-325 mg oral tablet) 1 to 2 tablets, Oral, every 6 hours as needed for Pain No more than 4,000mg acetaminophen/24hrs New Routed to Printer labetalol (labetalol) 1, Oral, once a day New levonorgestrel-ethinyl estradiol (Alesse 100 mcg-20 mcg oral tablet) 1 Tablet(s), Oral, once a day lorazepam (Ativan) 1 mg, Oral, as needed multivitamin, ( Multivitamins oral capsule) Stop Taking the Following Medications: Medication list as of 05-17-14 15:08 Attention: If you have any medications at home that are not on this list, DO NOT take them until youcontact your provider for clarification. Give a copy of your medication list to your primary care provider. Update your medication list any time medications or doses are changed and carry your medication list at all times in case of emergency. Comment: Electronically Signed By: NEREIDA MORSE MD Signed On:17-MAY-2014 13:50:15 Your Upcoming Appointments Date Time Location Provider No Appointments found I, DIA SOTELO , have received the attached patient education materials/instructions and have verbalized understanding: Patient Signature Date Time Care Provider Signature Date Time Source: [facility] POWERCHART Document Id: [id number] Desirae Morales RJeremiah. - 05/17/2014 3:08 PM CDT Hospital Discharge Medication List [place] [id number] [address] [address] Discharge Medication List Name: DIA SOTELO Current Date: 05/17/2014 15:08:00 : 1960 12:00 AM [facility] Number: [id number] Patient Address: [address] [place] [phone] Patient Primary Care Provider: Name: PCP, ELSEWHERE Phone: Discharge Diagnosis: Ganglion Joint [facility] in [place] would like to thank you for allowing us to assist you with yourhealthcare needs. The following includes patient education materials and information regarding your injury/illness. Medications Medication/Strength How to Take Indications/Special Instructions/Comments/Notes for Patient Medication Changes/Routing busPIRone (busPIRone) See Instructions 15 mg in the am and 30 mg in the pm calcium-vitamin D (Os-Joe 250 with D) cetirizine (ZyrTEC) 10 mg, Oral, once a day New doxycycline (doxycycline) 100 mg, Oral, two times a day duloxetine (Cymbalta) 60 mg, Oral, once a day gabapentin (Neurontin 600 mg oral tablet) See Instructions 300mg q am and 600mg q pm HYDROcodone-acetaminophen ([place] 5 mg-325 mg oral tablet) 1 to 2 tablets, Oral, every 6 hours as needed for Pain No more than 4,000mg acetaminophen/24hrs New Routed to Printer labetalol (labetalol) 1, Oral, once a day New levonorgestrel-ethinyl estradiol (Alesse 100 mcg-20 mcg oral tablet) 1 Tablet(s), Oral, once a day lorazepam (Ativan) 1 mg, Oral, as needed multivitamin, ( Multivitamins oral capsule) Stop Taking the Following Medications: Medication list as of 05-17-14 15:08 Attention: If you have any medications at home that are not on this list, DO NOT take them until youcontact your provider for clarification. Give a copy of your medication list to your primary care provider. Update your medication list any time medications or doses are changed and carry your medication list at all times in case of emergency. Comment: Electronically Signed By: NEREIDA MORSE MD Signed On:17-MAY-2014 13:50:15 Source: [facility] POWERCHART Document Id: [id number] documented in this encounter Medications at Time of Discharge Medication Sig Dispensed Refills Start Date End Date fluticasone propionate Administer 1 spray 0 01/04 (FLONASE) 50 into affected mcg/actuation nasal spray nostril(s). rizatriptan [employer] 10 mg under 0 11/09/2010 (MAXALT-[employer]) 10 mg the tongue. disintegrating tablet calcium carb/vit Os-Joe 250 with D 0 03/30/2010 0 02/05/2021 D3/minerals (CALCIUM-VITAMIN D ORAL) documented as of this encounter Procedure Notes Shabana Wills R.N. - 05/17/2014 1:54 PM CDT Preprocedure Checklist Preprocedure Checklist Entered On: 05/17/2014 13:59 CDT Performed On: 05/17/2014 13:54 CDT by SHABANA WILLS RN Checklist Last Fluid Intake : 05/16/2014 13:30 CDT Last Food Intake : 05/16/2014 13:30 CDT LMP Date : 05/14/2014 SHABANA WILLS RN - 05/17/2014 13:54 CDT Surgery Prep Grid Contacts/Glasses Removed : Yes Dentures Removed : NA Hairpins/Hairpiecies Removed : NA Hearing Aid Removed : NA Home Prep Complete : NA Jewelry/Piercing Removed : NA Makeup/Nail Mozambican Removed : NA Oral Hygiene : NA Preop Scrub AM of Surgery : Yes Preop Scrub Night Prior to Surgery : NA Prosthesis Removed : NA Surgical Prep Verified : NA Tampon Removed : NA Wearing Patient Gown : Yes Voided network applications specialist to procedure : Yes SHABANA WILLS RN - 05/17/2014 13:54 CDT Patient Rights Grid Blood Consent Signed : NA Surgical/Procedure Consent Signed : Yes SHABANA WILLS RN - 05/17/2014 13:54 CDT Family Location : here per self SHABANA WILLS RN - 05/17/2014 13:54 CDT Checklist II Patient Safety Grid Allergy Band on and Verified : Yes Anesthesia Consult : NA Band on for Limb Alert : NA Blood Band on and Verified : NA Current ECG in Medical Record : NA Current H&P in Medical Record : NA Medication Reconciliation on Chart : NA Pacemaker/AICD Verified : NA ID Band on and Verified : Yes Preop Medications Sent With Patient : NA Relevant Images in Medical Record : NA Review of Labs : NA Procedure/Site Verified by Patient/Family : Yes Procedure/Site Verified by RN : Yes Procedure/Site Verified by Physician : Yes Type & Screen/Type & Cross Completed : SHABANA TOBIN RN - 05/17/2014 13:54 CDT RN Who Verified Site : SHABANA WILLS RN Physician Who Verified Site : NEREIDA MORSE MD, PAMELA SCHRUIN RN - 05/17/2014 13:54 CDT Valuables/Belongings Valuables/Belongings Grid Valuables at Bedside Clothes, Patient Valuables : Pants, Shirt, Shoes, Undergarments Electronic Devices : Cell phone Jewelry : None Monetary Items : Purse Personal Devices : Glasses SHABANA WILLS RN - 05/17/2014 13:54 CDT Room Orientation/Facility Policy Reviewed : Yes Home Medication Disposition : None brought in with patient SHABANA WILLS RN - 05/17/2014 13:54 CDT Education Preprocedure Education Grid Procedure Type : right long finger cyst excision Education Topics : Medication instructions, Pain management, Plan of care, Preprocedure diet Individuals Taught : Patient Barriers to Learning : None evident Teaching Method : Explanation Teaching Evaluation : Verbalizes understanding SHABANA WILLS RN - 05/17/2014 13:54 CDT Preop Holding Mode of Arrival : Cart Preoperative Orders Complete : Yes SHABANA WILLS RN - 05/17/2014 13:54 CDT Advance Directive Advanced Directives : No Advance Directive Additional Information : No SHABANA WILLS RN - 05/17/2014 13:54 CDT Vital Signs Temperature Core : 36.8 DegC(Converted to: 98.2 DegF) Peripheral Pulse Rate : 75 /min Respiratory Rate : 16 /min Systolic Blood Pressure : 149 mmHg (HI) Diastolic Blood Pressure : 98 mmHg (>HHI) NIBP Mean : 115 mmHg BP Location : Right upper extremity SpO2 : 99 % Oxygen Saturation Monitoring Frequency : Intermittent Oxygen Therapy : Room air Height : 162 cm(Converted to: 5 ft 4 inch(es)) Actual Weight : 83 kg Actual Weight Conversion to Pounds : 182.6 lb Weight Source : Standing scale Body Mass Index : 31.63 kg/m2 SHABANA WILLS RN - 05/17/2014 13:54 CDT Source: [facility] POWERCHART Document Id: [id number] CDT!86 documented in this encounter Nursing Notes Edwina Thorpe R.N. - 05/17/2014 1:53 PM CDT Day Surgery Admission History/Asmt Adult Document Has Been Updated Day Surgery Admission History/Asmt Adult Entered On: 05/13/2014 16:33 CDT Performed On: 05/17/2014 13:53 CDT by EDWINA THORPE General Info Mode of Arrival : Ambulatory Accompanied By : SHABANA Raymond RN - 05/17/2014 13:52 CDT Preferred Name : Dia Admitted From : Non-Health Care Facility Point of Origin Chief Complaint : rt middle finger has a cyst on it which they are going to remove. Has had for overa year and it is not getting bigger bur is causing some issues. Preferred Communication Mode : Verbal Information Given By : Patient Languages : Wallisian Is Patient Female and 13-50 no hysterectomy : No EDWINA THORPE - 05/13/2014 16:29 CDT Allergy (As Of: 05/13/2014 16:33:45 CDT) Allergies (Active) Ambien Estimated Onset Date: Unspecified ; Reactions: sleep walking ; Created By: FENG NELSON LPN; Reaction Status: Active ; Category: Drug ; Substance: Ambien ; Type: Allergy ; Updated By: FENG NELSON LPN; Reviewed Date: 03/01/2014 16:49 CDT codeine Estimated Onset Date: Unspecified ; Reactions: nausea, vomiting ; Created By: FENG NELSON LPN; Reaction Status: Active ; Category: Drug ; Substance: codeine ; Type: Allergy ; Updated By: FENG NELSON LPN; Reviewed Date: 03/01/2014 16:49 CDT Reglan Estimated Onset Date: Unspecified ; Reactions: Panic attack ; Created By: EMIGDIO SALAZAR; Reaction Status: Active ; Category: Drug ; Substance: Reglan ; Type: Allergy ; Updated By: EMIGDIO SALAZAR; Reviewed Date: 03/01/2014 16:49 CDT Anesth/Transfusion Anesthesia/Transfusions : Prior anesthesia EDWINA THORPE - 05/13/2014 16:29 CDT Nutrition Nutrition Risk Factors by History Adult : None Home Diet : Regular EDWINA THORPE - 05/13/2014 16:29 CDT Home Environment Current Daily Living Assistance : None Living Situation : Home with family care EDWINA THORPE 05/13/2014 16:29 CDT Dependent Habits Tobacco Use/Currently Using : No Smoking Status : Never smoker EDWINA THORPE 05/13/2014 16:29 CDT Tobacco Use Grid Last Use : never EDWINA THORPE 05/13/2014 16:29 CDT Alcohol Use : No EDWINA THORPE 05/13/2014 16:29 CDT Psychosocial Adult Domestic Abuse Concerns : None Faith Preference : No qualifying data available. EDWINA THORPE 05/13/2014 16:29 CDT Advance Directive Advanced Directives : No EDWINA THORPE 05/13/2014 16:29 CDT Educ Needs Patient/Family Education Needs : Medications, Nutrition/Diet, Plan of care, Preoperative instructions, Treatments/Procedures/Tests SHABANA WILLS RN - 05/17/2014 13:52 CDT SHABANA WILLS RN - 05/17/2014 13:52 CDT Learning Style Preference Adult Grid Patient : Printed materials, Verbal explanation Family : None EDWINA THORPE 05/13/2014 16:29 CDT Outpatient Assessment Procedural Respiratory : Respirations unlabored, Respiratory pattern regular, Breath sounds clear all lobes, No cough Procedural Cardiovascular : Heart rhythm regular, Skin color normal for ethnicity, Skin dry and warm Procedural Neurological : Alert, Oriented x 3, Gait steady, No swallowing difficulty/aspiration risk Procedural Genitourinary : Voiding, no difficulties Procedural Integumentary : Skin integrity intact SHABANA WILLS RN - 05/17/2014 13:52 CDT Psycho/Emotional Pain Symptoms : No Affect/Behavior : Calm, Cooperative SHABANA WILLS RN - 05/17/2014 13:52 CDT Coping Grid Indicates sense of control : Yes Stressors perceived within control : Yes SHABANA WILLS RN - 05/17/2014 13:52 CDT Safety Grid Vision, Hearing, Mobility Adequate to Meet Safety Needs : Yes SHABANA WILLS RN - 05/17/2014 13:52 CDT Peripheral IV Peripheral IV Assess/Intervention Grid Peripheral IV #1 IV Activity : Start Number of Attempts : 2 Date of Insertion : 05/17/2014 CDT IV Site : Antecubital Laterality : Left Catheter Size : 22 Catheter Type : Over the needle Site Condition : No complications Dressing/ Activity : SHABANA Bush RN - 05/17/2014 14:05 CDT [facility] Document Id: [id number] CDT!13 Edwina Thorpe R.N. - 05/13/2014 4:42 PM CDT Preprocedure Education Preprocedure Education Entered On: 05/13/2014 16:44 CDT Performed On: 05/13/2014 16:42 CDT by EDWINA THORPE Education Preprocedure Education Grid Procedure Type : excison of cyst rt finger Education Topics : Other: (Comment: NPO protocol Medicine regime per preop guidelines (form #[id number])Jewelry removal Admission/check-in Anesthesia restrictions (assistance 24 hours after surgery, port cdl a driver, [address] for children) Hygiene/skin-prep What to bring (insurance cards, meds in cont ainers) [EDWINA THORPE - 05/13/2014 16:42 CDT] ) Individuals Taught : Patient Barriers to Learning : None evident Teaching Method : Explanation Teaching Evaluation : Verbalizes understanding EDWINA THORPE - 05/13/2014 16:42 CDT [facility] Document Id: [id number] CDT!10 documented in this encounter OR Notes Op Note - Nereida Morse M.D. - 05/17/2014 12:00 AM CDT [id number] DATE: 05/17/2014 PREOPERATIVE DIAGNOSIS: Mucous cyst, right long finger, ulnar aspect, dorsal distal phalanx. POSTOPERATIVE DIAGNOSIS: Mucous cyst, right long finger, ulnar aspect, dorsal distal phalanx. SURGEON: Nereida Morse M.D. WEATHER ALGORITHM SCIENTIST: Operating room staff. OPERATION: Excise mucous cyst, right long finger, distal phalanx, from a paronychial locations. ANESTHESIA: Digital block (1% Xylocaine). DESCRIPTION OF PROCEDURE: I met with the patient preoperatively. We discussed the cyst. There is a chance that it will recur. The cyst probably arises from the distal interphalangeal joint. It is producing a dent in her nailbed. Usually that dent resolves once we remove the pressure of the cyst. I am not going to make the incision very close to the skin fold because I do not want the skin fold to necrose, so I reach underneath the skin fold, remove the cyst, and then go back to the distal joint to remove a bone spur, which is nearly always present. The patient seemed to understand. The patient was taken to the operating room, and her right hand prepped and draped, and a 1% digitalblock was injected. On the ulnar aspect of the right long finger, I made an L-shaped incision well proximal to the paronychial fold and extending up to the DIP joint. The skin was elevated and we couldsee the cyst on it and drained it, and I excised the cyst by reaching underneath the skin and removing the cyst. The cyst probably had its origin in the distal joint, and identified the ulnar aspect ofthe distal joint where there seemed to be a small spur on the distal phalanx. The spur was removed with a rongeur. Hemostasis was obtained with electrocautery. The wound was closed with Ethilon. A sterile dressing was applied. The patient was instructed in wound care. She should not soak the wound under water until after the stitches are out 2 weeks. She should remove the dressing if it is too tight.She should keep the wound clean. If her dressing is not too tight, she can leave it on for 48 hours.It is all right to wash the hand in clean tap water, but she should not soak it under water. Only clean tap water should touch the wound. No soaking. She seems to understand this. The patient toleratedthe procedure well. Nereida Morse M.D./pos Electronically Signed By: NEREIDA MORSE MD On: 05/23/2014 11:33 AM Source: [facility] MHSDOLBEYNONRADSYS Document Id: [id number] documented in this encounter Miscellaneous Notes Miscellaneous - Shabana Wills R.N. - 05/18/2014 12:05 PM CDT Discharge Follow Up Discharge Follow Up Entered On: 05/18/2014 12:05 CDT Performed On: 05/18/2014 12:05 CDT by SHABANA WILLS RN Discharge Follow Up Follow Up Attempted : No answer Follow Up Completed : Via telephone Procedure Date : 05/17/2014 CDT Reason for Follow Up : call back SHABANA WILLS RN - 05/18/2014 12:05 CDT [facility] Document Id: [id number] CDT!6 Miscellaneous - Desirae Morales R.N. - 05/17/2014 3:25 PM CDT Valuables/Belongings Valuables/Belongings Entered On: 05/17/2014 15:25 CDT Performed On: 05/17/2014 15:25 CDT by DESIRAE MORALES RN Valuables/Belongings Valuables/Belongings Grid Valuables at Bedside Clothes, Patient Valuables : Pants, Shirt, Shoes, Undergarments Electronic Devices : Cell phone Jewelry : None Monetary Items : Purse Personal Devices : Glasses DESIRAE MORALES RN - 05/17/2014 15:25 CDT Room Orientation/Facility Policy Reviewed : Yes Belongings Sent Home With : clothing and glasses sent home with patient Home Medication Disposition : None brought in with patient DESIARE MORALES RN - 05/17/2014 15:25 CDT [facility] Document Id: [id number] CDT!12 Miscellaneous - Desirae Morales R.N. - 05/17/2014 3:20 PM CDT Adult Postprocedure Assessment Adult Postprocedure Assessment Entered On: 05/17/2014 15:45 CDT Performed On: 05/17/2014 15:20 CDT by DESIRAE MORALES RN Vital Signs Peripheral Pulse Rate : 68 /min Respiratory Rate : 20 /min Systolic Blood Pressure : 149 mmHg (HI) Diastolic Blood Pressure : 96 mmHg (>HHI) NIBP Mean : 114 mmHg BP Location : Left upper extremity SpO2 : 87 % (<LLOW) Oxygen Therapy : Room air Height : 162 cm(Converted to: 5 ft 4 inch(es)) DESIRAE MORALES RN - 05/17/2014 15:44 CDT Peripheral IV Peripheral IV Assess/Intervention Grid Peripheral IV #1 IV Activity : Discontinue Number of Attempts : 2 Date of Insertion : 05/17/2014 CDT IV Site : Antecubital Laterality : Left Catheter Size : 22 Catheter Type : Over the needle DESIRAE MORALES RN - 05/17/2014 15:45 CDT Ugarte Ugarte Agitation Sedation Scale (RASS) : Alert and calm RASS Score : 0 DESIRAE MORALES RN - 05/17/2014 15:44 CDT Education General Patient Education Powergrid Topics : Plan of care (Comment: Patient discharged per self. Ate and drank and denies pain in her right hand. Drsg dry and intact. [DESIRAE MORALES RN - 05/17/2014 15:45 CDT] ) Individuals Taught : Patient Barriers to Learning : None evident DESIRAE MORALES RN - 05/17/2014 15:45 CDT Source: [facility] POWERCHART Document Id: [id number] CDT!17 Miscellazalea - Desirae Morales R.N. - 05/17/2014 2:50 PM CDT Adult Postprocedure Assessment Adult Postprocedure Assessment Entered On: 05/17/2014 15:03 CDT Performed On: 05/17/2014 14:50 CDT by DESIRAE MORALES RN Vital Signs Peripheral Pulse Rate : 69 /min Respiratory Rate : 18 /min Systolic Blood Pressure : 142 mmHg (HI) Diastolic Blood Pressure : 92 mmHg (>HHI) NIBP Mean : 109 mmHg BP Location : Left upper extremity SpO2 : 98 % Oxygen Saturation Monitoring Frequency : Continuous Oxygen Therapy : Room air Height : 162 cm(Converted to: 5 ft 4 inch(es)) DESIRAE MORALES RN - 05/17/2014 15:00 CDT Incision/Wound Incision/Wound Care Grid Activity : Assessed Type : Surgical incision Location : Finger Laterality : Right Description : Other: not seen DESIRAE MORALES RN - 05/17/2014 15:00 CDT Peripheral IV Peripheral IV Assess/Intervention Grid Peripheral IV #1 IV Activity : Discontinue Number of Attempts : 2 Date of Insertion : 05/17/2014 CDT IV Site : Antecubital Laterality : Left Catheter Size : 22 Catheter Type : Over the needle DESIRAE MORALES RN - 05/17/2014 15:00 CDT I&O Other Intake : 50 mL DESIRAE MORALES RN - 05/17/2014 15:00 CDT Ugarte Ugarte Agitation Sedation Scale (RASS) : Alert and calm RASS Score : 0 DESIRAE MORALES RN - 05/17/2014 15:00 CDT Education General Patient Education Powergrid Topics : Medication dosage, route, scheduling, Postoperative instructions, Printed materials (Comment: Patient to SDC for recovery. Iv dc'd. Denies pain and nausea. Eating and drinking well. Appointment made with for follow up. Prescription given to her to fill. [DESIRAE MORALES RN - 05/17/201415:00 CDT] ) Individuals Taught : Patient DESIRAE MORALES RN - 05/17/2014 15:00 CDT [facility] Document Id: [id number] CDT!40 Miscellaneous - Shabana Wills RBen - 05/17/2014 2:00 PM CDT Height/Length Height/Length Entered On: 05/17/2014 14:00 CDT Performed On: 05/17/2014 14:00 CDT by SHABANA WILLS RN Height/Length Height : 162 cm SHABANA WILLS RN - 05/17/2014 14:00 CDT [facility] Document Id: [id number] CDT!3 documented in this encounter Plan of Treatment Not on filedocumented as of this encounter Visit Diagnoses Not on filedocumented in this encounter
--- OUTSIDE RECORDS SUMMARY | 2022-03-04 19:02 | XMS_ITS | Encounter Summary ---
:[address] [facility] Address [address] [place] [address] Care Team Providers Name Role Phone Unavailable Primary Care Provider Unavailable Encounter Details Date Type Department Care Team Description 09/19/2015 Hospital Encounter HX [facility] Ming Luque M.D. [address] [place] [phone] (Wo rk) Social History Tobacco Use Types Packs/Day Years Used Date Smoking Tobacco: Never Assessed Sex Assigned at Date Recorded Not on file documented as of this encounter Last Filed Vital Signs Vital Sign Reading Time Taken Comments Blood Pressure 118/74 09/19/2015 1:02 PM SCHOOL SPEECH LANGUAGE PATHOLOGIST Pulse 64 09/19/2015 1:02 PM SCHOOL SPEECH LANGUAGE PATHOLOGIST Temperature - - Respiratory Rate - - Oxygen Saturation - - Inhaled Oxygen Concentration - - Weight 72.3 kg (159 lb 6.3 oz) 09/19/2015 1:02 PM SCHOOL SPEECH LANGUAGE PATHOLOGIST Height 164.3 cm (5' 4.67) 09/19/2015 1:02 PM SCHOOL SPEECH LANGUAGE PATHOLOGIST Body Mass Index 26.8 09/19/2015 1:02 PM SCHOOL SPEECH LANGUAGE PATHOLOGIST documented in this encounter Medications at Time of Discharge Medication Sig Dispensed Refills Start Date End Date cetirizine 10 mg capsule Take 10 mg by mouth. 0 0 09/30/2014 fluticasone propionate Administer 1 spray 0 01/04 (FLONASE) 50 into affected mcg/actuation nasal spray nostril(s). rizatriptan OR DIRECTOR Place 10 mg under 0 11/09/2010 (MAXALT-OR DIRECTOR) 10 mg the tongue. disintegrating tablet calcium carb/vit Os-Joe 250 with D 0 03/30/2010 0 02/05/2021 D3/minerals (CALCIUM-VITAMIN D ORAL) documented as of this encounter Progress Notes Ming Ni M.D. - 09/19/2015 1:19 PM CST Clinic Full Note CHIEF COMPLAINT/REASON FOR VISIT Patient presents with cough, fever, sore throat for over a week. Patient has chronic fatigue syndrome. Patient also complains of a yeast infection. HISTORY OF PRESENT ILLNESS 55 year old female presents today with cough for a week, bad sore throat and chest tight. She had fever, body ache at beginning. Fever resolved now. She has COPD. Not on any medication or inhalers. She has chronic fatigue syndrome. MEDICATIONS Alesse 100 mcg-20 mcg oral tablet, 1 tab(s), PO, Daily, 0 refills Ativan, 1 mg, PO, PRN busPIRone, See Instructions, 15 mg in the am and 30 mg in the pm Cymbalta, 60 mg, PO, Daily doxycycline, 100 mg, PO, 2xDay ibuprofen 200 mg oral tablet, 800 mg, 4 tab(s), PO, 3xDay, PRN labetalol, 50 mg, [...] knee surgery, Hyperhidrosis. SOCIAL HISTORY Date Time: 09/19/2015 13:02 Tobacco: Smoking Status: Unknown if ever smoke Exposure: Care provider denies smoking in home Alcohol: Use: No Results Found Recreational Drugs: Use: No Results Found Type: No Results Found Non smoker. SYSTEMS REVIEW As above. VITAL SIGNS T: 37.2 ??C (Core) HR: 64 BP: 118 / 74 SpO2: 100% HT: 164.25 cm WT: 72.3 kg BMI: 26.8 PHYSICAL EXAMINATION GENERAL: alert, oriented, normal speech, pleasant. ENT: ears with patent canals, normal tympanic membranes, nose patent, no sinus tenderness, and throat clear, no mass. NECK: supple, no adenopathy, normal range of motion, no thyroid enlargement, no mass. LUNGS: clear to auscultation, no wheezing or rales. HEART: normal sinus rhythm, normal S1, S2, no murmurs. NEUROLOGY: no deficits noticed. PSYCHIATRY: alert and oriented to time, person and place, normal affect, and stable mood. IMPRESSION/REPORT/PLAN 1. Bronchitis Acute Suspected flu like symptoms this week, cough is her main concern now. With history of COPD, increased risk for bacteria infection. Antibiotics given. Encouraged patient to wait few more days, and start antibiotics if cough worsening. Discussed complications with antibiotics treatment and viral infecti on not helped with any antibiotics. Ordered: azithromycin, 2 tablets on day 1, then 1 tablet on days 2-5, PO, As Directed, x 5 day(s), # 6 tab(s), 0 Refill(s), Acute, Pharmacy: [facility] clotrimazole topical, 1 sylvester, Vaginal, Bedtime, # 45 gm, 0 Refill(s), Acute, Pharmacy: [facility] fluconazole, 150 mg = 1 tab(s), PO, Once, # 1 tab(s), 0 Refill(s), Maintenance, Pharmacy: [facility] 2. Vaginitis Yeast Patient has recurrent history of vaginal yeast infection with antibiotics use. Used topical treatment in the past. Recommended patient to use topical treatment. One oral tablet Diflucan given, she might try it, but she would not use both. Electronically Signed By: MING NI MD On: 09/19/2015 01:24 PM Source: [facility] POWERCHART Document Id: [id number] OL SPEECH LANGUAGE PATHOLOGIST documented in this encounter Miscellaneous Notes Miscellaneous - Ming Ni M.D. - 09/19/2015 1:25 PM CST Ambulatory Patient Summary [address] [id number] Visit Information Name: DEEPAK DIAMai CARPIO [facility] Number: [id number] Current Date: 09/19/2015 13:25:19 Physicians Attending Provider: MING NI MD Primary Care Provider: RAFA ZAMAN MD DIA SOTELOE has been given the following list [...] Instructions/Comments/Notes for Patient Medication Changes/Routing azithromycin (Zithromax Z-Roger 250 mg oral tablet) 2 tablets on day 1, then 1 tablet on days 2-5, Oral, as directed x 5 day(s) New Routed to [facility] [address] [place] [address] busPIRone (busPIRone) See Instructions 15 mg in the am and 30 mg in the pm calcium-vitamin D (Os-Joe 250 with D) cetirizine (ZyrTEC) 10 mg, Oral, once a day clotrimazole topical (Clotrimazole-7 vaginal cream with applicator) 1 sylvester, Vaginal, once a day (at bedtime) New Routed to [facility] [address] [place] [address] doxycycline (doxycycline) 100 mg, Oral, two times a day duloxetine (Cymbalta) 60 mg, Oral, once a day fluconazole (Diflucan 150 mg oral tablet) 1 Tablet(s), Oral, once New Routed to [facility] [address] [place] [address] gabapentin (Neurontin 600 mg oral tablet) See [...] the Following Medications: Medication list as of 09-19-15 13:25 Attention: If you have any medications at [...] Electronically Signed By: MING NI MD Signed On:19-SEP-2015 13:25:06 Your Allergies & Intolerances Substance Reaction Symptoms [...] if you dont have one. Go to [email or web address] and click on Create Your Account. Then, follow the directions to complete the online form. Youll be asked for your [facility] number which you can find at the top of this document. Your Goals/Additional instructions: Source: [facility] POWERCHART Document Id: [id number] OL SPEECH LANGUAGE PATHOLOGIST Miscellaneous - Ming Ni M.D. - 09/19/2015 1:25 PM CST Ambulatory Discharge Medication List [address] [id number] Visit Information Name: DEEPAK DIAMai CARPIO [facility] Number: [id number] Visit Date: 09/19/2015 13:25:17 Attending Provider: MING NI MD Primary Care Provider: RAFA ZAMAN MD DIA SOTELOE has been given the following list of medications: Your Medications It is important to take your medications as directed. Use a pill box or chart to help remind you to take your medications. Please let your doctor or nurse know if you have problems taking your medications. Medication/Strength How to Take Indications/Special Instructions/Comments/Notes for Patient Medication Changes/Routing azithromycin (Zithromax Z-Roger 250 mg oral tablet) 2 tablets on day 1, then 1 tablet on days 2-5, Oral, as directed x 5 day(s) New Routed to [facility] [address] [place] [address] busPIRone (busPIRone) See Instructions 15 mg in the am and 30 mg in the pm calcium-vitamin D (Os-Joe 250 with D) cetirizine (ZyrTEC) 10 mg, Oral, once a day clotrimazole topical (Clotrimazole-7 vaginal cream with applicator) 1 sylvester, Vaginal, once a day (at bedtime) New Routed to [facility] [address] [place] [address] doxycycline (doxycycline) 100 mg, Oral, two times a day duloxetine (Cymbalta) 60 mg, Oral, once a day fluconazole (Diflucan 150 mg oral tablet) 1 Tablet(s), Oral, once New Routed to [facility] [address] [place] [address] gabapentin (Neurontin 600 mg oral tablet) See [...] the Following Medications: Medication list as of 09-19-15 13:25 Attention: If you have any medications at [...] Electronically Signed By: MING NI MD Signed On:19-SEP-2015 13:25:06 Additional Information: Source: [facility] POWERCHART Document Id: [id number] OL SPEECH LANGUAGE PATHOLOGIST Miscellaneous - Man Rivas C.MNancy - 09/19/2015 1:02 PM CST Adult Ventilated Rib Fitter Intake/History Adult Ventilated Rib Fitter Intake/History Entered On: 09/19/2015 13:05 SCHOOL SPEECH LANGUAGE PATHOLOGIST Performed On: 09/19/2015 13:02 SCHOOL SPEECH LANGUAGE PATHOLOGIST by MAN RIVAS [facility] Intake Chief Complaint : Patient presents with cough, fever, sore throat for over a week. Patient has chronic fatigue syndrome. Patient also complains of a yeast infection. Temperature Core : 37.2 DegC(Converted to: 99.0 DegF) Peripheral Pulse Rate : 64 /min Systolic Blood Pressure : 118 mmHg Diastolic Blood Pressure : 74 mmHg NIBP Mean : 89 mmHg BP Location : Right upper extremity Blood Pressure Cuff Size : Regular SpO2 : 100 % Oxygen Therapy : Room air Height : 164.25 cm(Converted to: 5 ft 5 inch(es), 65 inch(es)) Actual Weight : 72.3 kg(Converted to: 159 lb 6 oz) Weight Source : Standing scale Dosing Weight Clinic : 72.3 kg Clinic BSA : 1.82 Body Mass Index : 26.8 kg/m2 MAN RIVAS CMA - 09/19/2015 13:02 SCHOOL SPEECH LANGUAGE PATHOLOGIST General Info Information Given By : Patient Preferred Communication Mode : Verbal Languages : Azeri Is Patient Female and 13-50 no hysterectomy : No MAN RIVAS CMA - 09/19/2015 13:02 SCHOOL SPEECH LANGUAGE PATHOLOGIST Subjective Pain Symptoms : Yes MAN RIVAS CMA - 09/19/2015 13:02 SCHOOL SPEECH LANGUAGE PATHOLOGIST Pain Scale Pain Scale Verbal 0-10 : Open MAN RIVAS CMA - 09/19/2015 13:02 SCHOOL SPEECH LANGUAGE PATHOLOGIST Pain Pain Assessment Grid Pain 1 Location : Throat Intensity : 7 MAN RIVAS [facility] - 09/19/2015 13:02 SCHOOL SPEECH LANGUAGE PATHOLOGIST Dependent Habits Exposure to Tobacco Smoke : Care provider denies smoking in home Smoking Status : Unknown if ever smoke Tobacco 2A : Unknown Tobacco Use/Currently Using : No Tobacco Use/Last 30 Days : No Tobacco Use/Last 12 months : No MAN RIVAS [facility] - 09/19/2015 13:02 SCHOOL SPEECH LANGUAGE PATHOLOGIST [facility] [employer] Document Id: [id number] SCHOOL SPEECH LANGUAGE PATHOLOGIST!39 OL SPEECH LANGUAGE PATHOLOGIST documented in this encounter Plan of Treatment Not on filedocumented as of this encounter Visit Diagnoses Not on filedocumented in this encounter Additional Health Concerns Assessment Noted Time PHQ-9 Depression Total Score: 9 09/03/2014 3:39 PM SCHOOL SPEECH LANGUAGE PATHOLOGIST documented as of this encounter
--- OUTSIDE RECORDS SUMMARY | 2022-03-04 19:02 | XMS_ITS | Encounter Summary ---
:1960 Author Organization [facility] Address [address] [place] [address] Care Team Providers Name Role Phone Unavailable Primary Care Provider Unavailable Encounter Details Date Type Department Care Team Description 09/04/2014 Hospital Encounter HX [facility] Bere Adams M.D. [address] [place] [phone] (Wo rk) Social History Tobacco Use Types Packs/Day Years Used Date Smoking Tobacco: Never Assessed Sex Assigned at Date Recorded Not on file documented as of this encounter Last Filed Vital Signs Vital Sign Reading Time Taken Comments Blood Pressure 124/78 09/04/2014 4:35 PM STAMPING DIE TRY OUT WORKER Pulse - - Temperature - - Respiratory Rate - - Oxygen Saturation - - Inhaled Oxygen Concentration - - Weight - - Height 163 cm (5' 4.17) 09/04/2014 4:35 PM STAMPING DIE TRY OUT WORKER Body Mass Index - - documented in this encounter Medications at Time of Discharge Medication Sig Dispensed Refills Start Date End Date fluticasone propionate Administer 1 spray 0 01/04 (FLONASE) 50 into affected mcg/actuation nasal spray nostril(s). rizatriptan ENTERPRISE SOFTWARE ENGINEER Place 10 mg under 0 11/09/2010 (MAXALT-ENTERPRISE SOFTWARE ENGINEER) 10 mg the tongue. disintegrating tablet calcium carb/vit Os-Joe 250 with D 0 03/30/2010 0 02/05/2021 D3/minerals (CALCIUM-VITAMIN D ORAL) documented as of this encounter Miscellaneous Notes Miscellaneous - Megan Henderson, L.P.N. - 09/04/2014 4:35 PM CST Ambulatory Vitals Height Weight Document Has Been Updated Ambulatory Vitals Height Weight Entered On: 09/04/2014 16:35 STAMPING DIE TRY OUT WORKER Performed On: 09/04/2014 16:35 STAMPING DIE TRY OUT WORKER by MEGAN HENDERSON LPN Vitals/Ht/Wt Systolic Blood Pressure : 124 mmHg MEGAN HENDERSON LPN - 09/04/2014 16:35 STAMPING DIE TRY OUT WORKER Diastolic Blood Pressure : 78 mmHg NIBP Mean : 93 mmHg MEGAN HENDERSON LPN - 09/04/2014 16:36 STAMPING DIE TRY OUT WORKER Height : 163 cm(Converted to: 5 ft 4 inch(es), 64 inch(es)) MEGAN HENDERSON LPN - 09/04/2014 16:35 STAMPING DIE TRY OUT WORKER Source: [facility] POWERCHART Document Id: [id number] STAMPING DIE TRY OUT WORKER!4 PING DIE TRY OUT WORKER documented in this encounter Plan of Treatment Not on filedocumented as of this encounter Visit Diagnoses Not on filedocumented in this encounter Additional Health Concerns Assessment Noted Time PHQ-9 Depression Total Score: 9 09/03/2014 3:39 PM STAMPING DIE TRY OUT WORKER documented as of this encounter
--- OUTSIDE RECORDS SUMMARY | 2022-03-04 19:02 | XMS_ITS | Encounter Summary ---
:1960 Author Organization [facility] Address [address] [place] [address] Care Team Providers Name Role Phone Unavailable Primary Care Provider Unavailable Encounter Details Date Type Department Care Team Description 03/05/2016 Hospital Encounter HX [facility] Ming Luque M.D. [address] [place] [phone] (Wo rk) Social History Tobacco Use Types Packs/Day Years Used Date Smoking Tobacco: Never Assessed Sex Assigned at Date Recorded Not on file documented as of this encounter Last Filed Vital Signs Vital Sign Reading Time Taken Comments Blood Pressure 152/88 03/05/2016 1:36 PM CDT Pulse 61 03/05/2016 1:36 PM CDT Temperature - - Respiratory Rate - - Oxygen Saturation - - Inhaled Oxygen Concentration - - Weight 71.5 kg (157 lb 10.1 oz) 03/05/2016 1:36 PM CDT Height 164 cm (5' 4.57) 03/05/2016 1:36 PM CDT Body Mass Index 26.58 03/05/2016 1:36 PM CDT documented in this encounter Medications at Time of Discharge Medication Sig Dispensed Refills Start Date End Date calcium carbonate Take by mouth. 0 11/03/2015 (OS-ASIF) 1,250 mg (500 mg calcium) tablet cetirizine 10 mg capsule Take 10 mg by mouth. 0 0 09/30/2014 fluticasone propionate Administer 1 spray 0 01/04 (FLONASE) 50 into affected mcg/actuation nasal spray nostril(s). rizatriptan ARTS EDUCATION TEACHER Place 10 mg under 0 11/09/2010 (MAXALT-ARTS EDUCATION TEACHER) 10 mg the tongue. disintegrating tablet calcium carb/vit Os-Asif 250 with D 0 03/30/2010 0 02/05/2021 D3/minerals (CALCIUM-VITAMIN D ORAL) HYDROcodone-acetaminophen Take 1 tablet by 0 10/201510/24/2018 (NORCO) 5-325 mg per mouth. tablet documented as of this encounter Progress Notes Ming Ni M.D. - 03/05/2016 3:13 PM CDT Clinic Full Note CHIEF COMPLAINT/REASON FOR VISIT 1) Facial acne. On Doxy for it and feels like its not working as well 2) BP follow up. Discuss switching from lanbetolol HISTORY OF PRESENT ILLNESS 55 year old female presents today for acne and blood pressure medication. She has been taking Doxycycline for acne on face, not working any more; Has been on Labetalol for hypertension, blood pressure is high, and was recommended by Dr. Zaman for medication adjustment. Has primary doctor at [facility](Dr. Ledesma and Dr. Gonzalez), preventive and labs are done there and up to date. MEDICATIONS Ativan, 1 mg, PO, PRN busPIRone, [...] Reglan (Panic attack) PAST MEDICAL HISTORY Chronic Acne Cystic Anxiety neurosis Chronic Fatigue Syndrome (CFS) COPD* Depression* Hypertension (HTN) Chronic Historical No historical problems PROCEDURES/SURGICAL HISTORY Mammogram (03/25/2015), Pap smear (02/05/2015), Colonoscopy (09/08/2013), History of knee surgery, Hyperhidrosis. SOCIAL HISTORY Date Time: 03/05/2016 13:36 Tobacco: Smoking Status: Never smoker Exposure: Care provider denies smoking in home Alcohol: Use: No Results Found Recreational Drugs: Use: No Results Found Type: No Results Found FAMILY HISTORY Mother:Positive: Hypertension Father:Positive: Hypertension Brother:Positive: Hypertension Brother:Positive: Hypertension Brother:Positive: Hypertension Sister:Positive: [place] - Breast cancer HEALTH MAINTENANCE Up to date. SYSTEMS REVIEW All other systems review are negative except acne on face and high blood pressure. VITAL SIGNS T: 37.3 ??C (Core) HR: 61 BP: 152 / 88 SpO2: 100% HT: 164 cm WT: 71.5 kg BMI: 26.58 PHYSICAL EXAMINATION GENERAL: alert, oriented, normal speech, pleasant. SKIN: cystic acne on lower chin and cheek, 3 lesions seen today, no discharge. LUNGS: clear to auscultation, no wheezing or rales. HEART: normal sinus rhythm, normal S1, S2, no murmurs. NEUROLOGY: no deficits noticed. PSYCHIATRY: alert and oriented to time, person and place, normal affect, and stable mood. IMPRESSION/REPORT/PLAN Acne Cystic Adult acne, Doxycycline not helping. Recommended patient to try spironolactone, as this medication has been used for adult acne with positive results. She should stop Doxycycline. Dose of spironolactone needs to be increased if needed. Hypertension (HTN) Chronic Blood pressure elevated, heart rate 61. Discussed common recommended medication for hypertension, recommended her to try metoprolol, and starting at 25 mg, 2 times daily, her blood pressure might be controlled better with metoprolol plus spironolactone. Orders: metoprolol, 25 mg = 1 tab(s), PO, 2xDay, # 60 tab(s), 5 Refill(s), Maintenance, [facility] spironol[facility]one, 25 mg = 1 tab(s), PO, Daily, # 30 tab(s), 3 Refill(s), Maintenance, [facility] Recommended patient to update her medications with her primary doctors. Electronically Signed By: MING NI MD On: 03/05/2016 03:20 PM Source: [facility] POWERCHART Document Id: [id number] documented in this encounter Miscellaneous Notes Miscellaneous - Ming Ni M.D. - 03/05/2016 2:01 PM CDT Ambulatory Patient Summary [address] [id number] Visit Information Name: AILYN SOTELO [facility] Number: [id number] Current Date: 03/05/2016 14:01:25 Physicians Attending Provider: MING NI MD Primary [...] nasal (Flonase 50 mcg/inh nasal spray) 2 Hanover(s), Nostrils(Both), once a day gabapentin (Neurontin 600 mg oral tablet) See Instructions 300mg q am and 600mg q pm lorazepam (Ativan) 1 mg, Oral, as needed Stop Taking the Following Medications: doxycycline (doxycycline) labetalol (labetalol) Medication list as of 03-05-16 14:01 Attention: If you have any medications at [...] Electronically Signed By: MING NI MD Signed On:05-MAR-2016 14:01:21 Your Allergies & Intolerances Substance Reaction Symptoms [...] if you dont have one. Go to [email or web address] and click on Create Your Account. Then, follow the directions to complete the online form. Youll be asked for your [facility] number which you can find at the top of this document. Your Goals/Additional instructions: Source: [facility] POWERCHART Document Id: [id number] Miscellaneous - Mign Ni M.D. - 03/05/2016 2:01 PM CDT Ambulatory Discharge Medication List [address] [id number] Visit Information Name: AILYN SOTELO [facility] Number: [id number] Visit Date: 03/05/2016 14:01:25 Attending Provider: MING NI MD Primary Care [...] nasal (Flonase 50 mcg/inh nasal spray) 2 Hanover(s), Nostrils(Both), once a day gabapentin (Neurontin 600 mg oral tablet) See Instructions 300mg q am and 600mg q pm lorazepam (Ativan) 1 mg, Oral, as needed Stop Taking the Following Medications: doxycycline (doxycycline) labetalol (labetalol) Medication list as of 03-05-16 14:01 Attention: If you have any medications at [...] Electronically Signed By: MING NI MD Signed On:05-MAR-2016 14:01:21 Additional Information: Source: [facility] POWERCHART Document Id: [id number] Miscellaneous - Nataly Cardoso R.MNancy - 03/05/2016 1:36 PM CDT Adult Rubber Press Operator Intake/History Adult Rubber Press Operator Intake/History Entered On: 03/05/2016 13:39 CDT Performed On: 03/05/2016 13:36 CDT by NATALY CARDOSO Intake Chief Complaint : 1) Facial acne. On Doxy for it and feels like its not working as well 2) BP follow up. Discuss switching from lanbetolol Temperature Core : 37.3 DegC(Converted to: 99.1 DegF) Peripheral Pulse Rate : 61 /min Systolic Blood Pressure : 152 mmHg (HI) Diastolic Blood Pressure : 88 mmHg NIBP Mean : 109 mmHg SpO2 : 100 % Oxygen Therapy : Room air Height : 164 cm(Converted to: 5 ft 5 inch(es), 65 inch(es)) Actual Weight : 71.5 kg(Converted to: 157 lb 10 oz) Dosing Weight Clinic : 71.5 kg Clinic BSA : 1.8 Body Mass Index : 26.58 kg/m2 NATALY CARDOSO - 03/05/2016 13:36 CDT General Info Languages : Polish Is Patient Female and 13-50 no hysterectomy : No NATALY CARDOSO - 03/05/2016 13:36 CDT Subjective Pain Symptoms : No NATALY CARDOSO [facility] - 03/05/2016 13:36 CDT Dependent Habits Exposure to Tobacco Smoke : Care provider denies smoking in home Smoking Status : Never smoker Tobacco 2A : No Tobacco Use/Currently Using : No Tobacco Use/Last 30 Days : No Tobacco Use/Last 12 months : No NATALY CARDOSO - 03/05/2016 13:36 CDT [facility] Document Id: [id number] CDT!27 documented in this encounter Plan of Treatment Not on filedocumented as of this encounter Visit Diagnoses Not on filedocumented in this encounter Additional Health Concerns Assessment Noted Time PHQ-9 Depression Total Score: 2 10/14/2015 4:09 PM CDT documented as of this encounter
--- NOTE | 2022-03-04 19:26 | ED.NURSE ---
DEC Bed ID received. Pt monitored via camera by staff and security for Pt safety. Meal tray provided, okay with . Pt updated with plan for pending transfer and process of psych bed search. Pt verbalizes understanding of lengthy process, agreeable to change into paper scrubs per protocol. Security inventoried belongings and Pt aware they will be kept in secure room. Pt states she took scheduled Gabapentin prior to belongings being removed from room. MD aware. Pt verbalizes anxiety, but cooperative and pleasant with staff. Safety call light within reach. Report given to DEAN Garrett.
[2022-03-04 19:43] LABS: Ethanol* < 0.01 % (0.01-0.03)
--- NOTE | 2022-03-04 20:00 | ED.NURSE ---
patient resting in bed, requests tylenol for post sx hip pain, MD Espinoza updated. pt denies any other concerns.
[2022-03-04] MEDS: ACETAMINOPHEN 500 MG TABLET 1000 MG PO (20:03)
--- NOTE | 2022-03-04 21:09 | ED.NURSE ---
[facility] accepted pt -MD luis alberto juarez
[2022-03-04 22:00] VITALS: BP 131/77; PULSE 66; RESP 18; TEMP 36.9; O2SAT 98
--- NOTE | 2022-03-04 22:24 | ED.NURSE ---
report to [facility] ems at pt bedside, pt transported.
--- NOTE | 2022-03-04 22:27 | ED.NURSE ---
call back to updated [facility] on pt transport, updated report given to ricco.
== END 2022-03-04 22:00 ==
PROVIDERS: Emergency Provider Family Medicine
DX: F32.A Depression, unspecified (principal); R45.851 Suicidal ideations; F41.8 Other specified anxiety disorders
CPT/HCPCS: 36415; 80048; 80143; 80179; 80306; 81003; 81015; 82077; 84443; 85025; 87635; 99285; A9270

== ENCOUNTER 2024-08-28 10:32 | Outpatient (CLI) | payer OTHER, SELFPAY ==
--- NOTE | 2024-08-28 11:58 | P.ANES_ITS ---
Anesthesia Charges Start Date/Time Anesthesia Start Date: 08/28/24 Anesthesia Start Time: 11:29 Stop Date/Time Anesthesia Stop Date: 08/28/24 Anesthesia Stop Time: 11:54 Coding CPT Codes CPT Codes: CHEMO LWR INTST NDSC NOS - 50488 ([id number]) P2 - PATIENT W/MILD SYST DISEASE, QK - DAIRY SCIENCE TEACHER 2-4 CNCRNT ANES PROC, QX - TEST DESK TROUBLE LOCATOR SVC W/ MD MED DIRECTION
--- NOTE | 2024-08-28 11:58 | W.ANESCHARGE ---
Anesthesia Charges Start Date/Time Anesthesia Start Date: 08/28/24 Anesthesia Start Time: 11:29 Stop Date/Time Anesthesia Stop Date: 08/28/24 Anesthesia Stop Time: 11:54 Coding CPT Codes CPT Codes: CHEMO LWR INTST NDSC NOS - [id number] ([id number]) P2 - PATIENT W/MILD SYST DISEASE, QK - SERVICE STATION CASHIER 2-4 CNCRNT ANES PROC, QX - PARI MUTUAL TICKET CHECKER SVC W/ MD MED DIRECTION
--- NOTE | 2024-08-28 12:23 | P.ANES_ITS ---
Anesthesia Charges Start Date/Time Anesthesia Start Date: 08/28/24 Anesthesia Start Time: 11:29 Stop Date/Time Anesthesia Stop Date: 08/28/24 Anesthesia Stop Time: 11:54 Coding CPT Codes CPT Codes: ANES LWR INTST NDSC NOS - [id number] ([id number]) QX - SUPERVISOR INSECTICIDE SVC W/ MD MED DIRECTION, QK - GROUNDSMAN 2-4 CNCRNT ANES PROC, P2 - PATIENT W/MILD SYST DISEASE
--- NOTE | 2024-08-28 12:23 | W.ANESCHARGE ---
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
== END 2024-08-28 10:33 | disposition home or self-care (01) ==
LOC: OP CLINIC 10:33
PROVIDERS: Visit Provider Surgery
DX: Z12.11 Encounter for screening for malignant neoplasm of colon (principal); D12.5 Benign neoplasm of sigmoid colon; D12.7 Benign neoplasm of rectosigmoid junction; Z86.0100 Personal history of colon polyps, unspecified
CPT/HCPCS: 00811; 45380; 45385; 88305; J2704